=== PATIENT | male | born 1955 | race Caucasian/White ===

== ENCOUNTER 2016-07-07 16:43 | Inpatient (IN) ==
[2016-07-07] MEDS ORDERED: TYLENOL PO PRN (16:45)
[2016-07-07] MEDS ORDERED: ZOFRAN IV PRN (16:45)
[2016-07-07 18:44] LABS: MANUAL DIFF NEEDED? NO
[2016-07-07 18:58] LABS: BASO% 0.3 % (0.0-0.8); EOS# 0.08 X1000 (0.0-0.7); EOS% 0.6 % (0.0-10.0); HEMATOCRIT 37.8 % (42.0-52.0); IMM GRAN% 0.7 % (0.0-0.5); LYMPH# 1.56 X1000 (1.2-3.4); LYMPH% 10.7 % (20.5-51.1); MCHC 34.4 g/dL (33-37); MCV 101.9 FL (81-99); MONO# 1.42 X1000 (0.11-0.59); MONO% 9.8 % (1.7-9.3); MPV 11.5 FL (7.4-10.4); NEUT% 77.9 % (42.2-75.2); PLT 238 X1000 (130-400); RBC 3.71 XMIL (4.7-6.1)
[2016-07-07 19:19] LABS: DIRECT BILIRUBIN 6.5 mg/dL (0.00-0.20)
[2016-07-07 19:32] LABS: AGAP 15; ALBUMIN 2.2 g/dL (3.5-5.0); ALKALINE PHOSPHATASE 470 U/L (32-122); AMYLASE 25 U/L (20-200); BUN 23 mg/dL (8-22); CALCIUM 8.1 mg/dL (8.8-10.2); CHLORIDE 100 mmol/L (98-107); COSMO 285; GOT 137 U/L (10-34); GPT 69 U/L (10-44); POTASSIUM 4.2 mmol/L (3.5-5.1); SODIUM 135 mmol/L (136-145); TCO2 20 mmol/L (25-35); TOTAL BILIRUBIN 8.92 mg/dL (0.20-1.00); TOTAL PROTEIN 5.6 g/dL (6.3-8.3)
--- NOTE | 2016-07-07 19:36 | HISTORY AND PHYSICAL ---
CHIEF COMPLAINT: Nausea, vomiting, abdominal pain, and pronounced jaundice with hyperbilirubinemia. HISTORY OF PRESENT ILLNESS: The patient is a 61-year-old white male, followed in my medical practice. He is also followed by Dr. Sid Hurley. He has had several days of icterus and jaundice and abdominal bloating and diffuse abdominal pain. He has had nausea and vomiting off and on of bilious vomiting and has not been able to eat well. He describes a lack of energy. He has been followed in the hospital recently and was found to have pronounced hyperbilirubinemia recently, and he was admitted and workup up with studies, which were negative for biliary obstruction. The patient was thought to have hepatocellular cause of his hyperbilirubinemia. In fact, Dr. Hurley has suspected the patient's symptoms are caused by Zosyn and a cephalosporin he was on for osteomyelitis of the left foot for around 4 months. He has been followed by Dr. Williamson for that. The patient was considered for outpatient liver biopsy, but has done poorly, so he is being readmitted to the hospital due to intolerable symptoms. The patient has been workup with previous hospitalization with CT scan of the abdomen and pelvis, MRI abdomen, abdominal ultrasound, CT pulmonary angiogram, and HIDA scan. The patient was also seen by Dr. Nickolas Larsen for evaluation of his gallbladder, as there was a contracted gallbladder on some of the studies with some mild gallbladder wall thickening. Dr. Larsen did not feel like his symptoms were related to gallbladder disease at this time and elected to follow the patient. Notably, the patient also has had a rash develop on his chest earlier today. MEDICATIONS PRIOR TO ADMISSION: Albuterol MDI 2 puffs 4 times daily, Tessalon 200 mg p.o. t.i.d., Protonix 40 mg p.o. daily, Humulin 70/30 insulin 44 units subcutaneously every a.m., 24 units subcutaneously every p.m., losartan 100 mg p.o. daily. ALLERGIES: NKDA. PAST MEDICAL HISTORY: 1. "History of easy bleeding" per the patient's report. 2. Type 2 diabetes mellitus, longstanding, requiring insulin. 3. Diabetic retinopathy. 4. Peripheral arterial disease with history of stent placement to the left lower extremity in the last year. 5. History of osteomyelitis and diabetic foot ulcer on the left requiring amputation of his 2nd and 3rd toes on the left. 6. History of traumatic amputation to right great toe in 1964 with a supervisor gluing accident. 7. History of DVT of the right arm associated with PICC line in February 2016, on Xarelto until recently when this was stopped within the past week due to consideration for liver biopsy. PAST SURGICAL HISTORY: 1. Right toe traumatic amputation in 1964. 2. Amputations to the 2nd and 3rd toes on the left in January 2016. 3. Stent placement, left leg, in 2015. FAMILY HISTORY: Notable for a brother BAILON. No free bleeders in the family. Father with CAD at age 65. Mother and father with lung cancer. No hypertension or strokes in the family. Father and mother with diabetes mellitus. SOCIAL HISTORY: The patient lives in [place]. He is . He has 2 children. 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 He has never been a smoker. He does not drink alcohol. REVIEW OF SYSTEMS: As above. PHYSICAL EXAMINATION: VITAL SIGNS: Weight 244. Blood pressure 128/88, pulse 88, temperature 98.6 degrees. GENERAL: A mildly obese white male. HEENT/SKIN: [id number] ill-appearing skin. Icterus noted at the eyes and jaundice of the skin prominent. PERRL. EOMI. OP, no redness. Tongue in the midline. Mild red-tipped rash, about 20 of these lesions over the anterior chest and upper abdomen. NECK: No LA, TMG, JVD, bruits. CARDIOVASCULAR: RRR without murmur. LUNGS: CTA. ABDOMEN: Prominent distention. Active bowel sounds. Tender diffusely. No mass or organomegaly identified. RECTAL: Exam deferred. GENITOURINARY: Deferred. EXTREMITIES: He has 2+ lower extremity edema without calf tenderness or cords. NEUROLOGIC: Cranial nerves 2 through 12 intact. Nonfocal. ASSESSMENT: 1. Pronounced hyperbilirubinemia with no definitive diagnosis yet, but suspected hepatocellular cause, consideration for Zosyn/cephalosporin prolonged use as source. 2. Positive anti-nuclear antibody. 3. History of osteomyelitis, left foot, requiring 2nd and 3rd toe amputations, followed by Dr. Williamson. 4. Insulin dependent diabetes mellitus. 5. Diabetic retinopathy. 6. Peripheral arterial disease. 7. History of noncompliance remotely. 8. History of deep vein thrombosis of the right arm in late 2016, now off anticoagulation of Xarelto. PLAN: At this time, we will admit the patient back to the hospital and repeat CT of the abdomen and pelvis with oral and IV contrast. Check extensive labs. We will hold the Xarelto, as the patient is being considered for liver biopsy and possible ERCP. I have spoken with Dr. Hurley, his service station equipment mechanic, and he will follow with us to see the patient in the morning. We will give him treatment with Dilaudid and Zofran for nausea and pain control. Place pneumatic compression hose to help prevent DVT.
[2016-07-07] MEDS: NS + KCL 20 MEQ 1,000 ML IV SCH (20:12)
[2016-07-07] MEDS: VENTOLIN HFA INH SCH (21:00)
[2016-07-07] MEDS: COZAAR PO SCH (21:10)
[2016-07-07] MEDS: TEMOVATE 0.05% CREAM TOP SCH (21:10)
[2016-07-07] MEDS: HUMULIN R SUBQ SCH (21:40)
[2016-07-08] MEDS: VENTOLIN HFA INH SCH ×3 (03:00→19:58)
[2016-07-08 05:08] LABS: INR 1.48; PROTIME 15.8 Seconds (9.2-11.7); PTT 37.1 Seconds (22.0-36.0)
[2016-07-08] MEDS: DILAUDID IV PRN (06:10)
[2016-07-08] MEDS ORDERED: VITAMIN K 10 MG in NS 50 ML IV ONE (06:48)
--- NOTE | 2016-07-08 07:50 | Diag Imaging Result Document ---
PROCEDURE NAME: ABDOMEN/PELVIS W/CONTRAST - 07/07/2016 CT ABDOMEN PELVIS WITH INTRAVENOUS CONTRAST, 07/07/2016: COMPARISON: 06/24/2016. FINDINGS: The lung bases are clear and the heart size is grossly normal. There is a moderate amount of ascites which has increased since prior. The liver is atrophic and micronodular. Spleen size is grossly normal. Superior mesenteric vein, splenic vein, main portal vein and major hepatic veins are patent. The gallbladder is partially collapsed and otherwise unremarkable. Stable borderline enlarged celiac axis lymph nodes. No bowel obstruction or inflammation. Normal appendix. Urinary bladder, prostate, and rectum are normal. There is moderately advanced degeneration throughout the spine. No acute bony lesions. IMPRESSION: 1. Cirrhosis with a small amount of ascites, increased from prior. 2. Stable periportal adenopathy.
[2016-07-08] MEDS: HUMULIN R SUBQ SCH ×4 (10:45→22:12)
[2016-07-08 10:48] LABS: INR 1.46; PROTIME 15.5 Seconds (9.2-11.7); PTT 36.6 Seconds (22.0-36.0)
[2016-07-08] MEDS: PROTONIX PO SCH (11:27)
[2016-07-08] MEDS: CENTRUM SILVER PO SCH (11:27)
[2016-07-08] MEDS: TEMOVATE 0.05% CREAM TOP SCH ×2 (11:28→22:13)
--- NOTE | 2016-07-08 13:48 | Diag Imaging Result Document ---
PROCEDURE NAME: US LIVER BIOPSY W S/I - 07/08/2016 ULTRASOUND-GUIDED BIOPSY OF THE LIVER: COMMENT: The risks and benefits of the procedure including the possibility of bleeding, infection, or reaction to lidocaine were discussed with the patient and he agreed. Following sterile preparation of the skin administration of 1% lidocaine to the skin and deeper soft tissues, the left hepatic lobe was biopsied anteriorly 3 times with a coaxial 18-gauge Temno core biopsy needle. The patient tolerated the procedure well and there are no immediate complications. IMPRESSION: Successful ultrasound-guided liver biopsy.
[2016-07-08] MEDS ORDERED: NS 500 ML IV ONE (15:49)
[2016-07-08 16:22] LABS: MANUAL DIFF NEEDED? NO
[2016-07-08 16:30] LABS: BASO% 0.2 % (0.0-0.8); EOS# 0.04 X1000 (0.0-0.7); EOS% 0.3 % (0.0-10.0); HEMATOCRIT 34.1 % (42.0-52.0); HEMOGLOBIN 11.6 g/dL (14.0-18.0); IMM GRAN# 0.09 X1000 (0.0-0.04); IMM GRAN% 0.7 % (0.0-0.5); LYMPH# 1.46 X1000 (1.2-3.4); LYMPH% 11.1 % (20.5-51.1); MCH 35.4 PG (27-31); MONO# 1.34 X1000 (0.11-0.59); MONO% 10.2 % (1.7-9.3); MPV 11.4 FL (7.4-10.4); NEUT% 77.5 % (42.2-75.2); PLT 211 X1000 (130-400); RBC 3.28 XMIL (4.7-6.1)
--- NOTE | 2016-07-08 17:37 | ECHO REPORT ---
ORDER DATE: 07/08/2016 INDICATION: Possible vegetation, nausea, vomiting, jaundice. FINDINGS: 1. Right atrium is normal size at 3.1 cm. 2. No significant tricuspid regurgitation is identified. 3. Normal RV size and systolic function. 4. No significant pulmonic insufficiency. 5. Mild left atrial enlargement at 4.7 cm. 6. No mitral prolapse. Trace mitral regurgitation. 7. Normal LV size, end-diastolic dimension of 4.8 cm. There is mild left ventricular hypertrophy with a posterior and interventricular septal wall thickness 1.3 cm each. Normal LV systolic function. The estimated EF is greater than 55%. Endocardial border resolution on some images is difficult to visualize. 8. Aortic valve opens well. No evidence of stenosis or insufficiency. 9. Aorta appears normal in visualized segments. 10. No pericardial effusion seen. 11. There is no clear evidence of valvular vegetation on this study. If clinical suspicion is high would consider transesophageal echo.
[2016-07-08] MEDS: NS + KCL 20 MEQ 1,000 ML IV SCH (17:46)
[2016-07-08] MEDS: COZAAR PO SCH (22:10)
--- NOTE | 2016-07-09 02:35 | CONSULTATION ---
DATE OF CONSULTATION: 07/08/2016 GASTROENTEROLOGY INPATIENT CONSULTATION: OPERATIVE PHYSICIAN: Dr. Meyer. REASON FOR CONSULTATION: Elevated liver enzymes, jaundice. HISTORY OF PRESENT ILLNESS: Mr. Go is a 61-year-old male who was recently discharged 2 weeks ago after workup of his new onset of elevated liver enzymes and jaundice. At that time, his imaging, CT, MRI and hepatitis panel hemochromatosis workup was negative and at that time the positive findings were positive antinuclear antibody, gallbladder dyskinesia and positive HIDA scan. The last 2 weeks the patient has not felt any better. He complains of abdominal bloating, discomfort and worsening icterus, lack of energy. He presented to the hospital. His bilirubin was slightly worse. Imaging at this time showed evidence of liver cirrhosis, a small amount of fluid around the liver. There was evidence of periportal adenopathy which was stable. The patient had a history of osteomyelitis of the foot for which he was on antibiotics with Zosyn and ceftaroline for 4 months under care of Infectious Disease in [place]. Prior to that, based on the records his liver enzymes are normal. Although he did have the risk factors for chronic liver disease, lymphoma, obesity, diabetes, and metabolic syndrome. But we were concerned about chronic fatty liver disease versus autoimmune liver disease as he has a positive KATIE versus drug-induced liver disease secondary to prolonged use of antibiotics. In this regard the patient underwent liver biopsy today, the results are currently pending. PAST MEDICAL HISTORY: 1. History of easy bleeding. 2. Type 2 diabetes. 3. Obesity. 4. Diabetic retinopathy. 5. Peripheral arterial disease. 6. History of stent placement in the left lower extremity in the last year. 7. History of osteomyelitis and diabetic foot ulcer requiring amputation of 2nd and 3rd toes and requiring 4 months of antibiotics, finishing in June 2016. 8. Traumatic amputation of the right great toe in 1964 with a senior front end engineer accident. 9. History of a DVT in the right arm associated with PICC line in February 2016, was started on Xarelto, which has been stopped last week. PAST SURGICAL HISTORY: Right toe traumatic amputation in 1964, amputation of 2nd and 3rd toes on the left in January 2016, stent placement in left leg in 2015. FAMILY HISTORY: Significant for a brother with BAILON who , father with history of Crohn's disease, mother and father with lung cancer, father and mother both with diabetes. SOCIAL HISTORY: He lives in [place]. He is . He has 2 children. 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 He has a very supportive at bedside. He denies history of alcohol. Denies any smoking. Denies any history of drugs. REVIEW OF SYSTEMS: He denies any current fevers, rigors, or chills. Does complain of fatigue, malaise, and swelling in his legs, and feels bloated. Denies any vomiting blood or passing blood in the stools. Denies any urological complaints. Denies any blood in the urine. PHYSICAL EXAMINATION: Vital Signs: Temperature 97.6 degrees, pulse of 84, respiratory rate of 17, blood pressure 113/67, saturating 94%. Repeat blood pressure check was 92/ 58, saturating 92%. General Appearance: Obese, lying in bed, in no acute distress. HEENT: Pale conjunctivae. Icteric sclerae. The pupils equal, react to light. Neck: Supple. Chest: Decreased. Cardiac: Regular rhythm. No murmur. Abdomen: Obese, soft. Nontender, nondistended. Bowel sounds heard. No rebound or guarding. Extremities: Bilateral lower extremities as noted., Neurologic: Alert, awake, oriented x3. LABS: Hemoglobin and hematocrit is 13 and 37.8, white count of 14.5, platelet count of 238,000, MCV of 101.9, PT of 15.5, INR of 1.46, PTT of 36.6. Sodium of 135, potassium 4.2, chloride 100, bicarbonate 20, anion gap of 15, BUN of 23, creatinine 0.8, glucose of 293, calcium 8.1, total bilirubin is 8.9, direct of 6.5, AST 137, ALT 69, alkaline phosphatase is 470, total protein 5.6, albumin of 2.2. Amylase of 25, lipase 17. IMAGING: CT scan done on 06/29/2016 showed: 1. Moderate amount of ascites which has increased since prior. 2. The liver is atrophic and micronodular. 3. Spleen size is grossly normal. 4. Superior mesenteric veins, splenic vein and main portal vein and major hepatic veins are patent. The gallbladder is partially collapsed, otherwise unremarkable. Stable borderline enlarged limb, enlarged celiac axis lymph nodes noted. No bowel obstruction , inflammation. Normal appendix. Urinary, bladder, prostate and rectum are normal. There is moderately advanced degeneration throughout the spine. IMPRESSION: 1. Jaundice diagnosed for 3 weeks of new onset, positive KATIE, prolonged use of antibiotics of Zosyn and ceftaroline for 4 months for osteomyelitis of the toe, history of diabetes, metabolic syndrome, and obesity, and strong family history of fatty liver disease in his brother. 2. Celiac axis nodes enlarged, unclear etiology. 3. Jaundice. 4 Mild coagulopathy. 5. Mild anemia. 6. Leukocytosis with white count of 14.53. RECOMMENDATIONS: 1. We will follow the results of liver biopsy. will check Anti smooth muscle Antibody. 2. We will check ammonia level. 3. We will obtain echocardiogram to evaluate for any kind of agitation in the heart which can preclude him from getting steroids. We plan on giving him a short course of oral steroids for a short period of time to help with potential drug induced liver injury. 4. The patient was also counseled to keep a good control of his diabetes and lose weight. 5. We will check patient's labs and follow them closely. 6. We have given him 1 dose of vitamin K today. 7. The patient will be on low-salt diet with less than 2 g per 24 hours and avoid hepatotoxic drugs. We will keep him on Iron C once daily and multivitamin once daily. 8. Also I want to mention that patient has enlarged celiac lymph nodes. Patient will need at some point EGD to evaluate for varices and evaluate for any kind of gastric etiology causing enlargement of celiac nodes. 9. Further recommendations to follow pending hospital course. [facility]
[2016-07-09] MEDS: VENTOLIN HFA INH SCH ×4 (03:30→19:26)
[2016-07-09 05:05] LABS: MANUAL DIFF NEEDED? NO
[2016-07-09 05:17] LABS: BASO% 0.4 % (0.0-0.8); EOS# 0.11 X1000 (0.0-0.7); EOS% 0.9 % (0.0-10.0); HEMOGLOBIN 12.1 g/dL (14.0-18.0); IMM GRAN# 0.08 X1000 (0.0-0.04); IMM GRAN% 0.6 % (0.0-0.5); LYMPH# 1.59 X1000 (1.2-3.4); LYMPH% 12.4 % (20.5-51.1); MCH 35.6 PG (27-31); MCHC 34.6 g/dL (33-37); MCV 102.9 FL (81-99); MONO# 1.48 X1000 (0.11-0.59); MONO% 11.5 % (1.7-9.3); MPV 11.2 FL (7.4-10.4); NEUT% 74.2 % (42.2-75.2); PLT 222 X1000 (130-400)
[2016-07-09 05:37] LABS: AGAP 13; ALBUMIN 2.1 g/dL (3.5-5.0); ALKALINE PHOSPHATASE 426 U/L (32-122); BUN 29 mg/dL (8-22); CALCIUM 7.8 mg/dL (8.8-10.2); CHLORIDE 100 mmol/L (98-107); COSMO 281; GOT 124 U/L (10-34); GPT 63 U/L (10-44); POTASSIUM 4.5 mmol/L (3.5-5.1); SODIUM 136 mmol/L (136-145); TCO2 23 mmol/L (25-35); TOTAL BILIRUBIN 7.13 mg/dL (0.20-1.00); TOTAL PROTEIN 4.5 g/dL (6.3-8.3)
[2016-07-09] MEDS: PROTONIX PO SCH (06:40)
[2016-07-09] MEDS: HUMULIN R SUBQ SCH ×4 (06:40→22:02)
[2016-07-09] MEDS: TEMOVATE 0.05% CREAM TOP SCH ×2 (08:47→22:01)
[2016-07-09] MEDS: CENTRUM SILVER PO SCH (08:47)
--- NOTE | 2016-07-09 11:47 | PROGRESS NOTE ---
DATE: 07/09/2016 SUBJECTIVE: Patient is resting in bed. He is feeling better. We are going to advance his diet. He is feeling hungry. OBJECTIVE: Vital signs: Temperature of 98 degrees, pulse rate of 88, respiratory rate 20, blood pressure 100/72, saturating 97% on room air. General Appearance: Mildly obese, lying in bed, in no acute distress. HEENT: Pale conjunctivae. Anicteric sclerae. Neck: Supple. Abdomen: Obese. Mild distention noted. Positive ascites. No rebound. No guarding. Bowel sounds present. Extremities: No cyanosis, clubbing. Bilateral SCD and TEDs noted. Neurologic: He is alert, alert, awake, and oriented x3. LABS: Hemoglobin and hematocrit are 12.1 and 35, platelet count of 222,000, white count of 12.85, MCV of 102.9. INR 1.46. Sodium 132, potassium 4.5, chloride 100, bicarb 20, anion gap 13, BUN of 29, creatinine 0.9, glucose of 159, calcium 7.8. Total bilirubin 7.13, AST 124, ALT 63, alkaline phosphatase 426. Ammonia of 84. Total protein 4.5. Albumin of 2.1. Echocardiogram was negative for any vegetations. IMPRESSION AND PLAN: 1. Liver cirrhosis, new diagnosis, unclear etiology. Likely BAILON with super added drug injury from prolonged use of antibiotics like Zosyn and ceftaroline for 4 months for treatment of osteomyelitis of his toes in the setting of known history of diabetes and obesity, metabolic syndrome. Only other etiology we need to evaluate is autoimmune hepatitis as the patient has a positive KATIE. In this regard we will check antismooth muscle antibody. 2. We will follow the results of liver biopsy. 3. Since the patient has high ammonia we will start him on lactulose 3 times daily and hold for more than 3 bowel movements in 24 hours. 4. Will start him on prednisone 20 mg daily for now to evaluate for any drug induced hepatitis related improvement. 5. Watch his labs closely. We will avoid hepatotoxic drugs. 6. At some point, once his liver picture is clear we will need an EGD to evaluate for varices as well as to evaluate the enlargement of celiac axis nodes. We plan to do that early next week, either inpatient or outpatient. 7. Above plan was discussed with the patient and all questions answered.
[2016-07-09] MEDS: LACTULOSE PO SCH ×2 (12:01→20:01)
[2016-07-09] MEDS: NS + KCL 20 MEQ 1,000 ML IV SCH (17:03)
[2016-07-09] MEDS: PREDNISONE PO SCH (17:27)
[2016-07-09] MEDS: DILAUDID IV PRN (19:22)
[2016-07-09] MEDS: COZAAR PO SCH (22:01)
[2016-07-10] MEDS: VENTOLIN HFA INH SCH ×4 (03:25→20:50)
[2016-07-10] MEDS: PROTONIX PO SCH (06:32)
[2016-07-10] MEDS: HUMULIN R SUBQ SCH ×4 (06:33→21:37)
[2016-07-10] MEDS ORDERED: INSULIN PEN NEEDLES ONE (06:48)
[2016-07-10 06:49] LABS: INR 1.43; PROTIME 15.2 Seconds (9.2-11.7)
[2016-07-10 07:09] LABS: AGAP 14; ALBUMIN 2.1 g/dL (3.5-5.0); ALKALINE PHOSPHATASE 454 U/L (32-122); BUN 31 mg/dL (8-22); CALCIUM 7.6 mg/dL (8.8-10.2); CHLORIDE 100 mmol/L (98-107); COSMO 280; GOT 126 U/L (10-34); GPT 64 U/L (10-44); POTASSIUM 5.2 mmol/L (3.5-5.1); SODIUM 134 mmol/L (136-145); TCO2 20 mmol/L (25-35); TOTAL BILIRUBIN 7.42 mg/dL (0.20-1.00); TOTAL PROTEIN 4.8 g/dL (6.3-8.3)
[2016-07-10 07:18] LABS: BASO% 0.1 % (0.0-0.8); EOS# 0.01 X1000 (0.0-0.7); EOS% 0.1 % (0.0-10.0); HEMATOCRIT 34.3 % (42.0-52.0); HEMOGLOBIN 12.2 g/dL (14.0-18.0); IMM GRAN# 0.07 X1000 (0.0-0.04); IMM GRAN% 0.5 % (0.0-0.5); LYMPH# 0.91 X1000 (1.2-3.4); LYMPH% 6.8 % (20.5-51.1); MANUAL DIFF NEEDED? YES; MCH 36.1 PG (27-31); MCHC 35.6 g/dL (33-37); MCV 101.5 FL (81-99); MONO# 0.77 X1000 (0.11-0.59); MONO% 5.8 % (1.7-9.3); MPV 11.5 FL (7.4-10.4); NEUT% 86.7 % (42.2-75.2); PLT 201 X1000 (130-400); RBC 3.38 XMIL (4.7-6.1)
[2016-07-10 07:21] LABS: LYMPHS 8 % (21-51); MONO 4 % (1-9)
[2016-07-10] MEDS ORDERED: LANTUS SUBQ SCH (09:00)
[2016-07-10] MEDS: NS 1,000 ML IV SCH (09:11)
--- NOTE | 2016-07-10 09:29 | PROGRESS NOTE ---
DATE: 07/10/2016 SUBJECTIVE: The patient had a bad bout of epigastric pain last night, hard to relieve, but some improvement after Dilaudid and Tylenol. He has not got any severe pain in his epigastrium this morning, thankfully. He is trying to eat a little this morning and feels like the swelling may have gone down in his feet a little bit. OBJECTIVE: Vital signs: Afebrile, vital signs stable. CV: RRR without murmur. Lungs: CTA. Extremities: 2+ lower extremity edema. Abdomen: Protuberant, mild epigastric tenderness. LABS: Sodium 134, potassium 5.2, BUN 31, creatinine 0.8. Liver function tests remain mildly to moderately elevated with total bilirubin at 7.4 today. Blood sugar ranging 155 to 241. Ammonia level down from 84 to 63. INR 1.43 today. White count 13, hemoglobin 12.2, platelets 201. ASSESSMENT: 1. Cirrhosis of the liver. 2. Positive KATIE. 3. Elevated ammonia. 4. Insulin-dependent diabetes mellitus. 5. Obesity. 6. Hypertension. PLAN: Will add Lantus as he is on prednisone at low dose per Dr. Hurley now. Continue high-dose SSI. Continue ADA diet. Low IV hydration. Will remove the potassium from his IVF. Still awaiting liver biopsy results. Continue lactulose as tolerated.
[2016-07-10] MEDS: CENTRUM SILVER PO SCH (09:40)
[2016-07-10] MEDS: PREDNISONE PO SCH (09:41)
[2016-07-10] MEDS: TEMOVATE 0.05% CREAM TOP SCH ×2 (09:41→21:37)
[2016-07-10] MEDS: LACTULOSE PO SCH ×2 (09:42→21:37)
[2016-07-10] MEDS: COZAAR PO SCH (21:37)
[2016-07-10] MEDS: DILAUDID IV PRN (21:49)
[2016-07-11] MEDS: VENTOLIN HFA INH SCH ×4 (03:22→20:10)
[2016-07-11] MEDS: HUMULIN R SUBQ SCH ×4 (06:16→20:52)
[2016-07-11] MEDS: PROTONIX PO SCH (06:17)
[2016-07-11] MEDS: NS 1,000 ML IV SCH (07:30)
--- NOTE | 2016-07-11 08:02 | PROGRESS NOTE ---
DATE: 07/11/2016 SUBJECTIVE: Patient requiring Dilaudid for pain control, which works most of the time and also has had some nausea. He tried to eat a little baked fish, but could not eat any supper much last night and he feels nauseated quite a bit. He feels like his swelling my be dissipating very slightly. OBJECTIVE: Vital Signs: Afebrile. Pulse 73, respirations 16, blood pressure 127/69, O2 saturation 98-100% on room air. Cardiovascular: RRR. Lungs: CTA. Abdomen: Protuberant. Some distention in ascites. Active bowel sounds. Tenderness in epigastrium noted. Extremities: One plus lower extremity edema. LAB DATA: Was not repeated today. Yesterday, total bilirubin remained the same at 7.42 with mild- to-moderate elevation in his LFTs. Ammonia level was down slightly to 63 yesterday. Pathology from liver biopsy still pending. ASSESSMENT: 1. Pronounced hyperbilirubinemia with cirrhosis of the liver. No definite diagnosis yet. 2. Positive KATIE. 3. Elevated ammonia. 4. Insulin-dependent diabetes mellitus. 5. Obesity. 6. Hypertension. PLAN: Still trying to gain control of his blood sugar on the prednisone for the hyperbilirubinemia/cirrhosis per Dr. Hurley. We will up his Lantus slightly. Continue to try to encouraged him to eat. Continue low IV hydration. Dilaudid for pain control. Antiemetics, lactulose for ammonia elevation. We will continue to await liver biopsy. Once he is eating and blood sugar better controlled, will try to discharge home.
[2016-07-11] MEDS: CENTRUM SILVER PO SCH (09:37)
[2016-07-11] MEDS: LACTULOSE PO SCH ×2 (09:37→20:52)
[2016-07-11] MEDS: PREDNISONE PO SCH (09:37)
[2016-07-11] MEDS: LANTUS SUBQ SCH ×2 (09:38→09:39)
[2016-07-11] MEDS: TEMOVATE 0.05% CREAM TOP SCH ×2 (09:39→20:53)
--- NOTE | 2016-07-11 09:59 | PROGRESS NOTE ---
DATE: 07/10/2016 SUBJECTIVE: The patient is feeling much better. Actually, he had a good lunch. He does not have any more nausea. His coffee is gone. OBJECTIVE: Vital Signs: Temperature 98 degrees, pulse 80, respirations 20, blood pressure 100/72, saturation 97% on room air. General: Mildly obese sitting up in bed, jovial. HEENT: Conjunctival pallor present. Scleral icterus present. Neck supple. Trachea in midline. Heart and lungs normal. Abdomen mildly distended secondary to ascites. No guarding, rebound, or rigidity. Extremities: No cyanosis or clubbing. Neurologic: Alert and oriented. No obvious signs of hepatic encephalopathy. LABORATORY: Hemoglobin and hematocrit 12.1 and 35. White count 12.85 with MCV slightly high. INR 1.46. Glucose is 159. Total bilirubin 7.13 which is slightly less. AST and ALT are slightly elevated. Alkaline phosphatase still is very high at 426. Ammonia 84. Albumin slightly low. Echocardiogram: No vegetations. IMPRESSION: 1. Intrahepatic cholestasis. 2. Active hepatitis of unclear etiology resulting in cirrhosis and fibrosis. 3. Liver biopsy is pending. 4. Ammonia slightly high; being treated with lactulose, but he does not show any signs of hepatic encephalopathy. He is taking prednisone 20. In view of no vegetations and no signs of ongoing osteomyelitis, we will increase prednisone. I will discuss that with Dr. Hurley. The patient will get an EGD to conform with esophageal varices. The plan was discussed with the patient.
[2016-07-11] MEDS: DILAUDID IV PRN (14:54)
--- NOTE | 2016-07-11 20:01 | PROGRESS NOTE ---
DATE: 07/11/2016 This is a progress note on Mr. Go for Dr. Hurley. Patient is sitting up in the bed and has just finished his lunch. He tells me he is tolerating his diet well. Has not had any abdominal pain or nausea. He has not had any new complaints. He feels as if he is good to go home. VITAL SIGNS: Temperature 97.8 degrees, pulse is 84 per minute, breathing 22 per minute, blood pressure was 110/66. Abdomen is full, soft, nontender. Bowel sounds are audible. Labs reviewed which showed labs today were not done. AST, ALT and alkaline phosphatase from yesterday noted. The liver biopsy report is still pending. IMPRESSION: Intrahepatic cholestasis of unknown etiology. Chronic kidney disease, with possible cirrhosis. Liver biopsy pending. Patient appears to be doing well. Has not had any GI symptoms. He has tolerated diet well. From GI point of view, he is stable enough and can be discharged, however I will leave it up to the primary care and follow up while he has in here. His liver biopsy report is still pending and he may need EGD to look in his esophagus to check for varices. Patient otherwise is doing well and did not have any specific request except that he wants to go home.
[2016-07-11] MEDS: COZAAR PO SCH (20:52)
[2016-07-12] MEDS: VENTOLIN HFA INH SCH ×5 (02:53→20:15)
[2016-07-12] MEDS: PROTONIX PO SCH (06:19)
[2016-07-12] MEDS: HUMULIN R SUBQ SCH ×4 (06:19→22:00)
[2016-07-12 06:32] LABS: MANUAL DIFF NEEDED? NO
[2016-07-12 06:40] LABS: BASO% 0.2 % (0.0-0.8); EOS# 0.07 X1000 (0.0-0.7); EOS% 0.5 % (0.0-10.0); HEMATOCRIT 35.2 % (42.0-52.0); IMM GRAN# 0.09 X1000 (0.0-0.04); IMM GRAN% 0.6 % (0.0-0.5); LYMPH# 1.56 X1000 (1.2-3.4); LYMPH% 10.4 % (20.5-51.1); MCH 35.6 PG (27-31); MCHC 34.1 g/dL (33-37); MCV 104.5 FL (81-99); MONO# 1.88 X1000 (0.11-0.59); MONO% 12.5 % (1.7-9.3); MPV 11.3 FL (7.4-10.4); NEUT% 75.8 % (42.2-75.2); PLT 192 X1000 (130-400); RBC 3.37 XMIL (4.7-6.1)
[2016-07-12 06:56] LABS: AGAP 11; ALKALINE PHOSPHATASE 473 U/L (32-122); BUN 27 mg/dL (8-22); CALCIUM 7.9 mg/dL (8.8-10.2); CHLORIDE 103 mmol/L (98-107); COSMO 280; GOT 139 U/L (10-34); GPT 76 U/L (10-44); POTASSIUM 4.5 mmol/L (3.5-5.1); SODIUM 136 mmol/L (136-145); TCO2 22 mmol/L (25-35); TOTAL BILIRUBIN 5.19 mg/dL (0.20-1.00); TOTAL PROTEIN 5.1 g/dL (6.3-8.3)
[2016-07-12] MEDS: LACTULOSE PO SCH ×2 (08:37→20:25)
[2016-07-12] MEDS: PREDNISONE PO SCH (08:37)
[2016-07-12] MEDS: CENTRUM SILVER PO SCH (08:37)
[2016-07-12] MEDS: NS 1,000 ML IV SCH (08:37)
[2016-07-12] MEDS: LANTUS SUBQ SCH (08:37)
[2016-07-12] MEDS: TEMOVATE 0.05% CREAM TOP SCH ×2 (08:38→20:25)
--- NOTE | 2016-07-12 13:59 | PROGRESS NOTE ---
DATE: 07/12/2016 SUBJECTIVE: Patient says he was doing well yesterday but at lunch he ate a half a roast beef sandwich and had excruciating pain in his upper abdomen, said the worst pain he has ever had. He says he did see some ease with Dilaudid and did a little better with supper, ate just a little bit this morning and last night for supper but he is having abdominal pain and he refuses to go home now. Says the pain is severe at times and he does not think he could stand it outpatient. He also wants to have the EGD looking for varices done while he is in the hospital. OBJECTIVE: Vital signs: Afebrile. Pulse 76, respirations 16, blood pressure 112/65, O2 saturation on room air 96-100%. CV: RRR without murmur. Lungs: CTA. Abdomen: Soft. Mild epigastric tenderness. Extremities: Trace lower extremity edema. I, Os incomplete. BM x1 yesterday. LABS: White count 15, hemoglobin 12, platelets 192,000. Sodium 136, potassium 4.5, chloride 103, CO2 22, BUN 27, creatinine 0.7, glucose 200-250, total bilirubin finally declining slightly at 5.19 with less jaundice noted on exam. AST 139, ALT 76, alkaline phosphatase 473, total protein 5.1, albumin 2.0. ASSESSMENT: 1. Intrahepatic cholestasis with cirrhosis of the liver. Unknown etiology so for. Positive KATIE. 2. Elevated ammonia improved. 3. Insulin-dependent diabetes mellitus. 4. Obesity. 5. Hypertension. PLAN: Continue pain control with IV Dilaudid p.r.n. Continue Lantus and SSI. Continue to follow with Dr. Hurley as he plans for possible endoscopy.
--- NOTE | 2016-07-12 15:48 | PROGRESS NOTE ---
DATE: 07/12/2016 SUBJECTIVE: Patient states he feels a little better today. Yesterday after eating a roast beef sandwich he reports severe abdominal pain in upper abdomen. The pain is better today. He did tolerate breakfast and lunch so far today. He is wanting to have an EGD done before he leaves the hospital. OBJECTIVE: Vital Signs: Temperature 97.4 degrees, pulse 85, respirations 22, blood pressure 128/74. General Appearance: Patient is awake and alert. Sitting on the side of the bed in no acute distress. Respiratory: Lung sounds clear bilaterally. Abdomen: Soft. Mild tenderness in the epigastric area. Cardiovascular: Regular rate and rhythm. LABORATORY: Hematology. White count 15.01, hemoglobin 12.0, hematocrit 35.2, MCV 104.5, platelet 192,000. Chemistry. Sodium 136, potassium 4.5, chloride 103, CO2 22, BUN 27, creatinine 0.9, glucose 151, total bilirubin 5.19, AST 139, ALT 76, alkaline phosphatase 473. ASSESSMENT AND PLAN: Intrahepatic cholestasis with possible cirrhosis. Liver biopsy is pending. Patient continues to have abdominal pain off and on. He wants to proceed with EGD before leaving the hospital. I will place in the computer to be NPO after midnight. I have asked the kitchen steward/stewardess to contact Dr. Hurley in the morning for possible EGD. Further plans to be made according to Dr. Hurley who will apple picking supervisor management tomorrow. Dictated by AARON Reynolds for Keith Mcdonnell MD
[2016-07-12] MEDS: COZAAR PO SCH (20:25)
[2016-07-12] MEDS: DILAUDID IV PRN (20:26)
[2016-07-12] MEDS ORDERED: DILAUDID IV PRN ×2 (22:14→22:15)
[2016-07-13] MEDS: VENTOLIN HFA INH SCH ×3 (03:46→15:35)
[2016-07-13] MEDS: PROTONIX PO SCH (06:16)
[2016-07-13] MEDS: HUMULIN R SUBQ SCH ×3 (06:43→16:12)
[2016-07-13] MEDS ORDERED: ZOFRAN ONE (08:20)
[2016-07-13] MEDS ORDERED: PEPCID ONE (08:21)
[2016-07-13] MEDS ORDERED: PEPCID IV ONE (08:37)
[2016-07-13] MEDS ORDERED: ZOFRAN IV ONE (08:38)
[2016-07-13] MEDS ORDERED: MYLICON DROPS (DOSE) MISC ONE (08:51)
[2016-07-13] MEDS ORDERED: DIPRIVAN 1% ONE (09:08)
[2016-07-13] MEDS ORDERED: XYLOCAINE-MPF 2% ONE (09:18)
[2016-07-13] MEDS ORDERED: EXTENSION SET 32 IN 4522 ONE (09:18)
[2016-07-13] MEDS ORDERED: ANESTHESIA PB SET 88 IN 5742 ONE (09:18)
[2016-07-13] MEDS ORDERED: NS 1,000 ML ONE (09:18)
[2016-07-13] MEDS: NS 1,000 ML IV SCH (10:00)
[2016-07-13] MEDS: LACTULOSE PO SCH (10:01)
[2016-07-13] MEDS: CENTRUM SILVER PO SCH (10:01)
[2016-07-13] MEDS: PREDNISONE PO SCH (10:01)
[2016-07-13] MEDS: TEMOVATE 0.05% CREAM TOP SCH (10:02)
[2016-07-13 11:07] LABS: INR 1.51; PROTIME 16.1 Seconds (9.2-11.7); PTT 32.2 Seconds (22.0-36.0)
[2016-07-13] MEDS: LANTUS SUBQ SCH (14:04)
--- NOTE | 2016-07-13 14:29 | Diag Imaging Result Document ---
PROCEDURE NAME: US PARACENTESIS - 07/13/2016 ULTRASOUND-GUIDED PARACENTESIS: FINDINGS: The risks and benefits including bleeding, infection, reaction to lidocaine and inadvertent puncture of abdominal organs was discussed with the patient and he agreed. Following sterile preparation the skin administration of 1% lidocaine to the skin and deeper soft tissues, the paracentesis catheter was placed and free flow of dark reddish brown fluid was obtained for a total volume of 3.7 L. This was sent to the laboratory in its entirety. The patient tolerated the procedure well and there are no immediate complications. IMPRESSION: Successful ultrasound-guided paracentesis.
[2016-07-13 15:07] LABS: DIFF NEEDED? YES; MONOS 81 %; POLYS 19 %; WBC BF 75 /cumm
--- NOTE | 2016-07-13 16:30 | OPERATIVE NOTE ---
PROCEDURE DATE: 07/13/2016 ATTENDING PHYSICIAN: Dr. Hill. REQUESTING PHYSICIAN: Dr. Meyer. TITLE OF PROCEDURE: Esophagogastroduodenoscopy with biopsy of the gastric antral ulcer. PREOPERATIVE DIAGNOSES: 1. Abdominal pain, postprandial. 2. History of liver cirrhosis secondary to nonalcoholic steatohepatitis, metabolic syndrome, diabetes with recent exacerbation in the form of jaundice after a prolonged course of antibiotics with Zosyn and ceftaroline for 4 months for osteomyelitis of the foot which caused worsening of the jaundice and decompensation of underlying liver disease causing thrombocytopenia, coagulopathy, hyperammonemia, ascites, and anemia. POSTOPERATIVE DIAGNOSES: 1. Normal esophagus. 2. Z-line is at 38 cm. 3. No gastric and no evidence of any esophageal varices. 4. Gastritis in the body which is chronic with snakeskin appearance suggesting portal hypertension. 5. Evidence of superficial gastric ulcer in the gastric antrum, status post biopsy. 6. Normal fundus, cardia, incisura with no evidence any gastric varices . 7. Normal duodenal bulb and second portion of the duodenum. ESTIMATED BLOOD LOSS: Minimal. COMPLICATIONS: None. ANESTHESIA: Monitored anesthesia care per the anesthesiologist. SPECIMEN: Gastric antral ulcer biopsy. DESCRIPTION OF PROCEDURE: After informed consent from the patient, explaining the risks, benefits, indications, and alternatives, the patient was prepared for EGD. The risks of the procedure including infection, bleeding, pain, trauma to the surrounding structures, perforation, and were explained to the patient, among others, and he acknowledged understanding and agreed to proceed with the procedure. The patient was brought to the OR, turned in the left lateral position. A bite block was placed in the mouth. After adequate monitored anesthesia care, the upper scope was introduced. It was advanced all the way to the second portion of the duodenum. The esophagus was normal in the entire length. There was no evidence of any esophageal varices. Z-line was at 38 cm. The scope was advanced with evidence of chronicity in the gastric body in the form of snakeskin appearance, mucosal edema, patchy erythema suggesting portal hypertensive gastropathy. Retroflexion in the stomach revealed normal fundus, cardia, and incisura. No evidence of any gastric varices. There was evidence of a superficial ulcer in the gastric antrum. There was a moderate degree of enteritis. This was biopsied. There was minimal bleeding at the site but it stopped spontaneously. The scope was advanced into the duodenum which showed normal duodenal bulb and second portion. The scope was withdrawn to the stomach. The air was removed as the scope was withdrawn. The patient tolerated the procedure and is currently monitored in the OR in stable condition. I discussed the findings with the patient on waking and answered all questions. RECOMMENDATIONS: 1. The patient will be on Protonix once daily for 3 months. 2. The patient will follow gastroesophageal reflux life changes and avoid any NSAIDs. 3. The patient will undergo paracentesis as soon as he has worsening abdominal distention. We will schedule for that. 4. The patient follow with me in the clinic in 1 month after discharge. 5. We will follow up the stomach biopsies as well as the pending liver biopsy. The preliminary liver biopsy report showed nonalcoholic steatohepatitis and cirrhosis with recent exacerbation of hepatitis, likely from drug-induced but the final pathology report is pending. They are also seeking a 2nd opinion at [facility]. In this regard, the patient will continue on prednisone 20 mg daily and is showing some improvement in the jaundice. His last total bilirubin yesterday was 5. We will keep him on a small dose of prednisone 20 mg for 2 weeks and then start weaning it down, depending on the patient's liver status. 6. Further recommends pending hospital course. MTDD
[2016-07-13 17:29] VITALS: BP 100/67
[2016-07-13] MEDS ORDERED: CARAFATE LIQUID PO SCH (21:00)
--- NOTE | 2016-07-14 13:23 | DISCHARGE SUMMARY ---
ADMISSION DATE: 07/07/2016 DISCHARGE DATE: 07/13/2016 DIAGNOSES: 1. Cirrhosis of the liver with pronounced hyperbilirubinemia thought related to intrahepatic cholestasis, possibly related to nonalcoholic steatohepatitis and long-standing antibiotic usage of Zosyn. 2. Superficial gastric ulcer in the gastric antrum with gastritis in the body of the stomach which likely is chronic suggesting portal hypertension with no signs of esophageal varices. 3. Pronounced ascites requiring therapeutic paracentesis with good results. 4. Positive KATIE. 5. History of osteomyelitis left foot ultimately requiring amputation of left 2nd and 3rd toes, healing without signs of definite infection. 6. Insulin-dependent diabetes mellitus. 7. Diabetic retinopathy. 8. Peripheral arterial disease. 9. Remote history of noncompliance. 10. History of deep vein thrombosis right arm late 2015 associated with line placement, now off Xarelto. 11. Obesity. 12. Hypertension. CONSULTANTS: Dr. Sid Hurley, gastroenterology. PROCEDURES: 1. CT abdomen and pelvis with IV contrast revealing cirrhosis with small amount of ascites, stable portal adenopathy. 2. Liver biopsy with ultrasound guidance done 07/08/2016. 3. Echocardiogram done 07/08/2016. EF of 55%. Trace MR. Mild left atrial enlargement. No evidence of valvular vegetations. 4. EGD done 07/13/2016 revealing normal esophagus. No esophageal varices. No gastric varices. Gastritis in the body of the stomach appearing chronic with snake skin appearance suggesting portal hypertension. Superficial gastric ulcer in the gastric antrum status post biopsy. Normal fundus, cardia, and incisura and normal duodenal bulb and second portion of the duodenum. 5. Paracentesis successful with total volume removed 3.7 L. REASON FOR ADMISSION AND HOSPITAL COURSE: The patient is a 61-year-old white male followed in my medical practice and also followed by Dr. Hurley. He has a long-standing history which is quite complicated. The patient has a history of obesity and IDDM. He has a history of noncompliance associated with his diabetes. He suffered osteomyelitis of the left foot second and third toes which ultimately required amputation. He was followed by Dr. Williamson, infectious disease in [place], and was treated with some 4 months of IV antibiotics to include cephalosporin and IV Zosyn. Patient developed hyperbilirubinemia and this is the 2nd hospital admission for that as he was having severe nausea and vomiting and abdominal pain. He was readmitted and liver biopsy was done after CT abdomen showed likely cirrhosis. Liver biopsy is still pending. The patient underwent echocardiogram which showed no valvular vegetations. The patient was treated with lactulose due to elevated ammonia levels and saw that defervesce. Total bilirubin declined from 8.5 down to 5.19 by discharge and he was stooling well. He did have prominent ascites. EGD was performed which showed no gastric or esophageal varices. The patient did have a superficial gastric ulcer and that will be treated with Protonix. He had been placed on prednisone as he had a positive KATIE and he is on that at 20 mg daily and he will take that with food. He will continue that under Dr. Hurley's recommendation at 20 mg daily for the next 2 weeks and then will start to decrease it gradually. Will await liver biopsy and biopsy of the antral gastric ulcer. Paracentesis was performed and 3.7 L were removed with improvement in the patient's status. He did well after the EGD and paracentesis and it was felt that he could be discharged home to follow up in my office in [address] Sargent in 1 month. Will await pathology results as stated. DISCHARGE MEDICATIONS: Will include lactulose 30 mL p.o. daily, Protonix 40 mg p.o. daily, prednisone 20 mg p.o. daily, Carafate 1 g p.o. a.c. and at bedtime, Cozaar 100 mg p.o. at bedtime, Humulin 70/30 insulin 44 units subcutaneously q.a.m. and 24 units subcutaneously q.p.m., multivitamin 1 p.o. daily. He will call oral blood sugar readings to me each week and will adjust that if required.
== END 2016-07-13 18:24 | disposition home or self-care (01) | DRG 433 ==
LOC: EDIPHOLD 17:17 → 3N 07-08 12:43
PROVIDERS: ADMIT Family Medicine; ATTEND Family Medicine
PROC: 0DB68ZX Excision of Stomach, Via Natural or Artificial Opening Endoscopic, Diagnostic (ICD-10-PCS; principal; 2016-07-13 08:40)
PROC: 0W9G3ZX Drainage of Peritoneal Cavity, Percutaneous Approach, Diagnostic (ICD-10-PCS; 2016-07-13 08:40)
DX: K74.69 Other cirrhosis of liver (principal); R18.8 Other ascites; D68.9 Coagulation defect, unspecified; K76.6 Portal hypertension; E11.22 Type 2 diabetes mellitus with diabetic chronic kidney disease; E88.81 Metabolic syndrome and other insulin resistance; E11.319 Type 2 diabetes mellitus with unspecified diabetic retinopathy without macular edema; K29.50 Unspecified chronic gastritis without bleeding; K25.7 Chronic gastric ulcer without hemorrhage or perforation; K75.81 Nonalcoholic steatohepatitis (NASH); K82.8 Other specified diseases of gallbladder; D64.9 Anemia, unspecified; N18.9 Chronic kidney disease, unspecified; I12.9 Hypertensive chronic kidney disease with stage 1 through stage 4 chronic kidney disease, or unspecified chronic kidney disease; T36.0X5A Adverse effect of penicillins, initial encounter; Z68.37 Body mass index [BMI] 37.0-37.9, adult; E66.9 Obesity, unspecified; I73.9 Peripheral vascular disease, unspecified; Z95.820 Peripheral vascular angioplasty status with implants and grafts; Z86.718 Personal history of other venous thrombosis and embolism; Z82.49 Family history of ischemic heart disease and other diseases of the circulatory system; Z83.3 Family history of diabetes mellitus; Z80.1 Family history of malignant neoplasm of trachea, bronchus and lung; Z79.4 Long term (current) use of insulin; Z79.899 Other long term (current) drug therapy; K76.89 Other specified diseases of liver
CPT/HCPCS: 47000; 49083; 74177; 76942; 80053; 82140; 82150; 82248; 82784; 82948; 83690; 84155; 84165; 85025; 85610; 85730; 86255; 86334; 86850; 86900; 86901; 87070; 88305; 88312; 89051; 93306; 94761; 94762; J1170; J2405; J3430; J3480; J7030; J7040; J7512; Q9967; 94640-76; S0028

== ENCOUNTER 2016-08-13 18:16 | Inpatient (IN) ==
[~2016-08-13 18:16] MED LIST: LOVENOX 1 MG/KG SUBQ ONE
[2016-08-13] MEDS: LOVENOX SUBQ SCH (21:02)
[2016-08-13 21:05] LABS: INR 1.37; PROTIME 14.7 Seconds (9.2-11.7)
[2016-08-13 21:07] LABS: PTT 43.4 Seconds (22.0-36.0)
[2016-08-13] MEDS: DILAUDID IV PRN (21:12)
[2016-08-13] MEDS: XIFAXAN PO SCH (22:45)
[2016-08-13] MEDS: HUMULIN R SUBQ SCH (22:45)
[2016-08-13] MEDS: LACTULOSE PO SCH (22:45)
[2016-08-13] MEDS: CARAFATE PO SCH (22:45)
[2016-08-13] MEDS: ACTIGALL PO SCH (23:18)
[2016-08-13] MEDS: LASIX IV SCH (23:23)
[2016-08-14] MEDS: DILAUDID IV PRN ×4 (05:53→21:17)
[2016-08-14] MEDS: LASIX IV SCH ×2 (05:57→17:08)
[2016-08-14] MEDS: PRILOSEC PO SCH (08:00)
[2016-08-14] MEDS: HUMULIN R SUBQ SCH ×4 (08:10→21:45)
[2016-08-14] MEDS: XIFAXAN PO SCH ×2 (09:46→21:43)
[2016-08-14] MEDS: ALDACTONE PO SCH (09:46)
[2016-08-14] MEDS: LACTULOSE PO SCH ×3 (09:46→21:45)
[2016-08-14] MEDS: ACTIGALL PO SCH ×2 (09:47→21:44)
[2016-08-14] MEDS: CARAFATE PO SCH ×4 (09:47→21:43)
[2016-08-14] MEDS: LOVENOX SUBQ SCH ×2 (09:48→21:45)
--- NOTE | 2016-08-14 10:11 | Diag Imaging Result Document ---
PROCEDURE NAME: LUNG SCAN / VQ - 08/14/2016 NUCLEAR MEDICINE V/Q SCAN.: COMPARISON: Chest radiograph dated 08/13/2016. No prior V/Q scan is available for comparison. FINDINGS: 40.5 mCi of aerosolized technetium-99m DTPA was administered for the ventilation portion of the scan. 5.8 mCi of technetium-99m MAA was administered for the perfusion portion of the scan. There is a relative segmental perfusion defect at the posterior aspect of the right lung base. This probably includes more than one of the basilar segments of the right lower lobe. Also, there is a more subtle relative perfusion defect at the right lung apex that is best seen on the posterior and RPO projections. Neither of these 2 defects appear to have matching ventilation defects. No other definite perfusion defect can be identified. IMPRESSION: 1. Two segmental perfusion defects at the right lung base and right lung apex with no matching ventilation defects identified. This suggests a high probability of pulmonary embolism. 2. This result was reported to Dr. Meyer by telephone at 1001. [facility]
--- NOTE | 2016-08-14 13:28 | PROGRESS NOTE ---
DATE: 08/14/2016 SUBJECTIVE: Patient overall doing some better. He slept well generally well last night. He has been improved with nausea with Phenergan and pain with the Dilaudid. Cough has not improved slightly. OBJECTIVE: Afebrile. Pulse 87, respirations 20, blood pressure 94/62, O2 saturation on room air 98-100%. CV: RRR. Lungs: CTA. Abdomen: Protuberant. Some ascites. Tender diffuse in the upper abdomen and mid lower abdomen. Extremities: Two plus lower extremity edema. V/Q scan shows high probability of pulmonary embolism right lower lung and right lung apex. PT 1.3. ASSESSMENT: 1. Right lung PTE. 2. Cirrhosis of the liver. Followed at [facility] and by Dr. Hurley secondary to BAILON and chronic antibiotic usage in the form of Zosyn primarily. 3. Morbid obesity. 4. Insulin-dependent diabetes mellitus. PLAN: Patient overall doing well. Continue 1 mg/kg subcutaneous q.12 hours Lovenox. Strict bed rest except for rare usage of bedside commode with bowel movements. Add Xopenex nebs. Continue home medications. Continue Accu-Cheks and SSI. Glucerna is imperative. Discussed the gravity of the situation with him and his in detail and they are aware. cc: Isaac Meyer MD
[2016-08-14] MEDS: NS NEB INH SCH (15:32)
[2016-08-14] MEDS: XOPENEX NEB INH SCH ×3 (15:32→23:44)
[2016-08-15] MEDS: XOPENEX NEB INH SCH ×6 (03:58→23:25)
[2016-08-15] MEDS: LASIX IV SCH ×2 (06:21→17:31)
[2016-08-15] MEDS: PRILOSEC PO SCH (06:21)
[2016-08-15] MEDS: HUMULIN R SUBQ SCH ×4 (06:59→22:02)
[2016-08-15] MEDS: ACTIGALL PO SCH ×2 (11:34→20:35)
[2016-08-15] MEDS: LOVENOX SUBQ SCH ×2 (11:34→20:35)
[2016-08-15] MEDS: ALDACTONE PO SCH (11:35)
[2016-08-15] MEDS: LACTULOSE PO SCH ×3 (11:35→19:30)
[2016-08-15] MEDS: XIFAXAN PO SCH ×2 (11:35→20:35)
[2016-08-15] MEDS: CARAFATE PO SCH ×4 (11:35→20:35)
--- NOTE | 2016-08-15 11:36 | PROGRESS NOTE ---
DATE: 08/15/2016 SUBJECTIVE: Patient overall feeling better. Was able to eat a little bit for breakfast this morning. Cough is improved. No significant shortness of breath. He continues at strict bed rest essentially. OBJECTIVE: Vital signs: Afebrile, pulse 99-120, blood pressure 105/59, O2 saturation on room air 97 to 98%. CV: RRR. Lungs: CTA. Extremities: No calf tenderness, cords. Trace lower extremity edema, improved. ASSESSMENT: 1. Right lung PTE. 2. Cirrhosis of the liver, associated with nonalcoholic steatohepatitis and chronic antibiotic usage. 3. Morbid obesity. 4. Insulin-dependent diabetes mellitus. PLAN: Continue to try to escalate his oral intake. He is taking in some Glucerna shakes and eating some. Will continue strict bed rest except for bowel movement on the bedside commode through today and then maybe tomorrow start to let the patient sit up in chair or sit on the side of the bed. Continue full dose Lovenox, Xopenex nebulizer treatments, and home medications regarding his cirrhosis. Continue SSI with Accu-Cheks now and resume his diabetic medications as he begins to eat more. cc: Isaac Meyer MD
[2016-08-15] MEDS: DILAUDID IV PRN ×3 (11:48→21:15)
--- NOTE | 2016-08-15 14:42 | HISTORY AND PHYSICAL ---
CHIEF COMPLAINT: Shortness of breath and cough. HISTORY OF PRESENT ILLNESS: The patient is a 61-year-old white male followed in my medical practice and also followed by Dr. Hurley. The patient is also followed at [facility] regarding cirrhosis of the liver and has been diagnosed by biopsy with having BAILON accompanied by medication- induced cirrhosis likely related to Zosyn, long-term use for greater than 4 months. The patient has been followed at [facility] recently and been placed on numerous liver medications, but over the last 4 days has not done well at all as noted by home health care to have some difficulties with shortness of breath. He has had a cough nonproductive, no hemoptysis. In the last 24 hours, he has developed some pain in his right deltoid, right biceps area has been profound at times. Denies any fever. Not been able to eat or drink anything or hold his medicines down well. MEDICATIONS PRIOR TO ADMISSION: 1. Humulin 70/30 insulin 44 units q.a.m. subcutaneous and 24 units q.p.m. subcutaneous. 2. Protonix 40 mg p.o. daily. 3. Carafate liquid 1 g p.o. b.i.d. 4. Lasix 40 mg p.o. q.a.m. 5. Lactulose 45 mL p.o. t.i.d. 6. Actigall 300 mg p.o. b.i.d. 7. Aldactone 100 mg p.o. q.a.m. 8. Xifaxan 550 mg p.o. b.i.d. ALLERGIES: Zofran. PAST MEDICAL HISTORY: 1. Cirrhosis of the liver diagnosed in the last couple of months with biopsy showing BAILON with medication-induced cirrhosis followed by Dr. Sid Hurley. 2. Insulin-dependent diabetes mellitus. Long-standing. 3. History of obesity. 4. History of noncompliance. 5. Peripheral artery disease. 6. Diabetic retinopathy. 7. History of osteomyelitis, left foot, eventually requiring amputation of second and third toes. Followed in the past by Dr. Williamson. 8. History of DVT associated with port right upper chest late 2015. PAST SURGICAL HISTORY: 1. 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 2. Amputation of left second and third toes January 20122015 secondary to osteomyelitis. 3. History of stent to the left lower extremity related to PAD 2016. FAMILY HISTORY: Notable for BAILON in his brother. Father with CAD at age 65. No hypertension or strokes in the family. Father and brother with diabetes mellitus. Lung cancer in his mother and father. SOCIAL HISTORY: The patient lives in [place]. He is , has 2 children. 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 Never been a smoker. Does not drink alcohol. REVIEW OF SYSTEMS: As above. PHYSICAL EXAMINATION: VITAL SIGNS: Show temperature 97.9 degrees, pulse 102, respirations 18, blood pressure 96/58, O2 saturation on room air 100%. GENERAL: Mild to moderately obese white male that is ill-appearing. SKIN: Minor bruising over the abdomen. Cannot rule out minimal jaundice. HEENT: SUNDAR. EOMI. Sclerae fairly clear. TMs clear. OP no redness. Tongue in the midline. NECK: No LA, TMG, JVD, or bruits. CV: RRR without distinct murmur. LUNGS: CTA. BACK: NT. ABDOMEN: Protuberant diffuse tenderness. Ascites is present. AND RECTAL: Deferred. EXTREMITIES: Two plus lower extremity edema bilaterally with no calf tenderness or cords. Right arm is examined, and there is no swelling or pinpoint tenderness there. No bruising there. NEUROLOGIC: Cranial nerves 2-12 are intact. Nonfocal. LAB DATA: Prior to admission shows white count of 15, hemoglobin 13.2, hematocrit 38.4, MCV 109, platelets 134, neutrophils 75, lymphocytes 11, monocytes 12. D-dimer 8.85. ABG on room air reveals pH 7.48, pCO2 28, PO2 84, HC03 24, O2 saturation 99.9. Sodium 135, potassium 3.8, chloride 97, CO2 24, BUN 38, creatinine 1.6, glucose 219, calcium 8.2. Total bilirubin 3.27, AST 43, ALT 27, alkaline phosphatase 249. Total CK 97, troponin 0.034, total protein 6.4, albumin 2.8, amylase 17, lipase 13. Cortisol 19.1. ASSESSMENT: 1. Cough and dyspnea with elevated D-dimer. Suspected pulmonary thromboembolism. 2. Cirrhosis of the liver related to nonalcoholic steatohepatitis and medications. 3. Insulin-dependent diabetes mellitus. 4. Obesity. 5. Hypertension. 6. Peripheral artery disease. 7. History of osteomyelitis, left foot. 8. Renal insufficiency. PLAN: We will admit the patient to telemetry bed. Check chest x-ray. We will avoid contrast diet due to renal insufficiency and will check V/Q scan instead, but until this is available, we will go ahead and start him on 1 mg/kg subcutaneous q. 12 hour Lovenox as soon as possible, and continue cirrhotic medications as outlined by Dr. Hurley and by equipment installer at [facility]. Will hold his insulin at this time and monitor serial Accu-Chek's with SSI's required and try to improve his dietary intake with Glucerna shakes and diabetic diet. cc: Isaac Meyer MD
[2016-08-16] MEDS: SODIUM CHLORIDE 0.9% INJ PRN ×2 (00:48→10:20)
[2016-08-16] MEDS: PHENERGAN IV PRN ×2 (00:48→10:20)
[2016-08-16] MEDS: XOPENEX NEB INH SCH ×6 (03:13→23:15)
[2016-08-16] MEDS: LASIX IV SCH ×2 (05:47→16:33)
[2016-08-16] MEDS: HUMULIN R SUBQ SCH ×4 (06:01→21:20)
[2016-08-16] MEDS: PRILOSEC PO SCH (06:02)
--- NOTE | 2016-08-16 09:39 | PROGRESS NOTE ---
DATE: 08/16/2016 SUBJECTIVE: Patient had a bad night last night, having severe epigastric, diffuse abdominal pain, and nausea and vomiting. Nurses reported that he did have 1 bowel movement yesterday. Also complains of some muscle cramps. OBJECTIVE: Vital Signs: Afebrile, pulse 105, respirations 17, blood pressure 90/53, O2 saturation on room air 97-100%. CV: Tachycardia, regular rhythm. Lungs: CTA. Abdomen: Soft, protuberant. Some ascites noted. No pinpoint tenderness. Extremities: Trace lower extremity edema. ASSESSMENT: 1. Right lung pulmonary thromboembolism. 2. Cirrhosis of the liver with worsened abdominal pain, nausea, and vomiting. 3. Morbid obesity. 4. Insulin-dependent diabetes mellitus. PLAN: We will increase to high-dose SSI. Continue Xopenex and full dose Lovenox. Continue mainly bedrest but we will allow him to get up to the bathroom with assistance if required, try to mobilize him more tomorrow. We will increase the Dilaudid from 0.5 mg q.3 hours to 1 mg q.3 hours p.r.n. Continue Phenergan p.r.n. Check extensive labs. Consider consultation with Dr. Hurley tomorrow. They decline consultation today. cc: Isaac Meyer MD
[2016-08-16 09:48] LABS: BASO% 0.3 % (0.0-0.8); EOS# 0.12 X1000 (0.0-0.7); HEMATOCRIT 32.5 % (42.0-52.0); HEMOGLOBIN 11.2 g/dL (14.0-18.0); IMM GRAN# 0.04 X1000 (0.0-0.04); IMM GRAN% 0.3 % (0.0-0.5); MANUAL DIFF NEEDED? YES; MCH 37.7 PG (27-31); MCHC 34.5 g/dL (33-37); MCV 109.4 FL (81-99); MONO# 1.19 X1000 (0.11-0.59); MONO% 10.1 % (1.7-9.3); MPV 11.4 FL (7.4-10.4); NEUT% 77.3 % (42.2-75.2); PLT 116 X1000 (130-400); RBC 2.97 XMIL (4.7-6.1)
[2016-08-16] MEDS: ALDACTONE PO SCH (10:04)
[2016-08-16] MEDS: XIFAXAN PO SCH ×2 (10:04→20:17)
[2016-08-16] MEDS: CARAFATE PO SCH ×4 (10:04→20:18)
[2016-08-16] MEDS: LACTULOSE PO SCH ×3 (10:04→16:33)
[2016-08-16] MEDS: LOVENOX SUBQ SCH ×2 (10:05→20:18)
[2016-08-16] MEDS: ACTIGALL PO SCH ×2 (10:05→20:18)
[2016-08-16 10:12] LABS: BANDS 4 % (0-1); EOS 1 % (1-10); LYMPHS 10 % (21-51); MONO 11 % (1-9)
[2016-08-16 10:16] LABS: ALBUMIN 2.4 g/dL (3.5-5.0); CALCIUM 7.9 mg/dL (8.8-10.2); MAGNESIUM 2.1 mg/dL (1.5-2.7); POTASSIUM 3.7 mmol/L (3.5-5.1); TOTAL BILIRUBIN 2.16 mg/dL (0.20-1.00); TOTAL PROTEIN 5.7 g/dL (6.3-8.3)
[2016-08-16] MEDS: DILAUDID IV PRN ×2 (10:46→18:08)
[2016-08-17] MEDS: XOPENEX NEB INH SCH ×6 (05:35→23:35)
[2016-08-17] MEDS: LASIX IV SCH ×2 (05:49→17:08)
[2016-08-17] MEDS: HUMULIN R SUBQ SCH ×4 (06:00→22:44)
[2016-08-17] MEDS: DILAUDID IV PRN ×4 (06:02→21:04)
[2016-08-17] MEDS: PRILOSEC PO SCH (06:03)
[2016-08-17] MEDS: LACTULOSE PO SCH ×3 (09:10→17:07)
[2016-08-17] MEDS: LOVENOX SUBQ SCH ×2 (09:11→21:05)
[2016-08-17] MEDS: CARAFATE PO SCH ×4 (09:11→21:06)
[2016-08-17] MEDS: ALDACTONE PO SCH (09:11)
[2016-08-17] MEDS: XIFAXAN PO SCH ×2 (09:11→21:05)
[2016-08-17] MEDS: ACTIGALL PO SCH ×2 (09:12→21:06)
[2016-08-17] MEDS: CENTRUM SILVER PO SCH (09:14)
[2016-08-17] MEDS: ICAR-C PO SCH ×2 (09:14→21:06)
[2016-08-17] MEDS: PROTONIX IV SCH ×2 (09:15→21:06)
[2016-08-17] MEDS: SODIUM CHLORIDE 0.9% INJ SCH ×2 (09:15→21:06)
--- NOTE | 2016-08-17 13:07 | Diag Imaging Result Document ---
PROCEDURE NAME: BOSSMAN ABDOMEN - 08/17/2016 ABDOMEN, TWO VIEWS: FINDINGS: No bowel obstruction. No organomegaly. No abnormal abdominal or pelvic calcifications. Small degenerative bone spurring in the lumbar spine and lower thoracic spine. There is a small amount of stool throughout the colon. IMPRESSION: Minimal constipation.
--- NOTE | 2016-08-17 14:18 | Diag Imaging Result Document ---
PROCEDURE NAME: US ABDOMEN-COMPLETE - 08/17/2016 ABDOMINAL ULTRASOUND: FINDINGS: The study is technically suboptimal due to the patient's body habitus and gas. The patient is postprandial. There is a large amount of ascites. This was also present on the CT of the abdomen dated 07/25/2016. There is an echo within the gallbladder without shadowing or movement which may represent a sludge ball. No pericholecystic fluid is present, and there is no sonographic Ocampo sign. The common bile duct measures less than 6 mm. Otherwise, there are no hepatic abnormalities. There is antegrade flow in the portal vein. The spleen is not enlarged. The kidneys are without evidence of hydronephrosis or mass. What can be seen of the aorta and inferior vena cava are unremarkable. The pancreas is obscured. IMPRESSION: Ascites. Apparent sludge in the gallbladder.
[2016-08-17] MEDS: PHENERGAN IV PRN (15:43)
[2016-08-17] MEDS: SODIUM CHLORIDE 0.9% INJ PRN (15:43)
[2016-08-17] MEDS: CULTURELLE PO SCH (21:06)
--- NOTE | 2016-08-17 21:56 | CONSULTATION ---
DATE OF CONSULTATION: 08/17/2016 REQUESTING PHYSICIAN: Dr. Isaac Meyer. REASON FOR CONSULTATION: Liver cirrhosis secondary to fatty liver, new diagnosis of pulmonary embolism. HISTORY OF PRESENT ILLNESS: Mr. Go is a 61-year-old male who has a known history of nonalcoholic fatty liver disease complicated with liver cirrhosis, thrombocytopenia, portal hypertension, ascites, encephalopathy, who is being followed at [facility], who was admitted on 08/13/2016 with new onset of shortness of breath and cough. V/Q scan showed high probability of pulmonary embolism. He has been put on Xarelto per the primary care team. The patient also complained of abdominal pain in the periumbilical region and in the suprapubic region which goes from side to side. He denies any fevers, rigors, or chills. He does complain of nausea and postprandial fullness. He complains of intermittent diarrhea secondary to lactulose and bloating and gas feeling. He denies any vomiting blood, passing blood in the stools, or black stools. PAST MEDICAL HISTORY: 1. Fatty liver cirrhosis diagnosed in July 2016, being followed up at [facility]. Last seen on August 07, 2016 and his next one is September 11, 2016. 2. Insulin-requiring diabetes mellitus, long-standing. 3. Obesity. 4. Peripheral arterial disease. 5. Diabetic retinopathy. 6. History of osteomyelitis left foot, requiring amputation of the 2nd and 3rd toes. 7. History DVT with a port in the right upper chest September 2015. 8. Medication-induced liver injury secondary to long-term use of antibiotics which have been held and was treated with Prednisone 20 mg for 1 month and this has helped his jaundice. Now is down to a bilirubin of 2. ALLERGIES: Zofran. MEDICATIONS: At home: Humulin 70/30, Protonix 40 mg daily, Carafate 1 g every 12 hours, Lasix 40 mg once daily, lactulose 40 mL p.o. t.i.d., Ursodiol 300 mg p.o. b.i.d., Aldactone once daily, Xifaxan 5 mg p.o. b.i.d. His prednisone has been stopped. PAST SURGICAL HISTORY: 1. Right great toe amputation; lawnmower accident in 1963. 2. Amputation of left 2nd and 3rd toes in January 2012 and 2015 secondary to osteomyelitis. 3. History of stent to the left lower extremity related peripheral artery disease in 2016. FAMILY HISTORY: Significant for BAILON cirrhosis in his brother who in his late 50s. Father with CAD age 65. Father and brother had diabetes mellitus. Lung cancer in his mother and father. SOCIAL HISTORY: He lives in [place]. He is . He has a very supportive at bedside. He has 2 children. 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 He has never been a smoker. Does not drink alcohol. REVIEW OF SYSTEMS: Denies any current fevers, rigors, or chills. Does complain of some shortness of breath and cough on admission which has improved now. He denies any nausea at the moment, although after eating he does get nauseous. He denies any vomiting or vomiting blood. He does complain of liquid stools. Denies any blood in the stools. Denies any new genitourinary complaints. Does complain of abdominal pain in the periumbilical region. Denies any neurologic complaints. PHYSICAL EXAMINATION: Vital Signs: Temperature of 97.9 degrees, pulse rate of 107, respiratory rate of 18, blood pressure 109/71, saturating 98% on room air. Body weight of 227 pounds 1.6 ounces. BMI of 34.5 kg/m2. General Appearance: Moderately built, moderately nourished, lying in bed, in no distress. HEENT: Pale conjunctivae. Mild icterus. Pupils equal, react to light. Neck: Supple. Chest: Decreased breath sounds. Cardiac: Regular rate and rhythm. No murmur. Abdomen: Discomfort in the periumbilical region. No rebound. No guarding. Bowel sounds are present. No hepatosplenomegaly. Extremities: No cyanosis, clubbing. There is bilateral lower extremity edema noted. Neurologic: He is alert, awake, oriented. LABS: V/Q scan done on 08/14/2016 showed 2 segmental perfusions defect to the right lung base and right lung apex with no matching ventilation defects identified. This suggests a high probability of pulmonary embolism. Hemoglobin and hematocrit are 11.2 and 32.5, white count of 11.78, platelet count of 116,000, MCV of 109.4. INR 1.37, PT of 14.7, PTT 43.4. Sodium of 136, potassium 3.7, chloride 98, bicarb 23, anion gap of 15, BUN of 32, creatinine 1.3, glucose of 191, calcium 7.9, phosphorus 3.2, magnesium 2.1, total bilirubin is 2.16, AST 42, ALT 21, alkaline phosphatase is 214, total protein 5.7, albumin of 2.4, amylase of 13, lipase of 10. IMPRESSION AND PLAN: 1. Fatty liver cirrhosis complicated with portal hypertension, thrombocytopenia , coagulopathy, hypoalbuminemia, hepatic encephalopathy. 2. Abdominal pain in the periumbilical region postprandial (starts with in 3-5 bites) 3. Pulmonary embolism. 4. Diabetes mellitus. 5. Obesity. 6. Fatty liver cirrhosis with superimposed Drug-induced liver injury secondary to long-term use of antibiotics with Zosyn and ceftaroline for osteomyelitis of the toes which has been held in June 2016. RECOMMENDATIONS: 1. We will check an ultrasound of the abdomen to evaluate for gall stones and any kind of ascites. Since the patient is having abdominal pain we may have to rule out spontaneous bacterial peritonitis. Since the patient is on blood thinners it would be hard to obtain an ascitic fluid sample as he has a new onset of PE. Will start him on prophylactic probiotics. We will check a CBC again and if his white count is going up we may have a low threshold of starting him on Levaquin for 10 days. 2. We will check the patient's ammonia level. 3. We will continue on Ursodiol 300 mg p.o. b.i.d. 4. We will avoid any kind of hepatotoxic drugs. 5. Will continue Aldactone and Lasix and Xifaxan and lactulose for now. 6. We will continue multivitamin and iron C. 7. We will follow along. We will follow his liver enzymes. We will also obtain an x-ray of the abdomen to evaluate for any kind of fecal impaction. 8. Further, patient will continue to follow with [facility] next month, September 11, 2106. The above plan of care was discussed with the patient and family. All questions answered. Discussed with Dr. Meyer. cc: MD Isaac Espinoza MD [facility]
[2016-08-18] MEDS: XOPENEX NEB INH SCH ×6 (05:38→23:12)
[2016-08-18] MEDS: LASIX IV SCH ×2 (05:57→16:56)
[2016-08-18] MEDS: HUMULIN R SUBQ SCH ×4 (06:09→21:38)
[2016-08-18 07:07] LABS: BASO% 0.2 % (0.0-0.8); EOS# 0.22 X1000 (0.0-0.7); EOS% 1.6 % (0.0-10.0); HEMATOCRIT 33.3 % (42.0-52.0); HEMOGLOBIN 11.4 g/dL (14.0-18.0); IMM GRAN# 0.05 X1000 (0.0-0.04); IMM GRAN% 0.4 % (0.0-0.5); LYMPH# 1.84 X1000 (1.2-3.4); LYMPH% 13.4 % (20.5-51.1); MANUAL DIFF NEEDED? YES; MCH 37.7 PG (27-31); MCHC 34.2 g/dL (33-37); MCV 110.3 FL (81-99); MONO# 1.39 X1000 (0.11-0.59); MONO% 10.2 % (1.7-9.3); MPV 11.4 FL (7.4-10.4); NEUT% 74.2 % (42.2-75.2); PLT 121 X1000 (130-400); RBC 3.02 XMIL (4.7-6.1)
[2016-08-18 07:31] LABS: BANDS 8 % (0-1); BASO 2 % (0-1); EOS 2 % (1-10); LYMPHS 12 % (21-51); MONO 4 % (1-9)
[2016-08-18] MEDS: SODIUM CHLORIDE 0.9% INJ SCH ×2 (08:19→21:36)
[2016-08-18] MEDS: PROTONIX IV SCH ×2 (08:19→21:36)
[2016-08-18] MEDS: DILAUDID IV PRN ×2 (08:19→21:44)
[2016-08-18] MEDS: LACTULOSE PO SCH ×3 (10:02→21:44)
[2016-08-18] MEDS: ICAR-C PO SCH ×2 (10:03→21:36)
[2016-08-18] MEDS: CULTURELLE PO SCH ×2 (10:03→21:36)
[2016-08-18] MEDS: ACTIGALL PO SCH ×2 (10:03→21:37)
[2016-08-18] MEDS: CENTRUM SILVER PO SCH (10:03)
[2016-08-18] MEDS: LOVENOX SUBQ SCH ×2 (10:03→21:37)
[2016-08-18] MEDS: ALDACTONE PO SCH (10:03)
[2016-08-18] MEDS: XIFAXAN PO SCH ×2 (10:03→21:36)
[2016-08-18] MEDS: CARAFATE PO SCH ×4 (10:03→21:36)
[2016-08-18] MEDS: SODIUM CHLORIDE 0.9% INJ PRN ×2 (12:10→16:56)
[2016-08-18] MEDS: PHENERGAN IV PRN ×2 (12:10→16:56)
--- NOTE | 2016-08-18 13:36 | PROGRESS NOTE ---
DATE: 08/18/2016 SUBJECTIVE: Patient having severe abdominal pain lower abdomen on the left and upper abdomen diffusely, especially right upper quadrant. Vomiting after eating a bite or 2 of meals. Last episode for lunch. Pain control was marginal with medication. OBJECTIVE: Afebrile. Pulse 115, blood pressure 118/75, O2 saturation 98% on room air.Cardiovascular: Tachycardia, regular rhythm. Lungs: Fairly clear. Abdomen: Protuberant. Some ascites noted. Tender diffusely across the abdomen especially right upper quadrant. Minimal in the left lower quadrant. Last bowel movement this morning at 6:30 a.m. Extremities: Two plus lower extremity edema. Port in place right upper chest. No signs of infection. LAB DATA: Show bilirubin down to 2.16. Blood sugars in the high 100 to low 200s. Ammonia 69. Abdominal x-ray yesterday revealed minimal constipation. Abdominal ultrasound yesterday revealed a large amount of ascites, sludge ball in the gallbladder. ASSESSMENT: 1. Right lung pulmonary thromboembolism on Lovenox at full strength. 2. Sludge ball in the gallbladder with persistent nausea and vomiting after meals. 3. Cirrhosis of the liver with improving bilirubin levels and symptoms out of proportion to that, likely this can be seen with cirrhosis. 4. Morbid obesity. 5. IDDM. PLAN AT THIS TIME: We will get Dr. Bennett to consult on the patient to evaluate regarding the sludge ball in the gallbladder and possible removal of the port right upper chest. Continue full dose Lovenox as Dr. Bennett does not feel like it is appropriate to operate on him at this time. We will change him over to Xarelto soon. Continue SSI for BS control. cc: Isaac Meyer MD
--- NOTE | 2016-08-18 17:56 | CONSULTATION ---
DATE OF CONSULTATION: 08/18/2016 CHIEF COMPLAINT: Possible sludge in the gallbladder. HISTORY: This is a 61-year-old gentleman with nonalcoholic cirrhosis of the liver. He has been followed at [facility] for this problem. Complicating features include thrombocytopenia, portal hypertension, ascites, encephalopathy. He was admitted this time with shortness of breath and found to have what may be a pulmonary embolus based on the V/Q scan. He also reports some lower abdominal pain. He does report some nausea and postprandial fullness. He does report occasional loose stools. Ultrasound was done showing possible sludge within the gallbladder, common duct is normal sized. PAST MEDICAL HISTORY: Pertinent for the cirrhosis that is non alcoholic induced. He has insulin- dependent diabetes with retinopathy. He has peripheral arterial disease with a history of osteomyelitis of the foot. He has a history of a PICC line associated DVT, and obesity. MEDICATIONS: At home include Humulin insulin, Protonix, Carafate, Lasix, lactulose, Ursodiol, Aldactone, Xifaxan. FAMILY HISTORY: Pertinent for non alcoholic steatohepatitis as the cause of cirrhosis and resulting in his brother's . SOCIAL HISTORY: He lives in [place]. He is . He is no longer employed. He denies alcohol usage. He does not smoke. REVIEW OF SYSTEMS: Negative for fever, chills, and for right upper quadrant pain. PHYSICAL EXAMINATION: Vital Signs: Afebrile. Heart rate 114, respiratory rate 18, blood pressure 118/75. Neck: He does not appear jaundiced. No cervical adenopathy. Lungs: Bilateral breath sounds. Heart: Regular rate and rhythm. Abdomen: He has a fluid wave. He is nontender in the right upper quadrant. Most of his discomfort is in his lower abdomen. Extremities: He does have pitting edema bilaterally. Neurologic: He is awake and alert. DIAGNOSTICS/LABS: White count is 13,700, hemoglobin 11.4, total bilirubin 2.16, AST 42, ALT 21, alkaline phosphatase 214. Amylase and lipase are normal. INTERPRETATION: The patient's symptoms do not correlate with acute cholecystitis. The risks for prophylactic cholecystectomy are high in view of his cirrhosis and portal hypertension. I do not recommend a cholecystectomy at this time. If it becomes more evident that his gallbladder is the source of his problem, I would do a HIDA scan to determine patency of the cystic duct. The PICC line in the right upper anterior chest appears to be his only IV access. I think as long as he is anticoagulated this PICC line can be retained since it is his only IV access. cc: MD Isaac Patricia MD
[2016-08-19] MEDS: XOPENEX NEB INH SCH ×6 (03:52→22:57)
[2016-08-19] MEDS: LASIX IV SCH (05:01)
[2016-08-19] MEDS: HUMULIN R SUBQ SCH ×4 (06:01→20:34)
[2016-08-19] MEDS: XIFAXAN PO SCH ×2 (08:50→20:31)
[2016-08-19] MEDS: LACTULOSE PO SCH ×3 (08:50→17:53)
[2016-08-19] MEDS: CARAFATE PO SCH ×4 (08:50→20:31)
[2016-08-19] MEDS: CENTRUM SILVER PO SCH (08:50)
[2016-08-19] MEDS: PROTONIX IV SCH ×2 (08:50→20:32)
[2016-08-19] MEDS: CULTURELLE PO SCH ×2 (08:50→20:31)
[2016-08-19] MEDS: ACTIGALL PO SCH ×2 (08:50→20:31)
[2016-08-19] MEDS: ICAR-C PO SCH ×2 (08:50→20:32)
[2016-08-19] MEDS: SODIUM CHLORIDE 0.9% INJ SCH ×2 (08:50→20:32)
[2016-08-19] MEDS: ALDACTONE PO SCH (08:50)
[2016-08-19] MEDS: DILAUDID IV PRN ×3 (08:58→19:23)
[2016-08-19] MEDS: LASIX PO SCH ×2 (08:58→20:31)
[2016-08-19] MEDS: XARELTO PO SCH ×2 (08:58→20:32)
--- NOTE | 2016-08-19 09:01 | PROGRESS NOTE ---
DATE: 08/19/2016 SUBJECTIVE: The patient had a better night last night. Some low abdominal discomfort this morning. He had 2 bowel movements this morning. He ate a few bites of his breakfast, and he is doing a little bit better. OBJECTIVE: Vital Signs: Afebrile. Pulse 96, respirations 18, blood pressure 108/70. General: A morbidly obese white male. Cardiovascular: RRR without murmur. Lungs: CTA. Abdomen: Protuberant. Minimal lower abdominal tenderness. Active bowel sounds. Ascites is noted prominently. Extremities: He has 2+ lower extremity edema. No cords. Neurologic: Nonfocal. ASSESSMENT: 1. Nausea and vomiting, frequent, after meals. 2. Sludge ball in the gallbladder, deemed not appropriate for surgery at this point per Dr. Bennett. 3. Right lung pulmonary thromboembolism. 4. Cirrhosis of the liver with portal hypertension. 5. Morbid obesity. 6. Insulin dependent diabetes mellitus. PLAN: We will change the patient from Lovenox to Xarelto today and ambulate, try to improve his nutrition. recommends leaving the PICC line in place, and we will do so. Continue SSI. Plans on discharge home in 1 to 2 days if he does well. cc: Isaac Meyer MD
--- NOTE | 2016-08-19 15:30 | PROGRESS NOTE ---
DATE: 08/19/2016 SUBJECTIVE: Patient currently resting in bed. He complains of abdominal discomfort and constipation and nausea. He denies any fevers, rigors, chills. He denies any vomiting or vomiting blood. He had bowel movements this morning. He denies any blood in the stools. OBJECTIVE: Vital signs: Temperature 98.2 degrees, pulse of 106, respiratory rate 21, blood pressure 108/67, saturating 98% on room air. His temperature maximum was 98.4 degrees last night. General Appearance: Moderately built, moderately nourished, lying in bed, in no acute distress. HEENT: Pale conjunctivae. No icterus. Neck: Supple. Chest: Decreased. Cardiac: Regular rhythm. No murmurs. Tachycardic at times. Abdomen: Discomfort in the right side of the abdomen and perineal region. Tympanic on percussion. Positive ascites. No guarding. Bowel sounds are present. Extremities: No cyanosis, clubbing. Bilateral lower extremities 1+ . Neurologic: He is alert, awake, oriented. LABORATORY: Ammonia level of 46, Glucose 186. INR 1.37. His labs from yesterday, white count 13.6, hemoglobin and hematocrit 11.4 and 33.3, white count of 121, MCV of 110.3. MEDICATIONS: Reviewed. IMPRESSION AND PLAN: 1. Fatty liver cirrhosis, complicated portal hypertension, thrombocytopenia, coagulopathy, hypoalbuminemia hepatic encephalopathy. 2. Superimposed drug-induced liver injury secondary to long-term use of antibiotics with Zosyn and ceftaroline for osteomyelitis of the toe, currently improving. 3. Abdominal pain in pelvic region postprandial. 4. Gallbladder sludge. Being followed by Dr. Bennett. 5. Pulmonary embolus, currently on Xarelto. 6. Diabetes and obesity, metabolic syndrome. 7. Constipation. RECOMMENDATIONS: 1. We will continue the current medications. We will check complete blood count , complete metabolic panel in the morning. If his white count continues to be worsening , then we may consider starting him on Levaquin 500 mg p.o. for 10 days for presumed spontaneous bacterial peritonitis. Since patient is on Xarelto, we will probably not be able to take ascitic fluid sample at this time. 2. I will continue him on Xifaxan and lactulose as before. We will continue him on ursodiol 30 mg p.o. b.i.d. 3. We will add Dulcolax suppository once now and at bedtime, and start on MiraLAX twice daily. We will hold lactulose for more than 3 bowel movements per 24 hours. 4. We will continue multivitamin and iron C for now. We will avoid any kind of any hepatotoxic drugs. 5. Further recommendations to follow pending hospital course. I discussed the plan with the patient and family at the bedside. cc: MD Isaac Espinoza MD Robert C. Walker, MD MTDD
[2016-08-19] MEDS: PHENERGAN IV PRN (15:42)
[2016-08-19] MEDS: SODIUM CHLORIDE 0.9% INJ PRN (15:42)
[2016-08-19] MEDS: DULCOLAX PR SCH ×2 (15:42→20:31)
[2016-08-19] MEDS: MIRALAX PO SCH (20:32)
[2016-08-20] MEDS: XOPENEX NEB INH SCH ×6 (02:38→22:58)
[2016-08-20] MEDS: HUMULIN R SUBQ SCH ×4 (06:08→21:30)
[2016-08-20 06:53] LABS: HEMATOCRIT 33.6 % (42.0-52.0); HEMOGLOBIN 11.3 g/dL (14.0-18.0); MCH 37.8 PG (27-31); MCHC 33.6 g/dL (33-37); MCV 112.4 FL (81-99); MPV 11.4 FL (7.4-10.4); RBC 2.99 XMIL (4.7-6.1)
[2016-08-20 08:08] LABS: AGAP 15; ALBUMIN 2.2 g/dL (3.5-5.0); ALKALINE PHOSPHATASE 189 U/L (32-122); BUN 22 mg/dL (8-22); CALCIUM 7.7 mg/dL (8.8-10.2); CHLORIDE 98 mmol/L (98-107); COSMO 281; GOT 39 U/L (10-34); GPT 20 U/L (10-44); POTASSIUM 3.5 mmol/L (3.5-5.1); SODIUM 137 mmol/L (136-145); TCO2 24 mmol/L (25-35); TOTAL BILIRUBIN 1.84 mg/dL (0.20-1.00)
--- NOTE | 2016-08-20 08:53 | PROGRESS NOTE ---
DATE: 08/20/2016 SUBJECTIVE: Patient with some shortness of breath with ambulation but overall doing better. Sitting up in the chair some. Complained of some lower abdominal discomfort. Had 1 bowel movement around 3:30 this morning but overall feeling a little better and a little more intake of food and drinks Glucerna after meals. OBJECTIVE: Vital Signs: Afebrile, pulse 96, respirations 18, O2 saturation on room air 99-100%. BP 108/70. CV: RRR without murmur. Lungs: Cannot rule out rare wheeze. Good air movement. Abdomen: With ascites and active bowel sounds. Extremities: There was 2+ lower extremity edema, unchanged. Labs: White count of 13.15, hemoglobin 11.3, platelets 127,000. Sodium 137, potassium 3.5, chloride 98, CO2 24, BUN 22, creatinine 1.2, glucose 172, calcium 7.7. Total bilirubin 1.84, AST 39, ALT 20, alkaline phosphatase 189. Total protein 6, albumin 2.2. ASSESSMENT: 1. Nausea and vomiting, somewhat improved. 2. Sludge ball in the gallbladder thought not to require surgery at this time 3. Right lung pulmonary thromboembolism. 4. Cirrhosis of the liver with portal hypertension, nonalcoholic steatohepatitis and medication related. 5. Morbid obesity. 6. Insulin-dependent diabetes mellitus. PLAN: Patient now on Xarelto. Ambulating some. We will try to ambulate more with this morning. Impressed upon the patient the need to try to take in oral food and then to drink Glucerna afterward. It may improve his albumin and protein status. PICC line remains without signs of infection. Continue SSI. Continue liver medications per Dr. Hurley. We will await Dr. Hurley's evaluation today and if he thinks it is okay, we may be able to discharge him home later today on Xarelto. cc: Isaac Meyer MD
[2016-08-20] MEDS: LASIX PO SCH ×2 (09:11→21:00)
[2016-08-20] MEDS: CENTRUM SILVER PO SCH (09:11)
[2016-08-20] MEDS: SODIUM CHLORIDE 0.9% INJ SCH ×2 (09:11→21:00)
[2016-08-20] MEDS: PROTONIX IV SCH ×2 (09:11→21:00)
[2016-08-20] MEDS: LACTULOSE PO SCH ×3 (09:11→21:11)
[2016-08-20] MEDS: CARAFATE PO SCH ×4 (09:11→21:01)
[2016-08-20] MEDS: ALDACTONE PO SCH (09:11)
[2016-08-20] MEDS: ACTIGALL PO SCH ×2 (09:11→21:01)
[2016-08-20] MEDS: XIFAXAN PO SCH ×2 (09:11→21:01)
[2016-08-20] MEDS: XARELTO PO SCH ×2 (09:11→21:01)
[2016-08-20] MEDS: ICAR-C PO SCH ×2 (09:11→21:01)
[2016-08-20] MEDS: CULTURELLE PO SCH ×2 (09:11→21:01)
[2016-08-20] MEDS: MIRALAX PO SCH ×2 (09:13→21:00)
[2016-08-20] MEDS: DILAUDID IV PRN (11:00)
[2016-08-20] MEDS ORDERED: DULCOLAX PR ONE (11:30)
[2016-08-20] MEDS: LEVAQUIN 500 MG/D5W 500 MG/100 ML IVPB IV SCH (12:37)
--- NOTE | 2016-08-20 13:36 | PROGRESS NOTE ---
DATE: 08/20/2016 SUBJECTIVE: The patient currently is resting in bed. He complains of abdominal pain. His white count continues to be elevated at 13. I suspect he could have spontaneous bacterial peritonitis. He is at high risk for that since he has been in and out of the hospital in the last few months. Since we cannot take ascitic fluid sample as the patient is on Xarelto for PE, we will empirically start him on Levaquin for a total of 7-10 days. He also complains of ongoing constipation despite being on lactulose which could be secondary to use of narcotics, diabetes, and chronic constipation, and may be a component of SBP. OBJECTIVE: Vital Signs: Temperature of 97.5 degrees, pulse of 104, respiratory 21, blood pressure 98/60, saturating 100% on room air. General Appearance: Moderately nourished, lying in bed, in no acute distress. HEENT: Pale conjunctiva, mild icterus. Pupils equal, react to light. Neck is supple. Abdomen: Discomfort periumbilical region. There is tenderness on deep palpation in the periumbilical region. No guarding. Bowel sounds are hypoactive but present. Obesity. Positive ascites. Extremities: Bilateral lower extremity noted. Neurologic: He is alert, awake, oriented. LABORATORY DATA: His hemoglobin and hematocrit is 11.3 and 33.6, white count of 13.1, platelet count of 127,000. MCV of 112.4. INR 1.37. Sodium 137, potassium 3.5, chloride 98, bicarb 24, anion gap of 15. BUN of 22, creatinine 1.2, glucose 172. Calcium 7.7. Total bilirubin is 1.84. AST 39, ALT 20. Alkaline phosphatase 189, albumin of 2.2. Ammonia 46. IMPRESSION AND PLAN: 1. Fatty liver cirrhosis. 2. Complicated portal hypertension. 3. Thrombocytopenia. 4. Coagulopathy. 5. Hypoalbuminemia. 6. Hepatic encephalopathy. 7. Superimposed drug-induced liver injury secondary to long time antibiotics, Zosyn and ceftaroline. 8. Osteomyelitis of the toe which is currently improving. 9. Abdominal pain in the pelvic region which is persistent and not getting relieved despite being on IV narcotics. I suspect SBP as the patient was feeling cold this morning , although he has no documented fever. 10. Gallbladder sludge. 11. Pulmonary embolus, on Xarelto. 12. Diabetes. 13. Obesity. 14. Metabolic syndrome. 15. Constipation. RECOMMENDATIONS: Ideally, we should obtain asctic tap to confirm SBP, but since the patient is on Xarelto for PE, we will start him on Levaquin 5 mg once daily for 7-10 days for presumed SBP. We will keep him on Culturelle b.i.d. We will continue on Dulcolax once daily and continue lactulose 45 mL t.i.d. for constipation. We will try to reduce the dose of narcotics to lowest possible. The patient will try to ambulate as tolerated. We will continue on other medications. If the patient spikes a fever, then we will obtain blood cultures. Based on the patient's overall status, patient can likely be discharged home if his abdominal pain is improved. The above plan was discussed with the patient. cc: MD Isaac Espinoza MD MTDD
[2016-08-20] MEDS: PHENERGAN IV PRN (18:55)
[2016-08-20] MEDS: SODIUM CHLORIDE 0.9% INJ PRN (18:55)
[2016-08-20] MEDS: NS NEB INH SCH ×2 (19:20→22:58)
[2016-08-20] MEDS: DULCOLAX PR SCH (21:01)
[2016-08-20] MEDS: OXY IR PO PRN (21:05)
[2016-08-21] MEDS: XOPENEX NEB INH SCH ×6 (03:08→22:45)
[2016-08-21] MEDS: HUMULIN R SUBQ SCH ×4 (06:56→20:33)
--- NOTE | 2016-08-21 08:37 | PROGRESS NOTE ---
DATE: 08/21/2016 SUBJECTIVE: The patient complains of extreme pain mid lower abdominal area. Nausea after eating. He tried Rice Crispies and then drinking Glucerna and had extensive pain, severe. He says he just simply cannot go home. He did have 1 small bowel movement at 3:30 a.m. this morning. Had difficulty going to sleep last night. OBJECTIVE: VITAL SIGNS: Afebrile, pulse 104, blood pressure 85/46, O2 saturation on room air 95- 100%. Cardiovascular: RRR. Lungs: Clear to auscultation. Extremities: Two plus lower extremity edema. Abdomen: Tender diffusely in the lower abdominal area with ascites noted. Active bowel sounds. ASSESSMENT: 1. Nausea and vomiting. 2. Lower abdominal pain. 3. Sludge ball in the gallbladder, thought not to require surgery at this time per Dr. Bennett, General surgery. 4. Right lung pulmonary thromboembolism, stable. 5. Cirrhosis of the liver. 6. Portal hypertension. 7. Coagulopathy. 8. Nonalcoholic steatohepatitis (BAILON). 9. Liver injury related to antibiotic medications he had to take long-term per Infectious disease for osteomyelitis. 10. History of osteomyelitis of foot. 11. Morbid obesity. 12. Insulin-dependent diabetes mellitus. 13. History of noncompliance. PLAN: At this time, I have changed him over to oral pain medication in the form of oxycodone and stopped the Dilaudid. Continue to try to ambulate and eat as he can. Continue liver medications per Dr. Hurley, which have been maximized. I will check urinalysis with C and S. We will ask palliative care team to see the patient and assist in his care. He is now on Levaquin for possible SBP per Dr. Hurley. cc: Isaac Meyer MD
[2016-08-21] MEDS: LACTULOSE PO SCH ×3 (08:40→16:38)
[2016-08-21] MEDS: OXY IR PO PRN ×3 (08:41→20:49)
[2016-08-21] MEDS: CENTRUM SILVER PO SCH (08:42)
[2016-08-21] MEDS: LASIX PO SCH ×2 (08:42→20:31)
[2016-08-21] MEDS: ALDACTONE PO SCH (08:42)
[2016-08-21] MEDS: XIFAXAN PO SCH ×2 (08:42→20:23)
[2016-08-21] MEDS: ICAR-C PO SCH ×2 (08:42→20:23)
[2016-08-21] MEDS: CULTURELLE PO SCH ×2 (08:42→20:23)
[2016-08-21] MEDS: PROTONIX IV SCH ×2 (08:43→20:06)
[2016-08-21] MEDS: MIRALAX PO SCH ×3 (08:43→20:24)
[2016-08-21] MEDS: CARAFATE PO SCH ×4 (08:43→20:23)
[2016-08-21] MEDS: ACTIGALL PO SCH ×2 (08:43→20:32)
[2016-08-21] MEDS: SODIUM CHLORIDE 0.9% INJ SCH ×2 (08:43→20:06)
[2016-08-21] MEDS: XARELTO PO SCH (08:45)
[2016-08-21] MEDS: LEVAQUIN 500 MG/D5W 500 MG/100 ML IVPB IV SCH (10:06)
--- NOTE | 2016-08-21 16:30 | PROGRESS NOTE ---
DATE: 08/21/2016 SUBJECTIVE: The palliative care team to include Dr. Can have seen the patient. The patient has stated that his abdomen feels better for up to a week after paracentesis. Dr. Hurley is out of town, but Dr. Can wishes for Dr. Hurley to retry the paracentesis when he returns on 08/24/2016. In the interim, we will need to change him over from Xarelto to IV heparin drip, so that we can stop the drip prior to the paracentesis procedure Wednesday. The patient is still in pronounced pain and sees no relief except with paracentesis. OBJECTIVE: As noted this morning. ASSESSMENT: 1. Right lung pulmonary thromboembolism. 2. Cirrhosis with ascites. 3. Coagulopathy. PLAN: I am going to change him from Xarelto to IV heparin drip. Will check PT and PTT now and monitor him closely for any signs of bleeding. Will follow and monitor closely, particularly as he has the coagulopathy. cc: Isaac Meyer MD
--- NOTE | 2016-08-21 16:33 | PALLIATIVE CARE CONSULTATION ---
DATE: 08/21/2016 REQUESTING PHYSICIAN: Dr. Meyer. REASON FOR CONSULTATION: Persistent abdominal pain. HISTORY OF PRESENT ILLNESS: This is a 61-year-old male with a past medical history of BALION, as well as medication-induced cirrhosis, for which he is being followed by [facility]. He also carries a history of insulin-dependent diabetes mellitus, obesity, history of noncompliance, peripheral artery disease, diabetic retinopathy, history of osteomyelitis to the left foot, ultimately requiring amputation of the second and third toes and history of DVT. He was most recently admitted on 08/13/2016 after experiencing progressive shortness of breath and nonproductive cough. The V/Q scan showed high probability of pulmonary embolism , and he has been placed on Xarelto. Currently Mr. Go is complaining of severe lower abdominal pain that he describes as stabbing. He states that this pain is not a new pain and that he has felt this pain for the last couple of months. He rates this pain as an 8 on a 0-10 scale. Per chart review, it appears that Mr. Go has underwent 2 paracenteses since 07/13/2016. Mr. Go states that his pain is relieved for a week or two after the paracentesis, but does return. The patient also complains of nausea and poor appetite. He states that he is only able to eat a few bites of food before vomiting. The palliative care team has been consulted to assist with pain management related to Mr. Go's liver disease. REVIEW OF SYSTEMS: Twelve point review of system has been conducted and otherwise negative, except those mentioned in the HPI. PAST MEDICAL HISTORY: 1. BAILON. 2. Insulin-dependent diabetes mellitus with retinopathy. 3. Peripheral artery disease. 4. History of osteomyelitis to the left foot ultimately requiring amputation of the second and third toes. 5. History of DVT. 6. History of noncompliance. 7. Obesity. PAST SURGICAL HISTORY: 1. Right great toe amputation related to a lawnmower accident in 1963. 2. Amputation of the left second and third toes in January of 2016 secondary to osteomyelitis. 3. Stent placement to the left lower extremity related to peripheral artery disease in 2016. FAMILY HISTORY: Positive for BAILON in his brother who is . Also positive for CAD, diabetes mellitus, and lung cancer. SOCIAL HISTORY: Prior to this admission, he lived at home with his . He also has 2 children. He is retired. Alcohol, tobacco and drug use have been denied. PHYSICAL EXAM: General: This is a 61-year-old male, who does not appear to be in any acute distress. HEENT: Atraumatic, normocephalic. Neck: Trachea is midline. Cardiovascular: Increased rate. Regular rhythm. Pulmonary: Lung sounds are diminished. Respirations are nonlabored. Abdomen: Distended and tender, especially to the lower abdomen. Bowel sounds are active. Extremities: Pulses are palpable. IMPRESSION: This is a 61-year-old male with a past medical history as listed above in the HPI. Mr. Go is being followed by [facility] for the treatment of his liver disease. It is reported that there have been conversations regarding possible liver transplant. Mr. Go is to follow up with [facility] on September 11, 2016. The palliative care team was consulted to assist with symptom management related to his abdominal pain. Ultimately Mr. Go needs a paracentesis to relieve the ascites. I recommend transitioning the patient from Xarelto to heparin over the weekend so he can undergo a paracentesis on Wednesday and then transitioning back to Xarelto. Hopefully this will give Mr. Go relief so he can follow up with [facility]. In regards to goals of care, I did discuss advanced directive and [id number] with Mr. Go; he does not have either document, but requested more information which will be given. I attempted to contact Mr. Go's , but was unsuccessful. It appears that Mr. Go 's palliative performance scale is 60%. He is a full code. The palliative care team will continue to follow. Thank you for this consultation. Dictated by AARON Faulkner for Luis Antonio Can MD cc: AARON Faulkner MD Stephen W. Harbin, MD MTDD
[2016-08-21 17:13] LABS: INR 2.27; PROTIME 25.1 Seconds (9.2-11.7); PTT 47.1 Seconds (22.0-36.0)
[2016-08-21 19:03] LABS: URINE CULTURE NEEDED? NO; URINE MICRO REVIEW NEEDED? NO; URINE SOURCE CLEAN CATCH
[2016-08-21] MEDS: NS NEB INH SCH (19:03)
[2016-08-21 19:09] LABS: BILIRUBIN URINE NEGATIVE (NEGATIVE); BLOOD URINE NEGATIVE (NEGATIVE); COLOR YELLOW; GLUCOSE URINE NEGATIVE (NEGATIVE); LEUKOCYTES URINE NEGATIVE (NEGATIVE); NITRITE URINE NEGATIVE (NEGATIVE); PH URINE 5.5; PROTEIN URINE NEGATIVE (NEGATIVE); SP GRAVITY URINE 1.014; TURBIDITY URINE CLEAR (CLEAR); UR EPITHELIAL CELLS <10 /HPF (<10); URINE BACTERIA NEGATIVE /HPF; URINE RBC <10 /HPF (<10); URINE WBC <10 /HPF (<10); UROBILINOGEN URINE NORMAL (NORMAL)
[2016-08-21] MEDS ORDERED: HEPARIN 25,000 UNIT in NS 250 ML IV SCH (19:30)
[2016-08-21] MEDS ORDERED: HEPARIN IV ONE (20:20)
[2016-08-21] MEDS: DULCOLAX PR SCH (20:24)
[2016-08-22] MEDS: OXY IR PO PRN ×3 (01:44→23:02)
[2016-08-22] MEDS: XOPENEX NEB INH SCH ×6 (02:55→23:20)
[2016-08-22] MEDS: HEPARIN 25,000 UNIT in NS 250 ML IV SCH ×2 (04:09→23:17)
[2016-08-22] MEDS: HUMULIN R SUBQ SCH ×4 (06:30→22:58)
[2016-08-22] MEDS: PROTONIX IV SCH ×2 (08:47→23:01)
[2016-08-22] MEDS: ACTIGALL PO SCH ×2 (08:47→23:01)
[2016-08-22] MEDS: SODIUM CHLORIDE 0.9% INJ SCH ×2 (08:47→23:01)
[2016-08-22] MEDS: ALDACTONE PO SCH (08:48)
[2016-08-22] MEDS: CENTRUM SILVER PO SCH (08:48)
[2016-08-22] MEDS: ICAR-C PO SCH ×2 (08:48→23:01)
[2016-08-22] MEDS: LACTULOSE PO SCH ×3 (08:48→17:02)
[2016-08-22] MEDS: CARAFATE PO SCH ×4 (08:48→23:01)
[2016-08-22] MEDS: CULTURELLE PO SCH ×2 (08:48→23:01)
[2016-08-22] MEDS: XIFAXAN PO SCH ×2 (08:49→23:02)
[2016-08-22] MEDS: LASIX PO SCH ×2 (08:49→23:01)
[2016-08-22] MEDS: MIRALAX PO SCH ×2 (08:49→22:58)
--- NOTE | 2016-08-22 10:40 | PROGRESS NOTE ---
DATE: 08/22/2016 SUBJECTIVE: The patient says he feels about the same. He still has a little shortness of breath. Abdomen seems to be getting a little bit bigger from his ascites. OBJECTIVE: Vital Signs: Blood pressure is 105/58, respirations 16, pulse 104, temperature 97.7 degrees Fahrenheit. HEENT: Normocephalic. EOMs intact. PERRLA. Throat clear. Lungs: Clear to auscultation and percussion without rhonchi, rales, or wheezes. Heart: Regular rate rhythm without murmurs, gallops, or friction rubs. Abdomen: Distended from ascites. No tenderness at this point. Neurological: Exam is intact grossly. DIAGNOSTIC DATA: His PTT was 98.3 at the last check. He is on a heparin drip. ASSESSMENT: 1. Right lung pulmonary embolism. 2. Nonalcoholic steatohepatitis. 3. Cirrhosis. 4. Ascites. PLAN: Consideration for paracentesis on Wednesday. cc: MD Isaac Oneil Jr, MD
[2016-08-22] MEDS: LEVAQUIN 500 MG/D5W 500 MG/100 ML IVPB IV SCH (11:07)
--- NOTE | 2016-08-22 14:26 | PROGRESS NOTE ---
DATE: 08/22/2016 SUBJECTIVE: Patient currently is sitting in bed. He is feeling better. He does complain of abdominal distention. His nausea is better. He was able to eat 50% of his meal. He had 1 bowel movement today early around 2:30 a.m. He is able to pass gas better since we started him on Levaquin. He was transitioned to a heparin drip and his Xarelto had been held in order to perform paracentesis on Wednesday. He denies any vomiting or vomiting blood or passing blood in the stools. Denies any fevers, rigors, chills. OBJECTIVE: Vital signs: Temperature 97.9 degrees, pulse rate of 106, respiratory rate of 22, blood pressure 100/60, saturating 98% on room air. General Appearance: Moderately built, moderately nourished, sitting in bed, in no acute distress. HEENT: Pale conjunctivae. Mild icterus. Pupils equal, react to light. Neck: Supple. Chest: Decreased breath sounds. Cardiovascular: Tachycardic at times. Abdomen: Mild discomfort in the pelvic region. Distended abdomen. Positive ascites. No guarding. Extremities: No cyanosis, clubbing. Bilateral lower extremity edema noted, chronic. Neurologic: He is alert, awake, oriented. LABS: Blood glucose of 152. PTT of more than 200 and now revised one is 85.1. Blood cultures have been negative x2 since 08/20/2016. IMPRESSION AND PLAN: 1. Fatty liver, cirrhosis, complicated with portal hypertension, thrombocytopenia, coagulopathy, hypoalbuminemia, hepatic encephalopathy, and superimposed drug induced liver injury secondary to long-term antibiotic use like Zosyn and ceftaroline for osteomyelitis of the toe. 2. Abdominal pain in the pelvic region which is improved since starting on Levaquin, raising a question of SBP. The patient has been transitioned to IV heparin drip for now for PE which can be withheld for 6 hours before the time of paracentesis, likely on Wednesday per the radiologist. At that time we will send the fluid for cell count with differential and cultures. 3. Gallbladder sludge. Being watched by the primary care team. 4. Pulmonary embolism. On heparin drip for now. 5. Metabolic syndrome. The patient will continue to work on losing weight and keep good control of diabetes. 6. Constipation. Improving with Dulcolax and lactulose 45 ml t.i.d. 7. The above plan was discussed with the patient and all questions were answered. cc: MD Isaac Espinoza MD MTDD
[2016-08-22] MEDS: NS NEB INH SCH (20:19)
[2016-08-22] MEDS: PHENERGAN IV PRN (22:54)
[2016-08-22] MEDS: SODIUM CHLORIDE 0.9% INJ PRN (22:54)
[2016-08-22] MEDS: DULCOLAX PR SCH ×2 (23:02→23:07)
[2016-08-23] MEDS: XOPENEX NEB INH SCH ×6 (03:04→22:42)
[2016-08-23] MEDS: HUMULIN R SUBQ SCH ×4 (06:24→23:40)
[2016-08-23] MEDS: OXY IR PO PRN (06:32)
[2016-08-23] MEDS: PHENERGAN IV PRN (06:32)
[2016-08-23] MEDS: SODIUM CHLORIDE 0.9% INJ PRN (06:32)
[2016-08-23 07:01] LABS: BASO% 0.4 % (0.0-0.8); EOS% 1.2 % (0.0-10.0); HEMATOCRIT 38.9 % (42.0-52.0); HEMOGLOBIN 13.2 g/dL (14.0-18.0); IMM GRAN# 0.12 X1000 (0.0-0.04); IMM GRAN% 0.7 % (0.0-0.5); LYMPH# 2.32 X1000 (1.2-3.4); LYMPH% 14.5 % (20.5-51.1); MANUAL DIFF NEEDED? NO; MCH 37.2 PG (27-31); MCHC 33.9 g/dL (33-37); MCV 109.6 FL (81-99); MONO# 1.64 X1000 (0.11-0.59); MONO% 10.2 % (1.7-9.3); PLT 185 X1000 (130-400); RBC 3.55 XMIL (4.7-6.1)
[2016-08-23 07:24] LABS: CALCIUM 8.5 mg/dL (8.8-10.2); POTASSIUM 4.1 mmol/L (3.5-5.1)
[2016-08-23] MEDS ORDERED: HEPARIN IV ONE ×2 (07:39→23:28)
[2016-08-23] MEDS ORDERED: HEPARIN 25,000 UNIT in NS 250 ML IV SCH ×2 (07:40→16:25)
[2016-08-23] MEDS: SODIUM CHLORIDE 0.9% INJ SCH ×2 (09:50→23:31)
[2016-08-23] MEDS: LEVAQUIN 500 MG/D5W 500 MG/100 ML IVPB IV SCH (09:51)
[2016-08-23] MEDS: XIFAXAN PO SCH ×2 (09:51→23:31)
[2016-08-23] MEDS: ACTIGALL PO SCH ×2 (09:51→23:30)
[2016-08-23] MEDS: LASIX PO SCH ×2 (09:51→23:31)
[2016-08-23] MEDS: ICAR-C PO SCH ×2 (09:51→23:30)
[2016-08-23] MEDS: MIRALAX PO SCH ×2 (09:51→23:32)
[2016-08-23] MEDS: LACTULOSE PO SCH ×3 (09:51→16:16)
[2016-08-23] MEDS: PROTONIX IV SCH ×2 (09:51→23:31)
[2016-08-23] MEDS: CENTRUM SILVER PO SCH (09:51)
[2016-08-23] MEDS: ALDACTONE PO SCH (09:51)
[2016-08-23] MEDS: CARAFATE PO SCH ×4 (09:51→23:31)
[2016-08-23] MEDS: CULTURELLE PO SCH ×2 (09:51→23:31)
--- NOTE | 2016-08-23 11:01 | PROGRESS NOTE ---
DATE: 08/23/2016 SUBJECTIVE: The patient states he is feeling a little better. He had a good day yesterday. OBJECTIVE: Vital Signs: Blood pressure 106/69, respirations 20, pulse 108, temperature 98.1 degrees Fahrenheit. HEENT: Normocephalic. EOMs intact. PERRLA. Throat clear. Lungs: Clear to auscultation and percussion without rhonchi, rales, or wheezes. Heart: Regular rate and rhythm without murmurs, gallops, or friction rubs. Abdomen: Distended from his ascites. LABORATORY DATA: White count 10860, hemoglobin 13.2. Platelet count 185,000. His PTT is 55.1 on heparin. Electrolytes essentially normal. Creatinine 1.4. BUN 19. ASSESSMENT: 1. Pulmonary embolus right lung field. 2. Cirrhosis with ascites. PLAN: Paracentesis tomorrow. cc: MD Isaac Oneil Jr, MD
[2016-08-23] MEDS: DULCOLAX PR SCH (23:32)
[2016-08-24] MEDS: HEPARIN 25,000 UNIT in NS 250 ML IV SCH ×2 (00:30→20:48)
[2016-08-24] MEDS: XOPENEX NEB INH SCH ×5 (05:03→19:59)
[2016-08-24] MEDS: HUMULIN R SUBQ SCH ×4 (06:03→23:11)
[2016-08-24 06:40] LABS: BASO% 0.4 % (0.0-0.8); EOS# 0.18 X1000 (0.0-0.7); EOS% 1.5 % (0.0-10.0); HEMOGLOBIN 11.6 g/dL (14.0-18.0); IMM GRAN# 0.11 X1000 (0.0-0.04); IMM GRAN% 0.9 % (0.0-0.5); LYMPH# 2.11 X1000 (1.2-3.4); LYMPH% 17.2 % (20.5-51.1); MANUAL DIFF NEEDED? YES; MCH 37.2 PG (27-31); MCHC 34.1 g/dL (33-37); MONO# 1.14 X1000 (0.11-0.59); MONO% 9.3 % (1.7-9.3); MPV 11.4 FL (7.4-10.4); NEUT% 70.7 % (42.2-75.2); PLT 154 X1000 (130-400); RBC 3.12 XMIL (4.7-6.1)
[2016-08-24 06:47] LABS: ALBUMIN 2.1 g/dL (3.5-5.0); CALCIUM 7.9 mg/dL (8.8-10.2); DIRECT BILIRUBIN 0.8 mg/dL (0.00-0.20); POTASSIUM 3.6 mmol/L (3.5-5.1); TOTAL BILIRUBIN 1.7 mg/dL (0.20-1.00); TOTAL PROTEIN 5.9 g/dL (6.3-8.3)
[2016-08-24 07:10] LABS: BANDS 8 % (0-1); LARGE PLATELETS OCCASIONAL; LYMPHS 10 % (21-51); MONO 6 % (1-9)
[2016-08-24] MEDS: PROTONIX IV SCH ×2 (08:49→22:51)
[2016-08-24] MEDS: CULTURELLE PO SCH ×2 (08:50→22:50)
[2016-08-24] MEDS: XIFAXAN PO SCH ×2 (08:50→22:51)
[2016-08-24] MEDS: CARAFATE PO SCH ×4 (08:50→22:50)
[2016-08-24] MEDS: CENTRUM SILVER PO SCH (08:51)
[2016-08-24] MEDS: ACTIGALL PO SCH ×2 (08:51→22:51)
[2016-08-24] MEDS: ALDACTONE PO SCH (08:51)
[2016-08-24] MEDS: LASIX PO SCH ×2 (08:53→22:50)
[2016-08-24] MEDS: ICAR-C PO SCH ×2 (08:54→22:50)
--- NOTE | 2016-08-24 09:09 | PROGRESS NOTE ---
DATE: 08/24/2016 SUBJECTIVE: Patient resting comfortably. He is awaiting paracentesis this morning. OBJECTIVE: Vital signs: Afebrile, pulse 95-109, blood pressure 115/66, respiratory rate 21. CV: RRR without murmur. Lungs: CTA. Extremities: One to 2+ lower extremity edema. Abdomen: Ascites noted. LABS: White count of 12.3, hemoglobin 11.6, platelets 154,000. Sodium 138, potassium 3.6, chloride 100, CO2 23, BUN 19, creatinine 1.3, glucose 153, calcium 7.9, total bilirubin 1.7, direct bilirubin 0.8. AST 37, ALT 18, alkaline phosphatase 165, total protein 5.9, albumin 2.1. ASSESSMENT: 1. Right lung pulmonary thromboembolism. 2. Cirrhosis with ascites and discomfort, nausea, and vomiting associated. 3. Mild coagulopathy related to his cirrhosis. Has been on IV heparin drip in prep for the paracentesis today but is off of that now as he will be undergoing the paracentesis. PLAN: Continue to leave off the heparin IV and will undergo paracentesis per radiology this morning. PT, PTT will be monitored and as soon as appropriate we will get him back on the Xarelto. Continue IV Levaquin per Dr. Hurley for possible SBP. cc: Isaac Meyer MD
--- NOTE | 2016-08-24 09:29 | PROGRESS NOTE ---
DATE: 08/23/2016 SUBJECTIVE: The patient is complaining of abdominal distention and some nausea this morning. Yesterday he had a better day. Today he had slightly reduced oral intake. His last bowel movement was listed as yesterday. He is on lactulose and MiraLAX. He denies any fevers, rigors, or chills. He is on heparin drip for PE which we will talk about 6 hours before paracentesis tomorrow morning with the radiologist. He denies any vomiting or vomiting or passing blood in the stools. OBJECTIVE: Vital signs: Temperature 97.9 degrees, pulse rate of 95, respiratory rate 18, blood pressure 115/70, saturating 98% on room air. General Appearance: Moderately nourished, lying in bed, in no acute distress. HEENT: Pale conjunctivae. Mild icterus. Neck: Supple. Abdomen: Distended. Discomfort in the pelvic region. No guarding or rebound. Bowel sounds are present but hypoactive. Extremities: No cyanosis, clubbing, bilateral lower extremities noted. Neurologic: He is alert, awake, oriented. LABORATORY DATA: Hemoglobin and hematocrit is 13.2 and 38.9, white count of 16.03, platelet count of 185,000. MCV of 109.6, INR of 2.27 on 08/21, we will check INR in the morning. Sodium 132, potassium 4.1, chloride 97, bicarb 25, anion gap of 14, BUN of 19, creatinine 1.4, glucose of 137, calcium is 8.5. Blood culture has been negative x2 since 08/20. IMPRESSION AND PLAN: 1. Fatty liver cirrhosis complicated with portal hypertension, thrombocytopenia, coagulopathy, hypoalbuminemia, hepatic encephalopathy and superimposed drug-induced liver injury secondary to long-term antibiotic use like Zosyn, ceftaroline for osteomyelitis of the toe. In this regard, the patient will continue on current regimen. We will avoid any hepatotoxic drugs. 2. Abdominal pain periumbilical region and nausea and worsening ascites. The patient is scheduled for paracentesis by Radiology in the morning. In that regard, we will hold heparin for 6 hours before presumed time of paracentesis. We will check PT, PTT, and INR in the morning. 3. We will continue on Levaquin for presumed spontaneous bacterial peritonitis. Since being on Levaquin his abdominal pain has improved and his nausea has improved. 4. Constipation. Continue on lactulose and MiraLAX. 5. Gallbladder sludge. Continue to watch. 6. Pulmonary embolus on heparin drip. 7. Metabolic syndrome. The patient will continue to work to lose weight. Improve activity and keep a good control of diabetes. The above plan of care discussed with the patient and all questions answered. cc: MD Iasac Espinoza MD
[2016-08-24] MEDS: LEVAQUIN 500 MG/D5W 500 MG/100 ML IVPB IV SCH (09:31)
[2016-08-24] MEDS: LACTULOSE PO SCH ×3 (09:33→18:04)
[2016-08-24] MEDS: MIRALAX PO SCH ×3 (09:33→23:08)
--- NOTE | 2016-08-24 12:23 | PROGRESS NOTE ---
DATE: 08/24/2016 SUBJECTIVE: Patient currently resting in bed. He is NPO. His heparin drip was discontinued at 5:30 this morning. He will be going to a paracentesis by the radiologist around 11:30-12 o'clock. He denies any nausea today. He is moving his bowels better. His abdominal pain is improved. He denies any fevers, rigors, or chills. PHYSICAL EXAMINATION: Vital Signs: Temperature 98.2, pulse rate of 101, respiratory rate 20, blood pressure 115/66, saturating 98% on room air. General Appearance: He is moderately built, moderately nourished, lying in bed, in no distress. HEENT: Pale conjunctivae. Mild icterus. Pupils equal, react to light. Neck: Supple. Chest: Decreased breath sounds. Cardiovascular: Regular rate. Tachycardic at times. Abdomen: Is protuberant. Positive ascites. No rebound or guarding. Bowel sounds are heard. Extremities: No cyanosis, clubbing. Bilateral lower extremity edema noted. Neurological: He is alert, awake, oriented x3. LABS: His hemoglobin and hematocrit are 11.6 and 34, white count of 12.3, platelet count of 154,000. His PTT this morning was 186.6. Sodium 138, potassium 3.6, chloride 100, bicarb 23, anion gap 15, BUN of 19, creatinine 1.3, glucose 153, calcium is 7.9. Total bilirubin is 1.7, direct of 0.8, AST 37, ALT 18, alkaline phosphatase 165, total protein 5.9, albumin of 2.1. Blood cultures have been negative so far which were drawn 08/20/2016. IMPRESSION AND PLAN: 1. Fatty liver, cirrhosis complicated with portal hypertension, ascites, coagulopathy, thrombocytopenia, elevated liver enzymes, hypoalbuminemia, and hepatic encephalopathy. The patient is getting ready for paracentesis today with the radiologist for therapeutic reasons. We will also check the fluid studies to evaluate for spontaneous bacterial peritonitis. The patient has been put on Levaquin empirically for presumed spontaneous bacterial peritonitis as he was having a lot of abdominal pain, nausea, and decreased bowel movements. He has since felt better since being on Levaquin. We will continue Levaquin for a total of 10 days. 2. Right lung pulmonary thromboembolism. The patient is on a heparin drip. After the paracentesis, he will resume Xarelto per the primary care team. 3. Obesity metabolic syndrome, diabetes, being managed by the primary team. I educated patient to be working more towards improving his mobility and managing his blood sugars better. 4. Patient will continue on proton pump inhibitors for gastrointestinal prophylaxis. 5. Constipation. He will continue on MiraLAX and lactulose for now. The above plan was discussed the patient and all questions were answered. cc: MD Isaac Espinoza MD
[2016-08-24] MEDS: PHENERGAN IV PRN ×2 (15:25→22:51)
[2016-08-24] MEDS: SODIUM CHLORIDE 0.9% INJ PRN (15:26)
[2016-08-24 16:50] LABS: INR 1.4; PTT 39.4 Seconds (22.0-36.0)
[2016-08-24] MEDS ORDERED: HEPARIN 25,000 UNIT in NS 250 ML IV SCH (22:15)
--- NOTE | 2016-08-24 22:17 | PALLIATIVE CARE PROGRESS NOTE ---
DATE: 08/24/2016 SUBJECTIVE: Mr. Go is complaining of nausea. He is currently waiting to go down for a paracentesis. OBJECTIVE: General: This is a 61-year-old male who does not appear to be in any acute distress. HEENT: Atraumatic, normocephalic. Neck: Trachea is midline. Cardiovascular: Increased rate. Regular rhythm. Pulmonary: Lung sounds are diminished. Respirations are nonlabored. Abdomen: Distended and tender especially to the lower abdomen. Extremities: Bilateral lower extremity edema noted. Neuro: Alert, awake, oriented to person, place and time. ASSESSMENT AND PLAN: As mentioned currently Mr. Go is waiting to go downstairs for a paracentesis. He continues to complain of nausea. There is family at bedside and they state the plan is to follow up at [facility] after discharge. The palliative care team will continue to follow. Dictated by AARON Faulkner for Luis Antonio Can MD cc: AARON Faulkner MD Stephen W. Harbin, MD
[2016-08-24] MEDS: SODIUM CHLORIDE 0.9% INJ SCH (22:51)
[2016-08-24] MEDS: DULCOLAX PR SCH (22:57)
[2016-08-24] MEDS: OXY IR PO PRN (23:58)
[2016-08-25] MEDS: XOPENEX NEB INH SCH ×7 (03:19→23:34)
[2016-08-25 06:23] LABS: BASO% 0.4 % (0.0-0.8); EOS# 0.16 X1000 (0.0-0.7); EOS% 1.4 % (0.0-10.0); HEMATOCRIT 34.9 % (42.0-52.0); HEMOGLOBIN 11.9 g/dL (14.0-18.0); IMM GRAN% 0.9 % (0.0-0.5); LYMPH# 1.51 X1000 (1.2-3.4); LYMPH% 13.3 % (20.5-51.1); MANUAL DIFF NEEDED? NO; MCH 37.3 PG (27-31); MCHC 34.1 g/dL (33-37); MCV 109.4 FL (81-99); MONO# 1.12 X1000 (0.11-0.59); MONO% 9.9 % (1.7-9.3); MPV 11.3 FL (7.4-10.4); NEUT% 74.1 % (42.2-75.2); PLT 159 X1000 (130-400); RBC 3.19 XMIL (4.7-6.1)
[2016-08-25 06:28] LABS: INR 1.37; PROTIME 14.7 Seconds (9.2-11.7)
[2016-08-25 06:35] LABS: CALCIUM 7.9 mg/dL (8.8-10.2)
[2016-08-25] MEDS: HUMULIN R SUBQ SCH ×4 (06:38→21:50)
[2016-08-25 06:56] LABS: PTT HEPARIN PROTOCOL 36.5 Seconds
--- NOTE | 2016-08-25 09:41 | Diag Imaging Result Document ---
PROCEDURE NAME: US PARACENTESIS - 08/25/2016 ULTRASOUND-GUIDED PARACENTESIS, 08/25/2016: COMPARISON: 07/21/2016. FINDINGS: The risks and benefits of the procedure were discussed with the patient. All questions were answered. Written and verbal informed consent was obtained. Ultrasound scanning demonstrated moderate to large ascites. Overlying skin was prepped and draped in sterile fashion. Anesthesia was achieved with injection of 8 mL of 1% lidocaine. The paracentesis catheter was advanced until the return of ascites fluid. 5.3 L was removed. The catheter was withdrawn intact. The patient reported no symptoms from the procedure. IMPRESSION: Successful and uncomplicated ultrasound-guided paracentesis.
[2016-08-25] MEDS: ACTIGALL PO SCH ×2 (10:15→21:49)
[2016-08-25] MEDS: CARAFATE PO SCH ×4 (10:15→21:49)
[2016-08-25] MEDS: CENTRUM SILVER PO SCH (10:15)
[2016-08-25] MEDS: ICAR-C PO SCH ×2 (10:15→21:49)
[2016-08-25] MEDS: CULTURELLE PO SCH ×2 (10:15→21:49)
[2016-08-25] MEDS: LACTULOSE PO SCH ×3 (10:16→16:39)
[2016-08-25] MEDS: SODIUM CHLORIDE 0.9% INJ SCH ×2 (10:16→21:48)
[2016-08-25] MEDS: PROTONIX IV SCH ×2 (10:16→21:48)
[2016-08-25] MEDS: XIFAXAN PO SCH ×2 (10:16→21:49)
[2016-08-25] MEDS: LASIX PO SCH ×2 (10:16→21:49)
[2016-08-25] MEDS: ALDACTONE PO SCH (10:16)
[2016-08-25] MEDS: MIRALAX PO SCH ×2 (10:17→21:49)
[2016-08-25] MEDS: LEVAQUIN 500 MG/D5W 500 MG/100 ML IVPB IV SCH (13:14)
--- NOTE | 2016-08-25 14:20 | PROGRESS NOTE ---
DATE: 08/25/2016 SUBJECTIVE: The patient is status post paracentesis per Dr. Alegria, radiologist. This was uncomplicated and 5 L were removed. The patient feels better overall. OBJECTIVE: Vital Signs: Afebrile. Pulse 90, respirations 14, blood pressure 142/115. CV: RRR without murmur. Lungs: CTA. Abdomen: Softer, less abdominal girth. Extremities: Two plus lower extremity edema. LABS: This a.m. show white count 11.32, hemoglobin 11.9, platelets 159,000. INR 1.37, PTT 36.5. Sodium 138, potassium 4.0, chloride 100, CO2 26, BUN 20, creatinine 1.4, glucose 167, calcium is 7.9. ASSESSMENT: 1. Right lung PTE. 2. Cirrhosis with ascites. Now status post 3rd paracentesis. 3. Mild coagulopathy related to his cirrhosis. 4. IDDM. PLAN: We will resume the Xarelto anticoagulation late this evening. Will monitor patient overnight and repeat CBC and CMP in the morning. Continue Levaquin for possible spontaneous bacterial peritonitis. We will try to ambulate. Likely discharge in the morning. cc: Isaac Meyer MD
--- NOTE | 2016-08-25 15:43 | PALLIATIVE CARE PROGRESS NOTE ---
DATE: 08/25/2016 SUBJECTIVE: Mr. Go had a paracentesis performed this morning. He states he feels great. He denies abdominal pain. He also denies nausea. OBJECTIVE: General: This is a 61-year-old male who does not appear to be in any acute distress. HEENT: Atraumatic, normocephalic. Neck: Trachea is midline. Cardiovascular: Regular rate and rhythm. Pulmonary: Lung sounds are diminished. Respirations are nonlabored. Abdomen: Soft. Bowel sounds are active. Extremities: Bilateral lower extremity noted, pulses palpable. Neurologic: Awake and alert. Oriented to person, place and time. ASSESSMENT AND PLAN: As mentioned, Mr. Go has no acute complaints. After the paracentesis he states that he feels great and does not have any abdominal pain. Plan is to follow up with [facility] after discharge. The palliative care team will continue to follow. Dictated by AARON Faulkner for Luis Antonio Can MD cc: AARON Faulkner MD Stephen W. Harbin, MD
[2016-08-25] MEDS: XARELTO PO SCH (21:49)
[2016-08-25] MEDS: DULCOLAX PR SCH (21:50)
[2016-08-26] MEDS: XOPENEX NEB INH SCH ×5 (04:00→19:25)
[2016-08-26] MEDS: HUMULIN R SUBQ SCH ×4 (06:30→21:53)
[2016-08-26] MEDS: PROTONIX IV SCH ×2 (08:17→21:53)
[2016-08-26] MEDS: CENTRUM SILVER PO SCH (08:17)
[2016-08-26] MEDS: CARAFATE PO SCH ×4 (08:17→21:53)
[2016-08-26] MEDS: ACTIGALL PO SCH ×2 (08:17→21:52)
[2016-08-26] MEDS: XIFAXAN PO SCH ×2 (08:17→21:53)
[2016-08-26] MEDS: ICAR-C PO SCH ×2 (08:17→21:53)
[2016-08-26] MEDS: XARELTO PO SCH ×2 (08:17→21:53)
[2016-08-26] MEDS: ALDACTONE PO SCH (08:17)
[2016-08-26] MEDS: LASIX PO SCH ×2 (08:17→21:53)
[2016-08-26] MEDS: CULTURELLE PO SCH ×2 (08:17→21:53)
[2016-08-26] MEDS: LACTULOSE PO SCH ×3 (08:18→16:28)
[2016-08-26] MEDS: MIRALAX PO SCH (08:19)
[2016-08-26 08:43] LABS: ALBUMIN 2.2 g/dL (3.5-5.0); CALCIUM 8.2 mg/dL (8.8-10.2); POTASSIUM 3.5 mmol/L (3.5-5.1); TOTAL BILIRUBIN 1.47 mg/dL (0.20-1.00); TOTAL PROTEIN 5.6 g/dL (6.3-8.3)
[2016-08-26 08:58] LABS: HEMATOCRIT 35.8 % (42.0-52.0); HEMOGLOBIN 11.9 g/dL (14.0-18.0); MCH 36.6 PG (27-31); MCHC 33.2 g/dL (33-37); MCV 110.2 FL (81-99); MPV 11.7 FL (7.4-10.4); RBC 3.25 XMIL (4.7-6.1)
[2016-08-26] MEDS: PHENERGAN IV PRN ×2 (10:25→23:01)
[2016-08-26] MEDS: SODIUM CHLORIDE 0.9% INJ PRN ×2 (10:25→23:01)
[2016-08-26] MEDS: LEVAQUIN 500 MG/D5W 500 MG/100 ML IVPB IV SCH (10:25)
[2016-08-26] MEDS ORDERED: ALBUMIN 25% IV ONE (13:30)
[2016-08-26] MEDS ORDERED: DULCOLAX PR ONE (13:44)
--- NOTE | 2016-08-26 13:56 | PROGRESS NOTE ---
DATE: 08/26/2016 SUBJECTIVE: The patient currently resting in bed. He is currently sleeping but he will easily wake up on command. The patient had nausea this morning. He threw up yellowish vomitus with no coffee grounds and no evidence of any blood in the vomitus. He had 5 BMs yesterday and that is why he did not take his MiraLAX and lactulose today. He complains of periumbilical discomfort. He had a paracentesis done yesterday where patient had removal of 5.3 L. Denies any fevers, rigors, or chills.Vitals: Temperature 98.4 degrees, pulse rate of 106, respiratory rate 21, blood pressure 114/65, saturating 98% on room air. General Appearance: Moderately nourished, lying in bed, in no acute distress. HEENT: Mild pallor. No icterus. Pupils equal, react to light. Neck: Supple. Abdomen: Obese, decreasing distention as compared to yesterday. Bowel sounds are present. No guarding. No rebound. Mild Extremities: No cyanosis, clubbing, in bilateral lower extremities are noted. Neurologic: He is alert, awake, oriented. LABS: His hemoglobin and hematocrit is 11.9 and 35.8, white count of 12.4, platelet count of 152,000. Sodium 137, potassium 3.5, chloride 99, bicarb 24, anion gap of 14, BUN of 16, creatinine 1.3 which is getting better. Glucose is 160. Calcium is 8.2, total bilirubin is 1.47. AST 45, ALT 18, alkaline phosphatase 172, total protein 5.2, albumin of 2.2. Last ammonia was checked on 08/19 which was 46. IMPRESSION AND PLAN: 1. Fatty liver cirrhosis complicated with portal hypertension, ascites, coagulopathy, thrombocytopenia, hypoalbuminemia, hepatic encephalopathy. We will keep the patient on IV antiemetics and I will give him a dose of Dulcolax now and resume his lactulose as he has not had vomiting today. We will check patient's ammonia tomorrow. The patient will be given albumin 25 g IV once daily for 3 days. The patient is requesting transfer to [facility] where he has an appointment on September 11, [address] Meyer is working on that. 2. Presumed SBP. He is on Levaquin which we will continue for 10-14 days. 3. Right lung pulmonary thromboembolism. He is on Xarelto per the primary team. 4. Obesity metabolic syndrome, diabetes being managed by the primary team. 5. GI prophylaxis with PPIs. 6. Constipation. He is on MiraLAX, lactulose and Dulcolax. 7. At some point, patient will need a colonoscopy but since he is nauseous and throwing up we will hold off on doing that. 8. Further recommendations to follow pending the hospital course. I discussed the plan of care with the patient and the RN. All questions answered. cc: MD Isaac Espinoza MD
--- NOTE | 2016-08-26 15:40 | PROGRESS NOTE ---
DATE: 08/26/2016 SUBJECTIVE: Patient had paracentesis yesterday with 5 L drawn off. Unfortunately this morning he redeveloped some nausea and vomiting. Currently he is sitting up and eating lunch vigorously and appears a little better but he says he wants to be transferred to [facility] for further evaluation. He has been followed by there and I am going to try to contact DrTrini with recommendations for possible transfer if he will accept. OBJECTIVE: Vital signs: Afebrile. Pulse 106, respirations 21, blood pressure 114/65, O2 saturation 98% on room air. Cardiovascular: RRR. Lungs: CTA. Extremities: There is 1+ lower extremity edema. Abdomen: Much softer. Less ascites is noted. LABS: White count of 12.48, hemoglobin 11.9, platelets 152,000. Sodium 137, potassium 3.5, chloride 99, CO2 24, BUN 16, creatinine 1.3, glucose 160, calcium 8.2, total bilirubin 1.47, AST 45, ALT 18, alkaline phosphatase 172, total protein 5.6, albumin 2.2. ASSESSMENT: 1. Recurring nausea and vomiting with no obvious source. 2. Possible with spontaneous bacterial peritonitis on Levaquin. 3. Right lung pulmonary thromboembolism. 4. Cirrhosis with ascites and portal hypertension status post third paracentesis. 5. Mild coagulopathy. 6. Insulin-dependent diabetes mellitus. PLAN: At this point, continue liver medications, IV Levaquin, SSI. I will contact [facility] to see if they desire to accept him in transfer. cc: Isaac Meyer MD
--- NOTE | 2016-08-26 21:09 | PALLIATIVE CARE PROGRESS NOTE ---
DATE: 08/26/2016 SUBJECTIVE: Mr. Go is resting quietly on my arrival, but does arouse easily. He complains of nausea. He also complains of abdominal pain that he rates as a 5 on a 0-10 scale. OBJECTIVE: General: This is a 61-year-old male who does not appear to be in any acute distress, but appears sleepy. HEENT: Atraumatic, normocephalic. Neck: Trachea is midline. Cardiovascular: Increased rate. Regular rhythm. Pulmonary: Lung sounds are diminished. Respirations are nonlabored. Abdomen: Obese soft. Bowel sounds are active. Extremities: Pulses are palpable. Neurologic: He is awake, alert, oriented to person, place and time. ASSESSMENT AND PLAN: Current plan per chart review is that Dr. Meyer is working on requesting transfer to [facility]. Currently there is no family at the bedside. As previously mentioned, Mr. Go complains of nausea. He states he just received something to help with that. He also states he was able to eat a little bit of lunch and has not had any episodes of vomiting. The palliative care team will continue to follow. Dictated by AARON Faulkner for Luis Antonio Can MD cc: AARON Faulkner MD Stephen W. Harbin, MD
[2016-08-26] MEDS: SODIUM CHLORIDE 0.9% INJ SCH (21:53)
[2016-08-26] MEDS: DULCOLAX PR SCH ×2 (21:54→22:04)
[2016-08-26] MEDS: OXY IR PO PRN (22:56)
[2016-08-27] MEDS: DILAUDID IV PRN (02:04)
[2016-08-27] MEDS: XOPENEX NEB INH SCH ×6 (03:21→22:51)
[2016-08-27] MEDS: HUMULIN R SUBQ SCH ×4 (06:30→22:32)
[2016-08-27] MEDS: LACTULOSE PO SCH ×3 (10:07→18:53)
[2016-08-27] MEDS: ALDACTONE PO SCH (10:08)
[2016-08-27] MEDS: LASIX PO SCH ×2 (10:08→21:46)
[2016-08-27] MEDS: ACTIGALL PO SCH ×2 (10:08→21:45)
[2016-08-27] MEDS: CENTRUM SILVER PO SCH (10:08)
[2016-08-27] MEDS: PROTONIX IV SCH ×2 (10:08→21:44)
[2016-08-27] MEDS: ICAR-C PO SCH ×2 (10:09→21:45)
[2016-08-27] MEDS: XIFAXAN PO SCH ×2 (10:09→21:46)
[2016-08-27] MEDS: CARAFATE PO SCH ×4 (10:09→21:45)
[2016-08-27] MEDS: SODIUM CHLORIDE 0.9% INJ SCH ×2 (10:09→21:44)
[2016-08-27] MEDS: CULTURELLE PO SCH ×2 (10:09→21:46)
[2016-08-27] MEDS: XARELTO PO SCH ×2 (10:09→21:45)
[2016-08-27] MEDS: LEVAQUIN 500 MG/D5W 500 MG/100 ML IVPB IV SCH (10:10)
--- NOTE | 2016-08-27 14:33 | PROGRESS NOTE ---
DATE: 08/27/2016 SUBJECTIVE: Patient currently resting in bed. He is feeling better. The abdominal pain is better. He denies any nausea or vomiting. Denies any fever, rigors, chills. He had 1 bowel movement today. Yesterday he had refused lactulose and MiraLAX in the morning but today I told him that he has to take them every day if he wants to avoid constipation. And at some point, he will need a colonoscopy. We will try to schedule him as an outpatient. OBJECTIVE: Vital signs: Temperature 97.9 degrees, pulse rate of 94, respiratory rate 17, blood pressure 102/60, saturating 92% on room air. General Appearance: Moderately nourished, lying in bed, in no acute distress. HEENT: Pale conjunctivae. No icterus. Pupils equal, react to light. Neck: Supple. Abdomen: Soft. Mild ascites noted. No rebound no guarding. Bowel sounds heard. No tenderness. Mild distention noted. Extremities: No cyanosis or clubbing. Bilateral lower extremity edema noted. Neurologic: He is alert, awake, oriented. LABS: His hemoglobin and hematocrit is 11.9 and 35.8, white count of 12.4, platelet count of 152,000, MCV of 110.2. Sodium of 139, potassium 3.5, BUN of 16, creatinine 1.3 , glucose of 213. AST 45, ALT 18, alkaline phosphatase 172, total protein 5.6, albumin of 2.2. These labs are from yesterday. His INR 2 days ago was 1.37. IMPRESSION AND PLAN: 1. Fatty liver cirrhosis. Currently we will continue to avoid hepatotoxic drugs. 2. He will continue on lactulose 40 mL p.o. t.i.d., Xifaxan 500 mg p.o. b.i.d. 3. Spironolactone 50 mg daily, and ursodiol 300 mg p.o. b.i.d. 4. Lasix 60 mg p.o. b.i.d. for now, but at home he can change it to 40 mg once or twice daily, and on discharge we will also increase Aldactone to 100 mg once daily. 5. Multivitamin once daily. 6. Iron-C b.i.d. 7. Constipation. He will continue MiraLAX 17 g p.o. b.i.d., and Dulcolax 10 mg per rectum at bedtime, and lactulose 45 mL 3 times daily 8. He can hold these medicines for 24 hours if he develops more than 3 bowel movements in 24 hours. 9. PE: continuing Xarelto, watch for bleeding. 10. Patient will need outpatient colonoscopy once his PE is cleared. We will wait for that. 11. The patient to continue to follow up with [facility] as scheduled on 2016. 12. Gastrointestinal prophylaxis Protonix every day. 13. Presumed spontaneous bacterial peritonitis. In that regard the patient will continue on Levaquin for 7 days after discharge. Above plan discussed with the patient and the nurse and all questions answered. cc: MD Isaac Espinoza MD MTDD
--- NOTE | 2016-08-27 14:38 | PROGRESS NOTE ---
DATE: 08/27/2016 SUBJECTIVE: Patient had an intense episode of pain in his right lower quadrant he said. Last night during the night, nurses had called me and told me it was in his legs. At any rate, he was switched over from the oxycodone 5 mg to Dilaudid 0.5 mg IV q.3 hours, which has been doing some better for his pain he says. He has nausea and vomiting after he eats, but of note, he did eat all his grilled cheese, and almost everything off his plate for lunch. He has not been active, not ambulating, not walking as been recommended. We strongly encouraged him to do that. OBJECTIVE: Afebrile. Pulse 94, respirations 17, blood pressure 102/63, O2 saturation on room air 97%. ASSESSMENT: 1. Right lung pulmonary thromboembolism. 2. Recurring nausea and vomiting with no significant improvement after paracentesis subjectively. 3. Possible spontaneous bacterial peritonitis on Levaquin. 4. Cirrhosis of the liver with ascites and portal hypertension, status post third paracentesis. 5. Mild coagulopathy. 6. Insulin-dependent diabetes mellitus. PLAN: For now, we are continuing IV Levaquin and liver medications as per Dr. Hurley. We have strongly encouraged the patient to ambulate with physical therapy and try to improve his strength level. I have spoken with [facility] and they have placed the patient on a waiting list for possible transfer there. The patient and I discussed in detail whether to transfer to [facility] or, as he is doing some better clinically, that he may be able to be discharged home. Offered to discharge him home with follow up with Dr. Dubon outpatient on September 11, but patient declines and wants to "wait another day." I will continue to wait and see if [facility] comes through with transfer option. Otherwise, will possibly discharge home tomorrow if she continues to do reasonably well. cc: Isaac Meyer MD
--- NOTE | 2016-08-27 17:48 | PALLIATIVE CARE PROGRESS NOTE ---
DATE: 08/27/2016 SUBJECTIVE: Mr. Go states that he is doing better today. He denies nausea. He states that he was able to eat his lunch without any episodes of vomiting. He continues to complain of pain to his abdomen. He rates this pain as a 5 on a 0-10 scale. It looks like that his Dilaudid was reordered during the night, and the patient states this is very effective. OBJECTIVE: General: This is a 61-year-old male who does not appear to be in any acute distress. HEENT: Atraumatic, normocephalic. Neck: Trachea is midline. Cardiovascular: Regular rate and rhythm. Pulmonary: Lung sounds are diminished. Respirations are nonlabored. Abdomen: Bowel sounds are active. He is mildly distended. Extremities: Pulses are palpable. He does have edema to bilateral lower extremities. Neurologic: He is awake and alert, and oriented to person, place, and time. ASSESSMENT AND PLAN: The patient is currently awaiting a possible transfer to [facility]. Per chart review, [facility] has placed Mr. Go on a waiting list for a bed. Mr. Go does not have any acute complaints at this time. He does state that his current pain medication is very effective. The palliative care team will continue to follow. Dictated by AARON Faulkner for Luis Antonio Can MD cc: AARON Faulkner MD Stephen W. Harbin, MD
[2016-08-27] MEDS: NS NEB INH SCH (19:10)
[2016-08-27] MEDS: DULCOLAX PR SCH (21:47)
[2016-08-28] MEDS: XOPENEX NEB INH SCH ×6 (03:37→22:48)
[2016-08-28] MEDS: LACTULOSE PO SCH ×3 (08:59→17:56)
[2016-08-28] MEDS: CULTURELLE PO SCH ×2 (09:00→21:11)
[2016-08-28] MEDS: LASIX PO SCH ×2 (09:00→21:11)
[2016-08-28] MEDS: ICAR-C PO SCH ×2 (09:00→21:11)
[2016-08-28] MEDS: PROTONIX IV SCH ×2 (09:01→21:14)
[2016-08-28] MEDS: XIFAXAN PO SCH ×2 (09:01→21:11)
[2016-08-28] MEDS: CARAFATE PO SCH ×4 (09:01→21:11)
[2016-08-28] MEDS: SODIUM CHLORIDE 0.9% INJ SCH ×2 (09:01→21:14)
[2016-08-28] MEDS: XARELTO PO SCH ×2 (09:01→21:11)
[2016-08-28] MEDS: ALDACTONE PO SCH (09:01)
[2016-08-28] MEDS: ACTIGALL PO SCH ×2 (09:01→21:11)
[2016-08-28] MEDS: CENTRUM SILVER PO SCH (09:01)
[2016-08-28] MEDS: HUMULIN R SUBQ SCH ×4 (11:23→21:12)
[2016-08-28] MEDS: LEVAQUIN 500 MG/D5W 500 MG/100 ML IVPB IV SCH (11:23)
[2016-08-28] MEDS: DILAUDID IV PRN (13:02)
[2016-08-28] MEDS: OXY IR PO PRN ×3 (14:42→21:11)
--- NOTE | 2016-08-28 14:58 | PROGRESS NOTE ---
DATE: 08/28/2016 SUBJECTIVE: I saw the patient earlier this morning and he seemed to be in good spirits, doing better, sitting up, and had eaten breakfast and done well, without any difficulty. He says his pain was doing well. Then I come back to discharge him here just a few minutes ago and he has told me and the palliative care nurse practitioner that he is having 10/10 pain in his lower belly and he does not want to go home. He just received a Dilaudid shot a few minutes ago, he says it did not seem to help him a great deal. He has not received a great deal of Dilaudid, maybe 3 shots in the past 24 hours of 0.5 mg each time. He is on the waiting list at [facility] to transfer there as he is under the care of Dr. Garcia, business loan processor there, but at this point they do not have a bed available. OBJECTIVE: Afebrile, pulse at 98-103, respirations 16-18, blood pressure 110/57, O2 saturation on room air 94%-98%.Cardiovascular: RRR. Lungs: CTA. Abdomen: Some ascites but improved somewhat after paracentesis although that may be slightly increasing again away from the paracentesis a couple of days ago. Extremities: Mild lower extremity edema. ASSESSMENT: 1. Recurring abdominal pain. 2. Episodic nausea and vomiting. 3. Cirrhosis of the liver with ascites and portal hypertension and mild coagulopathy. 4. Right lung pulmonary thromboembolism on Xarelto treatment. 5. Possible spontaneous bacterial peritonitis. On Levaquin. 6. Insulin-dependent diabetes mellitus. PLAN: At this point, patient says he simply cannot return to his home. I am going to try to place him back on the oral oxycodone for pain control, but if that is unsuccessful we may have to retry the Dilaudid once again. I feel like we should try to get away from the IV narcotics as we can. We are going to try to transfer him to [facility] when they have a bed available. We are still awaiting that notification. Continue liver medications per Dr. Hurley. Continue SSI. Notably he did eat lunch and has cleaned his plate for lunch which was around 12:30 to 1:00, which is a good sign. cc: Isaac Meyer MD
[2016-08-28 15:53] LABS: BASO% 0.3 % (0.0-0.8); EOS# 0.11 X1000 (0.0-0.7); EOS% 0.8 % (0.0-10.0); HEMATOCRIT 38.4 % (42.0-52.0); HEMOGLOBIN 13.1 g/dL (14.0-18.0); IMM GRAN# 0.06 X1000 (0.0-0.04); IMM GRAN% 0.4 % (0.0-0.5); LYMPH# 1.15 X1000 (1.2-3.4); LYMPH% 8.6 % (20.5-51.1); MANUAL DIFF NEEDED? NO; MCH 37.2 PG (27-31); MCHC 34.1 g/dL (33-37); MCV 109.1 FL (81-99); MONO# 1.39 X1000 (0.11-0.59); MONO% 10.4 % (1.7-9.3); MPV 11.3 FL (7.4-10.4); NEUT% 79.5 % (42.2-75.2); PLT 141 X1000 (130-400); RBC 3.52 XMIL (4.7-6.1)
--- NOTE | 2016-08-28 16:04 | PALLIATIVE CARE PROGRESS NOTE ---
DATE: 08/28/2016 SUBJECTIVE: On my arrival Mr. Go is grimacing, moaning, holding his abdomen stating that he is in pain. He rates his pain as a 10 out of a 0-10 scale. He denies nausea or shortness of breath. It looks like he has just received his ordered dose of Dilaudid just prior to my visit. There are no family at the bedside. OBJECTIVE: General: This is a 61-year-old male who appears uncomfortable. HEENT: Atraumatic, normocephalic. Neck: Trachea is midline. Cardiovascular: Increased rate. Regular rhythm. Pulmonary: Lung sounds are diminished but clear. Respirations are nonlabored. Abdomen: Obese, soft. Bowel sounds are active. Extremities: Pulses are palpable. He has edema to bilateral lower extremities. Neurologic: Awake, alert, oriented to person, place and time. ASSESSMENT AND PLAN: Mr. Go is it still awaiting a possible transfer to [facility]. In regards to Mr. Go's pain he has just received Dilaudid prior to my visit however he also has OxyIR 5 mg ordered that he can have every 3 hours. I have educated Mr. Go on utilizing the OxyIR before his pain gets severe. After reviewing the chart it appears that he has received Dilaudid only 3 times within the last 24 hours and my fear is that he is waiting until his pain is severe before asking for pain medication. Hopefully if he utilizes OxyIR when he first begins to experience pain then we can get a good regimen in place so he can discharge if he is not able to transferred to [facility]. He does not complain of nausea at this time. It appears that he has eaten 100% of his lunch with no episodes of vomiting. The palliative care team will continue to follow. Dictated by AARON Faulkner for Luis Antonio Can MD cc: AARON Faulkner MD Stephen W. Harbin, MD
[2016-08-28 16:16] LABS: AGAP 13; ALBUMIN 2.1 g/dL (3.5-5.0); ALKALINE PHOSPHATASE 173 U/L (32-122); AMYLASE 17 U/L (20-200); BUN 15 mg/dL (8-22); CALCIUM 8.3 mg/dL (8.8-10.2); CHLORIDE 97 mmol/L (98-107); COSMO 278; GOT 42 U/L (10-34); GPT 17 U/L (10-44); POTASSIUM 3.6 mmol/L (3.5-5.1); SODIUM 136 mmol/L (136-145); TCO2 26 mmol/L (25-35); TOTAL BILIRUBIN 1.58 mg/dL (0.20-1.00); TOTAL PROTEIN 5.4 g/dL (6.3-8.3)
[2016-08-28] MEDS: NS NEB INH SCH (19:11)
[2016-08-28] MEDS: DULCOLAX PR SCH (21:12)
[2016-08-29] MEDS: OXY IR PO PRN ×3 (00:39→12:39)
[2016-08-29] MEDS: XOPENEX NEB INH SCH ×4 (03:13→15:35)
[2016-08-29] MEDS: HUMULIN R SUBQ SCH ×3 (06:39→17:03)
[2016-08-29] MEDS ORDERED: ALDACTONE PO SCH (09:00)
[2016-08-29] MEDS: ICAR-C PO SCH (09:26)
[2016-08-29] MEDS: XIFAXAN PO SCH (09:26)
[2016-08-29] MEDS: LACTULOSE PO SCH ×3 (09:26→17:03)
[2016-08-29] MEDS: CULTURELLE PO SCH (09:26)
[2016-08-29] MEDS: CARAFATE PO SCH ×3 (09:26→17:02)
[2016-08-29] MEDS: CENTRUM SILVER PO SCH (09:26)
[2016-08-29] MEDS: XARELTO PO SCH (09:27)
[2016-08-29] MEDS: ACTIGALL PO SCH (09:27)
[2016-08-29] MEDS: LASIX PO SCH (09:27)
[2016-08-29] MEDS: LEVAQUIN 500 MG/D5W 500 MG/100 ML IVPB IV SCH ×2 (09:28→11:37)
[2016-08-29] MEDS: PROTONIX IV SCH (09:28)
[2016-08-29] MEDS ORDERED: OXY IR PO PRN (13:42)
--- NOTE | 2016-08-29 14:10 | PROGRESS NOTE ---
DATE: 08/29/2016 SUBJECTIVE: Patient still complains of intense pain in the abdomen. Complains of nausea after he eats. He says the pain is intensified after he eats. Says he cannot tolerate foods of any sort but especially chicken and dressing he had for lunch. OBJECTIVE: Vital signs: Afebrile, pulse 91, respirations 14, blood pressure 98/68, O2 saturation room air 99%. CV: RRR without murmur. Lungs: CTA. Abdomen: Soft, mild ascites. No pinpoint tenderness. Extremities: No edema. ASSESSMENT: 1. Recurring abdominal pain. 2. Episodic nausea. 3. Cirrhosis of the liver with ascites and portal hypertension and mild coagulopathy associated with nonalcoholic steatohepatitis and medications. 4. Right lung pulmonary thromboembolism. 5. Spontaneous bacterial peritonitis on Levaquin. 6. Insulin-dependent diabetes mellitus. PLAN: At this time as he is not tolerating food at all I am going to stop his Glucerna and his food intake and try to give him bowel rest primarily with clear liquids. Continue SSI as we can. Reduce pain medication. Still awaiting transfer bed to [facility]. They still do not have a bed available at this time. Will continue to try to work on that situation and will transfer him once they get the bed available. For now he refuses discharge but wishes to continue to treat here in the hospital. We will continue to try to work aggressively to improve his symptoms at this point and continue Xarelto. cc: Isaac Meyer MD
[2016-08-29 14:53] VITALS: BP 92/76
--- NOTE | 2016-08-29 22:49 | DISCHARGE SUMMARY ---
ADMISSION DATE: 08/13/2016 DISCHARGE DATE: 08/29/2016 DIAGNOSES: 1. Right lung pulmonary thromboembolus. 2. Sludge in the gallbladder, thought not causing symptomatology. 3. 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 Garcia at [facility]. 4. Portal hypertension. 5. Mild coagulopathy with INR ranging around 1.4 without anticoagulation. 6. Ascites, status post paracentesis during this hospitalization, with removal of around 5 L of fluid. This is his 3rd paracentesis. 7. Port in place right upper chest, stable, followed by Dr. [facility]. 8. Obesity. 9. History of noncompliance. 10. IDDM. CONSULTANTS: 1. Dr. Jovany [facility], vascular surgeon and general surgeon. 2. Dr. Sid Hurley, magento web developer. PROCEDURES: 1. V/Q scan revealing right lung pulmonary thromboembolus. 2. Abdominal ultrasound revealing findings consistent with cirrhosis, ascites and sludge in the gallbladder. 3. Paracentesis with removal of 5.1 L of ascitic fluid. REASON FOR ADMISSION AND HOSPITAL COURSE: The patient is a patient with history of cirrhosis of the liver, who presented to the office with complaints of shortness of breath, which had worsened in less than 1 week span. There was concern for pulmonary thromboembolus as he had had a right arm DVT remotely, back in January 2016. The patient was admitted to the hospital, and indeed V/Q scan did show a right PTE, and the patient was placed on full dose Lovenox initially, and the insurance changed over to Xarelto at 15 mg p.o. b.i.d. thereafter. He did well , and essentially became asymptomatic regarding that, within the 1st 72 hours. Patient worked with physical therapy, but was quite hampered in regard to his mobility. He ate okay, was on Glucerna shakes with complaint of severe nausea, abdominal pain, leg pain on occasion, and especially abdominal pain and nausea will be present after any food intake. We ended that, and changed him off of IV Dilaudid, which seemed to be hampering him. We put him on some oral oxycodone at 5 mg p.o., and we tried to wean him off of that. He was still complaining of symptoms. His liver function tests have worked downward, from an 8 bilirubin around 4 months ago, now it is at 1.4. His LFTs are essentially normal. He was followed by Dr. Hurley, here in [place], and also by Dr. Garcia at [facility], and the patient was having ongoing symptoms of nausea and pain, and we were trying to find the etiology of this. Palliative care saw the patient, thought he might benefit from repeat paracentesis. Thus, that was undertaken, however, symptoms persisted essentially after 5 L were removed via paracentesis. He continued to have some nausea, although, there was no emesis documented, and he seemed to be eating well, as documented on the chart, but would then complain that he didn't eat well. Lab tests were acceptable. We tried to work down his narcotics. Abdominal ultrasound did show some sludge in the gallbladder, and Dr. Bennett was asked to evaluate that, and he did not feel like that was causing his symptoms. He had no symptoms at all in his right upper quadrant, and he has had a HIDA scan on previous admissions, which failed to show abnormality, and he was evaluated at that time by Dr. Nickolas Larsen, general surgeon, with similar recommendations not to pursue any removal of the gallbladder. Dr. Bennett did not feel like it would be warranted to remove the line in place, right upper chest, as he did not feel like that was the cause of his difficulty at this time. Again, his PTE was stable with no shortness of breath or other symptoms on the Xarelto. The patient and his desire for him to be transferred to [facility] for further consideration and evaluation, as he is followed by Dr. Garcia, and he is having ongoing symptoms. He was on a waiting list, and did receive a bed notification to be transferred to [facility] today. He will be continued on his home medications, which include numerous liver medications to include, Actigall, lactulose, MiraLAX, Xifaxan, as well as, Lasix spironolactone and nadolol. Complete list of medications are as noted on his discharge. cc: Isaac Meyer MD MTDD
== END 2016-08-29 18:00 | disposition short-term general hospital (02) ==
LOC: 3N 20:08
PROVIDERS: ADMIT Family Medicine; ATTEND Family Medicine

== ENCOUNTER 2016-09-08 22:36 | Inpatient (IN) ==
[2016-09-08] MEDS ORDERED: DILAUDID IV ONE (22:57)
--- NOTE | 2016-09-08 22:59 | PROVIDER DOCUMENTATION ---
HPI-General Adult - General Stated Complaint: abd pain Time Seen by Provider: 09/08/16 22:39 Source: patient, family Allergies/Adverse Reactions: Patient Allergies Allergy/AdvReac Type Severity Reaction Status Date / Time ondansetron HCl * Allergy NAUSEA/VOMI Verified 09/08/16 23:10 [From Zofran (as TING hydrochloride)] Home Medications: Home Medication List Medication Instructions Recorded Confirmed Last Taken Type Insulin Humulin 70/30 [Humulin 24 unit SUBQ Q 12/25/13 08/13/16 08/12/16 19: 00 History 70/30] Insulin Humulin 70/30 [Humulin 44 unit SUBQ QAM 12/25/13 08/13/16 08/13/16 07: 00 History 70/30] Pantoprazole [Protonix] 40 mg PO DAILY@0700 #30 tablet 07/01/16 08/13/16 07:00 Rx Sucralfate [Carafate Liquid] 1 gm PO 0700,2100 #120 udc 07/13/16 08/13/16 07:00 Rx Furosemide [Lasix] 40 mg PO DAILY #30 tablet 07/27/16 08/13/16 08/13/16 12:00 Rx Lactulose 45 ml PO TID #120 udc 07/27/16 08/13/16 08/13/16 12:00 Rx Rifaximin [Xifaxan] 550 mg PO BID #60 tablet 07/27/16 08/13/16 08/13/16 07:00 Rx Spironolactone [Aldactone] 100 mg PO DAILY #30 tablet 07/27/16 08/13/16 07:00 Rx Ursodiol [Actigall] 300 mg PO BID #60 capsule 07/27/16 08/13/16 08/13/16 07:00 Rx - History of Present Illness -Gen Adult Nature of Presenting Problems: 61 year old WM presents with c/o increased shortness of breath and abdominal pain. Pt reports a history of BAILON with chronic shortness of breath/abd pain, worse onset tonight. Pt reports he has had no appetite over the last 2 days, decreased intake of fluid/solid food. only intake today is 4 bites of a potato. pt reports he had a paracentisis 2 weeks ago while at [facility] for an admission. Pt reports he is managed by the liver team at that facility. pt was discharged from [facility] 7 days ago and has follow up scheduled for this Wednesday. Pt appear pale, clinically dehydrated, jaundice, in mild respiratory distress. Review of Systems - Adult - REVIEW OF SYSTEMS - ADULT Constitutional: reports: see HPI, fatique, weight gain. denies: chills, fever, weight loss Eyes: reports: no symptoms reported. denies: discharge, blurred vision, double vision, redness Ears, Nose, Mouth & Throat: reports: no symptoms reported. denies: ear discharge, ear pain, nose pain, loose teeth, throat pain, throat swelling Cardiovascular: reports: no symptoms reported. denies: chest pain, poor circulation, syncope Respiratory: reports: see HPI, dyspnea on exertion, shortness of breath. denies : chronic cough, cough, excessive sputum production, hemoptysis, pleurisy, wheezing Gastrointestinal: reports: see HPI, abdominal pain, poor appetite. denies: hematemesis, constipation, diarrhea, difficulty swallowing, frequent heartburn, nausea, rectal bleeding, vomiting Genitourinary: reports: no symptoms reported. denies: dysuria, hematuria, urgency Musculoskeletal: reports: no symptoms reported. denies: bone pain, joint pain, joint swelling, neck pain Integumentary: reports: no symptoms reported. denies: hives, itching, skin sores/ulcer Neurological: reports: no symptoms reported. denies: ataxia, dizziness/vertigo , headache/migraines, loss of balance, numbness, paresthesia, seizure, slurred speech, syncope, tremors Psychiatric: reports: no symptoms reported Endocrine: reports: no symptoms reported Hematologic/Lymphatic: reports: see HPI, blood clots, easy bruising, low blood count, prolonged bleeding Allergic/Immunologic: reports: no symptoms reported All Other Systems: Reviewed and Negative Past History - Adult - PAST MEDICAL HISTORY-ADULT Review of Records: reports: Old Records Reviewed, Nursing Assessment Review, Medications Reviewed, Social history reviewed & non-contributory. Major Childhood Illnesses: reports: denies history Cardiovascular: reports: blood clots (DVT/PE) Respiratory: reports: denies history Gastrointestinal: reports: liver disease (BAILON) Obstetrical/Gynecological: reports: denies history Genitourinary: reports: denies history Musculoskeletal: reports: denies history Neurological: reports: denies history Endocrine/Immune: reports: denies history Other Conditions: reports: denies history - IMMUNIZATION STATUS Childhood Immunizations: See Nurse Assessment Flu Vaccine: See Nurse Assessment - FAMILY HISTORY Family History: reviewed, not pertinent - SOCIAL HISTORY Smoking: denies, non-smoker Substance Use: none/never Alcohol Use Frequency: never Physical Exam-General - PHYSICAL EXAM-ADULT Initial Vital Signs Reviewed: Yes - CONSTITUTIONAL General Appearance: alert, mild distress, moderate distress, cachetic, thin. negative: appears well (very pale), no apparent distress, severe distress, obese , anxious, lethargic, slow to respond, obtunded, combative - EYES Eyes: pink conjunctivae, scleral icterus. negative: conjuctival exudate, photophobia, sclera injected, subconjunctival hemorrhage - HEAD, EARS, NOSE, MOUTH & THROAT HENMT: normocephalic/atraumatic, moist mucous membranes - NECK Neck: non-tender, full range of motion, supple, normal inspection. negative: C- spine tenderness, limited range of motion, tender lateral, tender midline - RESPIRATORY Respiratory: chest non-tender, no pleuratic chest pain, no respiratory distress , no accessory muscle use, crackles (bilaterally). negative: lungs clear, normal breath sounds, respiratory distress, decreased breath sounds, accessory muscle use, rales, rhonchi, stridor, wheezing - CARDIOVASCULAR Cardiovascular: normal peripheral pulses, regular rate, rhythm, tachycardia - GASTROINTESTINAL (ABDOMEN) Abdominal Exam: normal bowel sounds, distended, tenderness (suprapubic tenderness), hepatomegaly, spleenomegaly. negative: non tender, soft, guarding , rigid, hernia, mass - LYMPHATIC Lymphatic: no adenopathy - MUSCULOSKELETAL Back Exam: normal inspection, no CVA tenderness, no vertebral tenderness. negative: CVA tenderness, decreased range of motion, swelling, vertebral tenderness Extremity: normal range of motion, non-tender, no calf tenderness, normal capillary refill, pedal edema (+2-3 bilateral lower extremities to mid thigh), other (multiple toe amputation). negative: normal gait, normal inspection, no pedal edema, slow capillary refill, swelling, tenderness Peripheral Pulses: radial (R): 2+, radial (L): 2+, dorsalis-pedis (R): 2+, dorsalis-pedis (L): 2+ - SKIN Integumentary: warm/dry, jaundice, pallor. negative: normal color, normal turgor (dry lips/dry tongue), petechiae, swelling, tenderness, warm - NEUROLOGIC Neurologic: grossly normal, no motor/sensory deficits - PSYCHIATRIC Psych/Mental Status: normal mood/affect, normal thought content, normal thought process, oriented x 3 Progress - PLAN OF CARE/RESULTS Progress/Plan/Lab Results: Laboratory Tests 09/08/16 00:00 WBC 16.42 H RBC 3.87 L Hgb 14.3 Hct 42.2 MCV 109.0 H MCH 37.0 H MCHC 33.9 RDW Std Deviation 12.6 Plt Count 238 MPV 11.8 H Immature Gran % (Auto) 0.7 H Neut % (Auto) 81.1 H Lymph % (Auto) 8.2 L Sheridan % (Auto) 9.4 H Eos % (Auto) 0.2 Baso % (Auto) 0.4 Immature Gran # (Auto) 0.12 H Neut # (Auto) 13.31 H Lymph # (Auto) 1.35 Sheridan # (Auto) 1.54 H Eos # (Auto) 0.04 Baso # (Auto) 0.06 Orders Category Date Time Status Saline Loc DIRECTED Care 09/08/16 22:55 Active flat [FLAT/UPRIGHT ABD/1 VIEW CHEST] [RAD] Stat Exams 09/08/16 22:57 Taken AMMONIA [CHEM] Stat Lab 09/08/16 00:00 Received AMYLASE [CHEM] Stat Lab 09/08/16 00:00 Received BLOOD CULTURE [BLDCUL] Stat Lab 09/08/16 00:00 Received CBC WITH ELECTRONIC DIFF [HEME] Stat Lab 09/08/16 00:00 Completed COMPREHENSIVE METABOLIC PANEL [CHEM] Stat Lab 09/08/16 00:00 Received LACTATE, PLASMA [CHEM] Stat Lab 09/08/16 00:00 Received LIPASE [CHEM] Stat Lab 09/08/16 00:00 Received URINALYSIS W/POSS RFLX CULT-1 [URINALYSIS] Stat Lab 09/08/16 22:55 Uncollected Hydromorphone [Dilaudid] Med 09/08/16 22:57 Discontinued 0.5 mg IV NOW ONE Ns 1000 ml IV Bolus X1 Med 09/09/16 02:39 Ordered 0.9% Sodium Chloride Inj [Ns] 1,000 ml IV 999 mls/hr Zosyn 3.375 gm/Ns IV Now Med 09/09/16 02:39 Ordered Piperacil/Tazobact 3.375 gm/Ns [Zosyn 3.375 gm/Ns] 50 ml IV NOW Vital Signs - 24 hr 09/08/16 22:37 09/09/16 00:25 Temperature 98.4 F Pulse Rate 119 H 126 H Respiratory Rate 25 H 29 H Blood Pressure 116/86 108/74 O2 Sat by Pulse Oximetry 98 96 Additional labs in paper form due to downtime of computer system. Result Diagrams: 09/08/16 00:00 - CONSULTS/PCP/HOSPITALIST Notification #1 *Consult/PCP/Hospitalist*: Dr. Salazar Time Discussed: 02:30 Consult Disposition: Will see in ED, Admit Departure - Departure Time of Disposition Decision: 02:39 DIAGNOSIS: SIRS (systemic inflammatory response syndrome), Spontaneous bacterial peritonitis, Dehydration Disposition: ADMITTED INPATIENT 09 Certified Medical Emergency: Emergent Condition: Stable Referrals and Follow-Ups: None,PCP [Primary Care Provider] - - Critical Care Note This patient required my direct & personal management of CC.: No Attestation - Physician/ HENRY Attestation Patient care was provided by Advanced Practice Provider:: Yes Advanced Practice Provider:: Mata Flood Advanced Practice Provider documentation review:: The Mid-level provider documentation, treatment plan and medical decision making was reviewed by the physician who agrees with all treatment and medical decision making by the MLP.
[2016-09-09 00:22] LABS: BASO% 0.4 % (0.0-0.8); EOS# 0.04 X1000 (0.0-0.7); EOS% 0.2 % (0.0-10.0); HEMATOCRIT 42.2 % (42.0-52.0); HEMOGLOBIN 14.3 g/dL (14.0-18.0); IMM GRAN# 0.12 X1000 (0.0-0.04); IMM GRAN% 0.7 % (0.0-0.5); LYMPH# 1.35 X1000 (1.2-3.4); LYMPH% 8.2 % (20.5-51.1); MANUAL DIFF NEEDED? NO; MCHC 33.9 g/dL (33-37); MONO# 1.54 X1000 (0.11-0.59); MONO% 9.4 % (1.7-9.3); MPV 11.8 FL (7.4-10.4); NEUT% 81.1 % (42.2-75.2); PLT 238 X1000 (130-400); RBC 3.87 XMIL (4.7-6.1)
[2016-09-09] MEDS ORDERED: NS 1,000 ML IV ONE (02:39)
[2016-09-09] MEDS ORDERED: ZOSYN 3.375 GM/NS 3.375 GM/50 ML IVPB IV ONE (02:39)
[2016-09-09 02:58] LABS: ALBUMIN 2.3 g/dL (3.5-5.0); CALCIUM 8.2 mg/dL (8.8-10.2); POTASSIUM 3.9 mmol/L (3.5-5.1); TOTAL BILIRUBIN 3.52 mg/dL (0.20-1.00); TOTAL PROTEIN 6.7 g/dL (6.3-8.3)
--- NOTE | 2016-09-09 03:58 | HISTORY AND PHYSICAL ---
PRIMARY CARE PHYSICIAN: Isaac Meyer MD CHIEF COMPLAINT: Abdominal pain. HISTORY OF PRESENTING ILLNESS: This is a 61-year-old male with a history of nonalcoholic fatty liver disease and liver cirrhosis, diabetes mellitus type 2, and pulmonary embolism had presented to the emergency department with several days history of having abdominal pain. He states that the pain was worsening and he was somewhat getting nauseated and subsequently had come to the emergency department. The patient apparently has liver injury secondary to being on Zosyn and the cephalosporins that he was on for months for his osteomyelitis and currently is being followed by [facility] liver team. He had presented to the emergency department with diffuse pain in his abdomen and it was suspected that he had a spontaneous bacterial peritonitis. Subsequently, he will need hospitalization for further management until transfer can be arranged to [facility]. At the time of my examination, he denied any headache, chest pain, shortness of breath, hemoptysis but complained of having some nausea and possibly some fevers. PAST MEDICAL HISTORY: Include nonalcoholic fatty liver disease, diabetes mellitus type 2, liver cirrhosis, peripheral arterial disease, history of osteomyelitis, DVT and pulmonary embolism. PAST SURGICAL HISTORY: Left 2nd and 3rd toe amputation and stent to left lower extremity. ALLERGIES: Zofran. CURRENT MEDICATIONS: As listed in the [facility]. SOCIAL HISTORY: He denies any history of smoking, alcohol or illicit drug use. FAMILY HISTORY: Positive for coronary disease in father. REVIEW OF SYSTEMS: Twelve point systems is as in HPI. Other systems negative. PHYSICAL EXAMINATION: GENERAL: Cooperative, friendly male. He is resting more comfortably now. VITAL SIGNS: Temperature 98.4 degrees, pulse 119, respirations 25, blood pressure 116/86. He is saturating 98%. HEENT: Atraumatic, normocephalic. Extraocular movements intact. NECK: No masses. CHEST: Bibasilar rales. CARDIOVASCULAR: Tachycardic. ABDOMEN: Soft, distended, ascitic. : No bladder distention. NEURO: He is awake, alert, oriented x3. SKIN: Warm and good turgor. LABORATORIES AND STUDIES: WBC 16.42, hemoglobin 14.3, hematocrit 42.2, platelets 238,000. Sodium 135, potassium 3.9, chloride 95, CO2 23, BUN is 23, creatinine is 1.4, glucose is 267. Plasma lactate is 4.4. ASSESSMENT: A 61-year-old male with a history of nonalcoholic fatty liver disease and liver cirrhosis and diabetes mellitus type 2 who had presented to emergency department with several days history of worsening abdominal pain. He has moderate ascites and it was suspected that he possibly had a spontaneous bacterial peritonitis. Subsequently, he will need hospitalization until he can be transferred to [facility]. ASSESSMENT: 1. Abdominal pain. 2. Suspected spontaneous bacterial peritonitis. 3. Nonalcoholic fatty liver disease and liver cirrhosis. 4. Diabetes mellitus type 2. 5. History of deep vein thrombosis and pulmonary embolism. PLAN: 1. We will admit patient to medical floor with telemetry. 2. We will start patient on Levaquin, as he had been on this medication previously. 3. We will consult Gastroenterology. 4. We will monitor blood glucose and put patient on sliding scale insulin regimen. 5. We will put patient on DVT prophylaxis with SCDs. 6. We will continue to follow and reassess. cc: Vincenzo Salmon MD
[2016-09-09] MEDS ORDERED: HUMULIN R SUBQ SCH (07:00)
[2016-09-09] MEDS: LEVAQUIN 500 MG/D5W 500 MG/100 ML IVPB IV SCH (07:08)
--- NOTE | 2016-09-09 09:15 | Diag Imaging Result Document ---
PROCEDURE NAME: FLAT/UPRIGHT ABD/1 VIEW CHEST - 09/08/2016 PLAIN RADIOGRAPH OF THE CHEST AND ABDOMEN, 5 VIEWS: COMPARISON: Abdominal radiograph dated 08/17/2016. FINDINGS: There are unremarkable bowel gas and stool patterns. There is no obstructive pattern. There is no evidence of large-volume free abdominal gas. There is no definite organomegaly. Inspiration is suboptimal. There is suggestion of minimal subsegmental atelectasis at the lung bases. The lungs are clear otherwise. Cardiac silhouette is unremarkable. IMPRESSION: Mild atelectasis at the lung bases. Essentially unremarkable chest and abdomen radiograph, otherwise.
[2016-09-09] MEDS: ALDACTONE PO SCH (10:27)
[2016-09-09] MEDS: LACTULOSE PO SCH (10:27)
[2016-09-09] MEDS: LASIX PO SCH ×2 (10:27→20:12)
[2016-09-09] MEDS: LINZESS PO SCH (10:27)
[2016-09-09] MEDS: XIFAXAN PO SCH ×2 (10:27→20:12)
[2016-09-09] MEDS: ACTIGALL PO SCH ×2 (10:27→20:12)
[2016-09-09] MEDS: XARELTO PO SCH ×2 (10:27→20:13)
[2016-09-09 10:52] LABS: URINE CULTURE NEEDED? NO; URINE SOURCE CLEAN CATCH
[2016-09-09 10:59] LABS: BILIRUBIN URINE NEGATIVE (NEGATIVE); BLOOD URINE NEGATIVE (NEGATIVE); COLOR YELLOW; GLUCOSE URINE NEGATIVE (NEGATIVE); LEUKOCYTES URINE NEGATIVE (NEGATIVE); NITRITE URINE NEGATIVE (NEGATIVE); PROTEIN URINE TRACE mg/dL (NEGATIVE); SP GRAVITY URINE 1.017; TURBIDITY URINE CLEAR (CLEAR); URINE MICRO REVIEW NEEDED? YES; UROBILINOGEN URINE NORMAL (NORMAL)
[2016-09-09 11:05] LABS: UR EPITHELIAL CELLS <10 /HPF (<10); URINE BACTERIA NEGATIVE /HPF; URINE RBC <10 /HPF (<10); URINE WBC <10 /HPF (<10)
[2016-09-09 11:09] LABS: URINE CASTS NONE SEEN; URINE CRYSTALS NONE SEEN
[2016-09-09] MEDS: HUMULIN R SUBQ SCH ×3 (11:18→20:39)
[2016-09-09] MEDS ORDERED: ALBUMIN 25% IV ONE (13:45)
--- NOTE | 2016-09-09 16:43 | CONSULTATION ---
DATE OF CONSULTATION: 09/09/2016 REFERRING PHYSICIAN: Isaac Meyer MD REASON FOR CONSULTATION: Abdominal pain and spontaneous bacterial peritonitis. HISTORY OF PRESENT ILLNESS: Mr. Go is a 61-year-old male who has a known history of nonalcoholic steatohepatitis complicated with cirrhosis, encephalopathy, ascites , previous history of spontaneous bacterial peritonitis, type 2 diabetes, PE on Xarelto, who was recently discharged 2 weeks ago when he was transferred to [facility] for inpatient care. He stayed at [facility] for 3 days. He was discharged 8 days ago last Wednesday. At that time, he was started on Linzess for constipation. He also underwent workup for liver transplantation. According to the , he is supposed to have some more tasks in order to evaluate him for candidacy for liver transplantation. The patient was fine for about a week until last night when he started having worsening abdominal pain in the periumbilical region along with nausea, and at that time the patient was transferred to the hospital through ambulance. He was noted to have leukocytosis with a white count of 16,000. Since the patient was on Xarelto and he had symptoms of abdominal pain , it was presumed to be secondary to spontaneous bacterial peritonitis and he was started on Levaquin. In the last 24 hours, the abdominal pain is getting better. His current abdominal pain grade 3/10. He also has constipation which is responding well to Linzess. He denies any vomiting blood or passing blood in the stool, or black stools. PAST MEDICAL HISTORY: 1. Nonalcoholic steatohepatitis complicated with cirrhosis. 2. Peripheral artery disease. 3. Type 2 diabetes. 4. Osteomyelitis. 5. DVT and PE, on Xarelto. 6. Spontaneous bacterial peritonitis. 7. Encephalopathy. 8. Constipation. 9. Thrombocytopenia. 10. Mild coagulopathy and anemia. PAST SURGICAL HISTORY: 1. Left 2nd and 3rd toe amputation. 2. Stent to the left lower extremity. 3. EGD a few months ago. 4. Paracentesis x3 in [facility] and once at [facility]. Last 1 was done 10 days ago. ALLERGIES: Zofran. MEDICATIONS IN THE HOSPITAL: 1. Lasix 60 mg p.o. b.i.d. 2. Sliding-scale regular insulin. 3. Lactulose 30 mL daily. 4. Levaquin 5 mg once daily. 5. Linzess 145 mcg p.o. daily. 6. Protonix 40 mg p.o. once daily. 7. Xifaxan 550 mg p.o. b.i.d. 8. Xarelto 15 g p.o. b.i.d. 9. Aldactone 100 mg once daily. 10. Sucralfate 1 g twice daily. 11. Estradiol 3 mg p.o. b.i.d. 12. Albumin 25 mg IV once daily. REVIEW OF SYSTEMS: Denies any current fevers, rigors, or chills, chest pain, shortness of breath, dyspnea at rest. Denies any genitourinary complaints or neurologic complaints. Denies any nausea, vomiting, vomiting blood or passing blood in the stool. Deneis any skin itching. Denies any easy bruising, bleeding, blood in the urine, blood in stool or nosebleeds. Denies any neurological complaints. PHYSICAL EXAMINATION: Vital Signs: Temperature 97.6 degrees, temperature maximum of 98.4 degrees, heart rate of 103, respiratory rate 17, blood pressure 111/72, saturating 92% on room air. Body weight of 232 pounds, BMI of 35.3 kg/m2. General appearance: Moderately built, moderately nourished, sitting in bed, in no acute distress. HEENT: No pallor. Mild icterus. Pupils equal, react to light. Neck: Supple. Chest: Decreased breath sounds. Cardiovascular: Regular rate and rhythm. No murmur. Tachycardic at times. Abdomen: Discomfort in the periumbilical region. No rebound or guarding. Bowel sounds heard. Extremities: No cyanosis or clubbing. Bilateral lower extremity edema. Neurologic: He is alert, awake, oriented. LABORATORY: His hemoglobin and hematocrit is 14.3 and 42.2, white count of 16.42, platelet count of 238,000, MCV of 109. Sodium 135, potassium 3.9, chloride 95, bicarb 23, anion gap 17, BUN of 23, creatinine 1.4, glucose of 267, calcium is 8.2, total bilirubin 3.52, AST 48 , ALT 20, alkaline phosphatase 178, total protein 6.7, albumin of 2.3, ammonia of 43, amylase of 21 , lipase of 12, lactate of 4.4 on admission, gone down to 2.1 with hydration. Urine analysis showing trace protein. IMAGING: Abdominal x-ray done on 09/08/2016 showed mild atelectasis in lung bases. Essentially unremarkable chest and abdomen radiograph otherwise. IMPRESSION/PLAN: 1. Abdominal pain in the periumbilical region along with elevated bilirubin and leukocytosis, suspecting spontaneous bacterial peritonitis. The patient has a prior history of spontaneous bacterial peritonitis. In this regard, the patient will continue albumin 25 mg once daily for next 3-5 days. We will continue on Levaquin once daily, which he will continue for 2 weeks. 2. Fatty liver cirrhosis, we will continue to avoid hepatotoxic drugs. We will watch liver enzymes. 3. Ascites will continue watch input and output and lower the fluid intake to free fluid intake less than 1.5 L/24 hours and he will continue on low sodium diet less than 2 g. 4. Encephalopathy. His ammonia is normal. Continue lactulose once daily and Xifaxan 550 mg p.o. b.i.d. 5. Constipation. Patient to continue on Linzess 145 mcg once daily. 6. Patient is on Lasix and Aldactone. Continue to watch his renal function and electrolytes. 7. The patient is on ursodiol from before when he was being treated for drug- induced liver injury. At some point, we can discontinue that once his bilirubin normalizes. 8. Pulmonary embolus and deep venous thrombosis on Xarelto per the primary care team. 9. Gastrointestinal prophylaxis. We will continue on Protonix once daily. 10. The patient and family are requesting to be transferred to [facility] where he can continue his workup for evaluation of liver transplantation. We will discuss that with Dr. Meyer, and if possible, patient can be transferred to [facility] if accepted by his Liver Transplant Team there. I discussed the above plan with the patient and family at bedside. All questions answered. Thank you for allowing us to participate in the patient care. cc: MD Isaac Espinoza MD [facility]ITALLyndsey
--- NOTE | 2016-09-09 17:04 | PROGRESS NOTE ---
DATE: 09/09/2016 SUBJECTIVE: Patient has seen overall improvement in abdominal pain throughout the day today after treatment with IV Levaquin. He also has had a bowel movement this afternoon after taking Linzess. OBJECTIVE: Afebrile, pulse 103, respirations 17, blood pressure 111/72. Earlier in the day blood pressure was as low as 88/60.General: Patient is up and smiling. He is hard of hearing. Cardiovascular: RRR. Lungs: CTA. Abdomen: Protuberant. No point tenderness. Extremities: Trace to 1+ lower extremity edema. LABS SHOW: Lactate level went from 4.4 at midnight to 2.1 at 8:50. BUN 23, creatinine 1.4, CO2 23, potassium 3.9, sodium 135. AST 48, ALT 20, alkaline phosphatase 178, total bilirubin 3.52. Albumin 2.3. Total protein 6.7, ammonia 43, lipase 12, amylase 21. White count 87121, hemoglobin 14.3, platelets 238,000, neutrophils 81, lymphocytes 8. Blood cultures x2 obtained. ASSESSMENT: 1. SIRS. 2. SBP. 3. Cirrhosis of the liver. 4. Ascites. 5. IDDM. 6. History of pulmonary embolus on treatment with Xarelto. PLAN: Continue IV Levaquin. We will try to go right on the pain medication as this seems to constipate and ultimately worsen the patient's difficulties. Continue home medicines that are outlined by Dr. Hurley and administer by Dr. Hurley and by the [facility] hepatic team. The patient is undergoing workup for transplant of the liver per [facility]. They have an appointment in 2 days to be seen at 1 p.m. on 09/11/2016 and will keep that appointment unless we can get him a bed at their Center. At this point, it looks like they will not have a bed available and maybe he can be seen outpatient and administered treatment in that manner on Wednesday. We will need to monitor him on the IV Levaquin and monitor his blood cultures. He did receive some fluid in the emergency room but will not give it over aggressive management of this due to him being on Lasix and Aldactone and history of 4 paracentesis recently. Will try not to give him overloaded and more ascites as his blood pressure is doing well without fluid resuscitation currently. cc: Isaac Meyer MD
[2016-09-09] MEDS: CARAFATE LIQUID PO SCH (20:13)
[2016-09-09] MEDS: DILAUDID IV PRN (20:14)
[2016-09-10] MEDS: LEVAQUIN 500 MG/D5W 500 MG/100 ML IVPB IV SCH (05:37)
[2016-09-10] MEDS: PROTONIX PO SCH ×2 (05:37→06:04)
[2016-09-10] MEDS: CARAFATE LIQUID PO SCH ×3 (05:37→20:51)
[2016-09-10] MEDS: HUMULIN R SUBQ SCH ×4 (06:04→21:00)
[2016-09-10 06:38] LABS: BASO% 0.3 % (0.0-0.8); EOS# 0.25 X1000 (0.0-0.7); EOS% 1.9 % (0.0-10.0); HEMATOCRIT 37.5 % (42.0-52.0); HEMOGLOBIN 12.6 g/dL (14.0-18.0); IMM GRAN# 0.08 X1000 (0.0-0.04); IMM GRAN% 0.6 % (0.0-0.5); LYMPH# 1.91 X1000 (1.2-3.4); LYMPH% 14.4 % (20.5-51.1); MANUAL DIFF NEEDED? NO; MCHC 33.6 g/dL (33-37); MONO# 1.55 X1000 (0.11-0.59); MONO% 11.7 % (1.7-9.3); MPV 11.4 FL (7.4-10.4); NEUT% 71.1 % (42.2-75.2); PLT 220 X1000 (130-400); RBC 3.41 XMIL (4.7-6.1)
[2016-09-10 06:47] LABS: INR 2.17; PROTIME 23.9 Seconds (9.2-11.7); PTT 57.7 Seconds (22.0-36.0)
[2016-09-10 07:08] LABS: CALCIUM 7.9 mg/dL (8.8-10.2); POTASSIUM 4.3 mmol/L (3.5-5.1)
[2016-09-10] MEDS: DILAUDID IV PRN ×2 (09:12→20:51)
[2016-09-10] MEDS: ALDACTONE PO SCH (09:14)
[2016-09-10] MEDS: XIFAXAN PO SCH ×2 (09:14→20:51)
[2016-09-10] MEDS: XARELTO PO SCH ×2 (09:14→20:51)
[2016-09-10] MEDS: LINZESS PO SCH (09:14)
[2016-09-10] MEDS: ACTIGALL PO SCH ×2 (09:14→20:51)
[2016-09-10] MEDS: LASIX PO SCH ×2 (09:14→20:50)
[2016-09-10] MEDS: ALBUMIN 25% IV SCH (09:15)
--- NOTE | 2016-09-10 11:11 | PROGRESS NOTE ---
DATE: 09/10/2016 SUBJECTIVE: Patient is resting in bed. He complains of abdominal pain and he ranks it a 6/10. He is getting IV pain control. He had 1 bowel movement this morning. He has nausea this morning. He was able to take only a few bites of his breakfast. He denies any fevers, rigors, or chills this morning. He denies noticing any blood in the stools. OBJECTIVE: Vital signs: Temperature of 98.1, pulse of 85, respiratory rate 20 , blood pressure 195/50, saturating 100% on room air. Body weight of 231 pounds. General appearance: He is moderately built, lying in bed, in no acute distress. HEENT: Mild pallor. Mild icterus. Neck: Supple. Abdomen: Protuberant, positive ascites. periumbilical discomfort, no rebound. No guarding. Bowel sounds are present. Extremities: No cyanosis, clubbing. Bilateral mild lower extremity edema noted. Neuro: He is alert, awake, oriented. LABS: Hemoglobin and hematocrit is 12.6 and 37.4, white count 13.3, platelet count of 220, MCV of 110. INR of 2.17, PT of 23.9, PTT of 57.7. Sodium 137, potassium 4.3, chloride 99, bicarb of 26, anion gap of 12, BUN of 23, creatinine 1.4, glucose of 127. Calcium is 7.9. Urinalysis showing positive trace protein. Blood cultures were drawn on 09/08, they are currently pending. IMPRESSION AND PLAN: 1. Spontaneous bacterial peritonitis. Continue on Levaquin once daily for 2 weeks. Continue albumin 25 g IV once daily for 3-5 days. 2. Liver cirrhosis secondary to fatty liver disease. Will continue to keep a good control of diabetes. Avoid any hepatotoxic drugs. 3. Ascites. Will continue on Lasix and Aldactone. Low-sodium diet less than 2 g every 4 hours, and restrict the free fluid to less than 1.5 L/24 hours. 4. History of pulmonary embolism, on Xarelto. We will continue to watch INR as the patient has liver cirrhosis. Will watch for signs of active bleeding. 5. The patient is awaiting transfer to [facility]. If accepted for ongoing workup for liver transplantation. 6. Constipation is better with Linzess. Will continue to follow. 7. Hepatic encephalopathy. Continue on Xifaxan 550 mg p.o. b.i.d., and lactulose 30 mL once daily. The above plan of care was discussed with the patient and all questions answered. cc: MD Isaac Espinoza MD MTDD
--- NOTE | 2016-09-10 13:23 | PROGRESS NOTE ---
DATE: 09/10/2016 SUBJECTIVE: Patient has no specific complaints. Currently he says he is doing okay. OBJECTIVE: Afebrile, pulse 85, respirations 20, blood pressure 95/54, morbid obesity. CV: RRR. Lungs: CTA. Abdomen: Protuberant. Active bowel sounds. No pinpoint tenderness. No rebound or guarding. Ascites prominent. Extremities: One to 2+ lower extremity edema. LABS: White count decreased from 16 to 13.3, hemoglobin 12.6, platelets 220,000. BUN 23, creatinine 1.4. Sodium 137, potassium 4.3. Blood sugars running in the high 100s to low 200s. ASSESSMENT: 1. Probable SBP. 2. SIRS. 3. Cirrhosis of the liver/BAILON. 4. Ascites. 5. IDDM. 6. History of recent pulmonary embolus on treatment with Xarelto. PLAN: Continue current care. It appears he is not going to receive a bed from [place] at this time but he has an appointment at 1 p.m. with his patient financial specialist Dr. Garcia tomorrow. We will try to discharge him in the morning and if he is still doing well, his blood cultures remain normal and hopefully he can make his appointment at 1 p.m. with his patient financial specialist at [place]. We will repeat labs in the morning to include lactate level, CBC, CMP. cc: Isaac Meyer MD
[2016-09-10] MEDS: LACTULOSE PO SCH (14:47)
[2016-09-11 06:07] LABS: BASO% 0.3 % (0.0-0.8); EOS% 1.6 % (0.0-10.0); HEMATOCRIT 36.9 % (42.0-52.0); HEMOGLOBIN 12.4 g/dL (14.0-18.0); IMM GRAN# 0.07 X1000 (0.0-0.04); IMM GRAN% 0.6 % (0.0-0.5); LYMPH# 1.75 X1000 (1.2-3.4); LYMPH% 13.9 % (20.5-51.1); MANUAL DIFF NEEDED? NO; MCH 36.5 PG (27-31); MCHC 33.6 g/dL (33-37); MCV 108.5 FL (81-99); MONO# 1.44 X1000 (0.11-0.59); MONO% 11.5 % (1.7-9.3); MPV 11.2 FL (7.4-10.4); NEUT% 72.1 % (42.2-75.2); PLT 220 X1000 (130-400)
[2016-09-11] MEDS: PROTONIX PO SCH (06:08)
[2016-09-11] MEDS: LEVAQUIN 500 MG/D5W 500 MG/100 ML IVPB IV SCH (06:08)
[2016-09-11] MEDS: DILAUDID IV PRN (06:08)
[2016-09-11] MEDS: CARAFATE LIQUID PO SCH (06:08)
[2016-09-11 06:15] LABS: AGAP 12; ALBUMIN 2.5 g/dL (3.5-5.0); ALKALINE PHOSPHATASE 128 U/L (32-122); BUN 22 mg/dL (8-22); CALCIUM 7.8 mg/dL (8.8-10.2); CHLORIDE 101 mmol/L (98-107); COSMO 279; GOT 37 U/L (10-34); GPT 15 U/L (10-44); POTASSIUM 3.7 mmol/L (3.5-5.1); SODIUM 138 mmol/L (136-145); TCO2 25 mmol/L (25-35); TOTAL BILIRUBIN 2.31 mg/dL (0.20-1.00); TOTAL PROTEIN 5.8 g/dL (6.3-8.3)
[2016-09-11] MEDS: HUMULIN R SUBQ SCH (06:32)
[2016-09-11 07:39] VITALS: BP 98/63
[2016-09-11] MEDS: XIFAXAN PO SCH (08:10)
[2016-09-11] MEDS: XARELTO PO SCH (08:10)
[2016-09-11] MEDS: ALDACTONE PO SCH (08:10)
[2016-09-11] MEDS: ACTIGALL PO SCH (08:10)
[2016-09-11] MEDS: LASIX PO SCH (08:11)
[2016-09-11] MEDS: ALBUMIN 25% IV SCH (08:12)
--- NOTE | 2016-09-11 09:07 | PROGRESS NOTE ---
DATE: 09/11/2016 SUBJECTIVE: The patient says that he is feeling better. No significant abdominal pain. No nausea or vomiting. He is lying flat in bed while the nurse is working with him. OBJECTIVE: Vital signs: Afebrile. Pulse 88, respirations 16, blood pressure 98/63, and O2 saturation on room air 98%. Weight is 230. CV: RRR. Lungs: Clear to auscultation. Abdomen: Active bowel sounds. Ascites. Prominent. No pinpoint tenderness. Extremities: Trace lower extremity edema. Lab data shows a white count of 12, hemoglobin 12.4, platelets 220, BUN 22, creatinine 1.2, sodium 138, potassium 3.7, CO2 25, AST 37, ALT 15, alkaline phosphatase 128, total bilirubin 2.31, and lactate 1.7. Blood cultures times 2 remain negative. ASSESSMENT: 1. Spontaneous bacterial peritonitis. 2. Systemic inflammatory response syndrome. 3. Cirrhosis/nonalcoholic steatohepatitis. 4. Ascites. 5. Insulin-dependent diabetes mellitus. 6. History of recent pulmonary embolus on treatment with Xarelto. PLAN: At this time the patient has an appointment with his core machine tender at 1:00 p.m. today at [facility] thus we are going to try to discharge him here from the hospital to resume his home medications. He will be on Levaquin for a total of 2 weeks. We transmitted a prescription for Levaquin 500 mg daily over to [facility], his pharmacy. He will follow up in my office in 8-9 days. He will keep his appointment with his core machine tender, Dr. Garcia at [facility] at 1:00 p.m. today. cc: Isaac Meyer MD
== END 2016-09-11 10:29 | disposition home health service (06) ==
LOC: ED 22:36 → SUATTDRO 09-09 03:38 → EDIPHOLD 09-09 03:38 → SUPCPDRO 09-09 03:38 → 4N 09-09 12:51
PROVIDERS: ADMIT Family Medicine; ATTEND Family Medicine

== ENCOUNTER 2016-11-14 11:10 | Observation (INO) ==
[2016-11-14 12:11] LABS: MANUAL DIFF NEEDED? NO
[2016-11-14 12:17] LABS: BASO% 0.5 % (0.0-0.8); EOS# 0.21 X1000 (0.0-0.7); EOS% 1.6 % (0.0-10.0); HEMATOCRIT 38.8 % (42.0-52.0); HEMOGLOBIN 13.9 g/dL (14.0-18.0); IMM GRAN% 0.8 % (0.0-0.5); LYMPH# 1.41 X1000 (1.2-3.4); LYMPH% 10.9 % (20.5-51.1); MCH 36.6 PG (27-31); MCHC 35.8 g/dL (33-37); MCV 102.1 FL (81-99); MONO# 1.52 X1000 (0.11-0.59); MONO% 11.8 % (1.7-9.3); MPV 10.5 FL (7.4-10.4); NEUT% 74.4 % (42.2-75.2); PLT 249 X1000 (130-400)
[2016-11-14 12:21] LABS: INR 1.57
--- NOTE | 2016-11-14 12:21 | Diag Imaging Result Doc PS360 ---
EXAM: CHEST-PORTABLE HISTORY: ascitis sob TECHNIQUE: Portable AP COMPARISON: 09/08/2016 FINDINGS: Poor inspiratory effort. Atelectasis versus a tiny infiltrate in the lower left lung. The heart is not enlarged. The vessels are not distended. IMPRESSION: Poor inspiratory effort with atelectasis versus a tiny infiltrate in the left base. Electronically signed by Sin Alexander 11/14/2016 12:18 PM
[2016-11-14 12:34] LABS: ALBUMIN 2.4 g/dL (3.5-5.0); CALCIUM 8.2 mg/dL (8.8-10.2); POTASSIUM 5.7 mmol/L (3.5-5.1); TOTAL BILIRUBIN 1.37 mg/dL (0.20-1.00); TOTAL PROTEIN 6.9 g/dL (6.3-8.3)
[2016-11-14] MEDS ORDERED: ROCEPHIN 1 GM/NS 1 GM/50 ML IVPB IV ONE (12:58)
[2016-11-14] MEDS ORDERED: NS 500 ML IV ONE (13:09)
--- NOTE | 2016-11-14 13:57 | PROVIDER DOCUMENTATION ---
This chart was entered by Lizzy Pettit Scribe, acting as scribe for Carlene Toth MD. HPI-Abdominal Pain/GI Problem - General Chief Complaint: Edema Stated Complaint: "RETAINING FLUID" Time Seen by Provider: 11/14/16 11:27 Source: patient Allergies/Adverse Reactions: Patient Allergies Allergy/AdvReac Type Severity Reaction Status Date / Time ondansetron HCl * Allergy NAUSEA/VOMI Verified 11/14/16 12:35 [From Zofran (as TING hydrochloride)] Home Medications: Home Medication List Medication Instructions Recorded Confirmed Last Taken Type Insulin Humulin 70/30 [Humulin 24 unit SUBQ QHS 12/25/13 10/21/16 10/14/16 History 70/30] Insulin Humulin 70/30 [Humulin 44 unit SUBQ QAM 12/25/13 10/21/16 10/14/16 History 70/30] Pantoprazole [Protonix] 40 mg PO DAILY@0700 #30 tablet 07/01/16 10/21/16 Rx Rifaximin [Xifaxan] 550 mg PO BID #60 tablet 07/27/16 10/21/16 10/20/16 Rx Spironolactone [Aldactone] 100 mg PO DAILY #30 tablet 07/27/16 10/21/16 Rx Lactulose [Generlac] 30 ml PO DAILY 09/09/16 10/21/16 10/18/16 History Linaclotide [Linzess] 145 mcg PO DAILY 09/09/16 10/21/16 10/19/16 History Rivaroxaban [Xarelto] 15 mg PO BID 09/09/16 10/21/16 10/19/16 History - History of Present Illness-ABD Nature of Presenting Problems: PT IS A 61YOM PRESENTING TO THE ED C/O ABD PAIN AND SOB. PT STATES A HISTORY OF ASCITIES. PT STATES THAT HE HAD A PARACENTESIS A MONTH AGO AND SINCE THEN HIS ABD DISTENSION AND SOB HAS GRADUALLY INCREASED. PT DENIES ANY FEVER, COUGH, CP OR OTHER COMPLAINTS AT THIS TIME Abdominal Pain Onset Location: reports: generalized abdomen Pain Radiation: reports: no radiation Quality of Pain: reports: cramping, fullness, pressure Severity in ED: reports: moderate Onset/Duration: reports: gradual Timing: reports: still present, changing over time Activities at Onset: reports: light activity Exposure to sick contacts?: No Modifying Factors: improves with: nothing Associated Symptoms: reports: fatigue, malaise, shortness of breath, swelling/ mass in abdomen, weakness. denies: back/neck pain, chest pain, nausea, trouble walking Last BM: this morning Dark Stools Present?: reports: none noticed Rectal Bleeding: reports: none Rectal Pain: reports: none Emesis Description: reports: none Bruising or Bleeding Gums?: No Similar Symptoms Previously?: Yes Recently seen or treated by another doctor?: No Review of Systems - Adult - REVIEW OF SYSTEMS - ADULT Constitutional: reports: see HPI, fatique. denies: fever Eyes: reports: no symptoms reported Ears, Nose, Mouth & Throat: reports: no symptoms reported Cardiovascular: reports: no symptoms reported Respiratory: reports: see HPI, dyspnea on exertion, shortness of breath. denies : wheezing Gastrointestinal: reports: see HPI, abdominal pain, other (DISTENSION). denies : diarrhea, nausea, vomiting Genitourinary: reports: no symptoms reported Musculoskeletal: reports: no symptoms reported Integumentary: reports: no symptoms reported Neurological: reports: no symptoms reported Psychiatric: reports: no symptoms reported Endocrine: reports: no symptoms reported Hematologic/Lymphatic: reports: no symptoms reported Allergic/Immunologic: reports: no symptoms reported All Other Systems: Reviewed and Negative Past History - Adult - PAST MEDICAL HISTORY-ADULT Review of Records: reports: Old Records Reviewed, Nursing Assessment Review, Medications Reviewed, Social history reviewed & non-contributory. Major Childhood Illnesses: reports: denies history Cardiovascular: reports: blood clots (DVT/PE) Respiratory: reports: denies history Gastrointestinal: reports: liver disease (BAILON) Obstetrical/Gynecological: reports: denies history Genitourinary: reports: denies history Musculoskeletal: reports: denies history Neurological: reports: denies history Endocrine/Immune: reports: denies history Other Conditions: reports: denies history - IMMUNIZATION STATUS Childhood Immunizations: See Nurse Assessment Flu Vaccine: See Nurse Assessment - FAMILY HISTORY Family History: reviewed, not pertinent - SOCIAL HISTORY Smoking: non-smoker Substance Use: none/never, denies Alcohol Use Frequency: never Living Situation: family Physical Exam-General - PHYSICAL EXAM-ADULT Initial Vital Signs Reviewed: Yes - CONSTITUTIONAL General Appearance: alert, mild distress, obese. negative: appears well - EYES Eyes: PERRL/EOMI, pink conjunctivae - HEAD, EARS, NOSE, MOUTH & THROAT HENMT: normocephalic/atraumatic, moist mucous membranes, normal ENT inspection, TMs normal, pharynx normal - NECK Neck: non-tender, full range of motion, supple, normal inspection - RESPIRATORY Respiratory: chest non-tender, lungs clear, no pleuratic chest pain, no accessory muscle use. negative: no respiratory distress (mild distress decreased bs in both base) - CARDIOVASCULAR Cardiovascular: normal peripheral pulses, no edema, no gallop, no JVD, no murmur , tachycardia. negative: regular rate, rhythm - GASTROINTESTINAL (ABDOMEN) Abdominal Exam: normal bowel sounds (PRESENT BUT Distant), non tender, soft, no organomegaly, no pulsatile mass, distended, tenderness - LYMPHATIC Lymphatic: no adenopathy - MUSCULOSKELETAL Back Exam: normal inspection, no CVA tenderness, no vertebral tenderness Extremity: non-tender, no pedal edema, no calf tenderness, normal capillary refill, pelvis stable. negative: normal range of motion, normal gait, normal inspection - SKIN Integumentary: normal color, normal turgor, warm/dry - NEUROLOGIC Neurologic: certified corporate travel executive II-XII nml as tested, grossly normal, no motor/sensory deficits - PSYCHIATRIC Psych/Mental Status: normal mood/affect, normal thought content, normal thought process, oriented x 3 Progress - PLAN OF CARE/RESULTS Progress/Plan/Lab Results: Vital Signs - 8 hr 11/14/16 11:20 Temperature 98.2 F Pulse Rate 119 H Respiratory Rate 20 Blood Pressure 142/126 O2 Sat by Pulse Oximetry 96 Orders Category Date Time Status EKG [EKG] Stat Ther 11/14/16 11:24 Ordered Laboratory Tests 11/14/16 11/14/16 11/14/16 12:05 12:05 12:05 WBC 12.93 H RBC 3.80 L Hgb 13.9 L Hct 38.8 L MCV 102.1 H MCH 36.6 H MCHC 35.8 RDW Std Deviation 15.1 H Plt Count 249 MPV 10.5 H Immature Gran % (Auto) 0.8 H Neut % (Auto) 74.4 Lymph % (Auto) 10.9 L Knox % (Auto) 11.8 H Eos % (Auto) 1.6 Baso % (Auto) 0.5 Immature Gran # (Auto) 0.10 H Neut # (Auto) 9.63 H Lymph # (Auto) 1.41 Knox # (Auto) 1.52 H Eos # (Auto) 0.21 Baso # (Auto) 0.06 PT 17.0 H INR 1.57 Sodium 133 L Potassium 5.7 H Chloride 94 L Carbon Dioxide 27 Anion Gap 12 BUN 35 H Creatinine 1.7 H Estimated GFR/1.73 m2 41 BUN/Creatinine Ratio 21 Glucose 252 H Calculated Osmolality 283 Calcium 8.2 L Total Bilirubin 1.37 H AST 40 H ALT 22 Alkaline Phosphatase 101 Total Protein 6.9 Albumin 2.4 L Globulin 4.5 Albumin/Globulin Ratio 0.5 gi requested radiology be called in to perform paracentesis. study ordered radiologist requested a ct of the abd be done prior to him coming in to perform paracentesis all of these things have been ordered. pt for admission care handed off to dr sauer Result Diagrams: 11/14/16 12:05 11/14/16 12:05 - XRAY 1 XRAY: Bilateral XRAY Study: Chest (POOR INSPIRATORY EFFORT W/ ATELECTASIS VERSUS A TINY INFILTRATE IN THE LLL - HURST) - CONSULTS/PCP/HOSPITALIST Notification #1 *Consult/PCP/Hospitalist*: DR CASAS Time Discussed: 12:57 Reason/Comments: CONSULT FOR POSSIBLE ADMISSION Consult Disposition: Admit #2 Consult: DR SAUER Time Discussed: 13:00 Reason/Comments: DR SAUER AGREES TO ACCEPT ADMISSION W/ GI CONSULT AND F/U Consult Disposition: Admit #3 Consult: DR GONZALES Time Discussed: 13:07 (CONSULT FOR F/U PER ADMITTING DR) Consult Disposition: Admit Departure - Departure Date of Disposition Decision: 11/14/16 Time of Disposition Decision: 13:05 DIAGNOSIS: Ascites with 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, Hepatitis Pneumonia Qualifiers: Pneumonia type: due to unspecified organism Laterality: left Lung location: lower lobe of lung Qualified Code(s): J18.1 - Lobar pneumonia, unspecified organism Disposition: ADMITTED INPATIENT 09 Certified Medical Emergency: Emergent Condition: Stable - Critical Care Note This patient required my direct & personal management of CC.: Yes Total Time (mins): 60 (DR TOTH) Critical Care Statement: This patient required my direct personal management to treat or rule out processes, the absence of which, could potentiallly result in sudden, clinically significant life or limb threatening deterioration. This chart was documented by the indicated scribe, (Lizzy Pettit Scribe) and accurately reflects the services I performed and decisions made by me, Carlene Toth MD, as attested by the provider's signature.
--- NOTE | 2016-11-14 14:26 | Diag Imaging Result Doc PS360 ---
EXAM: ABDOMEN/PELVIS W/O CONTRAST HISTORY: Ascites, SOB TECHNIQUE: COMPARISON: 07/25/2016 FINDINGS: There is a moderate-sized left-sided pleural effusion measuring 3.8 cm posteriorly and inferiorly in the midline. There is bibasilar atelectasis. Moderate to large amount of abdominal and pelvic ascites. There are many scattered hepatic and splenic granuloma. No focal hepatic abnormality identified on this noncontrasted exam. Normal noncontrasted pancreas. Normal adrenal glands. Gallbladder is contracted. No renal stones. No hydronephrosis. No aortic aneurysm. Small para-aortic lymph nodes. No bowel obstruction. No abscess. The urinary bladder is moderately distended. Prostate is not enlarged. Mild body wall edema. IMPRESSION: 1.Moderate to large amount of abdominal and pelvic ascites 2.Constipation 3.Moderate-sized left-sided pleural effusion with basilar atelectasis Electronically signed by Sin Alexander 11/14/2016 2:24 PM
[2016-11-14] MEDS ORDERED: MORPHINE IV PRN (14:40)
--- NOTE | 2016-11-14 16:20 | Diag Imaging Result Doc PS360 ---
EXAM: US PARACENTESIS HISTORY: Ascites, SOB TECHNIQUE: Ultrasound-guided paracentesis COMPARISON: None. FINDINGS: Prior to the procedure I discussed the risk and benefits with the patient. Primary risks include: Bleeding, infection, bowel injury, and liver injury. Questions were answered. The patient then gave consent. A permit was signed. The largest fluid collection in the right lateral abdomen was localized with ultrasound. This area was cleaned and draped in normal fashion. Lidocaine was used as a local anesthetic. Needle and catheter were advanced into the fluid collection on the first try without difficulty. The needle was withdrawn. Catheter was hooked to suction. Just over 9 L of thin yellowish fluid were withdrawn. Catheter was then withdrawn. The patient had no complaints during or following the procedure. IMPRESSION: Ultrasound-guided paracentesis with no immediate postprocedural complications. Electronically signed by Sin Alexander 11/14/2016 4:18 PM
--- NOTE | 2016-11-14 16:46 | HISTORY AND PHYSICAL ---
CHIEF COMPLAINT: Shortness of breath and retaining fluid. HISTORY OF PRESENT ILLNESS: The patient is a 61-year-old, white male with cirrhosis from BAILON who is a diabetic and comes in with abdominal discomfort and shortness of breath. Chest x-ray showed possible pneumonia left lower lobe. Plus he has considerable ascites. I had already consulted Gastroenterology who had Radiology do a paracentesis on him and he has tolerated the procedure well and has removed a good bit of fluid and he is breathing easier already. PAST HISTORY: Diabetes mellitus, cirrhosis. Some question about whether he had a mild heart attack in the past or not though there is some disagreement about that apparently from the physicians at [facility] and the physicians at [facility]. He has also had osteomyelitis affecting his 3rd and 2nd toes of his left foot and had to have amputations there in the past. He has had cataract surgery in the past. Please see chart for medications. He has had a history of DVT and pulmonary emboli and is on Xarelto. FAMILY HISTORY: Not pertinent. SOCIAL HISTORY: He is a nonsmoker. Has not use alcohol ever. Has had diabetes for some time. REVIEW OF SYSTEMS: Neurological: Denies headaches, seizures, visual problems. He has had some hearing loss and wears hearing aids. Pulmonary: Has had some shortness of breath and there is a small infiltrate versus atelectasis of the left lower lobe and he has an elevated white count. Cardiovascular: Denies chest pain, heart palpitations, PND, orthopnea. GI: Denies hematochezia, hematemesis, melena, constipation, diarrhea. : Denies any difficulty with urination at this time. Musculoskeletal: Denies any arthritis symptoms or any injuries. Endocrine: Does have diabetes and is on insulin. PHYSICAL EXAMINATION: Temperature is 98.2 degrees Fahrenheit. Pulse rate initially 119 beats per minute. Respirations 20 per minute. Blood pressure 142/126. Oxygen saturation is 96%. HEENT: Normocephalic. EOMs intact. PERRLA. Throat clear. Fundi benign. NECK: Supple without thyromegaly, lymphadenopathy, or carotid bruits. LUNGS: Sound fairly clear to auscultation and percussion without rhonchi, rales, or wheezes. HEART: Regular rate and rhythm without murmurs, gallops, or friction rubs. ABDOMEN: Soft, now after the paracentesis. He is overweight. Apparently was very tense with his abdomen before the paracentesis. EXTERNAL GENITALIA EXAM: Deferred. RECTAL EXAMINATION: Deferred. INTEGUMENT: Shows no lesions consistent with melanoma or skin cancers. NEUROLOGICAL: Intact grossly. [place] count [place] [address], hemoglobin 13.9, platelet count 249,000. INR was 1.57. PT 17.0. Sodium 133. Potassium slightly up at 5.7. BUN 35, creatinine 1.7. Total bilirubin was up at 1.37. AST up at 40, ALT normal at 22. Calcium 8.2, albumin slightly low at 2.4, total protein 6.9. ASSESSMENT: 1. Shortness of breath with ascites. 2. Left lower lobe pneumonia. 3. Nonalcoholic steatohepatitis. 4. Cirrhosis. 5. AODM on insulin now. PLAN: We will admit and treat with antibiotics, see if infiltrate clears. We will try to keep from ascites under control. cc: MD Isaac Oneil Jr, MD
[2016-11-14 17:01] LABS: HEMOGLOBIN A1C 8.4 % (4.8-6.0)
--- NOTE | 2016-11-14 17:01 | ED EKG INTERP ---
This chart was entered by Lizzy Pettit Scribe, acting as scribe for Carlene Toth MD. EKG Interpretation - EKG Time of EKG reading by physician:: 13:17 EKG Read and Signed by:: Carlene Toth EKG Interpretation (*Must complete 3 of following elements*): Abnormal Rate: 115 Rhythm: ST QRS: other (LOW VOLTAGE QRS) NH Interval: normal ST Wave: normal This chart was documented by the indicated scribe, (Lizzy Pettit Scribe) and accurately reflects the services I performed and decisions made by Janey law Tom-Meka M., MD, as attested by the provider's signature.
[2016-11-14] MEDS: NS 1,000 ML IV SCH (17:33)
[2016-11-14] MEDS: CARAFATE PO SCH ×2 (17:33→20:06)
[2016-11-14] MEDS: HUMULIN R SUBQ SCH (20:02)
[2016-11-14] MEDS: XIFAXAN PO SCH (20:03)
[2016-11-14] MEDS: ACTIGALL PO SCH (20:08)
[2016-11-15] MEDS: ROCEPHIN 1 GM/NS 1 GM/50 ML IVPB IV SCH ×2 (02:29→14:40)
[2016-11-15 05:05] LABS: MANUAL DIFF NEEDED? NO
[2016-11-15 05:11] LABS: BASO% 0.5 % (0.0-0.8); EOS# 0.24 X1000 (0.0-0.7); EOS% 1.8 % (0.0-10.0); HEMATOCRIT 38.3 % (42.0-52.0); HEMOGLOBIN 13.2 g/dL (14.0-18.0); IMM GRAN# 0.09 X1000 (0.0-0.04); IMM GRAN% 0.7 % (0.0-0.5); LYMPH# 1.71 X1000 (1.2-3.4); LYMPH% 12.9 % (20.5-51.1); MCH 35.8 PG (27-31); MCHC 34.5 g/dL (33-37); MCV 103.8 FL (81-99); MONO# 1.47 X1000 (0.11-0.59); MONO% 11.1 % (1.7-9.3); MPV 10.7 FL (7.4-10.4); PLT 220 X1000 (130-400); RBC 3.69 XMIL (4.7-6.1)
[2016-11-15] MEDS: NS 1,000 ML IV SCH ×3 (05:33→20:36)
[2016-11-15] MEDS: PROTONIX PO SCH ×2 (05:33→06:12)
[2016-11-15 05:47] LABS: AGAP 9; BUN 29 mg/dL (8-22); CALCIUM 7.7 mg/dL (8.8-10.2); CHLORIDE 96 mmol/L (98-107); COSMO 273; HDL 20 mg/dL (35-55); LDL 45 mg/dL; POTASSIUM 5.2 mmol/L (3.5-5.1); SODIUM 131 mmol/L (136-145); TCO2 26 mmol/L (25-35); TRIGLYCERIDES 63 mg/dL (39-160); VLDL 13 mg/dL
[2016-11-15] MEDS: HUMULIN R SUBQ SCH ×4 (06:15→20:34)
[2016-11-15] MEDS: LINZESS PO SCH (08:33)
[2016-11-15] MEDS: XIFAXAN PO SCH ×2 (08:33→20:35)
[2016-11-15] MEDS: CARAFATE PO SCH ×4 (08:33→20:35)
[2016-11-15] MEDS: LACTULOSE PO SCH (08:33)
[2016-11-15] MEDS: ACTIGALL PO SCH ×2 (08:33→20:35)
[2016-11-15] MEDS: XARELTO PO SCH (08:34)
[2016-11-15] MEDS: BUMEX PO SCH (08:34)
[2016-11-15] MEDS: ALDACTONE PO SCH (08:34)
[2016-11-15] MEDS: ZOLOFT PO SCH (08:34)
--- NOTE | 2016-11-15 10:58 | PROGRESS NOTE ---
DATE: 11/15/2016 SUBJECTIVE: The patient says he is feeling much better. He is coughing some. But his breathing is much better since he has had the paracentesis. OBJECTIVE: Vital Signs: Blood pressure is 103/71, respirations 18, pulse 98, temperature 98.8 degrees Fahrenheit. HEENT: Normocephalic. EOMs intact. PERRLA. Throat clear. Lungs: Clear to auscultation and percussion without rhonchi, rales, or wheezes. The chest x-ray shows possible atelectasis versus small infiltrate in the left base and we are treating this as a pneumonia. Heart: Regular rate and rhythm without murmurs, gallops, or friction rubs. Abdomen: Soft with much less distention since the paracentesis. Neurological: Intact grossly. LABORATORY DATA: White count has gone up slightly to 13,250. Hemoglobin 13.2, hematocrit 38.3, potassium has come down from 5.7 to 5.2. Sodium is 131. Blood sugar 185. Calcium has dropped to 7.7. Albumin is low at 2.4 and that is probably the cause of the drop in calcium. Lipid profile is actually very good with an LDL 45, HDL 20, total cholesterol 78, triglycerides 63. ASSESSMENT: 1. Respiratory distress improved. 2. Ascites. 3. Cirrhosis. 4. Nonalcoholic steatohepatitis. 5. Left lower lobe pneumonia. 6. Adult-onset diabetes mellitus. 7. Pneumonia. PLAN: Continue support. We will get a chest x-ray in the morning. cc: MD Isaac Oneil Jr, MD
--- NOTE | 2016-11-15 18:20 | CONSULTATION ---
DATE OF CONSULTATION: 11/15/2016 REASON FOR CONSULTATION: Increasing fluid retention and shortness of breath. HISTORY OF PRESENT ILLNESS: I know Mr. Go who has cirrhosis and ascites, comes in with increasing abdominal discomfort, shortness of breath, and he has also a left pleural effusion. CT showed moderate ascitic fluid and moderate left pleural effusion. He had a CT-guided paracentesis which was large volume. They have removed 9 L of clear straw-colored fluid and the patient is feeling much better. PAST MEDICAL HISTORY: 1. Diabetes. 2. BAILON with cirrhosis. 3. History of CAD. 4. Had some amputations of toes. 5. Cataract surgery. 6. History of DVT. FAMILY HISTORY: Negative. MEDICATIONS: See the medication list Xarelto, Aldactone, and Lasix. REVIEW OF SYSTEMS: Neurological: No evidence of any confusion, seizures, or headache. Pulmonary: Shortness of breath. Cardiac: Negative chest pain. ACCESS REPRESENTATIVE: No confusional symptoms. PHYSICAL EXAMINATION: General: Revealed a pleasant gentleman. Apparent to be relatively comfortable compared to yesterday. Vital signs: Temperature 98 degrees, pulse 100, respirations 20, blood pressure 140/90, O2 saturation 99%. HEENT: Mild scleral icterus and conjunctival pallor. Neck: Supple. Trachea in the midline. Heart: Normal first and second heart sounds. Lungs: Decreased breath sounds on the left side. Abdomen: Distended but according to patient much better. Bowel sounds are present. Extremities: Pedal edema present. LABORATORY DATA: White count 12,000, hemoglobin 13.9. INR 1.57 with PT of 17. Potassium is slightly high at 5.7 and creatinine 1.7. Bilirubin 1.37. Remaining LFTs are normal. Albumin 2.4. IMPRESSION: 1. Tense ascites, relieved with large volume paracenteses. 2. Shortness of breath secondary to #1. 3. Possible left lower lobe atelectasis along with left pleural effusion again secondary to #1. 4. Non-alcoholic steatohepatitis. 5. Adult onset diabetes mellitus, currently on insulin. PLAN: Continue current management. We will hold Aldactone because potassium is coming back and with his large volume paracentesis we might hold diuretics until he stabilizes. Might need to consider albumin transfusion but we will decide that depending on his daily weights. GI prophylaxis. Will also add a beta-buster. cc: MD Isaac Bar MD
[2016-11-15] MEDS: DILAUDID IV PRN (22:32)
[2016-11-16] MEDS: ROCEPHIN 1 GM/NS 1 GM/50 ML IVPB IV SCH ×2 (02:52→13:25)
--- NOTE | 2016-11-16 06:12 | EKG Report ---
Test Performed on : 11/14/2016 1:17:13 PM Test Reason : edema Blood Pressure : / mmHG Vent. Rate : 115 BPM Atrial Rate : 115 BPM P-R Int : 148 ms QRS Dur : 070 ms QT Int : 346 ms P-R-T Axes : 036 014 060 degrees QTc Int : 478 ms Sinus tachycardia. Low voltage QRS Septal infarct , age undetermined Abnormal ECG When compared with ECG of 25-DEC-2013 09:08, QRS voltage has decreased Septal infarct is now present Unconfirmed Result
[2016-11-16] MEDS: HUMULIN R SUBQ SCH ×4 (06:13→20:23)
[2016-11-16] MEDS: PROTONIX PO SCH (06:14)
--- NOTE | 2016-11-16 07:25 | Diag Imaging Result Doc PS360 ---
EXAM: CHEST-PORTABLE HISTORY: LLL infiltrate TECHNIQUE: Erect AP portable at 0545 COMMENT: There is a has been resolution of the platelike atelectasis in the left upper lobe since the previous study of 11/14/2016. Inspiration is still markedly suboptimal. There is atelectasis in the right mid and lower lung patel. IMPRESSION: Improved atelectasis. Electronically signed by Ramon Kang 11/16/2016 7:22 AM
[2016-11-16] MEDS ORDERED: SALINE LOCK IV FLUID XX ONE (08:29)
[2016-11-16] MEDS: XARELTO PO SCH (08:59)
[2016-11-16] MEDS: LINZESS PO SCH (08:59)
[2016-11-16] MEDS: ALDACTONE PO SCH (09:00)
[2016-11-16] MEDS: ZOLOFT PO SCH (09:00)
[2016-11-16] MEDS: ACTIGALL PO SCH ×2 (09:00→20:24)
[2016-11-16] MEDS: CARAFATE PO SCH ×4 (09:00→20:24)
[2016-11-16] MEDS: XIFAXAN PO SCH ×2 (09:00→20:24)
[2016-11-16] MEDS: BUMEX PO SCH (09:01)
[2016-11-16 09:25] LABS: MANUAL DIFF NEEDED? NO
[2016-11-16 09:30] LABS: BASO% 0.5 % (0.0-0.8); EOS# 0.18 X1000 (0.0-0.7); EOS% 1.6 % (0.0-10.0); HEMATOCRIT 38.3 % (42.0-52.0); HEMOGLOBIN 12.8 g/dL (14.0-18.0); IMM GRAN# 0.11 X1000 (0.0-0.04); LYMPH# 1.48 X1000 (1.2-3.4); LYMPH% 13.5 % (20.5-51.1); MCHC 33.4 g/dL (33-37); MCV 104.6 FL (81-99); MONO# 1.19 X1000 (0.11-0.59); MONO% 10.8 % (1.7-9.3); MPV 10.7 FL (7.4-10.4); NEUT% 72.6 % (42.2-75.2); PLT 216 X1000 (130-400); RBC 3.66 XMIL (4.7-6.1)
[2016-11-16 10:24] LABS: CALCIUM 7.6 mg/dL (8.8-10.2); POTASSIUM 4.5 mmol/L (3.5-5.1)
[2016-11-16] MEDS: LACTULOSE PO SCH (10:56)
--- NOTE | 2016-11-16 11:46 | PROGRESS NOTE ---
DATE: 11/16/2016 SUBJECTIVE: The patient is currently resting in bed. He complains of abdominal pain in the pelvic region. His is present at the bedside. He does complain of mild nausea, decreased p.o. intake. He does have a history of constipation in the right colon. He denies any fever, rigors and chills. His ascitic fluid cultures preliminary are negative so far. His blood culture also has shown no growth in the last 48 hours. OBJECTIVE: Vital Signs: Temperature 97.5 degrees, pulse rate of 97, respiratory rate 12, blood pressure 107/68, saturating 90% on room air. Body weight 208 pounds 9.6 ounces , BMI of 31.7 kg/m2. General Appearance: Moderately built, moderately nourished, lying in bed, in no acute distress. HEENT: Mild pallor. No icterus. Pupils equal and react to light. Neck: Supple. Abdomen: Distended, but less than before. Positive ascites. No guarding or rebound. Bowel sounds are present. Extremities: No cyanosis or clubbing. Neurologic: He is alert, awake, oriented x3. LABORATORY DATA: Hemoglobin and hematocrit are 12.8 and 38.3, white count of 10.9, platelet count of 216,000, MCV of 104.6. INR 1.5, PT of 17. Sodium 130, potassium 4.5, chloride of 90, and bicarbonate 25, anion gap 10, BUN 31, creatinine 1.8, glucose of 208, calcium 7.6. CT scan was done of the abdomen and pelvis on 11/14/2016, which showed: (1) Moderate to large amount of abdominal and pelvic ascites. (2) Constipation. (3)Moderate-sized left-sided pleural effusion with basal atelectasis. Ultrasound-guided paracentesis done, 9 liters removed. IMPRESSION AND PLAN: 1. Fatty liver cirrhosis, complicated with recurrent ascites, renal insufficiency, coagulopathy, hypoalbuminemia, portal hypertension. In this regard, we will continue on his previous medications. Continue on Xifaxan 550 mg p.o. b.i.d. Continue on lactulose, which we will increase to 30 mL b.i.d. if he continues to have constipation. We will continue him on spironolactone 100 mg daily and Bumex 3 mg QD as before. We will also continue Ursodiol 300 mg p.o. b.i.d. 2. History of constipation with right-sided constipation. We will continue Linzess 145 mcg daily, and we will increase the lactulose slowly to help improve with his bowels. He has not had a bowel movement since admission. 3. Nausea, likely related to ascites and constipation. We will continue on gastrointestinal regimen with pantoprazole. 4. The patient is being evaluated for liver transplant at [facility]. He was previously rejected from [place] because of heart issues. 5. Hepatic encephalopathy. We will continue Xifaxan and lactulose, and we will check an ammonia level. 6. Diabetes mellitus on insulin. 7. History deep vein thromboses on Xarelto. We need to be careful and watch closely for signs of gastrointestinal bleeding. The above plan was discussed with the patient and the family and all questions answered. cc: MD Isaac Espinoza MD MTDD
--- NOTE | 2016-11-16 15:06 | PROGRESS NOTE ---
DATE: 11/16/2016 SUBJECTIVE: Patient continues to overall not do well. Complains of some nausea, some abdominal pain. Eating a little bit. He is undergoing liver transplant evaluation at [facility] and has been rejected by the liver transplant team at [facility]. OBJECTIVE: Vital signs: Afebrile. Vital signs stable. CV: RRR. Lungs: CTA. Abdomen: Soft. Some ascites noted. Obesity noted but improved. Extremities: No lower extremity edema. Neurologic: Nonfocal. Cranial nerves intact. He moves all extremities well. Sclerae anicteric. LABS: White count of 10.99, hemoglobin 12.8, platelets 216,000. Sodium 133, potassium 4.5, chloride 98, CO2 25, BUN 31, creatinine 1.8, calcium 7.6, ammonia 60. ASSESSMENT: 1. Ascites with pleural effusions and basilar atelectasis. Improved after paracentesis. 2. Possible left lower lobe pneumonia versus atelectasis related to the ascites. 3. Nonalcoholic steatohepatitis with cirrhosis, end-stage. 4. Insulin-dependent diabetes mellitus. 5. Chronic constipation. 6. History of deep vein thrombosis and pulmonary thromboembolism x1. 7. Depression. PLAN: Continues Xifaxan, lactulose, Linzess, Bumex, and Aldactone. Continue Actigall per Dr. Hurley, Protonix, sucralfate, pain control with Dilaudid as required. Continue Linzess for chronic constipation. Of course, the lactulose may help in that regard as well. Will follow labs and follow patient clinically. Await [facility] decision regarding transplant of the liver. cc: Isaac Meyer MD
[2016-11-16] MEDS: DILAUDID IV PRN (20:24)
[2016-11-16] MEDS ORDERED: SODIUM CHLORIDE 0.9% INJ PRN (21:19)
[2016-11-16] MEDS ORDERED: PHENERGAN IV PRN (21:19)
[2016-11-17] MEDS: ROCEPHIN 1 GM/NS 1 GM/50 ML IVPB IV SCH ×2 (02:41→13:50)
[2016-11-17 04:58] LABS: MANUAL DIFF NEEDED? NO
[2016-11-17 05:15] LABS: BASO% 0.4 % (0.0-0.8); EOS# 0.14 X1000 (0.0-0.7); HEMATOCRIT 39.1 % (42.0-52.0); HEMOGLOBIN 13.9 g/dL (14.0-18.0); IMM GRAN% 1.5 % (0.0-0.5); LYMPH# 1.45 X1000 (1.2-3.4); LYMPH% 10.8 % (20.5-51.1); MCHC 35.5 g/dL (33-37); MCV 101.3 FL (81-99); MONO# 1.34 X1000 (0.11-0.59); MPV 10.4 FL (7.4-10.4); NEUT% 76.3 % (42.2-75.2); PLT 241 X1000 (130-400); RBC 3.86 XMIL (4.7-6.1)
[2016-11-17 05:26] LABS: ALBUMIN 2.2 g/dL (3.5-5.0); CALCIUM 8.4 mg/dL (8.8-10.2); POTASSIUM 4.6 mmol/L (3.5-5.1); TOTAL BILIRUBIN 0.7 mg/dL (0.20-1.00); TOTAL PROTEIN 6.4 g/dL (6.3-8.3)
[2016-11-17] MEDS: PROTONIX PO SCH (06:49)
[2016-11-17] MEDS: HUMULIN R SUBQ SCH ×4 (06:49→20:13)
[2016-11-17] MEDS: ZOLOFT PO SCH (09:20)
[2016-11-17] MEDS: LACTULOSE PO SCH (09:21)
[2016-11-17] MEDS: XIFAXAN PO SCH ×2 (09:21→20:13)
[2016-11-17] MEDS: LINZESS PO SCH (09:21)
[2016-11-17] MEDS: CENTRUM SILVER PO SCH (09:21)
[2016-11-17] MEDS: ACTIGALL PO SCH ×2 (09:21→20:13)
[2016-11-17] MEDS: ALDACTONE PO SCH (09:21)
[2016-11-17] MEDS: BUMEX PO SCH (09:21)
[2016-11-17] MEDS: CARAFATE PO SCH ×4 (09:21→20:13)
[2016-11-17] MEDS: XARELTO PO SCH (09:21)
[2016-11-17] MEDS: DILAUDID IV PRN ×2 (11:51→20:11)
--- NOTE | 2016-11-17 16:56 | PROGRESS NOTE ---
DATE: 11/17/2016 SUBJECTIVE: Patient says he had nausea and vomiting after he ate a great deal for supper last evening. He has done better today. He has been able to eat his meals without nausea or vomiting. Still feels weak especially in his arms. OBJECTIVE: Vital signs: Afebrile. Pulse 97, respirations 18, blood pressure 109/60, O2 saturation room air 95-98%. Cardiovascular: RRR. Lungs: CTA. Abdomen: With ascites. Obesity noted but muscle wasting noted in the upper trunk area. Extremities: No calf tenderness, cords or significant edema. LABORATORIES: Show white count 13.4, hemoglobin 13.9, platelets 241,000. LFTs are normal. Calcium 8.4, BUN 35, creatinine 2.0. ASSESSMENT: 1. Ascites. 2. Atelectasis. 3. Nonalcoholic steatohepatitis with cirrhosis. 4. Renal insufficiency. 5. Insulin-dependent diabetes mellitus. 6. Chronic constipation. 7. Remote history of deep vein thrombosis and pulmonary thromboembolism. 8. Depression. PLAN: Understand the patient may be going for another paracentesis tomorrow with possible discharge late tomorrow if he does well after that procedure. Will consider outpatient physical therapy to try to help strengthen the patient. Continue other medications. cc: Isaac Meyer MD
[2016-11-18] MEDS: ROCEPHIN 1 GM/NS 1 GM/50 ML IVPB IV SCH ×2 (01:27→14:00)
[2016-11-18] MEDS: PROTONIX PO SCH (06:04)
[2016-11-18] MEDS: HUMULIN R SUBQ SCH ×4 (06:04→20:39)
[2016-11-18] MEDS: LACTULOSE PO SCH (08:55)
[2016-11-18] MEDS: ALDACTONE PO SCH (08:55)
[2016-11-18] MEDS: BUMEX PO SCH (08:56)
[2016-11-18] MEDS: XIFAXAN PO SCH ×2 (08:56→20:39)
[2016-11-18] MEDS: CENTRUM SILVER PO SCH (08:56)
[2016-11-18] MEDS: CARAFATE PO SCH ×4 (08:56→20:39)
[2016-11-18] MEDS: XARELTO PO SCH (08:56)
[2016-11-18] MEDS: ACTIGALL PO SCH ×2 (08:56→20:39)
[2016-11-18] MEDS: ZOLOFT PO SCH (08:56)
[2016-11-18] MEDS: LINZESS PO SCH (08:56)
[2016-11-18] MEDS ORDERED: HALL'S COUGH LOZENGE MT PRN (12:14)
--- NOTE | 2016-11-18 13:36 | PROGRESS NOTE ---
DATE: 11/18/2016 SUBJECTIVE: Patient complains of cough not responsive to Knutson's Cough Drops. The patient says that he feels like the fluid is building back up on his abdomen and it may be affecting his coughing. OBJECTIVE: Afebrile, pulse 103, respirations 18, blood pressure 115/75, O2 saturation room air 94%-99%. Cardiovascular: RRR. Lungs: CTA maybe minimal. Diminished breath sounds at the lung bases. No definite crackles. Abdomen is protuberant. There does appear be ascites. Extremities: No significant lower extremity edema. Blood sugars in the high 100s to the low 200s. Ascitic fluid remains negative on culture. Blood cultures remain negative since admission. Chest x-ray done 11/16/2016 shows improvement in atelectasis in the left lower lobe after paracentesis at that time. ASSESSMENT: 1. Ascites. 2. Atelectasis. 3. Nonalcoholic steatohepatitis with cirrhosis. 4. Chronic renal insufficiency. 5. Iocykxr-kehfpihiq-uupuiunl mellitus. 6. Chronic constipation. 7. Remote history of deep venous thrombosis and pulmonary thromboembolism, on chronic anticoagulation. 8. Depression. PLAN: At this time, consideration is being given for another paracentesis per Dr. Sahni/Mei. We are continuing Bumex, lactulose, Xifaxan, Aldactone, also continue Protonix and Carafate, Actigall. He is on antibiotics in the form of ceftriaxone. We will add Tessalon Perles for coughing at his request. We will wait further evaluation of potential repeat paracentesis per Gastroenterology. cc: Isaac Meyer MD
[2016-11-18] MEDS: DILAUDID IV PRN ×2 (14:00→19:29)
[2016-11-18] MEDS: TESSALON PO PRN ×2 (14:00→20:39)
--- NOTE | 2016-11-18 15:44 | PROGRESS NOTE ---
DATE: 11/18/2016 SUBJECTIVE: Patient resting in bed. His abdominal distention has worsened. He will be needing another paracentesis and they had talked about it yesterday with Dr. Fuentes, but there were no orders and he gotten Xarelto this morning. So we will have to reschedule it for tomorrow morning with the radiologist. The patient had 2 bowel movements today. He was eating better today. His abdominal pain is improve and nausea is improved. He denies any fever, rigors or chills. OBJECTIVE: Vitals: Temperature 98.1, pulse of 103, respiratory rate 18, blood pressure 115/76. Saturating 98% on room air. Body weight 215 pounds 4.8 ounces. General: Moderately build, moderately nourished, lying in bed, in no acute distress. HEENT: Mild pallor. No icterus. Neck: Supple. Abdomen: Abdominal distention, positive ascites. No guarding no rebound. Bowel sounds present. Extremities: No cyanosis, clubbing. Neurologic: He is alert, awake, oriented. LABORATORY: Hemoglobin and hematocrit is 13.9 and 39.1, white count of 13.4, platelet count of 241,000, MCV of 101.3. Sodium 133, potassium 4.6, chloride 96, bicarb 23, anion gap of 14, BUN of 35. Creatinine 2, glucose of 185, calcium is 8.4, total bilirubin is 0.7, AST 32, ALT 19, alkaline phosphatase 96, total protein 6.4, albumin of 2.2, ammonia 46. IMPRESSION AND PLAN: 1. Nonalcoholic steatohepatitis. Complicated liver cirrhosis, complicated with portal hypertension, ascites, refractory, renal insufficiency, portal hypertension, thrombocytopenia, coagulopathy. He is getting liver transplant evaluation at [facility]. Since he has been reaccumulating ascites, we will reschedule him for ultrasound- guided paracentesis tomorrow. In that regard we will hold his Xarelto tomorrow morning, and we will continue to watch his liver enzymes and laboratories. 2. Hepatic encephalopathy. We will continue Xifaxan twice daily and lactulose once daily. 3. Constipation. We will continue on Linzess 145 mcg every day and lactulose. 4. Gastrointestinal prophylaxis, to continue. 5. Ascites. Continue on Bumex 3 mg once daily and we Aldactone 100 once daily. 6. Mild anemia, continue on Iron C b.i.d. and multivitamin once daily. 7. History of DVT and pulmonary embolism. He is on Xarelto which we will hold tomorrow morning for ascitic tap tomorrow. 8. The above plans discussed with the patient and family and all questions please answered. cc: MD Isaac Espinoza MD MTDD
[2016-11-19] MEDS: ROCEPHIN 1 GM/NS 1 GM/50 ML IVPB IV SCH ×2 (01:36→18:52)
[2016-11-19] MEDS: PROTONIX PO SCH (06:04)
[2016-11-19] MEDS: HUMULIN R SUBQ SCH ×4 (06:17→21:28)
[2016-11-19 08:18] LABS: INR 1.68; PROTIME 18.2 Seconds (9.2-11.7); PTT 39.2 Seconds (22.0-36.0)
[2016-11-19] MEDS ORDERED: ALBUMIN 25% IV ONE (10:04)
--- NOTE | 2016-11-19 10:16 | Diag Imaging Result Doc PS360 ---
EXAM: US PARACENTESIS HISTORY: ascites TECHNIQUE: Right lateral abdominal puncture under ultrasound guidance. COMMENT: The risks and benefits of the procedure including the possibility of bleeding, infection, inadvertent puncture of hollow viscus or reaction to lidocaine were discussed with the patient and he agreed. Following sterile preparation the skin, administration of 1% lidocaine, the paracentesis catheter was placed in the mid axillary line laterally in the midabdomen. Nearly 9 L of yellowish turbid fluid was drained subsequently. The patient experienced no immediate complications. IMPRESSION: Successful ultrasound-guided paracentesis. Electronically signed by Ramon Kang 11/19/2016 10:14 AM
--- NOTE | 2016-11-19 11:32 | PROGRESS NOTE ---
DATE: 11/19/2016 SUBJECTIVE: Patient currently resting in bed. He just came from paracentesis. They removed about 9 L of ascitic fluid. The fluid appeared to be yellowish turbid color. We then gave him 100 g IV Zosyn. He does complain of feeling nauseous. Denies any fevers, rigors, chills. Denies any blood in the stools, vomiting blood. Vital signs: Temperature 98.2, pulse rate of 99, respiratory rate 16, blood pressure 92/59, saturating 100% on room air. Body weight 215 pounds 11.2 ounces. General: Moderately nourished lying in bed, in no acute. HEENT: No pallor. No icterus. Neck: Supple. Abdomen: Now softer after paracentesis. No guarding. No rebound. Bowel sounds are present. Extremities: No cyanosis, clubbing of bilateral lower extremity noted. Neurologic: He is alert, awake, oriented. LABS: His INR 1.6. PT of 18.2. PTT 39.2. Glucose 177. IMPRESSION: 1. Nonalcoholic steatohepatitis complicated with liver cirrhosis, portal hypertension, ascites, renal insufficiency, portal hypertension, thrombocytopenia, coagulopathy. At this moment he is status post paracentesis 9 L taken out today this is 2nd paracentesis during the hospital stay. The last 1 was done 6 days ago. We will keep him on 100 g of IV albumin. Will continue on Bumex and Aldactone. We will continue on Xifaxan and lactulose as before. 2. Constipation. I am putting him on Linzess 145 mcg every day. 3. GI prophylaxis to continue. 4. Low-sodium diet less than 2 g in 24 hours and restrict the free fluid to less than 1.5 L 24 hours. 5. History of Xarelto for DVT and PE. We will restart it tomorrow. Most likely, if the patient feels better he may be able to go home tomorrow. The above discussed with the patient and family and answered all questions. cc: MD Isaac Espinoza MD
[2016-11-19] MEDS: LACTULOSE PO SCH (12:15)
[2016-11-19] MEDS: ACTIGALL PO SCH ×2 (12:28→20:07)
[2016-11-19] MEDS: BUMEX PO SCH (12:28)
[2016-11-19] MEDS: CARAFATE PO SCH ×4 (12:29→20:07)
[2016-11-19] MEDS: ZOLOFT PO SCH (12:29)
[2016-11-19] MEDS: XIFAXAN PO SCH ×2 (12:30→20:07)
[2016-11-19] MEDS: LINZESS PO SCH (12:30)
[2016-11-19] MEDS: CENTRUM SILVER PO SCH (12:30)
--- NOTE | 2016-11-19 13:24 | PROGRESS NOTE ---
DATE: 11/19/2016 SUBJECTIVE: Patient had paracentesis again this morning per Dr. Sargent with 9 L of fluid removed. He is feeling extremely weak. He is receiving albumin IV at this time. OBJECTIVE: Vital signs: Marginal blood pressures. Afebrile. CV: RR. Lungs: CTA. Extremities: No edema. ASSESSMENT: 1. Nonalcoholic steatohepatitis with cirrhosis end-stage status post repeat paracentesis for therapeutic reasons. 2. Atelectasis lower lungs improved. 3. Hypoalbuminemia. 4. Insulin-dependent diabetes mellitus. PLAN: At this time continue treatment for his liver as maximized by Dr. Hurley. He is receiving the albumin. If he does well will try to discharge him sometime tomorrow with repeat paracentesis outpatient as required. At this time he has not been deemed a candidate for liver transplant by [facility] and [facility] is reassessing. cc: Isaac Meyer MD
[2016-11-19] MEDS: ALDACTONE PO SCH (16:42)
[2016-11-19] MEDS: DILAUDID IV PRN (20:07)
[2016-11-20] MEDS: PROTONIX PO SCH (06:05)
[2016-11-20] MEDS: ROCEPHIN 1 GM/NS 1 GM/50 ML IVPB IV SCH (06:05)
[2016-11-20] MEDS: HUMULIN R SUBQ SCH (06:17)
[2016-11-20 07:41] VITALS: BP 87/54
[2016-11-20] MEDS: CENTRUM SILVER PO SCH (09:21)
[2016-11-20] MEDS: CARAFATE PO SCH (09:22)
[2016-11-20] MEDS: XIFAXAN PO SCH (09:22)
[2016-11-20] MEDS: LINZESS PO SCH (09:22)
[2016-11-20] MEDS: LACTULOSE PO SCH (09:23)
[2016-11-20] MEDS: ZOLOFT PO SCH (09:23)
--- NOTE | 2016-11-23 13:47 | PROGRESS NOTE ---
DATE: 11/17/2016 SUBJECTIVE: The patient is resting in bed. Complaining about his abdomen getting distended again. He would like to get again another paracentesis before he goes home. No other complaints. OBJECTIVE: Vital Signs: Temperature 97.5 degrees, pulse 90, respirations 21, blood pressure 107/68, O2 saturations 90% on room air. General: Cirrhotic appearing facies with wasting of the extremities and the face. HEENT: No obvious scleral icterus but conjunctival pallor present. Neck: Supple. Trachea in the midline. Heart: Normal. Lungs: Decreased breath sounds in both bases. Abdomen: Distended. It is getting distended again. Bowel sounds present and normal. Laboratory Data: Hemoglobin 12.8, hematocrit 38.3, white count 10.9. PT 17. Creatinine 1.8, potassium 4.5. IMPRESSION AND PLAN: 1. Steatohepatitis with recurrent ascites and coagulopathy more recently. Had abdominal paracentesis with 9 L of fluid removed but he has slow accumulation. We have a problem with the diuresis because of high creatinine and his potassium is also in the upper normal. 2. History of constipation and is on lactulose and Linzess. 3. Nausea. 4. He is on the liver transplant list at [facility]. He was previously rejected because of his cardiac status. 5. Hepatic encephalopathy. Continue Xifaxan and lactulose. 6. Diabetes mellitus. 7. History of deep venous thrombosis, on Xarelto. I think we will watch him another day. If he is continues to have reaccumulation of ascites, I think he needs another therapeutic paracentesis. Otherwise, we will follow him as an outpatient to do that. cc: MD Isaac Bar MD
--- NOTE | 2016-12-20 18:42 | DISCHARGE SUMMARY ---
ADMISSION DATE: 11/14/2016 DISCHARGE DATE: 11/20/2016 DIAGNOSES: 1. Nonalcoholic steatohepatitis (BAILON) with cirrhosis, end-stage, status post therapeutic paracentesis with improvement. 2. Atelectasis lower lungs, improved. 3. Hypoalbuminemia. 4. Insulin-dependent diabetes mellitus. 5. Obesity. 6. Chronic renal insufficiency. 7. Remote history of deep venous thrombosis and pulmonary thromboembolism on chronic anticoagulation. 8. Depression. 9. Chronic constipation. REASON FOR ADMISSION AND HOSPITAL COURSE: The patient is a 61-year-old white male, followed in my medical practice. He suffers from BAILON and cirrhosis of the liver, end-stage. He has chronic ascites on the abdomen and has been followed at [place] and they had recommended that he was not a candidate for liver transplant. He has thus been followed of late by [facility], but has been having more ascites and shortness of breath. Came in with those symptoms and chest x-ray revealed left lower lobe atelectasis and a large amount of fluid on his abdomen. 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 Kang performed that procedure on 11/19/2016 with nearly 9 L of yellowish turbid fluid drained. The patient felt much better and was able to be discharged home thereafter. CONSULTANTS: Dr. Sahni/[place]. PROCEDURES: 1. Chest x-ray done 11/14/2016 revealed poor inspiration, atelectasis versus tiny infiltrate left lung base. 2. 11/14/2016 CT scan abdomen and pelvis without contrast revealing moderate to large amount of abdominal and pelvic ascites, constipation, moderate-size left-sided pleural effusion with bibasilar atelectasis. 3. Chest x-ray done 11/16/2016: Improved atelectasis. 4. Therapeutic paracentesis done 11/19/[address] Kang with 9 L removed. PERTINENT LABS: Show white count of 13, hemoglobin 13.9, platelets 241,000. INR 1.68, PT 18.2, PTT 39.200. LFTs normal. Albumin low at 2.2, BUN 35, creatinine 2.0, discharge potassium 4.6, ammonia 46, blood sugars in the 175-250 range during hospitalization. DISCHARGE MEDICATIONS: Will be Protonix 40 mg p.o. daily, Aldactone 100 mg p.o. daily, Xifaxan 550 mg p.o. b.i.d., lactulose 30 mg p.o. daily, Bumex 3 mg p.o. q.a.m., NovoLog 70/30 mix 44 units subcutaneously every a.m., 24 units subcutaneous q.p.m., Xarelto 20 mg p.o. daily, sucralfate 1 g p.o. q.i.d., ursodiol 300 mg p.o. b.i.d., Zoloft 50 mg p.o. daily, multivitamin 1 p.o. daily, Linzess 145 mcg p.o. daily. He will be followed by home health care as well. cc: Isaac Meyer MD
== END 2016-11-20 10:24 | disposition home health service (06) ==
LOC: ED 11:10 → INTOOBSV 13:28 → 3S 13:28
PROVIDERS: ADMIT Family Medicine; ATTEND Family Medicine

== ENCOUNTER 2017-01-17 10:19 | Inpatient (IN) ==
[2017-01-17] MEDS ORDERED: DILAUDID IV ONE ×2 (10:49→13:12)
[2017-01-17] MEDS ORDERED: NS 500 ML IV ONE (10:49)
[2017-01-17] MEDS ORDERED: DILAUDID ONE (10:55)
[2017-01-17 11:00] LABS: MANUAL DIFF NEEDED? NO
--- NOTE | 2017-01-17 11:04 | PROVIDER DOCUMENTATION ---
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 HX OF BAILON WITH SEVERE ASCITES, PER IS SCHEDULED FOR DRAIN TOMORROW AND CAN BECOME VERY "UNSTEADY" AT TIMES. DENIES LOC BUT STS DID HIT HIS HEAD AND C/O SOME LEFT SIDED NECK TENDERNESS. C/O SEVERE LEFT HIP PAIN AND INABILITY TO MOVE LEG. Quality of Pain: reports: sharp Severity in ED: severe Onset/Duration: just prior to arrival Any recent injury?: Yes Locality of Occurance: Home - FALL INJURY Location of Pain/Injury: reports: head, neck, pelvis, lower extremity Reason for Fall: reports: lost balance Symptoms prior to fall:: reports: none Loss of Consciousness: no loss of consciousness Injury Associated Symptoms: reports: back/neck pain, joint pain, unable to bear weight. denies: chest pain, dizziness, headaches, nausea, shortness of breath, pain with inspiration - BACK & NECK PAIN/INJURY Back/Neck Pain Location: reports: C-spine, paraspinous muscles Context / Method of Injury: reports: fall Associated Symptoms: reports: denies symptoms - HIP/PELVIS PAIN/INJURY Hip Pain Location: reports: hip (L), pelvis Pain Radiation: reports: buttocks Context / Method of Injury: reports: fall Associated Symptoms: reports: denies symptoms Review of Systems - Adult - REVIEW OF SYSTEMS - ADULT Constitutional: reports: no symptoms reported Eyes: reports: no symptoms reported. denies: blurred vision Ears, Nose, Mouth & Throat: reports: no symptoms reported Cardiovascular: reports: no symptoms reported. denies: chest pain, syncope Respiratory: reports: no symptoms reported. denies: shortness of breath Gastrointestinal: reports: no symptoms reported. denies: abdominal pain, nausea , vomiting Genitourinary: reports: no symptoms reported Musculoskeletal: reports: see HPI, joint pain, neck pain Integumentary: reports: no symptoms reported Neurological: reports: see HPI, loss of balance. denies: dizziness/vertigo, headache/migraines Psychiatric: reports: no symptoms reported Endocrine: reports: no symptoms reported Hematologic/Lymphatic: reports: easy bruising, prolonged bleeding Allergic/Immunologic: reports: no symptoms reported All Other Systems: Reviewed and Negative Past History - Adult - PAST MEDICAL HISTORY-ADULT Review of Records: reports: Nursing Assessment Review, Medications Reviewed, Social history reviewed & non-contributory. Major Childhood Illnesses: reports: denies history Cardiovascular: reports: blood clots (DVT/PE) Respiratory: reports: denies history Gastrointestinal: reports: liver disease (BAILON) Obstetrical/Gynecological: reports: denies history Genitourinary: reports: denies history Musculoskeletal: reports: denies history Neurological: reports: denies history Endocrine/Immune: reports: denies history Other Conditions: reports: other (ascites) - IMMUNIZATION STATUS Childhood Immunizations: See Nurse Assessment Flu Vaccine: See Nurse Assessment - FAMILY HISTORY Family History: reviewed, not pertinent Physical Exam-Injury Related - Physical Exam-Injury Related Initial Vital Signs Reviewed: Yes General Appearance: appears well, alert, moderate distress Eyes: PERRL/EOMI Head, Ears, Nose, Mouth & Throat: normocephalic/atraumatic, moist mucous membranes, normal ENT inspection Neck: full range of motion, supple, normal inspection, tender lateral (LEFT). negative: C-spine tenderness Respiratory: chest non-tender, lungs clear, normal breath sounds, no pleuratic chest pain, no respiratory distress, no accessory muscle use. negative: pain on inspiration, rib tenderness Cardiovascular: normal peripheral pulses, regular rate, rhythm Peripheral Pulses: femoral (R): 4+, femoral (L): 4+, dorsalis-pedis (R): 3+, dorsalis-pedis (L): 3+ Abdominal Exam: normal bowel sounds, distended (SEVERE ASCITES) Extremity: normal inspection, normal capillary refill, tenderness (LEFT HIP, NO OBVIOUS DEFORMITY OR SHORTENING NOTED). negative: deformity, pulse deficit Integumentary: normal color, warm/dry Neurologic: grossly normal, no motor/sensory deficits Psych/Mental Status: normal mood/affect, oriented x 3 Progress - PLAN OF CARE/RESULTS Progress/Plan/Lab Results: Vital Signs - 8 hr 01/17/17 10:24 01/17/17 12:31 Temperature 97.9 F Pulse Rate 106 H 108 H Respiratory Rate 23 18 Blood Pressure 90/66 97/83 O2 Sat by Pulse Oximetry 97 94 L Laboratory Results - last 24 hr 01/17/17 01/17/17 01/17/17 10:25 10:25 10:25 WBC 10.51 RBC 3.02 L Hgb 10.6 L Hct 31.3 L MCV 103.6 H MCH 35.1 H MCHC 33.9 RDW Std Deviation 13.8 Plt Count 246 MPV 10.5 H Immature Gran % (Auto) 2.1 H Neut % (Auto) 73.6 Lymph % (Auto) 8.2 L [place] % (Auto) 14.9 H Eos % (Auto) 0.9 Baso % (Auto) 0.3 Immature Gran # (Auto) 0.22 H Neut # (Auto) 7.74 H Lymph # (Auto) 0.86 L [place] # (Auto) 1.57 H Eos # (Auto) 0.09 Baso # (Auto) 0.03 PT 12.7 H INR 1.20 PTT (Actin FS) 30.4 Sodium 131 L Potassium 4.5 Chloride 94 L Carbon Dioxide 23 L Anion Gap 14 BUN 60 H Creatinine 2.5 H Estimated GFR/1.73 m2 26 BUN/Creatinine Ratio 24 Glucose 150 H Calculated Osmolality 282 Calcium 8.1 L Total Bilirubin 0.80 AST 43 H ALT 25 Alkaline Phosphatase 132 H Total Protein 6.5 Albumin 2.8 L Globulin 3.7 Albumin/Globulin Ratio 0.8 Urine Source Urine Color Urine Turbidity Urine pH Ur Specific [place] Urine Protein Ur Glucose (Stick) Ur Ketones (Stick) Urine Blood Urine Nitrite Urine Bilirubin Urobilinogen Dipstick Urine Leukocytes Urine WBC (Auto) Urine RBC (Auto) U Epithel Cells (Auto) Urine Bacteria (Auto) Blood Type Antibody Screen 01/17/17 01/17/17 10:25 12:10 WBC RBC Hgb Hct MCV MCH MCHC RDW Std Deviation Plt Count MPV Immature Gran % (Auto) Neut % (Auto) Lymph % (Auto) [place] % (Auto) Eos % (Auto) Baso % (Auto) Immature Gran # (Auto) Neut # (Auto) Lymph # (Auto) [place] # (Auto) Eos # (Auto) Baso # (Auto) PT INR PTT (Actin FS) Sodium Potassium Chloride Carbon Dioxide Anion Gap BUN Creatinine Estimated GFR/1.73 m2 BUN/Creatinine Ratio Glucose Calculated Osmolality Calcium Total Bilirubin AST ALT Alkaline Phosphatase Total Protein Albumin Globulin Albumin/Globulin Ratio Urine Source CATH Urine Color YELLOW Urine Turbidity CLEAR Urine pH 5.5 Ur Specific [place] 1.010 Urine Protein NEGATIVE Ur Glucose (Stick) NEGATIVE Ur Ketones (Stick) NEGATIVE Urine Blood NEGATIVE Urine Nitrite NEGATIVE Urine Bilirubin NEGATIVE Urobilinogen Dipstick NORMAL Urine Leukocytes NEGATIVE Urine WBC (Auto) <10 Urine RBC (Auto) <10 U Epithel Cells (Auto) <10 Urine Bacteria (Auto) NEGATIVE Blood Type O POSITIVE Antibody Screen NEGATIVE Orders Category Date Time Status [facility] Cath Insertion ORDERED Care 01/17/17 11:50 Active Nursing- MD Consult Request ROUTINE Care 01/17/17 13:00 Active Physician/Provider Consults Routine Cons 01/17/17 12:[address] HEAD/C-SPINE W/O CONTRAST [CT] Stat Exams 01/17/17 10:[address] PELVIS W/O CONTRAST [CT] Stat Exams 01/17/17 11:27 Completed XRAY PELVIS W/HIP 2-3VW LT [RAD] Stat Exams 01/17/17 10:49 Completed CBC WITH ELECTRONIC DIFF [HEME] Stat Lab 01/17/17 10:25 Completed COMPREHENSIVE METABOLIC PANEL [CHEM] Stat Lab 01/17/17 10:25 Completed PROTIME WITH INR [COAG] Stat Lab 01/17/17 10:25 Completed PTT [COAG] Stat Lab 01/17/17 10:25 Completed TYPE & SCREEN [BBK] Stat Lab 01/17/17 10:25 Completed UA NIMS W/REFLEX CULT [URINALYSIS] Stat Lab 01/17/17 12:10 Completed 0.9% Sodium Chloride Inj [Ns] 500 ml Med 01/17/17 10:49 Discontinued IV 999 mls/hr Hydromorphone [Dilaudid] Med 01/17/17 10:49 Discontinued 1 mg IV NOW ONE Hydromorphone [Dilaudid] Med 01/17/17 10:55 Discontinued 2 mg .ROUTE .STK-MED ONE Result Diagrams: 01/17/17 10:25 01/17/17 10:25 - XRAY 1 XRAY: Left XRAY Study: Pelvis, Hip Impression: Abnormal, See EMR Report XRAY Interpretation: LT HIP FX.-DR. TARIQ - CT/MRI 1 CT Study: Head, Neck Impression: Normal, See EMR Report CT Results: NEGATIVE.-DR. TARIQ 2 CT Study: Pelvis Impression: Abnormal, See EMR Report CT Results: LT INTERTROCHANTERIC HIP FX.-DR. TARIQ - CONSULTS/PCP/HOSPITALIST Notification #1 *Consult/PCP/Hospitalist*: DR. DICKERSON Time Discussed: 12:52 Consult Disposition: Will see in ED, Admit #2 Consult: DR. LEZAMA Time Discussed: 13:00 (MD AWARE, ADDED TO LIST) Departure - Departure Date of Disposition Decision: 01/17/17 Time of Disposition Decision: 13:08 DIAGNOSIS: Hip fracture Qualifiers: Encounter type: initial encounter Fracture type: closed Laterality: left Qualified Code(s): S72.002A - Fracture of unspecified part of neck of left femur , initial encounter for closed fracture Disposition: ADMITTED INPATIENT 09 Certified Medical Emergency: Emergent Condition: Good Referrals and Follow-Ups: None,PCP [Primary Care Provider] - - Critical Care Note This patient required my direct & personal management of CC.: No Attestation - Physician/ HENRY Attestation Patient care was provided by Advanced Practice Provider:: Yes Advanced Practice Provider:: Bere Colunga Advanced Practice Provider documentation review:: The Mid-level provider documentation, treatment plan and medical decision making was reviewed by the physician who agrees with all treatment and medical decision making by the MLP. The physician spent face to face time with patient:: Yes Advanced Practice Provider documentation review:: Supervising physician onsite and consulted in the evaluation and care of this patient. The physician did have a face to face encounter with the patient.
[2017-01-17 11:13] LABS: BASO% 0.3 % (0.0-0.8); EOS# 0.09 X1000 (0.0-0.7); EOS% 0.9 % (0.0-10.0); HEMATOCRIT 31.3 % (42.0-52.0); HEMOGLOBIN 10.6 g/dL (14.0-18.0); IMM GRAN# 0.22 X1000 (0.0-0.04); IMM GRAN% 2.1 % (0.0-0.5); LYMPH# 0.86 X1000 (1.2-3.4); LYMPH% 8.2 % (20.5-51.1); MCH 35.1 PG (27-31); MCHC 33.9 g/dL (33-37); MCV 103.6 FL (81-99); MONO# 1.57 X1000 (0.11-0.59); MONO% 14.9 % (1.7-9.3); MPV 10.5 FL (7.4-10.4); NEUT% 73.6 % (42.2-75.2); PLT 246 X1000 (130-400); RBC 3.02 XMIL (4.7-6.1)
[2017-01-17 11:19] LABS: INR 1.2; PROTIME 12.7 Seconds (9.2-11.7); PTT 30.4 Seconds (22.0-36.0)
[2017-01-17 11:31] LABS: ALBUMIN 2.8 g/dL (3.5-5.0); CALCIUM 8.1 mg/dL (8.8-10.2); POTASSIUM 4.5 mmol/L (3.5-5.1); TOTAL BILIRUBIN 0.8 mg/dL (0.20-1.00); TOTAL PROTEIN 6.5 g/dL (6.3-8.3)
--- NOTE | 2017-01-17 11:40 | Diag Imaging Result Doc PS360 ---
XRAY PELVIS W/HIP 2-3VW LT - 01/17/2017 INDICATION: FALL, PAIN TECHNIQUE: Three views COMPARISON: None FINDINGS: There is an intertrochanteric left proximal femur fracture. No dislocations. IMPRESSION: Intertrochanteric left hip fracture. Electronically signed by Aaron Alegria 01/17/2017 11:37 AM
--- NOTE | 2017-01-17 11:59 | Diag Imaging Result Doc PS360 ---
CT PELVIS W/O CONTRAST - 01/17/2017 INDICATION: LEFT HIP FX TECHNIQUE: A CT dose reduction protocol was used. COMPARISON: 11/14/2016 FINDINGS: There is a comminuted, displaced intertrochanteric left proximal femur fracture. No dislocations. No other fractures. There is moderate to large ascites. IMPRESSION: Left intertrochanteric hip fracture. Electronically signed by Aaron Alegria 01/17/2017 11:57 AM
--- NOTE | 2017-01-17 12:16 | Diag Imaging Result Doc PS360 ---
Head CT, CT cervical spine - 01/17/2017 INDICATION: Fall with head trauma TECHNIQUE: A CT dose reduction protocol was used. COMPARISON: 12/13/2016 FINDINGS: Head CT: The ventricles and sulci are normal in size and contour. No intracranial mass or hemorrhage. The skull is intact. The sinuses, mastoids, and middle ears are clear. Cervical spine: There is stable moderately advanced cervical spondylosis. No acute fracture or subluxation. IMPRESSION: No acute disease or change from prior. Electronically signed by Aaron Alegria 01/17/2017 12:13 PM
[2017-01-17 12:17] LABS: URINE CULTURE NEEDED? NO; URINE MICRO REVIEW NEEDED? NO; URINE SOURCE CATH
[2017-01-17 12:22] LABS: BILIRUBIN URINE NEGATIVE (NEGATIVE); BLOOD URINE NEGATIVE (NEGATIVE); COLOR YELLOW; GLUCOSE URINE NEGATIVE (NEGATIVE); LEUKOCYTES URINE NEGATIVE (NEGATIVE); NITRITE URINE NEGATIVE (NEGATIVE); PH URINE 5.5; PROTEIN URINE NEGATIVE (NEGATIVE); TURBIDITY URINE CLEAR (CLEAR); UROBILINOGEN URINE NORMAL (NORMAL)
[2017-01-17 12:23] LABS: UR EPITHELIAL CELLS <10 /HPF (<10); URINE BACTERIA NEGATIVE /HPF; URINE RBC <10 /HPF (<10); URINE WBC <10 /HPF (<10)
[2017-01-17] MEDS ORDERED: DILAUDID IV PRN (14:18)
[2017-01-17] MEDS ORDERED: LACTULOSE PO PRN (14:18)
[2017-01-17] MEDS: NORCO-7.5 PO PRN ×2 (15:35→22:34)
[2017-01-17] MEDS: CARAFATE PO SCH ×3 (15:36→20:28)
--- NOTE | 2017-01-17 15:58 | HISTORY AND PHYSICAL ---
CHIEF COMPLAINT: Pain in left hip. HISTORY OF PRESENT ILLNESS: The patient is a 61-year-old, white male with BAILON and ascites. He has been using a walker, but lost his balance and fell using his walker, falling on his left hip and sustaining a left intertrochanteric hip fracture. He complains of no other injury. States that he was supposed to have a paracentesis tomorrow morning with his pepper cutter. PAST HISTORY: Positive for DVT, BAILON, ascites. FAMILY HISTORY: Noncontributory. ALLERGIES: He has no known drug allergies. SOCIAL HISTORY: Not using tobacco or alcohol at this time. REVIEW OF SYSTEMS: Neurological: Denies headaches, seizures, visual problems, hearing problems. Pulmonary: Denies cough, wheezing, dyspnea. Cardiovascular: Denies chest pain, heart palpitations, PND, orthopnea. Gastrointestinal: He has large amount of ascites and abdominal distention from that. He gets paracentesis fairly regularly. Endocrine: Denies any pituitary problems. No thyroid problems. PHYSICAL EXAMINATION: VITAL SIGNS: Temperature is 97.9 degrees Fahrenheit, pulse 106 and regular, respirations 23, blood pressure 90/66, O2 saturations 97% on room air. HEENT: Normocephalic. EOMS intact. PERRLA. Throat clear. LUNGS: Clear to auscultation and percussion, without rhonchi, rales, or wheezes. HEART: Regular rate rhythm, without murmurs, gallops, or friction rubs. ABDOMEN: Distended with ascites. GENITALIA/RECTAL: Exams deferred. INTEGUMENT: Shows no lesions consistent with melanoma or other skin cancers. LYMPHATIC: Lymph nodes are nonpalpable in the cervical or supraclavicular areas. NEUROLOGICAL: Cranial nerves 2 through 12 intact grossly. Sensory and motor intact. Reflexes 1+ , all. LABORATORY: White count 10,510, hemoglobin 10.6. Sodium is 131, chloride 94, potassium 4.5, BUN 60, creatinine 2.5, blood sugar was 150. AST was slightly up at 43. T ASSESSMENT: He patient does have insulin-dependent diabetes mellitus and chronic renal insufficiency, with obesity, with a history of DVT and pulmonary embolism, and on chronic anticoagulation. He has had depression and chronic constipation issues. Now has a fractured left hip. PLAN: We will admit. Will need surgery most likely. Have consulted Ortho. Home medications would include Protonix 40 mg daily, Aldactone 100 mg daily, Xifaxan 550 mg p.o. b.i.d. for his BAILON, lactulose 30 mg p.o. daily, Bumex 3 mg p.o. q.a.m., NovoLog 70/30 mix 44 units subcutaneously q.a.m., 24 units subcutaneously q.p.m., Xarelto 20 mg p.o. daily, Carafate 1 g p.o. q.i.d., sotalol 300 mg p.o. b.i.d., Zoloft 50 mg daily, multivitamin once daily, and Linzess 150 mcg p.o. daily. cc: MD Isaac Oneil Jr, MD
[2017-01-17] MEDS ORDERED: HUMULIN R SUBQ SCH (16:00)
[2017-01-17] MEDS: DILAUDID IV PRN ×3 (16:32→22:31)
[2017-01-17] MEDS: XIFAXAN PO SCH (20:28)
[2017-01-18] MEDS: DILAUDID IV PRN ×3 (01:15→14:07)
[2017-01-18] MEDS ORDERED: KEFZOL 2 GM/D5W 2 GM/50 ML IVPB IV ONE (05:00)
--- NOTE | 2017-01-18 05:35 | EKG Report ---
Test Performed on : 01/17/2017 3:43:15 PM Test Reason : fall/Re-Ordered Blood Pressure : / mmHG Vent. Rate : 113 BPM Atrial Rate : 113 BPM P-R Int : 148 ms QRS Dur : 074 ms QT Int : 358 ms P-R-T Axes : 033 002 052 degrees QTc Int : 491 ms Sinus tachycardia. Low voltage QRS Possible Inferior infarct , age undetermined Cannot rule out Anteroseptal infarct (cited on or before 14-NOV-2016) Abnormal ECG When compared with ECG of 14-NOV-2016 13:17, Questionable change in initial forces of Anterior leads Confirmed by Derrick Owen MD ([id number]) on 01/18/2017 8:03:36 PM
[2017-01-18 06:21] LABS: BASO% 0.1 % (0.0-0.8); EOS# 0.01 X1000 (0.0-0.7); EOS% 0.1 % (0.0-10.0); HEMATOCRIT 30.5 % (42.0-52.0); HEMOGLOBIN 10.2 g/dL (14.0-18.0); IMM GRAN# 0.25 X1000 (0.0-0.04); IMM GRAN% 1.5 % (0.0-0.5); LYMPH# 0.76 X1000 (1.2-3.4); LYMPH% 4.6 % (20.5-51.1); MANUAL DIFF NEEDED? NO; MCH 35.8 PG (27-31); MCHC 33.4 g/dL (33-37); MONO# 2.25 X1000 (0.11-0.59); MONO% 13.6 % (1.7-9.3); MPV 10.2 FL (7.4-10.4); NEUT% 80.1 % (42.2-75.2); PLT 269 X1000 (130-400); RBC 2.85 XMIL (4.7-6.1)
[2017-01-18 06:58] LABS: POTASSIUM 5.5 mmol/L (3.5-5.1)
[2017-01-18] MEDS: PROTONIX PO SCH (08:04)
--- NOTE | 2017-01-18 08:10 | CONSULTATION ---
DATE OF CONSULTATION: 01/17/2017 CHIEF COMPLAINT: Left hip injury. HISTORY OF PRESENT ILLNESS: Tanner Go is a 61-year-old male, who fell at home today injuring his left hip. He has a history of multiple medical problems including BAILON syndrome with ascites. He complains of left hip pain and inability to ambulate. PHYSICAL EXAMINATION: General: Well-developed, well-nourished male. He is alert, oriented, and cooperative with the exam. Extremities: Exam of his leg reveals pain with any range of motion. His leg is shortened and externally rotated. His leg is otherwise neurovascularly intact. X-RAYS: Reveal a displaced intertrochanteric hip fracture on the left. IMPRESSION: Left intertrochanteric hip fracture. PLAN: We will plan on proceeding with a left long trochanteric fixation nail placement. I have discussed with him and his family the risks, benefits, and alternatives of surgery including, but not limited to bleeding, nerve damage, infection, risk from anesthesia, hardware failure, nonunion, malunion up to including loss of limb, life, and other imponderables. She voices understanding. All questions were answered. No guarantees given. He requests to proceed as planned. We will schedule surgery restricting the time for a left hip trochanteric fixation nail placement. cc: MD Isaac Carmichael MD
[2017-01-18] MEDS ORDERED: XARELTO PO SCH (09:00)
[2017-01-18] MEDS: ALDACTONE PO SCH (11:30)
[2017-01-18] MEDS: LINZESS PO SCH (11:31)
[2017-01-18] MEDS: CENTRUM SILVER PO SCH (11:31)
[2017-01-18] MEDS: BUMEX PO SCH (11:32)
[2017-01-18] MEDS: CARAFATE PO SCH ×4 (11:32→22:10)
[2017-01-18] MEDS: ZOLOFT PO SCH (11:32)
[2017-01-18] MEDS: XIFAXAN PO SCH ×2 (11:33→22:10)
--- NOTE | 2017-01-18 13:09 | PROGRESS NOTE ---
DATE: 01/18/2017 SUBJECTIVE: Patient has suffered a left intertrochanteric hip fracture will be undergoing surgery per Dr. Mcbride later today. He is alert, talkative, and is appropriate. OBJECTIVE: Vital signs: Afebrile, pulse 99, respirations 12 to 17, blood pressure 83/55, O2 saturation on room air 96%. CV: RRR. Lungs: Diminished breath sounds at bases. Cannot rule out a minimal crackle in the right lung base. Abdomen: Ascites is very prominent. Extremities: Left leg is in [place] traction. Right calf without cord, but there is 1 to 2 plus edema right lower extremity. LAB DATA: Shows white count of 16.5, hemoglobin 10.2, platelets 269,000, neutrophils 80, lymphocytes 4.6. INR yesterday 1.2, PTT 30.4. Sodium 132, potassium 5.5, chloride 96, CO2 23, BUN 68, creatinine 2.8. Blood sugar in the 100s. ASSESSMENT: 1. Left intertrochanteric hip fracture. 2. Liver failure with nonalcoholic steatohepatitis and ascites with frequent paracentesis, therapeutic per Dr. Hurley, last occurring about a week and a half ago. 3. Remote history of deep venous thrombosis in his arm on chronic anticoagulation associated with pulmonary embolus at that time as well. 4. Morbid obesity. 5. Chronic renal insufficiency. 6. Insulin-dependent diabetes mellitus. 7. Chronic constipation. 8. Depression. 9. Coronary artery disease with 2-vessel disease deemed not a candidate due to his heart condition recently at [facility] on evaluation for possible liver transplant. PLAN: At this time, the patient has agreed to the necessary left hip fracture repair per Dr. Mcbride later today. We will give him serial Accu-Cheks to monitor his blood sugar, keep him off his Xarelto due to impending surgery. Continue his Bumex, Xifaxan, Aldactone, and PPI. Continue Linzess for chronic constipation. We will follow him perioperatively for any heart difficulties or other difficulties. He is at risk, and he and his are aware of this in regard to surgery. Will speak with Dr. Hurley about need for paracentesis repeat in the near future. cc: Isaac Meyer MD
[2017-01-18] MEDS ORDERED: KEFZOL 2 GM/D5W 2 GM/50 ML IVPB ONE (14:31)
[2017-01-18] MEDS ORDERED: DIPRIVAN 1% ONE (14:42)
[2017-01-18] MEDS ORDERED: QUELICIN (DOSE) ONE (14:43)
[2017-01-18] MEDS ORDERED: XYLOCAINE-MPF 2% ONE (14:43)
[2017-01-18] MEDS ORDERED: OFIRMEV 1000 MG/ISOTONIC SOLN 1,000 MG/100 ML BOTTLE ONE (15:31)
[2017-01-18] MEDS ORDERED: NEO-SYNEPHRINE ONE (15:35)
[2017-01-18] MEDS ORDERED: SODIUM CHLORIDE 0.9% 10 ML ONE (15:35)
--- NOTE | 2017-01-18 16:45 | OPERATIVE NOTE ---
PROCEDURE DATE: 01/18/2017 PREOPERATIVE DIAGNOSIS: Left subtrochanteric femur fracture. POSTOPERATIVE DIAGNOSIS: Left subtrochanteric femur fracture. PROCEDURE: Closed reduction and intramedullary nailing of left subtrochanteric femur fracture with a trochanteric fixation nail, size 400 mm, with a 105 mm helical blade proximally and 46 and 56 locking screws distally. ANESTHESIA: General. SURGEON: Reed CHILD ADVOCATE: Arlet Sanabria PA-C, who was present throughout the case and was critical for assisting with the reduction, placement of the hardware and wound closure, and her assistance provided increased efficiency in the OR, diminishing the operative time and the time under anesthesia. BLOOD LOSS: Minimal. DESCRIPTION OF PROCEDURE: The patient was brought to operative suite and placed in supine position. After successful administration of general anesthesia, the patient placed on the OSI table in the usual position for left hip. The left hip and leg were then prepped and draped in the usual sterile fashion. A longitudinal incision was made, proximal to the tip of the greater trochanter. It was dissected sharply through the skin, and then a drill was entered in the tip of the greater trochanter, into the femoral canal. Once verified on AP and lateral images, it was reamed with flexible cannulated reamer., and then a ball-tipped guidepin was placed in the distal metaphysis. The length of the nail was measured at 400 mm. The canal was reamed to 13 mm, then a 400 mm x 11 intertrochanteric fixation nail was driven into place. Then. Through a stab incision laterally, a guide pin was placed in center of the femoral head on AP and lateral images. This was measured to 105 mm. It was reamed to 105 mm, and then the helical blade of 105 mm was driven into place. Once this verified to be in good position, it was locked proximally, and the proximal guide was removed. Excellent placement of hardware and reduction of fracture was obtained on AP and lateral images. Attention was then directed to the distal locking screws. Through stab incisions, the distal locking screws were drilled, using the perfect circles technique, and measured at 46 and 56 mm. These screws were driven into place. Excellent placement of screws was obtained in AP and lateral images. The wounds were copiously irrigated. The skin edge approximated with 2-0 Vicryl. Skin was closed with skin vasyl, and a sterile dressing was applied. The patient tolerated the procedure well, without complication. At the end the procedure, all counts correct x2. The patient was transferred to the recovery room in stable condition. cc: Zz MD Isaac Ohara MD
[2017-01-18] MEDS ORDERED: MORPHINE IV PRN (16:58)
[2017-01-18] MEDS ORDERED: ZOFRAN IV PRN (16:58)
[2017-01-18] MEDS ORDERED: MILK OF MAGNESIA PO PRN (16:58)
[2017-01-18] MEDS ORDERED: HALDOL IV PRN (16:58)
[2017-01-18] MEDS: DILAUDID ONE ×4 (17:24→17:41)
[2017-01-18] MEDS ORDERED: NAROPIN 0.5% ONE (17:51)
[2017-01-18] MEDS ORDERED: NS 1,000 ML ONE (17:51)
[2017-01-18] MEDS: HUMULIN R SUBQ SCH ×2 (18:54→22:11)
[2017-01-18] MEDS: TYLENOL PO SCH (19:34)
[2017-01-18] MEDS: NS 1,000 ML IV SCH (19:35)
[2017-01-18] MEDS: PERIDEX MT SCH (22:11)
[2017-01-18] MEDS: KEFZOL 1 GM/D5W 1 GM/50 ML IVPB IV SCH (22:11)
[2017-01-18] MEDS: COLACE PO SCH (22:11)
[2017-01-19] MEDS: TYLENOL PO SCH ×3 (00:48→19:45)
[2017-01-19] MEDS: OXY IR PO PRN ×3 (00:57→21:23)
[2017-01-19] MEDS: DILAUDID IV PRN ×3 (05:50→22:50)
[2017-01-19] MEDS: KEFZOL 1 GM/D5W 1 GM/50 ML IVPB IV SCH ×3 (05:51→15:57)
[2017-01-19 06:11] LABS: INR 1.31; PTT 31.6 Seconds (22.0-36.0)
[2017-01-19 06:21] LABS: BASO% 0.1 % (0.0-0.8); EOS# 0.03 X1000 (0.0-0.7); EOS% 0.2 % (0.0-10.0); HEMATOCRIT 25.4 % (42.0-52.0); HEMOGLOBIN 8.2 g/dL (14.0-18.0); IMM GRAN% 0.8 % (0.0-0.5); LYMPH# 0.78 X1000 (1.2-3.4); LYMPH% 6.5 % (20.5-51.1); MANUAL DIFF NEEDED? YES; MCH 34.5 PG (27-31); MCHC 32.3 g/dL (33-37); MCV 106.7 FL (81-99); MONO# 1.65 X1000 (0.11-0.59); MONO% 13.7 % (1.7-9.3); MPV 10.2 FL (7.4-10.4); NEUT% 78.7 % (42.2-75.2); PLT 198 X1000 (130-400); RBC 2.38 XMIL (4.7-6.1)
[2017-01-19] MEDS: HUMULIN R SUBQ SCH ×4 (06:29→20:11)
[2017-01-19 06:40] LABS: CALCIUM 8.5 mg/dL (8.8-10.2); POTASSIUM 5.2 mmol/L (3.5-5.1)
[2017-01-19 07:51] LABS: BANDS 2 % (0-1); LYMPHS 5 % (21-51)
--- NOTE | 2017-01-19 08:34 | PROGRESS NOTE ---
DATE: 01/19/2017 SUBJECTIVE: Patient did reasonably well overnight. He is being treated with pain medication, and his blood pressure is marginal but sufficient. He is down this morning for ultrasound-guided paracentesis per Dr. Hurley. OBJECTIVE: Afebrile, pulse low 100s, respirations 16, blood pressure 83-104 systolic, 50 to 60 diastolic. LABS SHOW: Hemoglobin down to 8.2, white count 12, platelets 198,000. Sodium 131, potassium 5.2, chloride 94, CO2 21, BUN 70, creatinine 2.7, glucose 138. ASSESSMENT: 1. Postoperative day #1 left hip fracture repair per Dr. Mcbride after fall. 2. Liver failure with nonalcoholic steatohepatitis and ascites. 3. Anemia of chronic disease also with mild blood loss anemia associated with surgery. 4. Chronic renal insufficiency. 5. Remote history of deep venous thrombosis in his arm and pulmonary embolus on chronic anticoagulation, resuming low-dose Xarelto now, will escalate that dose if he has no bleeding in the next 1-3 days. 6. Morbid obesity. 7. Insulin-dependent diabetes mellitus. 8. Chronic constipation. 9. Coronary artery disease, 2 vessel, deemed not a candidate for liver transplant. 10. Depression. PLAN: Have him on a special air mattress to prevent decubiti. I will placed at DNR level 1 status, as he and his have discussed this in detail and desire that. We will continue to monitor his blood pressure closely and if it worsens, we will move him down to the ICU for pressor agents if required. Otherwise, will await results of his paracentesis this morning, monitor his hemoglobin, and transfuse 2 units of PRBCs in the morning if his hemoglobin drops. He is receiving some IV antibiotics per Dr. Mcbride. Continue SSI and his liver medications, and chronic constipation medications. cc: Isaac Meyer MD
--- NOTE | 2017-01-19 09:15 | Diag Imaging Result Doc PS360 ---
US PARACENTESIS - 01/19/2017 INDICATION: Ascites COMPARISON: 01/06/2017 FINDINGS: The risks and benefits of the procedure were discussed with the patient. All questions were answered. Written and verbal consent was obtained. Ultrasound scanning demonstrated ascites. Overlying skin was prepped and draped in sterile fashion. Local anesthesia was achieved with injection of 10 cc 1% lidocaine. The paracentesis catheter was advanced until the return of ascites fluid. 9.25 L of very cloudy yellow fluid was aspirated. The catheter was withdrawn intact. There were no known complications. IV albumin has been ordered. IMPRESSION: Technically successful ultrasound-guided paracentesis with no known complications. Electronically signed by Baron Luevano 01/19/2017 9:13 AM
[2017-01-19] MEDS: ZOLOFT PO SCH (10:09)
[2017-01-19] MEDS: LINZESS PO SCH (10:09)
[2017-01-19] MEDS: CENTRUM SILVER PO SCH (10:09)
[2017-01-19] MEDS: ALDACTONE PO SCH (10:09)
[2017-01-19] MEDS: BUMEX PO SCH (10:09)
[2017-01-19] MEDS: XIFAXAN PO SCH ×2 (10:10→20:03)
[2017-01-19] MEDS: FERROUS SULFATE PO SCH (10:10)
[2017-01-19] MEDS: CARAFATE PO SCH ×4 (10:10→20:03)
[2017-01-19] MEDS: PERIDEX MT SCH ×2 (10:10→20:04)
[2017-01-19] MEDS: NS 1,000 ML IV SCH ×2 (10:12→15:59)
[2017-01-19] MEDS: PROTONIX PO SCH (10:18)
[2017-01-19] MEDS: XARELTO PO SCH (10:20)
[2017-01-19] MEDS ORDERED: ALBUMIN 25% IV ONE (12:30)
[2017-01-19] MEDS ORDERED: SODIUM CHLORIDE 0.9% INJ PRN (15:27)
[2017-01-19] MEDS ORDERED: PHENERGAN IV PRN (15:27)
[2017-01-19] MEDS ORDERED: LACTULOSE PO PRN (16:45)
[2017-01-19] MEDS ORDERED: NS 500 ML IV ONE (19:13)
[2017-01-19] MEDS ORDERED: NEO-SYNEPHRINE 50 MG in NS 250 ML IV SCH (19:15)
[2017-01-19] MEDS: LEVOPHED 8 MG in D5 1/2 NS 250 ML IV SCH (19:39)
[2017-01-19] MEDS: COLACE PO SCH (20:03)
[2017-01-20] MEDS: NS 1,000 ML IV SCH (00:12)
[2017-01-20] MEDS: TYLENOL PO SCH ×3 (01:59→17:21)
[2017-01-20] MEDS: DILAUDID IV PRN ×6 (02:12→23:13)
--- NOTE | 2017-01-20 03:06 | PROGRESS NOTE ---
DATE: 01/20/2017 SUBJECTIVE: The patient has had to be moved to the ICU due to hypotension. He is on Levophed at 10 mcg and doing well overall. OBJECTIVE: Vital Signs: Afebrile. Blood pressure had dipped from his normal of about 85-90 systolic, down into the 74 range over 35. O2 saturations have been running 93-95% on 0-2 L. Pulse 108, respirations 17, blood pressure now running 100 systolic on 10 mcg of Levophed. Cardiovascular: Mild tachycardia. Regular rhythm. Lungs: CTA. Abdomen: Patient is status post 9 L out by paracentesis yesterday. Abdomen is notably less distended. Extremities: No significant lower extremity edema. LABORATORY STUDIES: Is and Os show 1496 in and 320 out. Today's labs are pending. Reviewed yesterday's. ASSESSMENT: 1. Hypotension, requiring low-dose pressor agent and Levophed. 2. Postop day #2, status post left hip fracture repair per Dr. Mcbride after a fall. 3. 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 4. Anemia of chronic disease, with mild blood loss anemia associated with the recent surgery. 5. Chronic renal insufficiency. 6. Remote history of deep venous thrombosis in his arm, with pulmonary embolus, on chronic anticoagulation. 7. Morbid obesity. 8. Insulin-dependent diabetes mellitus. 9. Chronic constipation. 10. Two-vessel coronary artery disease. 11. Depression. PLAN: Continue low-dose Levophed. He has received a 500 mL bolus of normal saline, and saline is running at 125 mL an hour. With his prominent ascites, will cut this back to KVO and rely on the Levophed instead. We will follow his hemoglobin and transfuse 2 units of packed red blood cells if his anemia worsens. He is receiving albumin per Dr. Rubalcava's order. Continue sliding scale insulin for blood sugar management, and home doses of Bumex, Xifaxan. He is on low-dose Xarelto presently, and will increase that if he does not have any bleeding in the next 1-2 days, up from 10 mg to 20 mg daily. cc: Isaac Meyer MD
[2017-01-20] MEDS: XARELTO PO SCH (05:30)
[2017-01-20] MEDS: HUMULIN R SUBQ SCH ×4 (06:08→20:03)
[2017-01-20] MEDS: PROTONIX PO SCH (06:08)
[2017-01-20 06:14] LABS: BASO% 0.1 % (0.0-0.8); EOS# 0.17 X1000 (0.0-0.7); EOS% 1.2 % (0.0-10.0); HEMATOCRIT 24.7 % (42.0-52.0); HEMOGLOBIN 8.1 g/dL (14.0-18.0); IMM GRAN# 0.13 X1000 (0.0-0.04); LYMPH# 0.85 X1000 (1.2-3.4); LYMPH% 6.2 % (20.5-51.1); MANUAL DIFF NEEDED? YES; MCH 35.1 PG (27-31); MCHC 32.8 g/dL (33-37); MCV 106.9 FL (81-99); MONO# 2.17 X1000 (0.11-0.59); MONO% 15.9 % (1.7-9.3); NEUT% 75.6 % (42.2-75.2); PLT 238 X1000 (130-400); RBC 2.31 XMIL (4.7-6.1)
[2017-01-20 06:51] LABS: CALCIUM 7.7 mg/dL (8.8-10.2); POTASSIUM 5.1 mmol/L (3.5-5.1)
[2017-01-20 07:09] LABS: LYMPHS 6 % (21-51); MONO 16 % (1-9); POLYCHROM OCCASIONAL
[2017-01-20] MEDS: LEVOPHED 8 MG in D5 1/2 NS 250 ML IV SCH ×2 (08:07→19:02)
[2017-01-20] MEDS: OXY IR PO PRN ×3 (08:09→17:22)
[2017-01-20] MEDS: FERROUS SULFATE PO SCH (08:11)
[2017-01-20] MEDS: CARAFATE PO SCH ×4 (08:20→20:02)
[2017-01-20] MEDS: XIFAXAN PO SCH ×2 (08:21→20:02)
[2017-01-20] MEDS: ALDACTONE PO SCH (08:21)
[2017-01-20] MEDS: CENTRUM SILVER PO SCH (08:23)
[2017-01-20] MEDS: ZOLOFT PO SCH (08:28)
[2017-01-20] MEDS: LINZESS PO SCH (09:18)
[2017-01-20] MEDS: BUMEX PO SCH (09:18)
[2017-01-20] MEDS: PERIDEX MT SCH ×2 (09:18→20:01)
--- NOTE | 2017-01-20 14:37 | PROGRESS NOTE ---
DATE: 01/20/2017 SUBJECTIVE: Tanner Go is a 61-year-old male who is postoperative day 2 from a left trochanteric fixation nail placement. He had 9 L removed from a thoracentesis yesterday from his ascites and developed hypotension, was placed in the ICU and placed on pressors. There was some possibility that he might an infection as well. He was diagnosed with SIRS. He is alert and oriented now, and cooperative with the exam. OBJECTIVE: He is a well-developed, well-nourished male. He is cooperative with the exam. His leg is neurovascularly intact. He has some mild pain with range of motion. His dressings, especially the distal ones, have some bloody drainage but are not completely saturated. ASSESSMENT: Stable orthopedically after his trochanteric fixation nail. PLAN: We will change his dressings today. We will keep his Givens in place since he is in the ICU. We will continue to monitor his progress. cc: MD Isaac Carmichael MD
[2017-01-20] MEDS ORDERED: LEVAQUIN 500 MG/D5W 500 MG/100 ML IVPB IV SCH (15:15)
[2017-01-20] MEDS: PROTONIX IV SCH (15:46)
[2017-01-20] MEDS: ALBUMIN 25% IV SCH (15:51)
--- NOTE | 2017-01-20 16:07 | CONSULTATION ---
DATE OF CONSULTATION: 01/20/2017 REASON FOR CONSULTATION: Increasing ascites and shortness of breath. HISTORY OF PRESENT ILLNESS: This is a 61-year-old gentleman, recently discharged from the hospital with BAILON and ascites. He was ambulating, walking with the walker and fell on the left side and had a left intertrochanteric hip fracture. He was set-up for abdominal paracentesis as an outpatient, but will do it while he is in the hospital. PAST MEDICAL HISTORY: 1. Deep venous thrombosis. 2. Non-alcoholic steatohepatitis. 3. Ascites. FAMILY HISTORY: Noncontributory. ALLERGIES: None. SOCIAL HISTORY: He is not drinking or smoking at this time. REVIEW OF SYSTEMS: Neurological: Alert and oriented. Denies having any problems. Cardiovascular: No chest pain. No palpitations. Respiratory: Has shortness of breath mainly from abdominal distention. Gastrointestinal: Ascites and abdominal distention. PHYSICAL EXAMINATION: General Appearance: Reveals a pleasant gentleman. Vital Signs: Temperature 97.9 degrees, pulse 100, respirations 20, blood pressure 90/60, O2 saturation 97% on room air. HEENT: Mild scleral icterus and conjunctival pallor present. Neck: Supple. Trachea midline. Lungs: Decreased breath sounds at bases, but otherwise clear. Heart : Normal first and second heart sounds. Abdomen: Distended. Shifting dullness present. Neurological: No asterixis. No focal deficits. LABORATORY DATA: White count 10.5. Hemoglobin and hematocrit 10.6 and 30. BUN 60, creatinine 2.5. Otherwise, liver function tests are normal. IMPRESSION: 1. Non-alcoholic steatohepatitis. 2. Ascites. 3. History of deep venous thrombosis and pulmonary embolism on anticoagulation. 4. Depression. 5. Chronic constipation. 6. Intertrochanteric fracture of the left femur. PLAN: We will arrange for a paracentesis by x-ray. Will continue GI prophylaxis. Continue current plan for the non-alcoholic steatohepatitis. Diabetes mellitus, on insulin. Continue all the medicines. We will follow him with you. cc: MD Isaac Bar MD MTDD
--- NOTE | 2017-01-20 16:17 | Diag Imaging Result Doc PS360 ---
EXAM: CHEST-1 VIEW INDICATION: Eval for Effusion TECHNIQUE: One view COMPARISON: 12/13/2016 FINDINGS: Inspiration is suboptimal similar to the previous study. There is evidence of prior granulomatous disease, stable. The lungs are grossly clear, otherwise. No definite pleural fluid collection can be identified on this image. There is no evidence of pneumothorax. Cardiac mediastinal silhouette is stable. IMPRESSION: Low lung volumes but no definite acute pathology by plain radiograph. Electronically signed by Baron Luevano 01/20/2017 4:14 PM
[2017-01-20 16:46] LABS: URINE MICRO REVIEW NEEDED? NO; URINE SOURCE CATH
[2017-01-20 16:51] LABS: BILIRUBIN URINE NEGATIVE (NEGATIVE); BLOOD URINE MODERATE (NEGATIVE); COLOR YELLOW; GLUCOSE URINE NEGATIVE (NEGATIVE); LEUKOCYTES URINE MODERATE (NEGATIVE); NITRITE URINE NEGATIVE (NEGATIVE); PROTEIN URINE NEGATIVE (NEGATIVE); SP GRAVITY URINE 1.014; TURBIDITY URINE CLEAR (CLEAR); UR EPITHELIAL CELLS <10 /HPF (<10); URINE BACTERIA NEGATIVE /HPF; URINE CULTURE NEEDED? YES; URINE RBC 20-40 /HPF (<10); UROBILINOGEN URINE NORMAL (NORMAL)
[2017-01-20] MEDS: COLACE PO SCH (20:01)
--- NOTE | 2017-01-20 21:08 | CONSULTATION ---
DATE OF CONSULTATION: 01/20/2017 REFERRING PHYSICIAN: Isaac Meyer MD REASON FOR CONSULTATION: Cirrhosis, ascites. HISTORY OF PRESENT ILLNESS: Mr. Go is a 61-year-old male who was admitted on 01/17/2017 with left intertrochanteric hip fracture after a fall at home. He underwent surgery on 01/18/[address] Mcbride. Posteriorly, he was noted to have worsening ascites and radiologist marie 9 L yesterday. Postoperatively, he became hypotensive and was transferred to the ICU last evening around 8 p.m. He continues on low dose of Levophed. The patient has a known history of fatty liver cirrhosis, complicated with coagulopathy, ascites, pedal edema. He also has a known history of constipation and is on Linzess and lactulose. He also has a history of hepatic encephalopathy. He is continuing on lactulose and Xifaxan at home. Gastroenterology was called to manage the cirrhosis. PAST MEDICAL HISTORY: 1. DVT. 2. Nonalcoholic steatohepatitis with cirrhosis. 3. Hepatic encephalopathy. 4. Coagulopathy. 5. Anemia. 6. Osteomyelitis. 7. Ascites, requiring recurrent paracentesis. PAST SURGICAL HISTORY: 1. Multiple paracentesis. 2. He had EGD and colonoscopy in the past. 3. He had a left hip fracture surgery 01/18/2017. FAMILY HISTORY: Noncontributory. ALLERGIES: No known drug allergies. MEDICATIONS IN THE HOSPITAL: 1. Tylenol. 2. Bumex 3 mg every day. 3. Chlorhexidine 15 mL mouthwash b.i.d. 4. Colace 200 mg by mouth at bedtime. 5. Ferrous sulfate 320 mg 6. Haldol 25 mg IV q.6 hours. 7. Dilaudid 0.5 to 1 mg IV q.3 hours as needed. 8. Sliding-scale regular insulin. 9. Lactulose 30 mL p.o. t.i.d. as needed. 10. Norepinephrine drip. 11. Linzess 145 mcg every day. 12. Magnesium hydroxide 30 mL p.o. daily as needed. 13. Multivitamin once daily. 14. Phenylephrine drip. 15. IV normal saline KVO OxyIR 5 mg every 3 hours as needed. 16. Protonix 40 mg once daily. 17. Phenergan 6.25/5 mg IV every 4 hours needed. 18. Xifaxan 5 mg p.o. b.i.d. 19. Xarelto 20 mg every day. 20. Zoloft 50 mg every day. 21. Spironolactone 100 mg once daily. 22. Carafate 1 g every 6 hours. 23. Albumin IV 100 mg once yesterday. DIET: He is currently on a diabetic diet. PHYSICAL EXAMINATION: Vital signs: Temperature 97.4, pulse rate of 104, respiratory rate 12, blood pressure 106/67 saturating 97% 2 L nasal cannula. Body weight 218 pounds. General Appearance: Moderately built, moderately nourished, lying in bed, in no acute distress. HEENT: Pale hematocrit. No icterus. Neck: Supple. Abdomen: Distended and positive ascites. No guarding. No rebound. Extremities: No cyanosis, clubbing. He had heel protectors in the lower extremities. Neurologic: He was awake, alert, oriented x3. LABORATORIES: Hemoglobin and hematocrit is 8.1 and 24.7, white count 13.6, platelet count of 238,000, MCV of 106.9. Sodium 132, potassium 5.1, chloride 97, bicarb 29, anion gap 17, BUN of 78, creatinine 2.8, glucose of 175 calcium 7.7. IMPRESSION AND PLAN: 1. Status post left intertrochanteric fracture status post surgery 01/18/[address] Mcbride. Being followed by Dr. Mcbride. 2. Anemia, likely secondary to anemia of chronic disease and recent fracture. Continue to watch and trend anemia. 3. Coagulopathy. He is on Xarelto. We will have to keep a watch on his INR in patient with underlying liver cirrhosis. 4. Liver cirrhosis. We will continue to watch liver enzymes every day. Avoid hepatotoxic drugs. 5. Mild leukocytosis with hypertension. We will need to do Infectious Disease workup. We will check blood culture x2, urinalysis culture and chest history. Based in the laboratory work, we will decide on what antibiotics needed. 6. Patient has renal insufficiency which has gotten slightly worse. As the patient is on Bumex and Aldactone, we will give him a dose of albumin 25 g every daily for 3 days. Since the patient a little hypotensive, we will hold his Bumex and Aldactone until he comes off pressors. 7. GI prophylaxis with PPI. 8. Bowel regimen. We will continue Linzess and lactulose as needed. 9. We will continue on a multivitamin once daily. 10. We will continue on Xifaxan p.o. b.i.d. for hepatic encephalopathy. We will check his ammonia today. The above plan was discussed with the patient's nurse at bedside. cc: MD Isaac Espinoza MD Richard S. Sharp, MD MTDD
[2017-01-21] MEDS: TYLENOL PO SCH ×3 (01:55→16:23)
[2017-01-21] MEDS: OXY IR PO PRN ×2 (03:09→20:11)
[2017-01-21] MEDS: XARELTO PO SCH (06:07)
[2017-01-21] MEDS: HUMULIN R SUBQ SCH ×4 (06:08→20:07)
[2017-01-21] MEDS: DILAUDID IV PRN ×3 (06:40→20:51)
[2017-01-21 06:51] LABS: INR 1.52; PROTIME 16.4 Seconds (9.2-11.7)
[2017-01-21 06:58] LABS: BASO% 0.1 % (0.0-0.8); EOS# 0.28 X1000 (0.0-0.7); HEMATOCRIT 23.3 % (42.0-52.0); HEMOGLOBIN 7.6 g/dL (14.0-18.0); IMM GRAN# 0.04 X1000 (0.0-0.04); IMM GRAN% 0.4 % (0.0-0.5); LYMPH# 0.91 X1000 (1.2-3.4); LYMPH% 9.7 % (20.5-51.1); MANUAL DIFF NEEDED? NO; MCH 35.2 PG (27-31); MCHC 32.6 g/dL (33-37); MCV 107.9 FL (81-99); MONO# 1.43 X1000 (0.11-0.59); MONO% 15.2 % (1.7-9.3); MPV 9.9 FL (7.4-10.4); NEUT% 71.6 % (42.2-75.2); PLT 187 X1000 (130-400); RBC 2.16 XMIL (4.7-6.1)
[2017-01-21 07:00] LABS: PTT 41.7 Seconds (22.0-36.0)
[2017-01-21 07:17] LABS: AGAP 12; ALKALINE PHOSPHATASE 69 U/L (32-122); BUN 74 mg/dL (8-22); CALCIUM 8.4 mg/dL (8.8-10.2); CHLORIDE 98 mmol/L (98-107); COSMO 289; GOT 32 U/L (10-34); GPT < 5 U/L (10-44); POTASSIUM 5.7 mmol/L (3.5-5.1); SODIUM 132 mmol/L (136-145); TCO2 22 mmol/L (25-35); TOTAL BILIRUBIN 1.12 mg/dL (0.20-1.00); TOTAL PROTEIN 5.6 g/dL (6.3-8.3)
[2017-01-21] MEDS ORDERED: BENADRYL PO ONE (08:23)
--- NOTE | 2017-01-21 08:54 | PROGRESS NOTE ---
DATE: 01/21/2017 SUBJECTIVE: The patient remains in ICU on low-dose Levophed for blood pressure. He is requiring some Dilaudid for pain control of left hip pain following hip repair surgery. He is awake, alert, and oriented. OBJECTIVE: Afebrile. Pulse 104, respirations 12, blood pressure 106/67 on Levophed. O2 saturation on 2 L 97%. CV: Tachycardia. Regular rhythm. Lungs: Diminished breath sounds at the lung bases with shallow respirations otherwise. CTA abdomen: Ascites is present and increasing slightly. Extremities: No calf tenderness or cords. No significant edema. There is tenderness about the left hip. Chest x-ray shows shallow respirations, otherwise, negative. Urinalysis done yesterday: Moderate leukocytes, 10-20 WBCs on microscopic exam. Negative bacteria. Epithelial cells less than 10. This is a cath specimen. 20-40 RBCs on microscopic exam. Urine culture so far negative. Blood cultures x2 negative. INR 1.52. Sodium 132, potassium 5.7, chloride 98, carbon dioxide 22. BUN 74, creatinine 2.6, glucose 147. LFTs essentially normal. Albumin 3.0. Receiving albumin injections daily for 3 days. White count 9.3, hemoglobin has dropped to 7.6 from max of 10.6, platelets 187,000. ASSESSMENT: 1. Hypotension requiring Levophed pressor agent with chronically low blood pressures in the 85-90 range, probably exacerbated somewhat by having to take Dilaudid pain medication. 2. Postoperative day #3. Status post left hip repair of fracture per Dr. Mcbride after a fall. 3. Cirrhosis of the liver, end stage, with nonalcoholic steatohepatitis. 4. Anemia of chronic disease compounded by mild blood-loss anemia which has worsened to the point that it would be necessary for a 2 unit blood transfusion today due to his 2 vessel CAD. 5. Two-vessel coronary artery disease. Workup at [facility] deeming him not a candidate for liver transplant. 6. Chronic renal insufficiency. 7. Remote history of deep venous thrombosis and pulmonary embolus, on chronic anticoagulation. 8. Morbid obesity. 9. Insulin-dependent diabetes mellitus. 10. Chronic constipation. 11. Depression. 12. Pyuria. Rule out urinary tract infection. PLAN: Bumex and Aldactone are being held per Dr. Hurley so far. He remains on Xifaxan. We are going to try to wean him off the Levophed today if possible to keep his systolics greater than 85. Continue Xarelto, as he had the pulmonary embolus in the past and for prevention of DVT status post hip surgery. Keep him at KVO IV fluids. Will monitor his urine culture especially, and if that grows out anything, we will add antibiotics. We will go ahead and transfuse him 2 units PRBCs today; each unit over 3 hours and monitor for need for Lasix in between units. Continue DNR status. cc: Isaac Meyer MD
[2017-01-21] MEDS: CENTRUM SILVER PO SCH (09:17)
[2017-01-21] MEDS: ALBUMIN 25% IV SCH (09:17)
[2017-01-21] MEDS: XIFAXAN PO SCH ×2 (09:17→20:12)
[2017-01-21] MEDS: PERIDEX MT SCH ×2 (09:17→20:12)
[2017-01-21] MEDS: FERROUS SULFATE PO SCH (09:18)
[2017-01-21] MEDS: ZOLOFT PO SCH (09:18)
[2017-01-21] MEDS: CARAFATE PO SCH ×4 (09:18→20:12)
[2017-01-21] MEDS: LINZESS PO SCH (09:20)
[2017-01-21] MEDS: LEVAQUIN 500 MG/D5W 500 MG/100 ML IVPB IV SCH (12:21)
[2017-01-21] MEDS: LACTULOSE PO SCH ×2 (12:21→20:12)
[2017-01-21] MEDS: LEVOPHED 8 MG in D5 1/2 NS 250 ML IV SCH (14:19)
[2017-01-21] MEDS: PROTONIX IV SCH (16:22)
[2017-01-21] MEDS: SODIUM CHLORIDE 0.9% INJ SCH (16:22)
--- NOTE | 2017-01-21 16:49 | PROGRESS NOTE ---
DATE: 01/21/2017 SUBJECTIVE: Patient currently resting in bed. He denies any fevers, rigors, chills. He had a little less oral intake today. He had one liquid brown stool today. He denies any nausea, vomiting, vomiting blood or passing blood in the stools. OBJECTIVE: Vital signs: Temperature 97.1, pulse rate of 87, respiratory rate 13, blood pressure 107/51, saturating 98% on room air. General Appearance: Moderately build, moderately malnourished, lying in bed, in no acute distress. HEENT: Mild pallor. No icterus. Neck: Supple. Abdomen: Positive ascites. No guarding. No rebound. Protuberant. Extremities: Using heel protectors and he is status post hip fracture repair. Neurologic: He is awake and alert and answers simple questions. LABORATORIES: His hemoglobin and hematocrit is 7.6, 23.3, white count 9.38, platelet count of 187,000. Sodium of 132, potassium 5.7, chloride 98, bicarb 22, anion 12, BUN of 74, creatinine 2.6. Glucose of 147. Calcium is 8.4, and total bilirubin is 1.12. AST 32, ALT less than 5, alkaline phosphatase 69. Total protein 5.6, albumin of 3. IMPRESSION/PLAN: 1. Nonalcoholic steatohepatitis. Liver cirrhosis, complicated by ascites, coagulopathy, hepatic encephalopathy. In this regard, we will start him on standing dose of lactulose 30 mL t.i.d. and hold lactulose for more than 3 bowel movements in 24 hours. We will continue to watch the liver enzymes and PT PTT, INR. 2. Hypotension requiring Levophed pressor support. We are trying albumin 25 g IV once daily for 3 days for volume expansion. 3. Postoperative day 3, status post left hip repair of intertrochanteric fracture by Dr. Mcbride, being followed Dr. Mcbride. 4. Anemia. Continue to watch for now and transfuse as needed. 5. 2-vessel coronary artery disease. Workup at [facility] deemed him not a candidate for liver transplantation. 6. Insulin diabetes mellitus. Being monitored by primary care team. 7. Chronic constipation. We will continue Linzess 145 mcg every day and lactulose 3 times a day. 8. Positive UA, but negative preliminary culture results. We will start him on Levaquin. May discontinue Antibiotics if final urine culture report is negative. 9. We have continued to hold his Bumex and Aldactone because of hypotension. Once his blood pressure improves, we can restart back on Bumex and Aldactone at previous doses. 10. The above plan was discussed with the patient and family and all questions answered. cc: MD Isaac Espinoza MD Richard S. Sharp, MD MTDD
[2017-01-21] MEDS: COLACE PO SCH (20:12)
[2017-01-21] MEDS: NS 1,000 ML IV SCH (20:20)
[2017-01-22] MEDS: DILAUDID IV PRN ×4 (00:02→09:56)
[2017-01-22] MEDS: OXY IR PO PRN ×3 (01:35→21:41)
[2017-01-22] MEDS: LACTULOSE PO SCH ×3 (04:30→21:19)
[2017-01-22 04:46] LABS: MANUAL DIFF NEEDED? NO
[2017-01-22 05:01] LABS: BASO% 0.4 % (0.0-0.8); EOS# 0.19 X1000 (0.0-0.7); EOS% 2.5 % (0.0-10.0); HEMATOCRIT 31.6 % (42.0-52.0); HEMOGLOBIN 10.4 g/dL (14.0-18.0); IMM GRAN# 0.05 X1000 (0.0-0.04); IMM GRAN% 0.7 % (0.0-0.5); LYMPH# 0.81 X1000 (1.2-3.4); LYMPH% 10.5 % (20.5-51.1); MCH 32.7 PG (27-31); MCHC 32.9 g/dL (33-37); MCV 99.4 FL (81-99); MONO# 1.18 X1000 (0.11-0.59); MONO% 15.4 % (1.7-9.3); MPV 9.5 FL (7.4-10.4); NEUT% 70.5 % (42.2-75.2); PLT 161 X1000 (130-400); RBC 3.18 XMIL (4.7-6.1)
[2017-01-22 05:11] LABS: CALCIUM 8.2 mg/dL (8.8-10.2); POTASSIUM 5.6 mmol/L (3.5-5.1)
[2017-01-22] MEDS: XARELTO PO SCH (05:34)
[2017-01-22] MEDS: HUMULIN R SUBQ SCH ×3 (06:24→16:47)
[2017-01-22] MEDS: FERROUS SULFATE PO SCH (08:28)
[2017-01-22] MEDS: PERIDEX MT SCH ×2 (08:28→21:20)
[2017-01-22] MEDS: LINZESS PO SCH (08:28)
[2017-01-22] MEDS: CENTRUM SILVER PO SCH (08:28)
[2017-01-22] MEDS: CARAFATE PO SCH ×4 (08:28→21:20)
[2017-01-22] MEDS: TYLENOL PO SCH ×2 (08:29)
[2017-01-22] MEDS: ALBUMIN 25% IV SCH (08:29)
--- NOTE | 2017-01-22 09:08 | PROGRESS NOTE ---
DATE: 01/22/2017 SUBJECTIVE: Patient is sleeping comfortable in the bed in the ICU. He has been taken off the Levophed now and systolics are ranging in the 105 range generally off the medications. CV: RRR. Lungs: CTA. Abdomen: Ascites present. Extremities: No significant edema. LAB DATA: Shows white count of 7.68, hemoglobin 10.4, hematocrit 31.6, MCV 99, platelets 161,000. This is status post transfusion of 2 units PRBCs yesterday. Sodium 132, potassium 5.6, chloride 99, CO2 22, BUN 72, creatinine 2.4. Glucose 153. Calcium 8.2. Urine culture remained negative as do blood cultures at this point. ASSESSMENT: 1. Hypotension improved. 2. Postoperative day #3 status post left hip fracture repair per Dr. Mcbride after a fall. 3. End-stage cirrhosis of the liver with BAILON. 4. Multifactorial anemia associated with anemia of chronic disease and mild blood loss anemia associated with the surgery. 5. Two-vessel CAD. 6. Chronic renal insufficiency. 7. Hyperkalemia. 8. Remote history of DVT and pulmonary embolus on chronic anticoagulation. 9. Morbid obesity. 10. Insulin-dependent diabetes mellitus. 11. Chronic constipation. 12. Depression. 13. Pyuria with negative urine culture so far. PLAN: Diuretics are being held at this time per Dr. Hurley and hopefully we will be able to restart those soon with his blood pressure improving. Will leave him in the ICU so we can ascertain if his blood pressure is going to hold good enough during the day and if it does, we will transfer him out of the ICU later today. Otherwise will continues Xifaxan and Xarelto. Continue KVO IV fluids. Continue physical therapy. He has improved in regard to hemoglobin after 2 units PRBCs transfused. Possible repeat paracentesis in days to come and we will plan on transfer to rehab facility when medically stable in the next few days if he continues to improve. For now, will give him albuterol nebulizer treatments to try to help with his potassium and this may improve as he gets back on his diuretics. cc: Isaac Meyer MD
[2017-01-22] MEDS: ZOLOFT PO SCH (09:59)
[2017-01-22] MEDS: XIFAXAN PO SCH ×2 (10:00→21:20)
[2017-01-22] MEDS: LEVAQUIN 500 MG/D5W 500 MG/100 ML IVPB IV SCH (11:35)
[2017-01-22] MEDS: ALBUTEROL NEB INH SCH ×3 (15:03→18:59)
[2017-01-22] MEDS: SODIUM CHLORIDE 0.9% INJ SCH (16:44)
[2017-01-22] MEDS: PROTONIX IV SCH (16:44)
[2017-01-22] MEDS: COLACE PO SCH (21:20)
[2017-01-23] MEDS: HUMULIN R SUBQ SCH ×5 (00:56→21:59)
[2017-01-23] MEDS: ALBUTEROL NEB INH SCH ×4 (02:44→19:03)
[2017-01-23 06:07] LABS: MANUAL DIFF NEEDED? NO
[2017-01-23 06:13] LABS: BASO% 0.3 % (0.0-0.8); EOS# 0.08 X1000 (0.0-0.7); EOS% 1.1 % (0.0-10.0); HEMOGLOBIN 10.7 g/dL (14.0-18.0); IMM GRAN# 0.06 X1000 (0.0-0.04); IMM GRAN% 0.8 % (0.0-0.5); LYMPH# 0.66 X1000 (1.2-3.4); LYMPH% 8.7 % (20.5-51.1); MCH 33.4 PG (27-31); MCHC 33.4 g/dL (33-37); MONO# 1.03 X1000 (0.11-0.59); MONO% 13.6 % (1.7-9.3); MPV 9.9 FL (7.4-10.4); NEUT% 75.5 % (42.2-75.2); PLT 155 X1000 (130-400)
[2017-01-23] MEDS: OXY IR PO PRN ×2 (06:42→09:45)
[2017-01-23] MEDS: NS 1,000 ML IV SCH (06:42)
[2017-01-23] MEDS: LACTULOSE PO SCH ×3 (06:43→21:59)
[2017-01-23] MEDS: XARELTO PO SCH (06:43)
[2017-01-23 06:46] LABS: CALCIUM 7.8 mg/dL (8.8-10.2); POTASSIUM 5.2 mmol/L (3.5-5.1)
[2017-01-23] MEDS: CENTRUM SILVER PO SCH (09:45)
[2017-01-23] MEDS: FERROUS SULFATE PO SCH (09:45)
[2017-01-23] MEDS: XIFAXAN PO SCH ×2 (09:45→21:59)
[2017-01-23] MEDS: LINZESS PO SCH (09:45)
[2017-01-23] MEDS: ZOLOFT PO SCH (09:46)
[2017-01-23] MEDS: PERIDEX MT SCH ×2 (09:46→22:00)
[2017-01-23] MEDS: CARAFATE PO SCH ×4 (09:47→22:00)
[2017-01-23] MEDS: LEVAQUIN 500 MG/D5W 500 MG/100 ML IVPB IV SCH (11:22)
--- NOTE | 2017-01-23 12:19 | PROGRESS NOTE ---
DATE: 01/23/2017 LEVEL OF DOCUMENTATION: 35 minutes. SUBJECTIVE: This 61-year-old white gentleman was admitted to the hospital on for left hip fracture by Dr. Mcbride. For the last 24 hours, the patient has swelling of the scrotum with bruising. Family was there at the bedside. PAST MEDICAL HISTORY: Reviewed. PAST SURGICAL HISTORY: Reviewed. MEDICINES: Reviewed. REVIEW OF SYSTEMS: HEENT: Feeling weak and no trouble swallowing. Cardiopulmonary: No chest pain, shortness of breath. GI: Swelling of the abdomen. : Swelling of the testicles on both sides. Musculoskeletal: Pain in the left hip. Neurological: No neurological symptoms, confusion, weakness. PHYSICAL EXAMINATION: Vital signs: His temp is 98.2, pulse is 95, respirations 18, blood pressure 150/100, 97% on room air. Weight 226 pounds. I's and O's positive 643. HEENT: Sunken eyeballs, emaciated, pale, slightly icteric. Tongue is beefy red. Neck: Supple. Chest: Bilateral air entry. Heart: Sounds are regular. Abdomen: Belly is soft, some fluid ascites noted. Bandage seen on the right side of the abdomen. : Givens catheter was placed, swollen with a large hydrocele with ecchymoses all around the testicles. Hips: Left hip is swollen. Extremities: No peripheral edema. Neurological: No obvious neurological deficits. INVESTIGATIONS: CBC: White blood cell count 7.5, hematocrit 32, platelets 155. SMA-7: Sodium 135, potassium 5.2, chloride 99, BUN 69, creatinine 2.2, glucose 186. Urinalysis stable. Urine cultures are negative. Blood cultures are negative. ASSESSMENT AND PLAN: 1. Status post left hip fracture repair by Dr. Mcbride. 2. Cirrhosis of the liver due to nonalcoholic steatohepatitis under the care of Dr. Hurley currently on Xifaxan 550 p.o. b.i.d. 3. Chronic kidney disease. Creatinine is 2.2. 4. Hyperkalemia with underlying chronic kidney disease, hold on the Aldactone. 5. Ammonia encephalopathy prophylaxis with lactulose and Xifaxan. 6. Constipation on Linzess. 7. Status post left hip fracture, currently on oxycodone 5 mg q.3 h. 8. GI prophylaxis with IV Protonix. 9. DVT prophylaxis on Xarelto 20 mg q.24 h. 10.Continue in incentive spirometry. 11.Coronary artery disease, 2-vessel disease, stable. 12.Living Will DNR. 13.Hydrocele with ecchymoses. Will get ultrasound of the testicles. PROGNOSIS: Poor. cc: MD Isaac Goldberg MD MTDD
[2017-01-23] MEDS: PROTONIX IV SCH (18:32)
[2017-01-23] MEDS: SODIUM CHLORIDE 0.9% INJ SCH (18:32)
[2017-01-23] MEDS: COLACE PO SCH (22:00)
[2017-01-24] MEDS: DILAUDID IV PRN ×4 (02:27→17:33)
[2017-01-24] MEDS: ALBUTEROL NEB INH SCH ×4 (02:48→18:56)
[2017-01-24] MEDS: LACTULOSE PO SCH ×3 (03:39→20:23)
[2017-01-24] MEDS: XARELTO PO SCH (05:09)
[2017-01-24] MEDS: NS 1,000 ML IV SCH (05:13)
[2017-01-24] MEDS: HUMULIN R SUBQ SCH ×4 (06:52→21:42)
[2017-01-24] MEDS: XIFAXAN PO SCH ×2 (08:43→20:22)
[2017-01-24] MEDS: FERROUS SULFATE PO SCH (08:43)
[2017-01-24] MEDS: CENTRUM SILVER PO SCH (08:43)
[2017-01-24] MEDS: LINZESS PO SCH (08:43)
[2017-01-24] MEDS: CARAFATE PO SCH ×5 (08:44→20:23)
[2017-01-24] MEDS: PERIDEX MT SCH ×2 (08:44→20:23)
[2017-01-24] MEDS: ZOLOFT PO SCH (08:44)
--- NOTE | 2017-01-24 08:57 | Diag Imaging Result Doc PS360 ---
EXAM: US SCROTUM HISTORY: hydrocele TECHNIQUE: Scrotal ultrasound COMMENT: There is marked skin thickening and edema. There is color Doppler flow seen in both testicles. There are no masses. The epididymides are not enlarged. There is no evidence of hydrocele. IMPRESSION: Marked cutaneous edema. No evidence of intrascrotal abnormality. Electronically signed by Ramon Kang 01/24/2017 8:55 AM
[2017-01-24] MEDS: LEVAQUIN 500 MG/D5W 500 MG/100 ML IVPB IV SCH (11:41)
--- NOTE | 2017-01-24 14:58 | PROGRESS NOTE ---
DATE: 01/24/2017 SUBJECTIVE: The patient is extremely feeble. Family was there at the bedside. The patient had a scrotum ultrasound done this morning. He is anxious to take the fluid off. REVIEW OF SYSTEMS: Pain. PHYSICAL EXAMINATION: Vital Signs: Temperature is 98 degrees, pulse is 95, blood pressure is 96/41. Weight 225 pounds. I's and O's positive 1000 mL. general: He is slightly anemic, sunken eyeballs, jaundiced. Chest: Bilateral air entry. Heart: Sounds are regular. Abdomen: Belly is soft. Ascites noted. Decreased ecchymosis around the scrotum with hydrocele on both sides. Neurologic: No asterixis. No obvious neurological deficits noted. INVESTIGATIONS: None reported. Urine cultures were negative. Blood cultures are negative. Scrotal ultrasound: Marked cutaneous edema. ASSESSMENT: A 61-year-old, white gentleman admitted to the hospital. 1. Left hip fracture, status post repair. Not able to do rehabilitation/physical therapy because of the comorbid conditions. 2. Cirrhosis of liver, with ascites from the nonalcoholic steatohepatitis. The patient had a paracentesis done on 01/19/2017, and waiting for next week. Unable to tolerate Aldactone due to hyperkalemia. Continue on fluid restrictions, low-salt and Bumex 1 mg once daily. 3. Ammonia encephalopathy, on Xifaxan. 4. Deep vein thrombosis prophylaxis, on Xarelto. 5. Discontinue IV Levaquin since blood cultures and urine cultures were negative. 6. For pain medicine, he is on low-dose Oxy IR 5 mg q.3 hours. 7. Living will, Do Not Resuscitate. Discussed with the family, and Dr. Meyer is going to resume the care and coordinate it for tomorrow. LEVEL OF DOCUMENTATION: 25 minutes. cc: MD Isaac Goldberg MD
--- NOTE | 2017-01-24 17:04 | PROGRESS NOTE ---
DATE: 01/24/2017 SUBJECTIVE: Mr. Go denies any acute changes overnight. He had a scrotal ultrasound performed. OBJECTIVE: Vital Signs: Temperature 98.2 degrees, pulse 95, blood pressure 96/41. In general in no acute distress. Abdomen nontender, nondistended. : Ecchymoses and edema are unchanged. Labs none today. Images: Scrotal ultrasound was performed this morning revealing blood flow to both testes without discrete masses and/or evidence of abscess. I have reviewed the ultrasound findings with the patient. He obviously has subcutaneous scrotal hematoma. We discussed conservative observation with scrotal support as well as elevation and ice versus heat packs. I have explained to the patient that he does not have any need for surgical intervention currently. PLAN: 1. No urologic intervention needed at this point. 2. Again recommended scrotal elevation and intermittent ice packs. 3. Please call if any other questions. cc: MD Isaac Young MD
[2017-01-24] MEDS: PROTONIX IV SCH (17:24)
--- NOTE | 2017-01-24 17:29 | CONSULTATION ---
DATE OF CONSULTATION: 01/23/2017 CONSULTING PHYSICIAN: Tatyana Fuentes MD REASON FOR CONSULTATION: Scrotal swelling. HISTORY OF PRESENT ILLNESS: A 61-year-old male who was admitted with left femoral fracture. He underwent closed reduction and intramedullary nail on 01/18/2017. He has done well from a urologic standpoint until 2 days ago when his spouse noticed discoloration and bruising of the scrotum. One day prior to consultation, he developed significant swelling. He denies trauma in the past. He denies procedures in the past. He reports that he does have some discomfort in his scrotal area, but he is complaining of more discomfort from his left hip. He denies gross hematuria, dysuria, recurrent UTIs in the past. PAST MEDICAL HISTORY: 1. BAILON. 2. Ascites. 3. History of DVT. 4. Diabetes mellitus. SURGICAL HISTORY: Status post closed reduction and nail fixation of the left femur. ALLERGIES: No known drug allergies. HOME MEDICATIONS: Protonix. Aldactone. Xifaxan. Lactulose. Bumetanide. Insulin. Xarelto. Sertraline. Multivitamin. Linzess. [place] 7.5. FAMILY HISTORY: Negative for malignancies. SOCIAL HISTORY: He denies tobacco, alcohol, illicit drugs. REVIEW OF SYSTEMS: Reviewed 12 systems and negative except as noted in HPI. PHYSICAL EXAMINATION: Vital signs: Temperature 98.5. Pulse 108. Blood pressure was 72/48. General: Pleasant male who is ill-appearing and has jaundice. HEENT: Normocephalic, atraumatic. Cardiovascular: Regular rate and rhythm. Pulmonary: Bilateral breath sounds. Abdomen: Protuberant consistent with ascites. : Normal phallus, atrophic testes with no masses. Rectal: Digital rectal examination is deferred. His scrotum is edematous with ecchymosis noted. Perineum is not affected. I do not appreciate crepitus or fluctuance. LABORATORIES: White cell count of 8000, hematocrit is 32, creatinine is 2.2. PERTINENT IMAGES: None yet. ASSESSMENT AND PLAN: A 61-year-old male with scrotal edema and ecchymosis on who is status post close reduction and intramedullary femur nail placement. When I do not appreciate evidence of abscess or Amando's gangrene. I have discussed with the patient and I agree with Dr. Fuentes ordering scrotal ultrasound and will proceed based on the findings. PLAN: 1. Conservative scrotal elevation for now. 2. I agree with scrotal ultrasound. 3. I will read ultrasound and discuss further plan of care. cc: MD Isaac Young MD
[2017-01-24] MEDS ORDERED: SALINE LOCK IV FLUID XX ONE (19:07)
[2017-01-24] MEDS: COLACE PO SCH (20:22)
[2017-01-25] MEDS: DILAUDID IV PRN ×3 (01:31→13:16)
[2017-01-25] MEDS: ALBUTEROL NEB INH SCH ×4 (02:59→19:03)
[2017-01-25] MEDS: LACTULOSE PO SCH ×3 (03:43→23:12)
[2017-01-25] MEDS: XARELTO PO SCH (06:42)
[2017-01-25] MEDS: HUMULIN R SUBQ SCH ×3 (07:01→16:49)
--- NOTE | 2017-01-25 08:30 | PROGRESS NOTE ---
DATE: 01/25/2017 SUBJECTIVE: Patient remains fairly inactive, but had a good day yesterday. He is hurting this morning, stating he needs to have a bowel movement. Scrotal ultrasound was done over the weekend, which shows dramatic increase in fluid, but otherwise negative and evaluated by Dr. Rothman, urologist. OBJECTIVE: Vital signs: Afebrile, pulse 98, respirations 20, blood pressure 104/64, O2 saturation on room air 100%. CV: RRR without murmur. Lungs: CTA. Abdomen: Ascites present. Scrotum: With moderate amount of fluid and bruising decreased in size per from the last 3 days. Extremities: No significant edema, still in DARRYN hose. Neurologic: Nonfocal. ASSESSMENT: 1. Postoperative day #6 status post left hip fracture repair per Dr. Mcbride. 2. 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 3. Multifactorial anemia improved after 2 units packed red blood cells transfused, last week. 4. Two-vessel coronary artery disease. 5. Chronic renal insufficiency. 6. Mild hyperkalemia. 7. Remote history of deep venous thrombosis and pulmonary embolism on chronic anticoagulation with Xarelto. 8. Morbid obesity. 9. Insulin-dependent diabetes mellitus. 10. Chronic constipation. 11. Depression. 12. Scrotal swelling likely related to trauma related to his left hip repair and ascites flowing down from the abdominal area into the scrotum. 13. Prominent ascites. PLAN: Paracentesis is planned per Dr. Hurley today and is still waiting on social media coordinator to direct this in regard to a bed for rehab for 3 weeks. Will leave diuretics of Bumex and Aldactone to Dr. Hurley's discretion. He remains on Xifaxan and Xarelto, and will continue to monitor the patient clinically and continue physical therapy, as vigorously as possible. cc: Isaac Meyer MD
[2017-01-25] MEDS: XIFAXAN PO SCH ×2 (09:07→23:11)
[2017-01-25] MEDS: FERROUS SULFATE PO SCH (09:07)
[2017-01-25] MEDS: ZOLOFT PO SCH (09:07)
[2017-01-25] MEDS: CENTRUM SILVER PO SCH (09:07)
[2017-01-25] MEDS: CARAFATE PO SCH ×4 (09:08→23:12)
[2017-01-25] MEDS: LINZESS PO SCH (09:08)
[2017-01-25] MEDS: PERIDEX MT SCH ×2 (09:09→23:11)
[2017-01-25] MEDS: BUMEX IV SCH (09:22)
[2017-01-25 10:19] LABS: ALBUMIN 2.6 g/dL (3.5-5.0); CALCIUM 8.5 mg/dL (8.8-10.2); TOTAL BILIRUBIN 1.49 mg/dL (0.20-1.00); TOTAL PROTEIN 5.1 g/dL (6.3-8.3)
[2017-01-25] MEDS: OXY IR PO PRN ×3 (14:18→23:10)
[2017-01-25] MEDS: PROTONIX IV SCH (17:01)
[2017-01-25] MEDS: SODIUM CHLORIDE 0.9% INJ SCH (17:01)
--- NOTE | 2017-01-25 18:08 | PROGRESS NOTE ---
DATE: 01/25/2017 SUBJECTIVE: The patient is currently resting in bed. He denies any nausea, vomiting. He denied bowel movement today. His last bowel movement was yesterday per the patient. He has been eating less and less. He denies any fevers, rigors, chills. OBJECTIVE: Vital signs: Temperature 98.6 degrees, pulse rate 100, respiratory rate 18, blood pressure 90/58, saturating 100% room air. Body weight of 224 pounds. General appearance: Moderately built, moderately nourished, lying in bed, in no acute distress. HEENT: Pale conjunctivae. No icterus. Neck: Supple. Abdomen: Distended. Positive ascites. No guarding. No rebound. Extremities: No cyanosis, clubbing. He is on heel protectors. Neurologic: He is alert, awake. Answers questions. LABS: His sodium 130, potassium 5, chloride 100, bicarb 19, anion gap of 15, BUN of 17, creatinine of 2, glucose of 150, calcium is 8.5. Total bilirubin is 1.49, AST 24, ALT 5, alkaline phosphatase 80. Total protein 5.1, albumin of 2.6. ASSESSMENT AND PLAN: 1. Liver cirrhosis. We will continue to follow up liver enzymes and liver function. 2. Ascites. We will schedule him for paracentesis tomorrow. We will hold his Xarelto tomorrow morning. 3. Renal insufficiency in the setting of diabetes and cirrhosis. If the creatinine continues to worsen we may have to consider nephrology consultation. 4. Chronic constipation. Continue Linzess and lactulose. We may go up on the Linzess to 290 mcg if patient continues to have no bowel movement or worsening constipation. 5. Postoperative day 6 status post left hip fracture, repaired by Dr. Mcbride. 6. Two vessel coronary disease. 7. Anemia. Continue watching. Stay on a multivitamin once daily. 8. Gastrointestinal prophylaxis with PPIs. 9. Continue on low sodium diet, less than 2 g per 24 hours. We will continue to hold Aldactone for now as patient has worsening renal function and hyperkalemia. May need Nephrology consultation. The above was discussed was the patient and all questions were answered. cc: MD Isaac Espinoza MD Dr. Sharp Sergey S. Ananyev, MD MTDD
[2017-01-25] MEDS ORDERED: DULCOLAX PR ONE (19:47)
[2017-01-25] MEDS: COLACE PO SCH (23:12)
[2017-01-26] MEDS: OXY IR PO PRN ×6 (02:06→21:19)
[2017-01-26] MEDS: ALBUTEROL NEB INH SCH ×4 (03:06→19:19)
[2017-01-26] MEDS: HUMULIN R SUBQ SCH ×3 (05:35→11:39)
[2017-01-26] MEDS: LACTULOSE PO SCH ×3 (05:36→21:06)
[2017-01-26 06:16] LABS: INR 1.63; PROTIME 17.6 Seconds (9.2-11.7)
[2017-01-26 06:25] LABS: PTT 40.7 Seconds (22.0-36.0)
--- NOTE | 2017-01-26 09:51 | Diag Imaging Result Doc PS360 ---
EXAM: US PARACENTESIS HISTORY: ascites TECHNIQUE: Ultrasound-guided paracentesis COMMENT: The risks and benefits of the procedure including the possibility of bleeding, infection, or reaction to lidocaine was discussed with the patient and he agreed. Following sterile preparation the skin and administration 1% lidocaine to the skin and deeper soft tissues, the fluid collection in the right upper quadrant is punctured laterally over the lower edge of the liver. Subsequently, 6 L of fairly clear yellow fluid was drained. This is sent to the laboratory in its entirety. IMPRESSION: Successful ultrasound-guided paracentesis. Electronically signed by Ramon Kang 01/26/2017 9:49 AM
[2017-01-26] MEDS: XIFAXAN PO SCH ×2 (10:51→21:06)
[2017-01-26] MEDS: ZOLOFT PO SCH (10:52)
[2017-01-26] MEDS: CENTRUM SILVER PO SCH (10:52)
[2017-01-26] MEDS: FERROUS SULFATE PO SCH (10:52)
[2017-01-26] MEDS: LINZESS PO SCH (10:52)
[2017-01-26] MEDS: PERIDEX MT SCH ×2 (10:52→21:07)
[2017-01-26] MEDS: BUMEX IV SCH (10:53)
[2017-01-26] MEDS: CARAFATE PO SCH ×4 (10:55→21:06)
--- NOTE | 2017-01-26 13:09 | PROGRESS NOTE ---
DATE: 01/26/2017 SUBJECTIVE: Tanner Go is a 61-year-old male who is admitted on 01/17/2017 had left intertrochanteric fracture treated with a left long TFN. He has had complications due to his ascites and his non alcohol liver cirrhosis. He is sitting up in a chair but is complaining of pain in his left leg. OBJECTIVE: He is a well-developed, well-nourished male. He is alert and cooperative with exam. He has serosanguineous drainage on his dressing. His leg is otherwise neurovascularly intact. ASSESSMENT: Stable left leg. PLAN: We will change his dressing, continue working with physical therapy. I will release to activities as tolerated. He can go to rehab when cleared medically. cc: MD Isaac Carmichael MD
--- NOTE | 2017-01-26 15:48 | PROGRESS NOTE ---
DATE: 01/26/2017 SUBJECTIVE: Patient has undergone repeat paracentesis this morning and 6 L were drawn off. He has having a better day overall today. He has been reluctant to participate in physical therapy to this point in regard to his hip. OBJECTIVE: Afebrile, pulse 90s, respirations 18-20, blood pressure low 90s. O2 sats 96%-100% room air. CV: RRR without murmur. Lungs: CTA. Abdomen: Ascites is markedly reduced after the paracentesis. Lower extremities without significant edema. Neurologic: Nonfocal. INR 1.63, PTT 40.7. Blood sugars in the mid 100s to low 200s. ASSESSMENT: 1. Postoperative day #7 status post left hip fracture repair per Dr. Mcbride after fracture from fall. 2. 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 3. Anemia, multifactorial. Received 2 units PRBCs during the hospitalization with good results. 4. Chronic renal insufficiency. 5. Two-vessel coronary artery disease. 6. Hyperkalemia, improved. 7. Remote history of deep venous thrombosis and pulmonary embolus. On chronic anticoagulation with Xarelto. 8. Morbid obesity. 9. Insulin-dependent diabetes mellitus. 10. Chronic constipation. 11. Depression. 12. Chronic scrotal swelling associated with ascites and recent left hip repair. PLAN: At this point, we will continue Xifaxan. He has been off Xarelto for over 24 hours and will resume that tomorrow at lower dosage due to his liver disease, and we will give him extremely low-dose diuretic as his renal function tolerates and his blood pressure tolerates. His hypotension has resolved, and he wants to run baseline around 90 systolic. Will work vigorously with physical therapy. We will get him to rehab when bed available. cc: Isaac Meyer MD
[2017-01-26] MEDS ORDERED: NOVOLOG MIX 70/30 SUBQ SCH (21:00)
[2017-01-26] MEDS: COLACE PO SCH (21:06)
[2017-01-27] MEDS: ALBUTEROL NEB INH SCH ×3 (02:45→15:52)
[2017-01-27] MEDS: LACTULOSE PO SCH ×2 (05:35→12:49)
[2017-01-27] MEDS: OXY IR PO PRN ×2 (05:36→09:35)
[2017-01-27] MEDS ORDERED: NOVOLOG MIX 70/30 SUBQ SCH (09:00)
[2017-01-27] MEDS ORDERED: BUMEX PO SCH (09:00)
[2017-01-27] MEDS: FERROUS SULFATE PO SCH (09:34)
[2017-01-27] MEDS: CENTRUM SILVER PO SCH (09:34)
[2017-01-27] MEDS: XIFAXAN PO SCH (09:34)
[2017-01-27] MEDS: LINZESS PO SCH (09:35)
[2017-01-27] MEDS: ZOLOFT PO SCH (09:35)
[2017-01-27] MEDS: CARAFATE PO SCH ×2 (09:36→12:50)
[2017-01-27] MEDS: PERIDEX MT SCH (09:36)
--- NOTE | 2017-01-27 10:07 | DISCHARGE SUMMARY ---
ADMISSION DATE: 01/17/2017 DISCHARGE DATE: DIAGNOSES: 1. Left subtrochanteric femur fracture with closed reduction and intramedullary nailing per Dr. Robert Mcbride, Orthopedist. 2. Fall, mechanical. 3. End-stage liver disease/cirrhosis with ascites and chronic scrotal swelling, with the latter slightly exacerbated by the fracture. 4. Chronic renal insufficiency with baseline creatinine of around 2 to 2.3. 5. Multifactorial anemia associated with anemia of chronic disease due to renal insufficiency and worsened by fracture left femur/hip. Subsequently reaching a hemoglobin sean of 7.6, requiring 2 units PRBCs during the hospitalization. 6. Two-vessel coronary artery disease, rendering him not a candidate for liver transplantation at [facility] and with a prior evaluation at [facility] also deemed not a candidate. 7. Mild hyperkalemia, resolved, with potassium running around 5.0. 8. Remote history of deep venous thrombosis in his right arm and pulmonary embolus on chronic anticoagulation with Xarelto, with slightly reduced dose due to PT being slightly elevated. 9. Morbid obesity. 10. Insulin-dependent diabetes mellitus. 11. Chronic constipation. 12. Depression, situational. 13. DNR 1 CONSULTANTS: 1. Sid Hurley MD - Gastroenterology. 2. Robert Mcbride MD - Orthopedics. PROCEDURES: 1. CT head and C-spine, moderately advanced cervical spondylosis. No acute fracture or subluxation. Head CT is without acute disease. 2. Hip and pelvis x-ray revealing intertrochanteric left hip fracture. 3. CT of pelvis done on 01/17 revealing left intertrochanteric hip fracture. 4. Closed reduction, intramedullary nailing of left subtrochanteric femur fracture, with trochanteric fixation nail done on 01/18/2017. 5. Paracentesis therapeutic 01/19/2017 with 9.25 L of cloudy yellow fluid, removed. 6. Chest x-ray done 01/20/2017, low lung volumes. No definite acute chest pathology. 7. Scrotal ultrasound done 01/24/2017 revealing marked cutaneous edema. No evidence of intrascrotal abnormality. 8. Repeat paracentesis therapeutic, done with ultrasound guidance, done on 01/26 with 6 L drawn off. REASON FOR ADMISSION AND HOSPITAL COURSE: The patient is a 61-year-old white male, followed in my medical practice and also followed by Dr. Hurley. He has cirrhosis, end-stage associated with BAILON, and has been deemed not a candidate for liver transplantation at [facility] at [facility]. He came in after suffering a mechanical fall and left hip/femur fracture was suffered. The patient underwent surgical correction of this per Dr. Derrick Mcbride on 01/18 after the above tests were done to confirm abnormality. Patient, the next day, on 01/19 underwent therapeutic paracentesis per Dr. Hurley with 9.25 L removed. Chest x-rays were negative. He did develop some mild hypotension and was in the ICU for a couple of days after the hip fracture repair and he was taken off his diuretics of Bumex and Aldactone and given some IV hydration and required Levophed pressor agent for a couple of days. He was able to come off that his blood pressure stabilized back out. It is about the 90 range where it had been running longstanding. Patient works some with physical therapy in regard to rehabbing his hip and arrangements were made for him to seek out 3 week rehab stay for ongoing physical therapy. Repeat paracentesis was done by ultrasound guidance on 01/26, as he had reaccumulated the ascites and 6 L were removed at this time. The patient had some scrotal swelling and that was evaluated by Dr. Rothman and this was thought this to be simply related to the recent surgery and his ascites associated with cirrhosis and BAILON. Patient did well and it was felt he could be discharged to the rehab facility. He did received 2 units of PRBCs transfused during the hospitalization due to anemia, which worsened after the surgery with a sean of hemoglobin down to 7.6. After the 2 units he remained around 10 hemoglobin. DISCHARGE LABS: Show sodium 134, potassium 5.0, chloride 100, CO2 19, BUN 70, creatinine 2.0. Glucose 150. AST 24, ALT 5, total bilirubin 1.49, calcium 8.5, alkaline phosphatase 80, total protein at 5.1, albumin 2.6. He did received 3 days of albumin during the hospitalization. White count was 7.5, hemoglobin 10.7, platelets 155,000. Urine culture and blood cultures were negative during the hospitalization and paracentesis peritoneal fluid was sent on 01/26 with results negative thus far in regard to culture. DISCHARGE MEDICATIONS: Bumex 1 mg p.o. daily, albuterol nebulizer treatments q.i.d., Colace 200 mg p.o. at bedtime, ferrous sulfate 325 mg p.o. daily, lactulose 30 mL p.o. q.8 hours, Linzess 145 mcg p.o. daily, Milk of Magnesia 30 mL p.o. daily p.r.n. constipation, multivitamin with minerals one p.o. daily, Oxy IR 5 mg p.o. q.3 hours p.r.n. pain, Protonix 40 mg p.o. daily, Xifaxan 550 mg p.o. b.i.d., sertraline 50 mg p.o. daily, Carafate 1 g p.o. q.i.d. Xarelto 10mg po q d, Phenergan 25mg po q 6 hrs PRN n/v cc: Isaac Meyer MD MTDD
[2017-01-27] MEDS ORDERED: PHENERGAN PO PRN (12:44)
[2017-01-27] MEDS ORDERED: DILAUDID IV ONE (12:49)
[2017-01-27 15:27] VITALS: BP 92/63
[2017-01-27] MEDS ORDERED: LINZESS PO ONE (15:30)
--- NOTE | 2017-01-27 15:37 | PROGRESS NOTE ---
DATE: 01/27/2017 SUBJECTIVE: The patient is currently resting in bed without discomfort in the right side of the abdomen. He denies having any bowel movements today. His last bowel movement was yesterday. He denies any fevers, rigors, chills. OBJECTIVE: Vital signs: Temperature 98.7 degrees, pulse rate of 106, respiratory rate 14, blood pressure 107/62, saturating 100% room air. General Appearance: Obese, lying in bed, in no acute distress. HEENT: Pale conjunctivae. No icterus. Neck: Supple. Abdomen: Distended. Positive ascites. Positive anasarca. Discomfort in the right lower quadrant, No rebound or guarding. Extremities: No cyanosis and clubbing. Bilateral lower extremity edema Neurologic: He was awake and alert. Answers questions. LABORATORIES: Hemoglobin and hematocrit was done on 01/23 which was 10.7 and 32. His glucose is 176 today. INR 1.63 yesterday. Last paracentesis was yesterday, 6 L taken out of clear yellow fluid. The blood culture x2 was negative and fluid culture from peritoneal fluid was negative. Urine cultures negative. IMPRESSION/PLAN: 1. Left subtrochanteric femur fracture with closed reduction and intramedullary nailing by Dr. Robert Mcbride. Patient most likely will be going to rehab. 2. End-stage liver disease attributed to BAILON cirrhosis, complicated with portal hypertension, refractory ascites, anasarca, scrotal swelling, renal insufficiency, anemia, coagulopathy. We will continue on his baseline medications at home of Bumex 1 mg p.o. daily, lactulose 30 mL every 8 hours, multivitamin once daily, Xifaxan 550 mg p.o. b.i.d., Carafate 1 g q.i.d. Can resume Aldactone 100 mg QD on discharge. Will need labs checked in 4 weeks. 3. Constipation. He will continue on lactulose 30 mL q.8 hours. He will use Milk of Magnesia as needed. We will increase the Linzess to 290 mcg every day. 4. Hepatic encephalopathy. Continue lactulose and Xifaxan. 5. Diabetes mellitus, depression, 2-vessel coronary disease. Treatment per primary care team. 6. Gastrointestinal prophylaxis with PPIs. 7. Above plan was discussed with the patient and the nurse. cc: Sid MD Isaac Hurley MD Richard S. Sharp, MD [facility]
== END 2017-01-27 17:20 ==
LOC: SUPCPDRO → ED 10:19 → 4N 14:06 → ICU 01-19 18:38 → 4N 01-22 17:10
PROVIDERS: ADMIT Family Medicine; ATTEND Family Medicine

== ENCOUNTER 2017-02-02 11:03 | Inpatient (IN) ==
--- NOTE | 2017-02-02 12:51 | Diag Imaging Result Doc PS360 ---
US PARACENTESIS - 02/02/2017 INDICATION: ascites COMPARISON: 01/26/2017 FINDINGS: The risks and benefits of the procedure were discussed with the patient. All questions were answered. Written and verbal consent was obtained. Ultrasound scanning demonstrated ascites. Overlying skin was prepped and draped in sterile fashion. Anesthesia was achieved with injection of 10 cc 1% lidocaine. The paracentesis catheter was advanced until the return of ascites fluid. 6 L was aspirated. The catheter was withdrawn intact. The patient reported no symptoms from the procedure. IMPRESSION: Successful and uncomplicated ultrasound-guided paracentesis. Electronically signed by Aaron Alegria 02/02/2017 12:49 PM
[2017-02-02] MEDS ORDERED: XYLOCAINE 2% JELLY UROJECT TOP ONE (13:27)
[2017-02-02 13:29] LABS: BASO% 0.1 % (0.0-0.8); EOS# 0.11 X1000 (0.0-0.7); EOS% 0.6 % (0.0-10.0); HEMATOCRIT 37.7 % (42.0-52.0); HEMOGLOBIN 12.7 g/dL (14.0-18.0); IMM GRAN# 0.16 X1000 (0.0-0.04); IMM GRAN% 0.9 % (0.0-0.5); LYMPH# 0.97 X1000 (1.2-3.4); LYMPH% 5.5 % (20.5-51.1); MANUAL DIFF NEEDED? NO; MCH 34.1 PG (27-31); MCHC 33.7 g/dL (33-37); MCV 101.3 FL (81-99); MONO# 1.28 X1000 (0.11-0.59); MONO% 7.3 % (1.7-9.3); NEUT% 85.6 % (42.2-75.2); PLT 271 X1000 (130-400); RBC 3.72 XMIL (4.7-6.1)
[2017-02-02 13:52] LABS: CALCIUM 8.6 mg/dL (8.8-10.2); MAGNESIUM 2.9 mg/dL (1.5-2.7); POTASSIUM 4.7 mmol/L (3.5-5.1)
[2017-02-02] MEDS: ROCEPHIN 1 GM in NS 50 ML IV SCH (16:40)
--- NOTE | 2017-02-02 17:51 | PROVIDER DOCUMENTATION ---
This chart was entered by Meagan Andersen Scribe, acting as scribe for Rosas Mistry MD. HPI-General Adult - General Chief Complaint: Abdominal Pain Stated Complaint: ABDOMINAL DISTENSION Time Seen by Provider: 02/02/17 11:18 Source: patient Allergies/Adverse Reactions: Patient Allergies Allergy/AdvReac Type Severity Reaction Status Date / Time ondansetron HCl * Allergy SWELLING Verified 02/02/17 12:05 [From Zofran (as hydrochloride)] morphine AdvReac Unknown Verified 02/02/17 12:05 Home Medications: Home Medication List Medication Instructions Recorded Confirmed Last Taken Type Pantoprazole [Protonix] 40 mg PO DAILY@0700 #30 tablet 07/01/16 02/02/17 09:00 Rx Rifaximin [Xifaxan] 550 mg PO BID #60 tablet 07/27/16 02/02/17 02/02/17 09:00 Rx Sertraline HCl 50 mg PO DAILY 11/14/16 02/02/17 02/02/17 09:00 History Sucralfate 1 gm PO 4XDAY 11/14/16 02/02/17 02/02/17 09:00 History Linaclotide [Linzess] 145 mcg PO DAILY #30 capsule 11/20/16 02/02/17 02/02/17 09 :00 Rx Multivitamins/Minerals [Centrum 1 each PO DAILY tablet 11/20/16 02/02/17 09:00 Rx Silver] Albuterol [Albuterol Neb] 2.5 mg INH [id number] neb 01/27/17 02/02/17 02/02/17 09: 00 Rx Bumetanide [Bumex] 1 mg PO DAILY tablet 01/27/17 02/02/17 02/02/17 09:00 Rx Chlorhexidine Gluconate [Peridex] 15 ml MT BID udc 01/27/17 02/02/17 02/02/17 09:00 Rx Docusate Sodium [Colace] 200 mg PO QHS capsule 01/27/17 02/02/17 02/01/17 21: 00 Rx Ferrous Sulfate 325 mg PO WBREAKFAST tablet 01/27/17 02/02/17 02/02/17 09:00 Rx Insulin Novolog 70/30 [Novolog Mix 8 unit SUBQ QHS insuln.pen 01/27/1702/01/17 21:00 Rx 70/30] Insulin Novolog 70/30 [Novolog Mix 12 unit SUBQ QAM insuln.pen 01/27/1702/02/17 09:00 Rx 70/30] Lactulose 30 ml PO Q8H udc 01/27/17 02/02/17 02/02/17 09:00 Rx Oxycodone I.r. [Oxy Ir] 5 mg PO Q3H PRN PRN #60 tablet 01/27/17 02/02/17 09:00 Rx Promethazine [Phenergan] 25 mg PO Q6H PRN PRN #0 tablet 01/27/17 02/02/17 09:00 Rx Rivaroxaban [Xarelto] 10 mg PO DAILY #0 01/27/17 02/02/17 02/02/17 09:00 Rx - History of Present Illness -Gen Adult Nature of Presenting Problems: 61 yo WM presents to ED with cc of abdominal pain, tenderness, and distension and 2-week hx of constipation. Pt was discharged from this hospital 1 week ago following a L hip fx. Pt reports he has hx of ascites and that he has been requiring paracentesis every 2 weeks for an extended period of time. Pt has hx of dialysis-dependent end-stage renal disease and liver failure. Pt is on anticoagulant therapy for hx of DVT/PE. Pt reports this will be his 14th time requiring paracentesis. Upon arrival to ED, pt is a&o x 3, afebrile, tachycardic , and hypotensive. Location of Pain/Injury: reports: abdomen Severity: reports: moderate Onset/Duration: reports: gradual Timing: reports: still present, getting worse Modifying Factors: improves with: nothing Associated Symptoms: reports: constipation, swelling/mass in abdomen (swelling in abdomen, no mass). denies: diarrhea Similar Symptoms Previously?: Yes (Pt has hx of ascites.) Recently seen or treated by another doctor?: Yes (Pt lives in rehab facility.) Review of Systems - Adult - REVIEW OF SYSTEMS - ADULT Constitutional: reports: no symptoms reported. denies: chills, fever Eyes: reports: no symptoms reported. denies: blurred vision, double vision Ears, Nose, Mouth & Throat: reports: no symptoms reported. denies: tinnitus, sinus problem Cardiovascular: reports: no symptoms reported. denies: chest pain, syncope Respiratory: reports: no symptoms reported. denies: excessive sputum production , wheezing Gastrointestinal: reports: abdominal pain, constipation, other (abdominal distention) Genitourinary: reports: no symptoms reported. denies: flank pain, hematuria Musculoskeletal: reports: no symptoms reported. denies: back pain, neck pain Integumentary: reports: no symptoms reported. denies: itching, skin sores/ulcer Neurological: reports: no symptoms reported. denies: dizziness/vertigo, headache/migraines Psychiatric: reports: no symptoms reported. denies: anxiety, depression Endocrine: reports: no symptoms reported. denies: cold intolerance, heat intolerance Hematologic/Lymphatic: reports: no symptoms reported. denies: lymphedema, swollen lymph nodes Allergic/Immunologic: reports: no symptoms reported. denies: allergic reactions , eczema All Other Systems: Reviewed and Negative Past History - Adult - PAST MEDICAL HISTORY-ADULT Review of Records: reports: Old Records Reviewed, Nursing Assessment Review, Medications Reviewed Major Childhood Illnesses: reports: denies history Cardiovascular: reports: blood clots (DVT/PE) Respiratory: reports: denies history Gastrointestinal: reports: liver disease (BAILON) Obstetrical/Gynecological: reports: denies history Genitourinary: reports: dialysis, ESRD Musculoskeletal: reports: denies history Neurological: reports: denies history Endocrine/Immune: reports: denies history Other Conditions: reports: other (ascites) - IMMUNIZATION STATUS Childhood Immunizations: See Nurse Assessment Flu Vaccine: See Nurse Assessment - FAMILY HISTORY Family History: reviewed, not pertinent Physical Exam-General - PHYSICAL EXAM-ADULT Initial Vital Signs Reviewed: Yes - CONSTITUTIONAL General Appearance: alert, mild distress - EYES Eyes: PERRL/EOMI, pink conjunctivae - HEAD, EARS, NOSE, MOUTH & THROAT HENMT: normocephalic/atraumatic, moist mucous membranes - NECK Neck: non-tender, full range of motion, supple - RESPIRATORY Respiratory: chest non-tender - CARDIOVASCULAR Cardiovascular: tachycardia - GASTROINTESTINAL (ABDOMEN) Abdominal Exam: distended, tenderness - LYMPHATIC Lymphatic: no adenopathy - MUSCULOSKELETAL Back Exam: normal inspection Extremity: non-tender - SKIN Integumentary: pallor - NEUROLOGIC Neurologic: grossly normal, no motor/sensory deficits - PSYCHIATRIC Psych/Mental Status: normal mood/affect, normal thought content, oriented x 3 Progress - PLAN OF CARE/RESULTS Progress/Plan/Lab Results: Vital Signs - 8 hr 02/02/17 11:21 02/02/17 11:23 Temperature 98.1 F Pulse Rate 108 H Respiratory Rate 24 Blood Pressure 82/59 95/64 O2 Sat by Pulse Oximetry 96 Dr. Meyer consulted following request of Dr. Sargent for pt admission, and Dr. Meyer will see pt in ED and admit. (15:34) Result Diagrams: 02/02/17 13:07 02/02/17 13:07 - ULTRASOUND (By Radiology) 1 US Study: other (Paracentesis) Impression: Abnormal (FINDINGS: The risks and benefits of the procedure were discussed with the patient. All questions were answered. Written and verbal consent was obtained. Ultrasound scanning demonstrated ascites. Overlying skin was prepped and draped in sterile fashion. Anesthesia was achieved with injection of 10 cc 1% lidocaine. The paracentesis catheter was advanced until the return of ascites fluid. 6 L was aspirated. The catheter was withdrawn intact. The patient reported no symptoms from the procedure.) US Results: Successful and uncomplicated u/s-guided paracentesis (per radiology) - CONSULTS/PCP/HOSPITALIST Notification #1 *Consult/PCP/Hospitalist*: Dr. Alegria Time Discussed: 11:37 Reason/Comments: U/S-guided paracentesis Consult Disposition: other (Dr. Alegria agreed to perform U/S-guided paracentesis.) #2 Consult: Dr. Meyer Time Discussed: 14:58 (Requests Dr. Mistry consult Rosetta and requests outpatient abx treatment.) Reason/Comments: Pt's white count 17, up from last hospitalization #3 Consult: Dr. Sargent Time Discussed: 15:12 (Dr. Sargent request pt be admitted.) Reason/Comments: Consult per Dr. Meyer's request Consult Disposition: Admit Departure - Departure Date of Disposition Decision: 02/02/17 Time of Disposition Decision: 17:43 DIAGNOSIS: Peritonitis Disposition: ADMITTED INPATIENT 09 Certified Medical Emergency: Emergent Condition: Stable - Critical Care Note This patient required my direct & personal management of CC.: No Attestation - Physician/ HENRY Attestation Patient care was provided by Advanced Practice Provider:: No The physician spent face to face time with patient:: Yes Advanced Practice Provider documentation review:: Supervising physician onsite and consulted in the evaluation and care of this patient. The physician did have a face to face encounter with the patient. This chart was documented by the indicated scribe, (Meagan Andersen Scribe) and accurately reflects the services I performed and decisions made by me, Rosas Mistry MD, as attested by the provider's signature.
[2017-02-02] MEDS: COLACE PO SCH (21:13)
[2017-02-02] MEDS: NOVOLOG MIX 70/30 SUBQ SCH (21:13)
[2017-02-02] MEDS: CARAFATE PO SCH (21:13)
[2017-02-02] MEDS: ALBUTEROL NEB INH SCH (21:36)
--- NOTE | 2017-02-02 22:27 | HISTORY AND PHYSICAL ---
CHIEF COMPLAINT: Abdominal swelling. HISTORY OF PRESENT ILLNESS: The patient is a 61-year-old white male followed in my medical practice and also followed by Dr. 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 Patient has longstanding cirrhosis of the liver associated with BAILON and has been deemed not a candidate for liver transplant both at [facility] and at [facility]. He comes in from the rehab facility as he has been out there for over a week trying to rehab from a left hip fracture he related to a recent mechanical fall. The patient had been fairly stable but had developed worsening ascites which is customary to the patient at this point. He came in to the emergency room for possible paracentesis and that was performed under ultrasound guidance per Dr. Alegria, the radiologist successfully. 6 L of fluid were drawn off but apparently the patient has white count of 17,000 and has a history of SBP. He has been admitted for IV antibiotics in regard to this. MEDICATIONS: Prior to admission are Protonix 40 mg p.o. daily, Xifaxan 550 mg p.o. b.i.d., sucralfate 1 g p.o. q.i.d., Zoloft 50 mg p.o. daily, multivitamin 1 p.o. daily, Linzess 145 mcg p.o. daily, Peridex 15 mL swish and spit b.i.d., Colace 200 mg p.o. at bedtime, ferrous sulfate 325 mg daily with breakfast, NovoLog 70/30 mix insulin 12 units subcutaneous q.a.m., 8 units subcutaneous q.p.m., Oxy IR 5 mg p.o. q.3 hours p.r.n. pain, albuterol nebulizer treatments 2.5/3 mL q.i.d., Bumex 1 mg p.o. q.a.m., lactulose 30 mL p.o. q.8 hours, Phenergan 25 mg p.o. q.6 hours p.r.n. nausea or vomiting, Xarelto 10 mg p.o. daily. ALLERGIES: To Zofran and morphine. Notably the patient had been ambulatory somewhat today with physical therapy but had nausea and vomiting x1 pronounced upon getting back into bed earlier at rehab. PAST MEDICAL HISTORY: 1. Left subtrochanteric femur fracture with closed reduction, intramedullary nailing, per Dr. Mcbride, orthopedist on recent hospitalization about 10 days ago. 2. History of recent mechanical fall. 3. End-stage liver disease/cirrhosis and ascites associated with chronic scrotal swelling and BAILON. 4. CRI with baseline creatinine around 2. 5. Multifactorial anemia. 6. Two vessel CAD rendering him not a candidate for liver transplantation per [facility]. 7. History of mild hyperkalemia. 8. Remote history of DVT right arm and pulmonary embolus on chronic anticoagulation with low-dose Xarelto in regard to this. 9. Morbid obesity. 10. IDDM. 11. Chronic constipation. 12. Situational depression. 13. DNR level 1. 14. PAD. PAST SURGICAL HISTORY: 1. Closed reduction with intramedullary nailing of left subtrochanteric femur fracture with trochanteric fixation nail done on 01/18/2017. 2. Recurring paracentesis about every week per Dr. Hurley's recommendation for control of ascites. 3. Right great toe traumatic amputation with lawnmower accident in 1963. 4. Amputation of left 2nd and 3rd toes January 2012 and 2015 secondary to osteomyelitis. 5. History of stent to the left lower extremity related to PAD . FAMILY HISTORY: Notable for BAILON in his brother, father with CAD at age 65. No hypertension or strokes in the family. Father and brother with diabetes mellitus. Lung cancer in his mother and father. SOCIAL HISTORY: Patient lives in [place]. He is has 2 children. 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 Never been a smoker. Does not drink alcohol. REVIEW OF SYSTEMS: Negative except as above. PHYSICAL EXAM: VITAL SIGNS: Temperature 98.2 degrees, pulse 100, respirations 20, blood pressure 106/70, O2 saturation on room air 100%. GENERAL: Chronically ill-appearing white male with obesity. SKIN: No rashes. The left hip fracture repair site had been healing well without signs of infection today. HEENT: SUNDAR. EOMI. Sclerae clear. OP slightly dry mucous membranes. NECK: No LA, TMG, JVD, bruits. CV: RRR without murmur. LUNGS: CTA. ABDOMEN: Protuberant, soft, no definite mass or organomegaly. GENITOURINARY/RECTAL: Deferred. EXTREMITIES: Trace to 1+ lower extremity edema. NEURO: Patient is arousable, alert, answers questions appropriately, is hard of hearing. Moves all extremities well. No focal deficits. LAB DATA: Shows white count of 17.48 up from 7 at recent hospitalization, hemoglobin 12.7, platelets 271,000. Sodium 129, potassium 4.7, chloride 94, CO2 19, BUN 80, creatinine 1.9, blood sugar 127, calcium 8.6, magnesium 2.9. ASSESSMENT: 1. Spontaneous bacterial peritonitis. 2. Recurring ascites associated with end-stage liver disease and cirrhosis associated with nonalcoholic steatohepatitis deemed not a candidate for liver transplant. 3. Two vessel coronary artery bypass graft. 4. Chronic renal insufficiency. 5. Situational depression. 6. Insulin-dependent diabetes mellitus. 7. Anemia improved overall. PLAN: Will admit the patient. Keep him DNR level 1. Continue his home medications. Cover him in regard to SBP with Rocephin. Continue to monitor ascitic fluid cultures. Will monitor Accu- Cheks and engage physical therapy. cc: Isaac Meyer MD
[2017-02-03] MEDS ORDERED: INSULIN PEN NEEDLES ONE (00:14)
[2017-02-03 00:21] LABS: URINE CULTURE NEEDED? NO; URINE MICRO REVIEW NEEDED? NO; URINE SOURCE CATH
[2017-02-03] MEDS: LACTULOSE PO SCH ×4 (00:25→22:05)
[2017-02-03] MEDS: XIFAXAN PO SCH ×3 (00:28→20:57)
[2017-02-03 00:51] LABS: BILIRUBIN URINE NEGATIVE (NEGATIVE); BLOOD URINE NEGATIVE (NEGATIVE); COLOR YELLOW; GLUCOSE URINE NEGATIVE (NEGATIVE); LEUKOCYTES URINE NEGATIVE (NEGATIVE); NITRITE URINE NEGATIVE (NEGATIVE); PH URINE 5.5; PROTEIN URINE NEGATIVE (NEGATIVE); SP GRAVITY URINE 1.015; TURBIDITY URINE CLEAR (CLEAR); UR EPITHELIAL CELLS <10 /HPF (<10); URINE BACTERIA NEGATIVE /HPF; URINE RBC <10 /HPF (<10); URINE WBC <10 /HPF (<10); UROBILINOGEN URINE NORMAL (NORMAL)
[2017-02-03] MEDS: ALBUTEROL NEB INH SCH ×4 (03:12→21:05)
[2017-02-03 05:01] LABS: MANUAL DIFF NEEDED? NO
[2017-02-03 05:11] LABS: BASO% 0.1 % (0.0-0.8); EOS# 0.14 X1000 (0.0-0.7); HEMATOCRIT 35.1 % (42.0-52.0); HEMOGLOBIN 11.8 g/dL (14.0-18.0); IMM GRAN# 0.15 X1000 (0.0-0.04); LYMPH% 5.6 % (20.5-51.1); MCHC 33.6 g/dL (33-37); MCV 101.2 FL (81-99); MONO# 1.51 X1000 (0.11-0.59); MONO% 10.6 % (1.7-9.3); MPV 10.1 FL (7.4-10.4); NEUT% 81.7 % (42.2-75.2); PLT 239 X1000 (130-400); RBC 3.47 XMIL (4.7-6.1)
[2017-02-03 05:21] LABS: CALCIUM 8.1 mg/dL (8.8-10.2); POTASSIUM 4.8 mmol/L (3.5-5.1)
[2017-02-03] MEDS: PERIDEX MT SCH ×3 (05:41→20:57)
[2017-02-03] MEDS: PROTONIX PO SCH ×2 (05:56→06:06)
--- NOTE | 2017-02-03 08:28 | PROGRESS NOTE ---
DATE: 02/03/2017 SUBJECTIVE: Patient overall stable doing a little better. No significant difficulties overnight. OBJECTIVE: Vital signs: Afebrile, pulse 105, respirations 12-18, blood pressure 91/65, O2 saturation on room air 100%. Cardiovascular: RRR without distinct murmur. Lungs: CTA. Abdomen: Mild ascites is noted. Minimal diffuse tenderness. No mass or organomegaly. No rebound or guarding. Extremities: No significant edema. Intake and output: Incomplete. LAB DATA: Shows white count has decreased from 17.48 to 14.29, hemoglobin 11.8 this morning, platelets 239,000. Sodium 129, potassium 4.8, chloride 97, CO2 21, BUN 81, creatinine 1.9, glucose 193, calcium 8.1. ASSESSMENT: 1. Probable spontaneous bacterial peritonitis. 2. Recurring ascites associated with any end-stage liver disease and cirrhosis secondary to nonalcoholic steatohepatitis. 3. Two vessel coronary artery disease. 4. Chronic renal insufficiency. 5. Situational depression. 6. Insulin-dependent diabetes mellitus. 7. Anemia, stable. 8. Do not resuscitate level 1. 9. History of left hip fracture with a repair a couple of weeks ago. PLAN: Continue IV Rocephin. Monitor serial Accu-Cheks. Continue his homes longstanding liver medications to include lactulose and Xifaxan, low-dosed diuretic in the form of Bumex. Will follow labs and continue physical therapy in regard to his left hip. cc: Isaac Meyer MD
[2017-02-03] MEDS: CENTRUM SILVER PO SCH (09:47)
[2017-02-03] MEDS: ZOLOFT PO SCH (09:47)
[2017-02-03] MEDS: LINZESS PO SCH (09:47)
[2017-02-03] MEDS: CARAFATE PO SCH ×4 (09:48→20:57)
[2017-02-03] MEDS: XARELTO PO SCH (09:48)
[2017-02-03] MEDS: FERROUS SULFATE PO SCH (09:48)
[2017-02-03] MEDS: NOVOLOG MIX 70/30 SUBQ SCH ×2 (09:48→20:57)
[2017-02-03] MEDS: BUMEX PO SCH (09:48)
[2017-02-03] MEDS: OXY IR PO PRN ×3 (09:57→20:58)
[2017-02-03 12:51] LABS: DIFF NEEDED? YES; WBC BF 48 /cumm
[2017-02-03 13:23] LABS: MONOS 80 %; POLYS 20 %
[2017-02-03] MEDS: ROCEPHIN 1 GM in NS 50 ML IV SCH (16:33)
[2017-02-03] MEDS: CALMOSEPTINE OINTMENT TOP PRN (20:56)
[2017-02-03] MEDS: COLACE PO SCH (22:05)
[2017-02-04] MEDS: ALBUTEROL NEB INH SCH ×5 (03:15→22:02)
[2017-02-04] MEDS: LACTULOSE PO SCH ×3 (04:44→21:15)
[2017-02-04 05:09] LABS: MANUAL DIFF NEEDED? NO
[2017-02-04 05:12] LABS: BASO% 0.2 % (0.0-0.8); EOS# 0.16 X1000 (0.0-0.7); EOS% 1.1 % (0.0-10.0); HEMATOCRIT 33.7 % (42.0-52.0); HEMOGLOBIN 11.7 g/dL (14.0-18.0); IMM GRAN# 0.16 X1000 (0.0-0.04); IMM GRAN% 1.1 % (0.0-0.5); LYMPH# 1.14 X1000 (1.2-3.4); LYMPH% 7.7 % (20.5-51.1); MCH 34.9 PG (27-31); MCHC 34.7 g/dL (33-37); MCV 100.6 FL (81-99); MONO# 1.72 X1000 (0.11-0.59); MONO% 11.6 % (1.7-9.3); MPV 9.9 FL (7.4-10.4); NEUT% 78.3 % (42.2-75.2); PLT 236 X1000 (130-400); RBC 3.35 XMIL (4.7-6.1)
[2017-02-04 05:53] LABS: CALCIUM 8.3 mg/dL (8.8-10.2); POTASSIUM 5.4 mmol/L (3.5-5.1)
[2017-02-04] MEDS: PROTONIX PO SCH (06:10)
[2017-02-04] MEDS: FERROUS SULFATE PO SCH (09:10)
[2017-02-04] MEDS: XIFAXAN PO SCH ×2 (09:10→21:10)
[2017-02-04] MEDS: LINZESS PO SCH (09:10)
[2017-02-04] MEDS: ZOLOFT PO SCH (09:10)
[2017-02-04] MEDS: CARAFATE PO SCH ×4 (09:10→21:10)
[2017-02-04] MEDS: PERIDEX MT SCH ×2 (09:11→21:10)
[2017-02-04] MEDS: XARELTO PO SCH (09:11)
[2017-02-04] MEDS: BUMEX PO SCH (09:11)
[2017-02-04] MEDS: CENTRUM SILVER PO SCH (09:11)
[2017-02-04] MEDS: NOVOLOG MIX 70/30 SUBQ SCH ×2 (09:11→21:10)
[2017-02-04] MEDS: OXY IR PO PRN ×2 (11:38→15:17)
--- NOTE | 2017-02-04 13:40 | PROGRESS NOTE ---
DATE: 02/04/2017 SUBJECTIVE: The patient says he had a good night last night but he has had some pain in his left hip today. He has been trying to participate in physical therapy. OBJECTIVE: Vital Signs: Afebrile. Pulse 78, respirations 18, blood pressure 100/67, O2 saturation room air 96-99%. Cardiovascular: Regular rate and rhythm without murmur. Lungs: Clear to auscultation. Abdomen: Soft. Ascites is present but not severe. Extremities: No edema. No scrotal swelling noted. Neurologic: Nonfocal. Patient arousable, alert, and is able to converse without great difficulty although voice is somewhat weak. I OS: There is 1370 in, 1215 out. Stooling, but not eating particularly well. Peritoneal fluid cultures are negative so for. Labs show white count stable at 14. Hemoglobin 11.7, platelets 236,000. Sodium 131, potassium 5.4, chloride 97, CO2 21, BUN 77, creatinine 1.8. Calcium 8.3, blood sugars in the high 100s. ASSESSMENT: 1. Spontaneous bacterial peritonitis. 2. Ascites with end-stage liver disease and cirrhosis associated with non-alcoholic steatohepatitis. 3. Two-vessel coronary artery disease. 4. Chronic renal insufficiency. 5. Situational depression. 6. Insulin-dependent diabetes mellitus. 7. Anemia, stable. 8. Do not resuscitate level 1. 9. History of left hip fracture, continuing with physical therapy. PLAN: Continue IV Rocephin, SSI per Accu-Cheks, Xifaxan low-dose, Bumex. Continue to work with physical therapy aggressively. Plans to discharge him back to the rehab facility Wednesday if he continues to show slow gradual improvement in the cultures of his peritoneal fluid remain negative. cc: Isaac Meyer MD
[2017-02-04] MEDS: ROCEPHIN 1 GM in NS 50 ML IV SCH (16:39)
[2017-02-04] MEDS: COLACE PO SCH (22:05)
[2017-02-05] MEDS: ALBUTEROL NEB INH SCH ×4 (03:33→16:14)
[2017-02-05] MEDS: OXY IR PO PRN ×2 (04:08→08:44)
[2017-02-05] MEDS: PROTONIX PO SCH (06:01)
[2017-02-05] MEDS: LACTULOSE PO SCH ×3 (06:01→22:09)
[2017-02-05] MEDS: XARELTO PO SCH (08:31)
[2017-02-05] MEDS: LINZESS PO SCH (08:31)
[2017-02-05] MEDS: ZOLOFT PO SCH (08:31)
[2017-02-05] MEDS: PERIDEX MT SCH ×2 (08:32→22:10)
[2017-02-05] MEDS: BUMEX PO SCH (08:32)
[2017-02-05] MEDS: CARAFATE PO SCH ×4 (08:32→22:09)
[2017-02-05] MEDS: XIFAXAN PO SCH ×2 (08:32→22:09)
[2017-02-05] MEDS: NOVOLOG MIX 70/30 SUBQ SCH ×2 (08:32→22:54)
[2017-02-05] MEDS: CENTRUM SILVER PO SCH (08:32)
[2017-02-05] MEDS: FERROUS SULFATE PO SCH (08:33)
[2017-02-05] MEDS: PHENERGAN PO PRN (10:39)
[2017-02-05] MEDS: PHENERGAN IV PRN ×2 (11:42→22:54)
[2017-02-05] MEDS: SODIUM CHLORIDE 0.9% INJ PRN (11:42)
[2017-02-05] MEDS: NS 1,000 ML IV SCH (13:20)
--- NOTE | 2017-02-05 13:20 | PROGRESS NOTE ---
DATE: 02/05/2017 SUBJECTIVE: Patient had a couple episodes of bad vomiting this morning, not feeling well at all. OBJECTIVE: Vital signs: Afebrile, pulse 113, respirations 16, blood pressure 95/62, O2 saturation on room air 100%. Cardiovascular: RRR. Lungs: CTA. Abdomen: Soft, mild diffuse tenderness. Some ascites, not severe. Extremities: No edema. ASSESSMENT: 1. Spontaneous bacterial peritonitis. 2. Ascites with end-stage liver disease and cirrhosis associated with nonalcoholic steatohepatitis. 3. Two vessel coronary artery disease. 4. Chronic renal insufficiency. 5. Situation depression. 6. Insulin-dependent diabetes mellitus. 7. Anemia. 8. Do not resuscitate 1. 9. History of left hip fracture still somewhat participating in physical therapy. PLAN: Continue IV Rocephin. Will give him Phenergan as needed as antiemetic. Will give him low- dose IV hydration, recheck labs in the morning. Poor prognosis all overall discussed with his . cc: Isaac Meyer MD
[2017-02-05] MEDS: XYLOCAINE 2% JELLY UROJECT TOP PRN (13:21)
[2017-02-05] MEDS: ROCEPHIN 1 GM in NS 50 ML IV SCH (16:16)
[2017-02-05] MEDS: COLACE PO SCH (22:08)
[2017-02-06] MEDS: ALBUTEROL NEB INH SCH ×5 (02:44→20:15)
[2017-02-06 05:05] LABS: MANUAL DIFF NEEDED? NO
[2017-02-06 05:09] LABS: BASO% 0.3 % (0.0-0.8); EOS# 0.24 X1000 (0.0-0.7); EOS% 1.8 % (0.0-10.0); HEMATOCRIT 33.1 % (42.0-52.0); IMM GRAN# 0.18 X1000 (0.0-0.04); IMM GRAN% 1.4 % (0.0-0.5); LYMPH# 1.06 X1000 (1.2-3.4); LYMPH% 8.1 % (20.5-51.1); MCH 34.2 PG (27-31); MCHC 33.2 g/dL (33-37); MCV 102.8 FL (81-99); MONO# 1.77 X1000 (0.11-0.59); MONO% 13.6 % (1.7-9.3); NEUT% 74.8 % (42.2-75.2); PLT 216 X1000 (130-400); RBC 3.22 XMIL (4.7-6.1)
[2017-02-06 05:26] LABS: ALBUMIN 2.2 g/dL (3.5-5.0); CALCIUM 8.1 mg/dL (8.8-10.2); POTASSIUM 5.3 mmol/L (3.5-5.1); TOTAL BILIRUBIN 0.89 mg/dL (0.20-1.00)
[2017-02-06] MEDS: LACTULOSE PO SCH ×3 (05:34→20:43)
[2017-02-06] MEDS: PHENERGAN PO PRN (05:59)
[2017-02-06] MEDS: PROTONIX PO SCH (06:00)
[2017-02-06] MEDS: CENTRUM SILVER PO SCH (08:24)
[2017-02-06] MEDS: ZOLOFT PO SCH (08:24)
[2017-02-06] MEDS: LINZESS PO SCH (08:24)
[2017-02-06] MEDS: FERROUS SULFATE PO SCH (08:24)
[2017-02-06] MEDS: CARAFATE PO SCH ×4 (08:24→20:44)
[2017-02-06] MEDS: XIFAXAN PO SCH ×2 (08:25→20:44)
[2017-02-06] MEDS: OXY IR PO PRN (08:25)
[2017-02-06] MEDS: XARELTO PO SCH (08:25)
[2017-02-06] MEDS: NOVOLOG MIX 70/30 SUBQ SCH ×2 (08:25→20:43)
[2017-02-06] MEDS: PERIDEX MT SCH ×2 (08:25→20:43)
[2017-02-06] MEDS: BUMEX PO SCH (08:26)
[2017-02-06] MEDS: NS 1,000 ML IV SCH (12:07)
[2017-02-06] MEDS: BACTROBAN OINTMENT TOP SCH ×2 (13:27→16:13)
--- NOTE | 2017-02-06 13:51 | PROGRESS NOTE ---
DATE: 02/06/2017 SUBJECTIVE: Patient having a better day today than yesterday. No nausea or vomiting. Does complain of irritation and redness at the urethra around the catheter. He does not think he can utilize the urinal and wants to keep the catheter. OBJECTIVE: Vital signs: Afebrile, pulse 111, respirations 18, blood pressure 97/63, O2 saturation room air 97 to 100%. CV: Tachycardia, regular rhythm. Lungs: CTA. Abdomen: Soft. Active bowel sounds. : There is mild redness and irritation around the distal urethra around the Givens catheter site. Extremities: There are some mild blisters that have ruptured on the heels bilaterally. No signs of infection there. No calf tenderness, cords, or edema. I Os, he ate a few bites of his food, eating bites of a hamburger now. I Os yesterday 670 in, 701 out. ASSESSMENT: 1. Spontaneous bacterial peritonitis. 2. Ascites with end-stage liver disease and cirrhosis associated with nonalcoholic steatohepatitis. 3. Two vessel coronary artery disease. 4. Chronic renal insufficiency. 5. Situational depression. 6. Insulin-dependent diabetes mellitus. 7. Anemia. 8. Do not resuscitate level 1. 9. History of left hip fracture with physical therapy participation, improving. Patient sat up in a chair for an hour this morning. 10. Penile irritation. PLAN: Continue IV Rocephin. Peritoneal fluid culture is negative. Labs are acceptable. Will continue supportive care. Add topical Bactroban ointment to the penile irritation. Continue supportive measures with hopes of transferring him back to the rehab facility in 2-3 days. cc: Isaac Meyer MD
[2017-02-06] MEDS: ROCEPHIN 1 GM in NS 50 ML IV SCH (16:13)
[2017-02-06] MEDS ORDERED: INSULIN PEN NEEDLES ONE (20:36)
[2017-02-06] MEDS: COLACE PO SCH (20:44)
[2017-02-07] MEDS: ALBUTEROL NEB INH SCH ×4 (03:45→21:31)
[2017-02-07] MEDS: LACTULOSE PO SCH ×3 (04:51→22:06)
[2017-02-07] MEDS ORDERED: FLUZONE QUAD 2017-2018 SYRINGE IM ONE (06:17)
[2017-02-07] MEDS: PROTONIX PO SCH (06:18)
[2017-02-07] MEDS: XIFAXAN PO SCH ×2 (08:33→22:05)
[2017-02-07] MEDS: FERROUS SULFATE PO SCH (08:33)
[2017-02-07] MEDS: PERIDEX MT SCH ×2 (08:33→22:04)
[2017-02-07] MEDS: BUMEX PO SCH (08:33)
[2017-02-07] MEDS: XARELTO PO SCH (08:33)
[2017-02-07] MEDS: CARAFATE PO SCH ×4 (08:33→22:05)
[2017-02-07] MEDS: CENTRUM SILVER PO SCH (08:33)
[2017-02-07] MEDS: ZOLOFT PO SCH (08:33)
[2017-02-07] MEDS: LINZESS PO SCH (08:33)
[2017-02-07] MEDS: NOVOLOG MIX 70/30 SUBQ SCH ×2 (08:34→22:05)
[2017-02-07] MEDS: BACTROBAN OINTMENT TOP SCH ×3 (08:34→16:26)
[2017-02-07] MEDS: OXY IR PO PRN ×2 (08:55→22:05)
--- NOTE | 2017-02-07 12:20 | PROGRESS NOTE ---
DATE: 02/07/2017 SUBJECTIVE: Patient complains of anorexia. Nurse relates has been having difficulty with the Givens catheter not draining well. They had tried to flush it out and so far it has been fairly satisfactory. Will monitor that during the day and change out his Givens if there is ongoing difficulties. OBJECTIVE: Vital signs: Afebrile, pulse 102, respirations 15, blood pressure 108/62, O2 saturation on room air 98%. CV: RRR. Lungs: Decreased breath sounds at the bases. Otherwise CTA. Abdomen: Increasing ascites is noted. Extremities: No edema. ASSESSMENT: 1. Spontaneous bacterial peritonitis. 2. Ascites with end-stage liver disease/cirrhosis associated with nonalcoholic steatohepatitis. 3. Two vessel coronary artery disease. 4. Chronic renal insufficiency. 5. Situational depression. 6. Insulin-dependent diabetes mellitus. 7. Anemia. 8. Do not resuscitate level 1. 9. History of left hip fracture a few weeks ago, undergoing physical therapy. 10. Penile irritation and mild purulence. PLAN: Peritoneal fluid remains negative. Continue IV Rocephin. Repeat labs tomorrow and monitor urine output today. Continue low IV hydration currently. Continue topical Bactroban. Patient may be developing some early decubitus and will get the wound care nurse tomorrow look at this. In the meantime try to float his heels and rotate the patient from [id number]. cc: Isaac Meyer MD
[2017-02-07] MEDS: NS 1,000 ML IV SCH (12:30)
[2017-02-07] MEDS: ROCEPHIN 1 GM in NS 50 ML IV SCH (16:26)
[2017-02-07] MEDS: COLACE PO SCH (22:05)
[2017-02-08] MEDS: OXY IR PO PRN ×3 (02:45→20:05)
[2017-02-08] MEDS: ALBUTEROL NEB INH SCH ×3 (03:34→15:25)
[2017-02-08 05:02] LABS: MANUAL DIFF NEEDED? NO
[2017-02-08 05:07] LABS: BASO% 0.6 % (0.0-0.8); EOS# 0.22 X1000 (0.0-0.7); EOS% 1.8 % (0.0-10.0); HEMATOCRIT 34.7 % (42.0-52.0); HEMOGLOBIN 11.9 g/dL (14.0-18.0); IMM GRAN# 0.16 X1000 (0.0-0.04); IMM GRAN% 1.3 % (0.0-0.5); LYMPH# 0.89 X1000 (1.2-3.4); LYMPH% 7.3 % (20.5-51.1); MCHC 34.3 g/dL (33-37); MCV 102.1 FL (81-99); MONO% 13.9 % (1.7-9.3); MPV 10.1 FL (7.4-10.4); NEUT% 75.1 % (42.2-75.2); PLT 188 X1000 (130-400)
[2017-02-08 05:36] LABS: CALCIUM 8.5 mg/dL (8.8-10.2)
[2017-02-08] MEDS: PROTONIX PO SCH (06:13)
[2017-02-08] MEDS: LACTULOSE PO SCH ×3 (06:13→20:04)
[2017-02-08] MEDS: BUMEX PO SCH (09:03)
[2017-02-08] MEDS: CARAFATE PO SCH ×4 (09:03→20:05)
[2017-02-08] MEDS: FERROUS SULFATE PO SCH (09:03)
[2017-02-08] MEDS: XIFAXAN PO SCH ×2 (09:03→20:05)
[2017-02-08] MEDS: ZOLOFT PO SCH (09:03)
[2017-02-08] MEDS: NOVOLOG MIX 70/30 SUBQ SCH ×2 (09:04→20:03)
[2017-02-08] MEDS: CENTRUM SILVER PO SCH (09:04)
[2017-02-08] MEDS: LINZESS PO SCH (09:04)
[2017-02-08] MEDS: BACTROBAN OINTMENT TOP SCH ×3 (09:04→17:03)
[2017-02-08] MEDS: PERIDEX MT SCH ×2 (09:04→20:04)
[2017-02-08] MEDS: XARELTO PO SCH (09:07)
[2017-02-08] MEDS: NS 1,000 ML IV SCH (13:48)
--- NOTE | 2017-02-08 14:29 | PROGRESS NOTE ---
DATE: 02/08/2017 SUBJECTIVE: Patient has had no vomiting today, feels slightly better. He is contemplating whether he wants to return home versus return to rehab facility. OBJECTIVE: Vital signs: Afebrile, pulse 116, blood pressure 95/52, O2 saturation room air 100%. CV: Tachycardia, regular rhythm. Lungs: CTA. Abdomen: With ascites, nontender. : Penile irritation at the distal urethra has improved. Extremities: No calf tenderness, cords, or edema. Neuro: Nonfocal. Cranial nerves intact, chronically ill-appearing. LABORATORY DATA: White count has declined to 12.19, hemoglobin 11.9, platelets 188,000. Sodium 130, potassium 5.0, chloride 100, CO2 18, BUN 58, creatinine 1.5, blood sugars high 100s primarily. ASSESSMENT: 1. Spontaneous bacterial peritonitis. 2. Ascites with end-stage liver disease/cirrhosis associated with nonalcoholic steatohepatitis. 3. Penile irritation, improved. 4. Two-vessel coronary artery disease. 5. Chronic renal insufficiency, improving. 6. Situational depression. 7. Insulin-dependent diabetes mellitus. 8. Anemia. 9. Do not resuscitate level 1. 10. History of left hip fracture a few weeks ago trying to participate in physical therapy. 11. Early ulcerations, heels and buttocks. PLAN: Continue IV Rocephin. We will get Dr. Hurley to see the patient as he might require repeat therapeutic paracentesis prior to move back to the rehab facility. He and his are going to discuss whether he wants to return there or go home. He is going to make a decision by tomorrow in that regard, and we will try to move him back to the rehab facility if he degrees in 1-2 days, if he continues to show some improvement. cc: Isaac Meyer MD
[2017-02-08] MEDS: ROCEPHIN 1 GM in NS 50 ML IV SCH (16:21)
[2017-02-08] MEDS: COLACE PO SCH (20:04)
[2017-02-09] MEDS: ALBUTEROL NEB INH SCH ×4 (01:08→21:37)
[2017-02-09] MEDS: LACTULOSE PO SCH ×3 (06:31→20:34)
[2017-02-09] MEDS: PROTONIX PO SCH (06:31)
[2017-02-09] MEDS: LINZESS PO SCH (09:28)
[2017-02-09] MEDS: FERROUS SULFATE PO SCH (09:28)
[2017-02-09] MEDS: XARELTO PO SCH (09:28)
[2017-02-09] MEDS: NOVOLOG MIX 70/30 SUBQ SCH ×2 (09:29→22:00)
[2017-02-09] MEDS: CARAFATE PO SCH ×4 (09:29→20:34)
[2017-02-09] MEDS: PERIDEX MT SCH ×2 (09:29→20:34)
[2017-02-09] MEDS: ZOLOFT PO SCH (09:29)
[2017-02-09] MEDS: XIFAXAN PO SCH ×2 (09:29→20:34)
[2017-02-09] MEDS: BUMEX PO SCH (09:29)
[2017-02-09] MEDS: CENTRUM SILVER PO SCH (09:29)
[2017-02-09] MEDS: BACTROBAN OINTMENT TOP SCH ×3 (09:29→17:57)
[2017-02-09] MEDS: PHENERGAN IV PRN ×2 (10:39→16:17)
--- NOTE | 2017-02-09 13:44 | PROGRESS NOTE ---
DATE: 02/09/2017 SUBJECTIVE: Patient says he had a little better night last evening. He complains of sacral pain. He is developing some ulcerations there being followed by the wound care nurse. OBJECTIVE: Vital signs: Afebrile, pulse 113, respirations 20, blood pressure 96/64, O2 saturation room air 100%. CV: Tachycardia, regular rhythm. Lungs: CTA. Abdomen: Ascites present. Extremities: No edema. Heels in heel protectors. Neurologic: Nonfocal. Chronically ill appearing. LABS: Not repeated today. ASSESSMENT: 1. Spontaneous bacterial peritonitis. 2. Ascites with end-stage liver disease/cirrhosis associated with nonalcoholic steatohepatitis. 3. Penile irritation improving. 4. Two vessel coronary artery disease. 5. Chronic renal insufficiency. 6. Situational depression. 7. Insulin-dependent diabetes mellitus. 8. Anemia. 9. Do not resuscitate level 1. 10. History of left hip fracture with patient slowly slightly improving with physical therapy. 11. Decubitus ulcers developing heels and buttocks. PLAN: Will ask Dr. Hurley to see the patient as he might need repeat therapeutic paracentesis prior to discharge back to the rehab facility. He has talked with his and family and he desires to go back to the rehab facility and will try to expedite that tomorrow. Continue other treatments including Rocephin. cc: Isaac Meyer MD
[2017-02-09] MEDS: NS 1,000 ML IV SCH (14:12)
[2017-02-09] MEDS: ROCEPHIN 1 GM in NS 50 ML IV SCH (16:17)
[2017-02-09] MEDS: XYLOCAINE 2% JELLY UROJECT TOP PRN ×2 (17:57→20:50)
[2017-02-09] MEDS: OXY IR PO PRN (19:59)
[2017-02-09] MEDS: COLACE PO SCH (20:33)
[2017-02-10] MEDS: OXY IR PO PRN ×3 (05:44→15:06)
[2017-02-10] MEDS: LACTULOSE PO SCH ×3 (06:00→22:28)
[2017-02-10] MEDS: PROTONIX PO SCH (06:51)
[2017-02-10] MEDS: ALBUTEROL NEB INH SCH ×5 (08:30→21:25)
--- NOTE | 2017-02-10 08:51 | PROGRESS NOTE ---
DATE: 02/10/2017 SUBJECTIVE: Patient is stable. OBJECTIVE: Afebrile, pulse 98-107, respirations 18, blood pressure 107/79, and O2 saturation 94% room air. CV: RRR. Lungs: CTA. Abdomen: With moderate ascites. Extremities: Trace lower extremity edema. ASSESSMENT: 1. Spontaneous bacterial peritonitis. 2. Ascites with end-stage liver disease/cirrhosis associated with nonalcoholic steatohepatitis 3. Early decubitus ulcers to heels and buttocks. 4. Penile irritation improving. 5. Two vessel coronary artery disease. 6. chronic renal insufficiency, stable. 7. Situational depression. 8. Insulin-dependent diabetes mellitus. 9. Anemia. 10. Do not resuscitate level 1. 11. History of left hip fracture with physical therapy in progress. PLANS: I have a consult in to Dr. Hulrey for possible repeat therapeutic paracentesis prior to discharge back to rehab. Will see if Dr. Sargent wants to pursue that at this time. If not, we will try to wait on the bed and get him back to rehab to continue physical therapy regarding his hip fracture therapy. Continue Rocephin for now. Low-dose Bumex. Continue Xifaxan, lactulose and end-stage liver medications. cc: Isaac Meyer MD
[2017-02-10] MEDS: CARAFATE PO SCH ×4 (09:27→22:28)
[2017-02-10] MEDS: BUMEX PO SCH (09:27)
[2017-02-10] MEDS: XIFAXAN PO SCH ×2 (09:27→22:28)
[2017-02-10] MEDS: PERIDEX MT SCH ×2 (09:27→22:27)
[2017-02-10] MEDS: ZOLOFT PO SCH (09:27)
[2017-02-10] MEDS: LINZESS PO SCH (09:27)
[2017-02-10] MEDS: CENTRUM SILVER PO SCH (09:27)
[2017-02-10] MEDS: FERROUS SULFATE PO SCH (09:28)
[2017-02-10] MEDS: BACTROBAN OINTMENT TOP SCH ×3 (09:28→16:36)
[2017-02-10] MEDS: NOVOLOG MIX 70/30 SUBQ SCH ×2 (09:31→22:28)
[2017-02-10] MEDS: XYLOCAINE 2% JELLY UROJECT TOP PRN (09:56)
[2017-02-10] MEDS: SODIUM CHLORIDE 0.9% INJ PRN (10:54)
[2017-02-10] MEDS: PHENERGAN IV PRN (10:54)
[2017-02-10] MEDS ORDERED: ALBUMIN 25% IV ONE (14:57)
[2017-02-10] MEDS: NS 1,000 ML IV SCH (15:10)
[2017-02-10 15:14] LABS: INR 1.24; PROTIME 13.2 Seconds (9.2-11.7); PTT 35.7 Seconds (22.0-36.0)
[2017-02-10] MEDS: ROCEPHIN 1 GM in NS 50 ML IV SCH (16:36)
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
[2017-02-10] MEDS: COLACE PO SCH (22:28)
[2017-02-11] MEDS: ALBUTEROL NEB INH SCH ×4 (03:50→20:00)
[2017-02-11] MEDS: LACTULOSE PO SCH ×3 (06:30→22:48)
[2017-02-11] MEDS: PROTONIX PO SCH (06:33)
[2017-02-11] MEDS: NOVOLOG MIX 70/30 SUBQ SCH ×2 (10:20→22:46)
[2017-02-11] MEDS: BACTROBAN OINTMENT TOP SCH ×3 (10:21→22:46)
--- NOTE | 2017-02-11 12:07 | PROGRESS NOTE ---
DATE: 02/11/2017 REQUESTING PHYSICIAN: Dr. Meyer. SUBJECTIVE: Patient is currently resting in bed. He is NPO. He is scheduled for ultrasound- guided paracentesis today. His INR is 1.24. He will be getting IV albumin once. Denies any fevers, rigors, chills. He denies any abdominal pain. OBJECTIVE: Vital signs: Temperature of 97.6 degrees, pulse of 105, respiratory rate 17, blood pressure 102/67, saturating 100% room air. General Appearance: Moderately built, moderately nourished, lying in bed, in no acute distress. HEENT: Positive pallor, no icterus. Neck: Supple. Abdomen: There is mild distention noted. No guarding or rebound. Extremities: He is in heel protectors. He is status post hip repair. Neuro: He is alert, awake, oriented x3. LAB: His H and H was done on 02/08, which is 11.9 and 34.7. INR 1.24, PT of 13.2, PTT of 35.7, glucose of 157. IMPRESSION AND PLAN: 1. Refractory ascites. He will get a paracentesis done today, and will give him albumin IV once. Patient will call our office once he needs a repeat paracentesis. Will get him scheduled. 2. Nonalcoholic steatohepatitis/cirrhosis, complicated with portal hypertension , hepatic encephalopathy, coagulopathy, renal insufficiency, malnutrition. In this regard, we will continue on regular medications with Bumex 1 mg once daily, lactulose 30 mL p.o. t.i.d., Xifaxan 550 mg p.o. b.i.d. We will continue to avoid hepatotoxic drugs. 3. History of spontaneous bacterial peritonitis on discharge. He will be discharged on Levaquin 500 mg once daily for 10 days. 4. Constipation. He will begin Linzess 145 mcg a day and begin to add MiraLAX as needed. 5. Gastrointestinal prophylaxis with proton-pump inhibitors. 6. Discussed the plan of care with the patient and family at bedside. All questions were answered. cc: MD Isaac Espinoza MD [facility]
--- NOTE | 2017-02-11 13:09 | Diag Imaging Result Doc PS360 ---
EXAM: US PARACENTESIS HISTORY: Ascites, cirrhosis TECHNIQUE: Ultrasound-guided paracentesis COMPARISON: None. FINDINGS: Prior to the procedure I discussed the risk and benefits with the patient. Primary risks include: Bleeding, infection, liver injury, and bowel injury. The patient's questions were answered. The patient then gave consent. The permit was signed. The patient lay supine. The largest fluid collection in the lower right abdomen was localized with ultrasound. This area was cleaned and draped in the normal fashion. Lidocaine was used as a local anesthetic. Needle and catheter were advanced into the fluid collection on the first try without difficulty. Needle was withdrawn. Catheter was connected to suction. Approximately 8 L of thin yellowish fluid were removed without difficulty. The catheter was then withdrawn. The patient had no complaints during or following the procedure. IMPRESSION: Ultrasound-guided paracentesis with no immediate postprocedural complications. Electronically signed by Sin Alexander 02/11/2017 1:07 PM
[2017-02-11] MEDS: ZOLOFT PO SCH (14:14)
[2017-02-11] MEDS: FERROUS SULFATE PO SCH (14:14)
[2017-02-11] MEDS: CENTRUM SILVER PO SCH (14:15)
[2017-02-11] MEDS: CARAFATE PO SCH ×3 (14:15→22:51)
[2017-02-11] MEDS: LINZESS PO SCH (14:15)
[2017-02-11] MEDS: BUMEX PO SCH (14:16)
[2017-02-11] MEDS: XIFAXAN PO SCH ×2 (14:16→23:09)
[2017-02-11] MEDS: PERIDEX MT SCH ×2 (14:16→22:49)
[2017-02-11] MEDS: COLACE PO SCH (22:49)
[2017-02-11] MEDS: NS 1,000 ML IV SCH (22:52)
[2017-02-11] MEDS: ROCEPHIN 1 GM in NS 50 ML IV SCH (22:52)
[2017-02-11] MEDS: OXY IR PO PRN (23:12)
[2017-02-12] MEDS: ALBUTEROL NEB INH SCH ×4 (02:58→20:00)
[2017-02-12] MEDS: XYLOCAINE 2% JELLY UROJECT TOP PRN (03:11)
[2017-02-12] MEDS: PHENERGAN IV PRN (05:05)
[2017-02-12] MEDS: SODIUM CHLORIDE 0.9% INJ PRN (05:05)
[2017-02-12] MEDS: LACTULOSE PO SCH ×3 (05:05→20:05)
--- NOTE | 2017-02-12 06:07 | DISCHARGE SUMMARY ---
ADMISSION DATE: 02/02/2017 DISCHARGE DATE: DISCHARGE DIAGNOSES: 1. Subacute bacterial peritonitis. 2. Ascites, chronic reaccumulating, with end-stage liver disease and cirrhosis associated with BAILON (non-alcoholic steatohepatitis). 3. Hypoalbuminemia. 4. Malnutrition. 5. Early decubitus ulcers to the heels and buttocks. 6. Penile irritation from catheter, improving greatly. 7. Two-vessel coronary artery disease, rendering him not a candidate for liver transplantation per [facility] and [facility]. 8. Chronic renal insufficiency, stable. 9. Insulin dependent diabetes mellitus. 10. Anemia of chronic disease. 11. Situational depression. 12. History of left hip fracture about a month ago, slowly improving with physical therapy. 13. Do not resuscitate level 1. 14. Chronic constipation. PROCEDURES: Ultrasound-guided paracentesis 02/02/2017 and 02/11/2017. REASON FOR ADMISSION AND HOSPITAL COURSE: The patient is a 61-year-old white male, followed by myself and by Dr. Hurley. He came in with a white count elevation of 17,000. He has chronic ascites which is being drained off via therapeutic paracentesis about every [address] Hruley. The patient had elevation in white count and worsened abdominal swelling. Was thought to have subacute bacterial peritonitis. Ultrasound guided paracentesis was done on admission per Dr. Aaron Alegria with 6 L removed and the cultures were negative. The patient was maintained on Rocephin throughout hospitalization and he defervesced in regard to leukocytosis, with white count coming down to 12 by discharge. Hemoglobin remained stable around 11-12. Platelets were normal. Blood sugars remained in the mid to low 200s primarily. INR 1.24. Patient developed some early decubitus ulcers on his heels and also on his buttocks and wound care nurse worked in regard to this to improve this situation. The patient also had some penile irritation at the distal urethra and was treated with Bactroban ointment and lidocaine jelly, which seemed to improve that markedly. The patient was eating 25-50% of meals by discharge and he was participating in physical therapy regarding hip fracture he sustained about 3-4 weeks ago. He will return to rehab facility. Repeat therapeutic paracentesis will be performed prior to discharge to the rehab facility. DISCHARGE MEDICATIONS: 1. He will receive albumin 25%, 50 g IV x1 prior to the paracentesis. 2. He also will be on Bumex 1 mg p.o. q.a.m. 3. Colace 200 mg p.o. at bedtime. 4. Ferrous sulfate 325 mg p.o. daily. 5. NovoLog 70/30 insulin, 12 units subcutaneous q.a.m., 8 units subcu q. PM. 6. Lactulose 30 mL p.o. q.8 hours. 7. Lidocaine 2% jelly to the distal penis p.r.n. irritation. 8. Linzess 145 mcg p.o. daily. 9. Calmoseptine to the buttocks and heels daily. 10. Multivitamin one p.o. daily. 11. Bactroban ointment to the tip of the penis b.i.d. 12. Oxy IR 5 mg p.o. q.3 hours p.r.n. pain. 13. Protonix 40 mg p.o. daily. 14. Phenergan 25 mg p.o. q.6 hours p.r.n. nausea or vomiting. 15. Xifaxan 550 mg p.o. b.i.d. 16. Zoloft 50 mg p.o. daily. 17. Sucralfate 1 g p.o. q.i.d. 18. Leave him off further Rocephin at this time as he has completed a 10 day course of IV antibiotics and the cultures were negative. cc: Isaac Meyer MD
[2017-02-12] MEDS: PROTONIX PO SCH (06:51)
[2017-02-12 07:34] LABS: DIFF NEEDED? NO
[2017-02-12 08:05] LABS: WBC BF 2 /cumm
[2017-02-12] MEDS ORDERED: SODIUM CHLORIDE 0.9% 10 ML ONE (10:27)
[2017-02-12] MEDS: FERROUS SULFATE PO SCH (10:36)
[2017-02-12] MEDS: PERIDEX MT SCH ×2 (10:36→20:05)
[2017-02-12] MEDS: XIFAXAN PO SCH ×2 (10:36→20:04)
[2017-02-12] MEDS: LEVAQUIN PO SCH (10:37)
[2017-02-12] MEDS: ZOLOFT PO SCH (10:37)
[2017-02-12] MEDS: BUMEX PO SCH (10:37)
[2017-02-12] MEDS: CENTRUM SILVER PO SCH (10:37)
[2017-02-12] MEDS: BACTROBAN OINTMENT TOP SCH ×3 (10:37→20:18)
[2017-02-12] MEDS: LINZESS PO SCH (10:37)
[2017-02-12] MEDS: CARAFATE PO SCH ×4 (10:37→20:04)
[2017-02-12] MEDS: NOVOLOG MIX 70/30 SUBQ SCH ×2 (10:38→20:04)
[2017-02-12] MEDS: OXY IR PO PRN ×2 (10:40→20:04)
--- NOTE | 2017-02-12 15:58 | PROGRESS NOTE ---
DATE: 02/12/2017 SUBJECTIVE: Patient had an episode of nausea and vomiting this morning, back to his baseline now. The patient had therapeutic paracentesis yesterday successfully with numerous bottles of peritoneal fluid drained. He was unable to go to the rehabilitation facility due to administrative difficulties per [facility] which are being remedied. OBJECTIVE: Vital Signs: Afebrile, pulse 95, respirations 17, blood pressure 96/69. Cardiovascular: Regular rate and rhythm. Lungs: Clear to auscultation. Abdomen: Less ascites noted. Extremities: No significant edema. ASSESSMENT: 1. Spontaneous bacterial peritonitis . 2. Ascites, chronic, reaccumulating with end-stage liver disease and cirrhosis associated with nonalcoholic steatohepatitis. 3. Hypoalbuminemia. 4. Malnutrition. 5. Early decubitus ulcers to heels and buttocks. 6. Penile irritation related to catheter improving. 7. 2-vessel coronary artery disease. 8. Chronic renal insufficiency. 9. Insulin-dependent diabetes mellitus. 10. Anemia of chronic disease. 11. Situational depression. 12. History of left hip fracture about a month ago, improving slightly on physical therapy. 13. Do Not Resuscitate Level 1. 14. Chronic constipation. 15. History of deep vein thrombosis right arm, on chronic anticoagulation therapy. PLAN: 1. Resume Xarelto for the latter. 2. Continue Phenergan p.r.n. for nausea and vomiting. 3. Continue PPI in the form of Protonix. 4. Change from Rocephin to oral Levaquin for 10 days as recommended per Dr. Hurley. 5. We will transfer him to rehabilitation once bed available. cc: Isaac Meyer MD
[2017-02-12] MEDS: COLACE PO SCH (20:04)
[2017-02-12] MEDS: NS 1,000 ML IV SCH (20:05)
[2017-02-12] MEDS: CALMOSEPTINE OINTMENT TOP PRN (20:19)
[2017-02-13] MEDS: OXY IR PO PRN ×5 (00:28→21:12)
[2017-02-13] MEDS: ALBUTEROL NEB INH SCH ×4 (03:15→20:10)
[2017-02-13] MEDS: LACTULOSE PO SCH ×3 (06:11→21:10)
[2017-02-13] MEDS: PROTONIX PO SCH (06:13)
[2017-02-13] MEDS: XARELTO PO SCH (06:13)
[2017-02-13] MEDS: NOVOLOG MIX 70/30 SUBQ SCH ×2 (09:50→21:23)
[2017-02-13] MEDS: LEVAQUIN PO SCH (09:54)
[2017-02-13] MEDS: BUMEX PO SCH (09:54)
[2017-02-13] MEDS: ZOLOFT PO SCH (09:54)
[2017-02-13] MEDS: PERIDEX MT SCH ×2 (09:54→21:11)
[2017-02-13] MEDS: BACTROBAN OINTMENT TOP SCH ×3 (09:54→17:45)
[2017-02-13] MEDS: CARAFATE PO SCH ×5 (09:54→21:11)
[2017-02-13] MEDS: FERROUS SULFATE PO SCH (09:54)
[2017-02-13] MEDS: CENTRUM SILVER PO SCH (09:54)
[2017-02-13] MEDS: XIFAXAN PO SCH ×2 (09:54→21:09)
[2017-02-13] MEDS: LINZESS PO SCH (09:54)
[2017-02-13] MEDS: XYLOCAINE 2% JELLY UROJECT TOP PRN ×2 (11:31→20:54)
--- NOTE | 2017-02-13 14:23 | PROGRESS NOTE ---
DATE: 02/13/2017 SUBJECTIVE: 61-year-old white gentleman admitted to the hospital on 02/02/2017 basically for altered mental status, abdominal swelling with underlying cirrhosis of liver due to BAILON with multiple medical problems and subacute bacterial peritonitis and today patient is not offering any complaints. Waiting for placement. Apparently there is no bed available over the weekend. REVIEW OF SYSTEMS: HEENT: No headache. No sore throat. Cardiopulmonary: No chest pain, shortness of breath, PND, orthopnea. GI: No nausea, vomiting, abdominal pain. No swelling of feet. Neurologic: No focal symptoms or weakness. PAST MEDICAL HISTORY: Reviewed. PAST SURGICAL HISTORY: Reviewed. MEDICINES: Were reviewed. ALLERGIES: Morphine and Zofran. OBJECTIVE: Vital Signs: He is afebrile. Heart rate is 99, blood pressure is 101/69, room air 99%, I's and O's -1250. HEENT: Slightly cachectic face, sunken eyeballs, temporal wasting, mildly anemic. Chest: Clear. Heart: Sounds are regular. Belly: Is soft and no signs of peritonitis. Extremities: No peripheral edema, cyanosis, clubbing. LABS: No labs. Microbiology cultures so far negative on the peritoneal fluid. ASSESSMENT AND PLAN: 1. Cirrhosis of liver due to nonalcoholic steatohepatitis associated with ascites, ammonia encephalopathy stable. Continue on Xifaxan 550 p.o. b.i.d. Fluid restrictions. Daily weights. 2. History of subacute bacterial peritonitis so far negative on Levaquin 250 daily. 3. Depression on Zoloft. 4. Acid reflux disease on Protonix and Carafate. 5. Chronic pain from the left hip on oxycodone 5 every 3 hours. 6. Constipation on Linzess and lactulose. 7. Cirrhosis of liver due to ascites. Fluid restriction on Bumex 1 mg daily. 8. Living will, do not resuscitate. DISPOSITION: Waiting for rehab placement. Continue present medical therapy. Paperwork was done. Will be discharged as soon as bed is available. LEVEL OF DOCUMENTATION: Is 35 minutes. cc: MD Isaac Goldberg MD
[2017-02-13] MEDS: NS 1,000 ML IV SCH (18:26)
--- NOTE | 2017-02-13 20:44 | PROGRESS NOTE ---
DATE: 02/09/2017 SUBJECTIVE: Patient feels a little better. Still has back pain which is new also has some decubitus ulcers developing, he is followed by wound care. OBJECTIVE: Vital Signs: Afebrile, pulse of 100, respirations 20, blood pressure 96/64, O2 saturation 100%. HEENT: The scleral icterus present. Conjunctival pallor present. Heart: Tachycardia regular. Lungs: Normal. Abdomen: Ascites minimally tender. Extremities: No edema. Heels are under heel protectors. Neurologic: Nonfocal, no signs of hepatic encephalopathy. IMPRESSION AND PLAN: 1. Small-bowel obstruction. 2. Ascites, end-stage liver disease. 3. Coronary artery disease. 4. Chronic renal insufficiency. 5. Insulin-dependent diabetes mellitus. 6. Anemia. 7. Do not resuscitate level 1. 8. Decubitus ulcers. 9. Gastrointestinal prophylaxis. We will consider getting his abdomen tapped and recultured, will continue the antibiotics. Will plan on getting abdominal paracentesis done. Prognosis remains poor. cc: MD Isaac Bar MD
--- NOTE | 2017-02-13 20:45 | PROGRESS NOTE ---
DATE: 02/12/2017 SUBJECTIVE: The patient is not looking good at all, appears very weak. He had some nausea and vomiting but no hematemesis. He had a therapeutic paracentesis with several liters of fluid drained. Currently pending rehab placement. OBJECTIVE: Vital signs: Afebrile, pulse 95, respirations 17, blood pressure 96/69. Heart: Normal first and second heart sounds. Lungs: Clear. Abdomen: Less distended. Extremities: Minimal edema. IMPRESSION AND PLAN: 1. Spontaneous bacterial peritonitis . 2. Ascites. 3. . 4. Malnutrition. 5. Early decubitus ulcers. 6. Coronary artery disease. 7. Chronic renal insufficiency. 8. Insulin-dependent diabetes mellitus. 9. Depression. 10. Do not resuscitate level 1. 11. Prognosis is poor. Will continue GI prophylaxis. Phenergan p.r.n. for nausea. Continue antibiotics. Plan to move him to rehab when a bed is available. -7 cc: MD Isaac Bar MD
[2017-02-13] MEDS: COLACE PO SCH (21:11)
[2017-02-14] MEDS: ALBUTEROL NEB INH SCH ×4 (03:13→19:20)
[2017-02-14] MEDS: LACTULOSE PO SCH ×3 (05:42→21:07)
[2017-02-14] MEDS: XARELTO PO SCH (05:42)
[2017-02-14] MEDS: XYLOCAINE 2% JELLY UROJECT TOP PRN ×3 (05:52→16:55)
[2017-02-14] MEDS: PROTONIX PO SCH (06:00)
[2017-02-14] MEDS: CENTRUM SILVER PO SCH (08:50)
[2017-02-14] MEDS: ZOLOFT PO SCH (08:50)
[2017-02-14] MEDS: FERROUS SULFATE PO SCH (08:50)
[2017-02-14] MEDS: LEVAQUIN PO SCH (08:50)
[2017-02-14] MEDS: BACTROBAN OINTMENT TOP SCH ×3 (08:50→16:55)
[2017-02-14] MEDS: BUMEX PO SCH (08:50)
[2017-02-14] MEDS: XIFAXAN PO SCH ×2 (08:50→21:06)
[2017-02-14] MEDS: LINZESS PO SCH (08:50)
[2017-02-14] MEDS: NOVOLOG MIX 70/30 SUBQ SCH ×2 (08:51→21:07)
[2017-02-14] MEDS: PERIDEX MT SCH ×2 (08:51→21:07)
[2017-02-14] MEDS: OXY IR PO PRN ×2 (09:07→14:49)
[2017-02-14] MEDS: CARAFATE PO SCH (11:35)
--- NOTE | 2017-02-14 14:22 | PROGRESS NOTE ---
DATE: 02/14/2017 SUBJECTIVE: Patient is doing very well. No complaints. Waiting for placement. Bedridden. REVIEW OF SYSTEMS: None reported. OBJECTIVE: Vital signs: Temperature 98, pulse is 106, blood pressure is 108/72, room air 100%. I's and O's negative 640. HEENT: Sunken eyeballs. Pale. Neck: Supple. Chest: Clear. Heart: Sounds are regular. Abdomen: Belly is soft. Moderate ascites noted. Extremities: No peripheral edema. LABORATORY: Blood sugars running 120. ASSESSMENT AND PLAN: 1. Cirrhosis of the liver due to nonalcoholic steatohepatitis with ascites and ammonia encephalopathy, stable. Continue present medical therapy with Zyvox, fluid restriction, daily weights. 2. History of subacute bacterial peritonitis. On Levaquin. 3. Constipation. On Linzess and lactulose. 4. Chronic pain of the left hip. On oxycodone. 5. Living Will, Do Not Resuscitate. 6. Continue present medical therapy. Waiting for rehab placement in the morning. They have some issues with administration. LEVEL OF DOCUMENTATION: 15 minutes. cc: MD Isaac Goldberg MD
[2017-02-14] MEDS: CARAFATE LIQUID PO SCH ×3 (14:49→21:07)
[2017-02-14] MEDS ORDERED: INSULIN PEN NEEDLES ONE (16:35)
[2017-02-14] MEDS: NS 1,000 ML IV SCH (17:31)
[2017-02-14] MEDS: PHENERGAN PO PRN (21:06)
[2017-02-14] MEDS: COLACE PO SCH (21:06)
[2017-02-15] MEDS: CARAFATE LIQUID PO SCH ×3 (01:35→13:41)
[2017-02-15] MEDS: ALBUTEROL NEB INH SCH ×2 (03:17→07:31)
[2017-02-15] MEDS: XARELTO PO SCH (06:08)
[2017-02-15] MEDS: PROTONIX PO SCH (06:08)
[2017-02-15] MEDS: LACTULOSE PO SCH ×2 (06:08→13:41)
[2017-02-15] MEDS: OXY IR PO PRN (06:17)
[2017-02-15] MEDS: FERROUS SULFATE PO SCH (08:41)
[2017-02-15] MEDS: BUMEX PO SCH (08:41)
[2017-02-15] MEDS: ZOLOFT PO SCH (08:41)
[2017-02-15] MEDS: LINZESS PO SCH (08:41)
[2017-02-15] MEDS: LEVAQUIN PO SCH (08:42)
[2017-02-15] MEDS: PERIDEX MT SCH (08:42)
[2017-02-15] MEDS: CENTRUM SILVER PO SCH (08:42)
[2017-02-15] MEDS: XIFAXAN PO SCH (08:42)
[2017-02-15] MEDS: BACTROBAN OINTMENT TOP SCH ×3 (08:43→16:04)
[2017-02-15] MEDS: NOVOLOG MIX 70/30 SUBQ SCH (08:44)
--- NOTE | 2017-02-15 11:21 | PROGRESS NOTE ---
DATE: 02/15/2017 SUBJECTIVE: Mr. Go is resting in bed. He denies any new complaints. He denies any fevers, rigors, or chills. Denies any nausea or vomiting. He had soft brown stool today. PHYSICAL EXAMINATION: Vital Signs: Temperature of 98.6 degrees, pulse rate of 105, respiratory rate 20, blood pressure 92/69, saturating 100% on room air. General Appearance. He is moderately built, moderately nourished. Lying in bed, in no acute distress. HEENT: Mild pallor. No icterus. Neck: Supple. Abdomen: Mildly distended. Positive ascites. No guarding or rebound. Extremities: No cyanosis or clubbing. Mild lower extremity edema. Neurological: He is alert, awake, oriented x3. LABS: His blood glucose is 145. All the labs are old. He had a paracentesis done on 02/11/2017. He had 8 L of thin yellowish fluid removed without difficulty. IMPRESSION AND PLAN: 1. Nonalcoholic steatohepatitis complicated with liver cirrhosis. Continue to follow liver enzymes. Avoid any hepatotoxic drugs. 2. History of spontaneous bacterial peritonitis. Continue on Levaquin for 10 days. 3. Ascites. Give him Bumex. His Aldactone had been held in the past because of high potassium. 4. Gastrointestinal prophylaxis with proton pump inhibitors. 5. Constipation. Continue lactulose and Linzess. 6. Renal insufficiency. Continue to watch for now. 7. Hepatic encephalopathy. Continue on Xifaxan and lactulose. 8. The patient has a new sacral decubitus ulcer. In that regard, the patient is recommended to be turned every hour on each side and may be able to start sitting up in the chair if okay with the primary care team. 9. The above plan was discussed with the patient and nurse. All questions were answered. cc: MD Isaac Espinoza MD
[2017-02-15] MEDS: NS 1,000 ML IV SCH (13:37)
[2017-02-15] MEDS: XYLOCAINE 2% JELLY UROJECT TOP PRN ×2 (13:38→16:05)
--- NOTE | 2017-02-15 14:55 | PROGRESS NOTE ---
DATE: 02/15/2017 SUBJECTIVE: Patient remains stable. Some irritation from the catheter. OBJECTIVE: Afebrile. Vital signs stable. Overall poor p.o. intake. CV: RRR. Lungs: CTA. Ascites is building back. Abdomen: In active bowel sounds. Extremities: Trace lower extremity edema. Neuro: Nonfocal. ASSESSMENT: 1. Spontaneous bacterial peritonitis. 2. Ascites/cirrhosis/BAILON. 3. Hypoalbuminemia. 4. Malnutrition. 5. Early decubitus ulcer heels and buttocks. 6. Penile irritation related to Givens catheter. 7. Two vessel coronary artery disease. 8. Chronic renal insufficiency. 9. Insulin dependent diabetes mellitus. 10. Anemia of chronic disease. 11. Situational depression. 12. History of left hip fracture about a month ago, undergoing physical therapy. 13. Do not resuscitate level 1. 14. Chronic constipation. 15. History of deep venous thrombosis right arm, remote. On chronic anticoagulation. PLAN: Still waiting for a bed to become available at rehab and will discharge him there as soon as possible. Continue physical therapy and stable medications he is on to include Levaquin. Will try to discontinue his Givens catheter so as to get rid of the penile irritation and place him on diapers. cc: Isaac Meyer MD
[2017-02-16] MEDS: CARAFATE LIQUID PO SCH ×4 (00:08→14:00)
[2017-02-16] MEDS: LACTULOSE PO SCH ×3 (00:08→14:00)
[2017-02-16] MEDS: COLACE PO SCH (00:08)
[2017-02-16] MEDS: PERIDEX MT SCH ×2 (00:08→10:02)
[2017-02-16] MEDS: XIFAXAN PO SCH ×3 (00:11→10:26)
[2017-02-16] MEDS: NOVOLOG MIX 70/30 SUBQ SCH ×2 (00:29→10:02)
[2017-02-16] MEDS: XYLOCAINE 2% JELLY UROJECT TOP PRN (00:30)
[2017-02-16] MEDS: XARELTO PO SCH (06:35)
[2017-02-16] MEDS: PROTONIX PO SCH (06:35)
[2017-02-16] MEDS: ALBUTEROL NEB INH SCH ×3 (07:44→15:28)
[2017-02-16] MEDS: BUMEX PO SCH (10:02)
[2017-02-16] MEDS: LINZESS PO SCH (10:02)
[2017-02-16] MEDS: OXY IR PO PRN ×3 (10:02→17:19)
[2017-02-16] MEDS: FERROUS SULFATE PO SCH (10:03)
[2017-02-16] MEDS: CENTRUM SILVER PO SCH ×2 (10:03→10:26)
[2017-02-16] MEDS: ZOLOFT PO SCH (10:03)
[2017-02-16] MEDS: LEVAQUIN PO SCH (10:03)
[2017-02-16] MEDS: BACTROBAN OINTMENT TOP SCH ×3 (10:04→17:19)
--- NOTE | 2017-02-16 13:40 | PROGRESS NOTE ---
DATE: 02/16/2017 SUBJECTIVE: Patient remains stable. Givens catheter has been removed. Still he is having some possible mild urinary retention and the Givens may had to be replaced. OBJECTIVE: Afebrile, pulse is low 100s. Blood pressure 92/65. O2 saturation room air 100%. Cardiovascular: RRR. Lungs: CTA. Abdomen: Prominent ascites of the abdomen worsening. Extremities: No significant edema. Neurologic: Nonfocal. ASSESSMENT: 1. SBP improved. 2. Ascites/cirrhosis/BAILON. 3. Hypoalbuminemia. 4. Malnutrition. 5. Early decubitus ulcers heels and buttocks. 6. Penile irritation improved. We are trying to leave him off the Givens catheter. 7. Two vessel CAD. 8. Chronic renal insufficiency. 9. Insulin-dependent diabetes mellitus. 10. Anemia of chronic disease. 11. Situational depression. 12. History of left hip fracture about a month ago. Still undergoing physical therapy. 13. Do not resuscitate level 1. 14. Chronic constipation. 15. History of remote deep venous thrombosis right arm on chronic anticoagulation. PLAN: For now continue to leave out the Givens catheter monitoring his urine output. Continue Levaquin per Dr. Hurley's recommendation. Continue liver medications. He is still undergoing evaluation for possible return to rehab facility as where he came from. We will repeat some labs in the morning and may need to repeat therapeutic paracentesis prior to discharge this week if a bed becomes available. cc: Isaac Meyer MD
[2017-02-16] MEDS: PHENERGAN IV PRN (14:08)
[2017-02-16] MEDS: SODIUM CHLORIDE 0.9% INJ PRN (14:08)
[2017-02-16 14:17] VITALS: BP 91/56
--- NOTE | 2017-02-16 15:39 | DISCHARGE SUMMARY ---
ADMISSION DATE: 02/02/2017 DISCHARGE DATE: ADDENDUM: ACTUAL DATE OF DISCHARGE: 02/16/2017 DISCHARGE DIAGNOSES: Same as listed on discharge summary dictated on 02/11/2017. ADDENDUM: DISCHARGE MEDICATIONS: Patient will be placed on Levaquin 250 mg p.o. daily for an additional 7 days to cover him for SBP. Other medications are as outlined on previous discharge summary. The last 4 days or so of the hospitalization were administrative in nature. Physical therapy continued to work with the patient. director of special services were trying to obtain a rehab bed, which was finally obtained on 02/16/2017 and the patient will be moved there for continued rehab therapy regarding his left hip. Changes made in the last 4 days included his Givens catheter was removed and he will need to be monitored closely for urine output and the catheter replaced if he is unable to urinate well. Patient also may require repeat therapeutic paracentesis within the next week as he builds the ascites back. 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 Patient will need b.i.d. blood sugar checks with monitoring on his current insulin regimen. cc: Isaac Meyer MD
[2017-02-16] MEDS: NS 1,000 ML IV SCH (17:20)
== END 2017-02-16 18:35 ==
LOC: ED 11:03 → EDIPHOLD 16:25 → 3S 02-03 04:08 → 3N 02-09 13:22
PROVIDERS: ADMIT Family Medicine; ATTEND Family Medicine